=== PATIENT | female | born 1950 | race Caucasian/White ===

== ENCOUNTER → 2019-10-21 10:54 | Outpatient (BNVA) | payer MEDICARE, MEDICAID, SELFPAY | PROVIDERS: Family Provider Family Medicine; PCP Family Medicine; Visit Provider Specialist | DX: M25.531 Pain in right wrist (principal); M19.031 Primary osteoarthritis, right wrist | CPT/HCPCS: 73110 ==

== ENCOUNTER 2019-12-03 16:06 | Outpatient (CLI) | payer MEDICARE, MEDICAID, SELFPAY ==
[2019-12-03 16:49] LABS: Hematocrit 36.2 % (37.0-47.0); Hemoglobin 10.5 g/dL (11.5-15.3); Mean Corpuscular Hemoglobin 24.4 pg (28.0-34.0); Mean Platelet Volume 10.5 fL (7.4-10.4); Platelet Count 354 10^3/cmm (130-400); Red Blood Count 4.31 10^6/uL (4.1-5.3); Red Cell Distribution Width 15.7 % (12.1-15.1); White Blood Count 6.1 10^3/uL (4.0-10.0)
[2019-12-03 17:12] LABS: Alanine Aminotransferase 10 U/L (0-33); Albumin Level 4.3 g/dL (3.5-5.2); Alkaline Phosphatase 58 IU/L (35-105); Anion Gap 17.1 (5-19); Aspartate Amino Transferase 19 U/L (0-32); Blood Urea Nitrogen 12 mg/dL (8-23); Calcium 10.1 mg/dL (8.5-10.5); Carbon Dioxide 27 mmol/L (22-29); Chloride 95 mmol/L (98-107); Globulin 3.5 g/dL (1.3-4.6); Glomerular Filtration Rate 55.1 mL/min (90-130); Glucose 105 mg/dL (65-115); Osmolality Calculated 276 mOsm/kg (285-295); Potassium 4.1 mmol/L (3.5-5.1); Sodium 135 mmol/L (136-145); Total Bilirubin 0.2 mg/dL (0.15-1.2); Total Protein 7.8 g/dL (6.6-8.7)
[2019-12-03 17:21] LABS: Estmated Average Glucose 117; Hemoglobin A1C 5.7 % (4.0-6.0)
[2019-12-03 17:28] LABS: 25 Hydroxy Vitamin D 33 ng/mL (30-100)
[2019-12-03 17:29] LABS: Absolute Eosinophils 0.1 10^3/cmm (0.0-0.7); Absolute Segmented Neutrophil 4.7 10/cmm (1.6-7.1); Basophils Absolute 0.1 10^3/cmm (0.0-0.2); Eosinophils 2 %; Lymphocytes 17 %; Monocytes Absolute 0.1 10^3/cmm (0.1-0.6); Segmented Neutrophils 78 %; Total Cells Counted 100 (0-100)
[2019-12-03 17:31] LABS: Platelet Estimate Normal (Normal)
== END 2019-12-03 16:07 | disposition home or self-care (01) ==
PROVIDERS: Family Provider Family Medicine; PCP Family Medicine; Visit Provider Family Medicine
DX: J44.9 Chronic obstructive pulmonary disease, unspecified (principal)
CPT/HCPCS: 80053; 82306; 83036; 85007; 85027

== ENCOUNTER 2020-04-06 14:46 | Outpatient (CLI) | payer MEDICARE, MEDICAID, SELFPAY ==
[2020-04-06 15:12] LABS: Basophils # 0.1 10^3/uL (0.0-0.1); Basophils % 0.8 %; Eosinophils # 0.1 10^3/uL (0.0-0.8); Eosinophils % 1.5 %; Hematocrit 40.1 % (37.0-47.0); Hemoglobin 12.3 g/dL (11.5-15.3); Lymphocytes % 14.6 %; Mean Corpuscular HGB Conc 30.7 g/dL (30.0-36.0); Mean Corpuscular Hemoglobin 27.5 pg (28.0-34.0); Mean Corpuscular Volume 89.5 fL (81-99); Mean Platelet Volume 10.6 fL (7.4-10.4); Monocytes # 0.4 10^3/uL (0.2-0.9); Monocytes % 5.3 %; Neutrophils # 5.13 10^3/uL (1.8-7.7); Neutrophils % 77.3 %; Nucleated Red Blood Cells % 0 %; Platelet Count 319 10^3/cmm (130-400); Red Blood Count 4.48 10^6/uL (4.1-5.3); Red Cell Distribution Width 13.9 % (12.1-15.1); White Blood Count 6.6 10^3/uL (4.0-10.0)
[2020-04-06 17:01] LABS: Alanine Aminotransferase 14 U/L (0-33); Albumin Level 4.3 g/dL (3.5-5.2); Alkaline Phosphatase 50 IU/L (35-105); Anion Gap 15.3 (5-19); Aspartate Amino Transferase 20 U/L (0-32); Blood Urea Nitrogen 12 mg/dL (8-23); Calcium 9.1 mg/dL (8.5-10.5); Carbon Dioxide 26 mmol/L (22-29); Chloride 97 mmol/L (98-107); Estmated Average Glucose 108; Glomerular Filtration Rate 55.1 mL/min (90-130); Glucose 115 mg/dL (65-115); Hemoglobin A1C 5.4 % (4.0-6.0); Osmolality Calculated 275 mOsm/kg (285-295); Potassium 4.3 mmol/L (3.5-5.1); Sodium 134 mmol/L (136-145); Total Bilirubin 0.2 mg/dL (0.15-1.2); Total Protein 7.3 g/dL (6.6-8.7)
== END 2020-04-06 14:47 | disposition home or self-care (01) ==
LOC: LAB 14:55
PROVIDERS: PCP Family Medicine; Visit Provider Family Medicine
DX: E55.9 Vitamin D deficiency, unspecified (principal); N28.9 Disorder of kidney and ureter, unspecified; D64.9 Anemia, unspecified; J44.9 Chronic obstructive pulmonary disease, unspecified
CPT/HCPCS: 80053; 83036; 85025

== ENCOUNTER 2020-07-17 16:22 | Outpatient (CLI) | payer MEDICAID, SELFPAY ==
[2020-07-17 16:53] LABS: Basophils # 0.1 10^3/uL (0.0-0.1); Basophils % 0.6 %; Eosinophils # 0.3 10^3/uL (0.0-0.8); Eosinophils % 3.2 %; Hematocrit 43.8 % (37.0-47.0); Hemoglobin 13.3 g/dL (11.5-15.3); Lymphocytes # 1.9 10^3/uL (0.8-4.8); Lymphocytes % 19.3 %; Mean Corpuscular HGB Conc 30.4 g/dL (30.0-36.0); Mean Corpuscular Hemoglobin 28.1 pg (28.0-34.0); Mean Corpuscular Volume 92.4 fL (81-99); Mean Platelet Volume 11.1 fL (7.4-10.4); Monocytes # 0.7 10^3/uL (0.2-0.9); Monocytes % 7.6 %; Neutrophils # 6.67 10^3/uL (1.8-7.7); Nucleated Red Blood Cells % 0 %; Platelet Count 315 10^3/cmm (130-400); Red Blood Count 4.74 10^6/uL (4.1-5.3); Red Cell Distribution Width 12.9 % (12.1-15.1); White Blood Count 9.7 10^3/uL (4.0-10.0)
[2020-07-17 17:59] LABS: 25 Hydroxy Vitamin D 25 ng/mL (30-100); Alanine Aminotransferase 15 U/L (0-33); Albumin Level 4.4 g/dL (3.5-5.2); Alkaline Phosphatase 49 IU/L (35-105); Anion Gap 16.1 (5-19); Aspartate Amino Transferase 19 U/L (0-32); Blood Urea Nitrogen 11 mg/dL (8-23); Calcium 9.9 mg/dL (8.5-10.5); Carbon Dioxide 29 mmol/L (22-29); Chloride 97 mmol/L (98-107); Chol HDL Ratio 1.87 mg/dL (0.0-4.40); Cholesterol 155 mg/dL (0-200); Globulin 2.7 g/dL (1.3-4.6); Glomerular Filtration Rate 44.7 mL/min (90-130); Glucose 86 mg/dL (65-115); HDL Cholesterol 83 mg/dL (60-100); LDL Cholesterol Calculated 50 mg/dL (50-129); Osmolality Calculated 283 mOsm/kg (285-295); Potassium 5.1 mmol/L (3.5-5.1); Sodium 137 mmol/L (136-145); Total Bilirubin 0.4 mg/dL (0.15-1.2); Total Protein 7.1 g/dL (6.6-8.7); Triglycerides 109 mg/dL (0-150)
[2020-07-17 18:14] LABS: Estmated Average Glucose 108; Hemoglobin A1C 5.4 % (4.0-6.0)
== END 2020-07-17 16:23 | disposition home or self-care (01) ==
LOC: LAB 16:36
PROVIDERS: PCP Family Medicine; Visit Provider Family Medicine
DX: N28.9 Disorder of kidney and ureter, unspecified (principal); R53.81 Other malaise; J44.1 Chronic obstructive pulmonary disease with (acute) exacerbation; F19.20 Other psychoactive substance dependence, uncomplicated; E55.9 Vitamin D deficiency, unspecified; D64.9 Anemia, unspecified; M19.90 Unspecified osteoarthritis, unspecified site
CPT/HCPCS: 80053; 80061; 82306; 83036; 85025

== ENCOUNTER 2021-09-01 00:40 | Emergency (ER) | payer MEDICARE, MEDICAID, SELFPAY ==
[2021-09-01] VITALS (8 sets, daily range): BP systolic 125–176; BP diastolic 73–95; PULSE 89–111; RESP 22–28; TEMP 36.6; O2SAT 96–100; BMI 33.3
--- NOTE | 2021-09-01 01:27 | XRR_ITS ---
PROCEDURE INFORMATION: Exam: XR Chest Exam date and time: 09/01/2021 1:27 AM Age: 70 years old Clinical indication: Shortness of breath; Patient HX: C/O SOB. History of copd. TECHNIQUE: Imaging protocol: XR of the chest. Views: 1 view. COMPARISON: CR Chest 1 [place] [id number] 04/11/2019 9:32 PM FINDINGS: Lungs: Unremarkable. No consolidation. Pleural spaces: Unremarkable. No pleural effusion. No pneumothorax. Heart/Mediastinum: Unremarkable. No cardiomegaly. Bones/joints: Unremarkable. XR/XR chest 1V portable [id number] IMPRESSION: No acute findings. Stable chest radiograph compared with 04/11/2019.
--- NOTE | 2021-09-01 01:28 | ECG_ITS ---
[facility] Test Date: 2021-09-01 Pat Name: Ksenia Phan Department: Room: Gender: Female Brake Holder: : 1950 Requested By: Nirav Mata Order Number: [id number] Leyva MD: Breonna Riley M.D. Measurements Intervals [place] Rate: 108 P: 76 [place]: 155 QRS: 65 QRSD: 93 T: 80 QT: 328 QTc: 441 Interpretive Statements SINUS TACHYCARDIA POSSIBLE LEFT ATRIAL ENLARGEMENT [-0.1mV P-WAVE IN V1/V2] LEFT VENTRICULAR HYPERTROPHY AND ST-T CHANGE [VOLTAGE CRITERIA PLUS ST/T ABNORMALITY] Compared to ECG 04/12/2019 09:08:48 Left ventricular hypertrophy now present ST (T wave) deviation now present Aberrant conduction of supraventricular beat(s) no longer present Ventricular premature complex(es) no longer present T-wave abnormality no longer present Possible ischemia no longer present Electronically Signed On 09-02-2021 8:17:44 POTLINE MONITOR by Breonna Riley M.D. [id number]
[2021-09-01 01:38] LABS: Basophils # 0.1 10^3/uL (0.0-0.1); Basophils % 0.3 %; Eosinophils # 0.1 10^3/uL (0.0-0.8); Eosinophils % 0.4 %; Hematocrit 39.1 % (37.0-47.0); Hemoglobin 12.4 g/dL (11.5-15.3); Lymphocytes # 0.8 10^3/uL (0.8-4.8); Lymphocytes % 4.4 %; Mean Corpuscular HGB Conc 31.7 g/dL (30.0-36.0); Mean Corpuscular Hemoglobin 29.1 pg (28.0-34.0); Mean Corpuscular Volume 91.8 fl (81-99); Mean Platelet Volume 11.1 fL (7.4-10.4); Monocytes # 0.9 10^3/uL (0.2-0.9); Monocytes % 4.9 %; Neutrophils % 89.3 %; Nucleated Red Blood Cells % 0 %; Platelet Count 291 10^3/cmm (130-400); Red Blood Count 4.26 10^6/uL (4.1-5.3); Red Cell Distribution Width 12.6 % (12.1-15.1); White Blood Count 18.4 10^3/uL (4.0-10.0)
[2021-09-01 01:44] LABS: D Dimer 1.53 ug/mIFEU (0-0.59)
[2021-09-01 01:47] LABS: Lactic Sepsis W/Reflex 1.3 mmol/L (0.5-2.2)
[2021-09-01 01:49] LABS: Troponin(5th) Baseline 50 ng/L (0-10)
[2021-09-01] MEDS: FUROsemide 10 mg/mL SDV 4mL 40 MG IVP (01:53)
[2021-09-01 01:59] LABS: NT Pro B Type Natriuretic Pept 872 pg/mL (0-125); Procalcitonin 0.77 ng/mL (0-0.5)
[2021-09-01 02:00] LABS: Urine Color Yellow (Yellow); pH Urine 6 (5-7)
[2021-09-01 02:01] LABS: Add Urine Microscopic? YES; Bilirubin Urine Neg (Negative); Blood Urine 2+ (Negative); Glucose Urine UA Norm (Normal); Ketones Urine Negative (Negative); Leukocyte Esterase Urine 2+ (Negative); Nitrate Urine Positive (Negative); Protein Urine 1+ (Negative); Urobilinogen Urine Norm (Negative)
[2021-09-01 02:06] LABS: Add Urine Culture? Yes; Bacteria Urine 4+ /hpf; Mucus Urine 2+ /hpf; RBC Urine 15-25 /hpf (0-2); WBC Urine TOO NUMEROUS TO CNT /hpf (0-5)
[2021-09-01 02:10] LABS: Alanine Aminotransferase 10 U/L (0-33); Alkaline Phosphatase 51 IU/L (35-105); Anion Gap 15.6 (5-19); Aspartate Amino Transferase 16 U/L (0-32); Blood Urea Nitrogen 11 mg/dL (8-23); C Reactive Protein 65.4 mg/L (0.0-4.9); Calcium 8.6 mg/dL (8.5-10.5); Carbon Dioxide 28 mmol/L (22-29); Chloride 96 mmol/L (98-107); Globulin 2.3 g/dL (1.3-4.6); Glomerular Filtration Rate 62.1 mL/min (90-130); Glucose 111 mg/dL (65-115); Osmolality Calculated 282 mOsm/kg (285-295); Potassium 3.6 mmol/L (3.5-5.1); Sodium 136 mmol/L (136-145); Total Bilirubin 0.5 mg/dL (0.15-1.2); Total Protein 6.3 g/dL (6.6-8.7)
[2021-09-01] MEDS: ipratropium-albuterol 3 mL Neb INHALATION (02:11)
[2021-09-01 02:28] LABS: ABG PCO2 48.1 mmHg (35-45); ABG PH Result 7.44 (7.35-7.45); Arterial Blood Gas Hematocrit 40.1 % (37-47); Base Excess ABG 7.4 mmol/L (-2.0-2.0); Blood Gas Allen Test Pos; Blood Gas LPM 4.5 %; Blood Gas Operator Identificat glc; Blood Gas Sample Site Radial, left; Blood Gas Sample Type Arterial; Carboxyhemoglobin 0.8 %THgb (0.4-20.1); HCO3 ABG 32.8 mmol/L (22-26); HGB O2 Sat 97.2 % (95-100); Methemoglobin 0.8 % (0.4-1.5); Oxygen Device NC; Total Hemoglobin 13.1 g/dL (12-16)
--- NOTE | 2021-09-01 02:45 | CTR_ITS ---
PROCEDURE INFORMATION: Exam: CTA Chest With Contrast Exam date and time: 09/01/2021 2:45 AM Age: 70 years old Clinical indication: Abnormal findings; Abnormal diagnostic tests; Elevated d-dimer; Shortness of breath; Patient HX: C/O SOB. Elevated d dimer. History of copd. TECHNIQUE: Imaging protocol: Computed tomographic angiography of the chest with contrast. 3D rendering (Not supervised by radiologist): MIP and/or 3D reconstructed images were created by the technologist. Radiation optimization: All CT scans at this facility use at least one of these dose optimization techniques: automated exposure control; mA and/or kV adjustment per patient size (includes targeted exams where dose is matched to clinical indication); or iterative reconstruction. Contrast material: OMNI 350; Contrast volume: 125 ml; Contrast route: INTRAVENOUS (IV); COMPARISON: CT chest w con* [id number] 08/27/2017 10:02 AM RADIATION DOSE METRICS: Total DLP (mGy-cm): 1157.21 FINDINGS: Pulmonary arteries: Normal. No pulmonary emboli. Aorta: Unremarkable. No aortic aneurysm. No aortic dissection. Lungs: There is a background of centrilobular emphysema and pulmonary fibrosis. Punctate calcified granulomas are seen in the right upper lobe. Pleural spaces: Unremarkable. No pneumothorax. No pleural effusion. Heart: Unremarkable. No cardiomegaly. No pericardial effusion. Lymph nodes: Unremarkable. No enlarged lymph nodes. Kidneys and ureters: There is 11.4 mm hypoattenuation cystic lesions seen on the lateral aspect of the left kidney compatible with a simple cyst. Bones/joints: Unremarkable. No acute fracture. Soft tissues: Unremarkable. CT/CT angio chest PE protcl [id number] IMPRESSION: 1. There is no evidence for pulmonary emboli. 2. Background of centrilobular emphysema and pulmonary fibrosis. 3. Benign 11.4 mm hypoattenuation cyst within the left kidney. No further workup needed. COMMENTS: Consistent with the [employer]'s Incidental Findings Committee white paper (J Am Sarah Radiol 2018): Any incidental renal lesion less than 1 cm or classified as too small to characterize, or any incidental cystic renal lesion characterized as simple-appearing, is likely benign. No follow-up imaging is recommended for these lesions per consensus recommendations based on imaging criteria.
--- NOTE | 2021-09-01 02:48 | ED_ITS ---
HPI - SOB/Dyspnea General: Chief Complaint: Shortness of Breath/Dyspnea Stated Complaint: SOB Time Seen by Provider: 09/01/21 00:48 History of Present Illness: HPI Narrative: 70-year-old female presenting with essentially a sudden onset shortness of breath. She states that she was in her normal state of health, on 3 L of oxygen earlier Friday. She states that around 9 PM, she began to get short of breath. She gave herself a breathing treatment, and her turned up her oxygen at home some. She states that she continued to worsen despite this. He called an ambulance. In route, she was given Solu-Medrol. She denies any fever. She states she has not had any increased cough necessarily. Minimal sputum production. She has had 2 Covid vaccinations. No known contacts MD elicited complaint: shortness of breath Pertinent past history: COPD Onset (ago): hour(s) Context: other Timing: constant and progressively worsening Severity: moderate Exacerbating factors: lying flat and exertion Relieving factors: nothing Known history of: COPD Associated symptoms: Reports chest congestion and cough (Minimal); Deny abdominal pain, chest pain, diaphoresis, dizziness, fever(s), nausea or palpitations Treatment prior to arrival: oxygen and other (Steroids) Review of Systems Const: Denies: fever(s) or diaphoresis Card: Denies: chest pain or palpitations Resp: Reports: chest congestion GI: Denies: abdominal pain or nausea Neuro: Denies: dizziness [facility] PFSH: Medical History (Updated 09/01/21 @ 04:05 by Nirav Nolasco DO) COPD (chronic obstructive pulmonary disease) Degenerative joint disease of right wrist Dyslipidemia Fibromyalgia HTN (hypertension) Hypertension WPW (Tamut-Armbdhvqp-Pxail syndrome) Surgical History H/O: hysterectomy Hx of hand surgery Family History Mother Hypertension Denies family history of Diabetes CAD (coronary artery disease) Clotting disorder Dementia Hyperlipidemia Psychiatric illness Chronic kidney disease (CKD) Suicide Anesthesia complication Bleeding disorder Family history of premature coronary artery disease Lung disease Cancer Stroke Social History Smoking and tobacco status: former smoker Quit status (tobacco): has quit using tobacco Year quit tobacco: 5 years ago Alcohol intake: never Physical Exam Const: COMMON NORMALS: patient oriented x3 and alert GENERAL APPEARANCE: ill appearing HENMT: COMMON NORMALS: normocephalic and atraumatic HEAD & SCALP: normocephalic and atraumatic Eye: COMMON NORMALS: Equal, round and reactive pupils present and EOMs intact bilaterally PUPIL: Yes Equal, round and reactive pupils present Chest: COMMONS NORMALS: normal inspection of the chest Resp: EFFORT & INSPECTION: Yes tachypneic, Yes respiratory distress, Yes la bored and Yes prolonged expiratory phase AUSCULTATION: rhonchi and wheezes Cardio: COMMON NORMALS: regular rhythm RATE: tachycardic RHYTHM: regular rhythm GI: COMMON NORMALS: Normal to inspection, nondistended, normoactive bowel sounds present and Soft to palpation PALPATION: Yes Soft to palpation Neuro: COMMON NORMALS: patient oriented x3 SENSORIUM/ORIENTATION: Yes alert Course Vital Signs: Vital signs: Vital Signs Temperature 97.8 F 09/01/21 01:14 Pulse Rate 89 09/01/21 03:58 Respiratory Rate 22 H 09/01/21 03:58 Blood Pressure 128/91 09/01/21 02:28 Pulse Oximetry 100 09/01/21 03:58 MDM - SOB/Dyspnea MDM Narrative: Medical decision making narrative: Mild to moderate respiratory distress despite increased oxygen consumption and steroids in route. She was gi breanne an Atrovent/albuterol treatment here with some improvement. She still wheezing. She has an increased O2 demand, on 4.5 L up from 3. Her blood gas shows a pH of 7.4 with a PCO2 of 48, and PO2 of 100. She has sinus tachycardia on EKG, with a mild elevation in troponin in the setting of a normal renal function, and mild elevation in BNP. Trope leak could come from a pulmonary embolus, as her D-dimer is significantly elevated. CTA is pending. Her COVID- 19 is pending as well. Troponin did not elevate significantly at 2 hours. She has no chest pain. Clinically she looks much improved. She wishes to go home. She does have a urinary tract infection. No evidence of pneumonia, although we will cover her for COPD exacerbation and UTI with Levaquin. She received Rocephin here. Lab Data: Labs: Lab Results 09/01/21 09/01/21 09/01/21 00:48 00:48 00:48 WBC 18.4 10^3/uL H 10 ^3/uL (4.0-10.0) RBC 4.26 10^6/uL 10^6 /uL (4.1-5.3) Hgb 12.4 g/dL g/dL (11.5-15.3) Hct 39.1 % % (37.0-47.0) MCV 91.8 fl fl (81-99) MCH 29.1 pg pg (28.0-34.0) MCHC 31.7 g/dL g/dL (30.0-36.0) RDW 12.6 % % (12.1-15.1) Plt Count 291 10^3/cmm 10^3 /cmm (130-400) MPV 11.1 fL H fL (7.4-10.4) Neut % (Auto) 89.3 % % Lymph % (Auto) 4.4 % % [place] % (Auto) 4.9 % % Eos % (Auto) 0.4 % % Baso % (Auto) 0.3 % % Neut # (Auto) 16.40 10^3/uL H 1 0^3/uL (1.8-7.7) Lymph # (Auto) 0.8 10^3/uL 10^3/ uL (0.8-4.8) [place] # (Auto) 0.9 10^3/uL 10^3/ uL (0.2-0.9) Eos # (Auto) 0.1 10^3/uL 10^3/ uL (0.0-0.8) Baso # (Auto) 0.1 10^3/uL 10^3/ uL (0.0-0.1) Nucleated RBC % (a uto) 0 % % Nucleated RBCs # 0.0 /100WBC /100W BC D-Dimer 1.53 ug/mIFEU H u g/mIFEU (0-0.59) Specimen Type Sample Site ABG pH ABG pCO2 ABG pO2 ABG HCO3 ABG Base Excess Ga Test Hematocrit Hgb O2 Saturation Carboxyhemoglobin Methemoglobin Total Hemoglobin O2 Delivery Device O2 Liters/Min FiO2 Arcade Game Technician ID Sodium 136 mmol/L mmol/L (136-145) Potassium 3.6 mmol/L mmol/L (3.5-5.1) Chloride 96 mmol/L L mmol/ L (98-107) Carbon Dioxide 28 mmol/L mmol/L (22-29) Anion Gap 15.6 (5-19) BUN 11 mg/dL mg/dL (8-23) Creatinine 0.9 mg/dL mg/dL (0.5-0.9) GFR Calculation 62.1 mL/min L mL/ min (90-130) Glucose 111 mg/dL mg/dL (65-115) Calculated Osmolal ity 282 mOsm/kg L mOs m/kg (285-295) Lactic Acid Calcium 8.6 mg/dL mg/dL (8.5-10.5) Total Bilirubin 0.5 mg/dL mg/dL (0.15-1.2) AST 16 U/L U/L (0-32) ALT 10 U/L U/L (0-33) Alkaline Phosphata se 51 IU/L IU/L (35-105) Troponin T Baselin e Troponin T 120 Min [place] Troponin T C-Reactive Protein 65.4 mg/L H mg/L (0.0-4.9) NT-Pro-B Natriuret Pep 872 pg/mL H pg/mL (0-125) Total Protein 6.3 g/dL L g/dL (6.6-8.7) Albumin 4.0 g/dL g/dL (3.5-5.2) Globulin 2.3 g/dL g/dL (1.3-4.6) Procalcitonin 0.77 ng/mL H ng/m L (0-0.5) Urine Color Urine Appearance Urine pH Ur Specific Gravit y Urine Protein Urine Glucose (UA) Urine Ketones Urine Blood Urine Nitrate Urine Bilirubin Urine Urobilinogen Ur Leukocyte Leia ase Urine RBC Urine WBC Ur Squamous Epith Cells Amorphous Sediment Urine Bacteria Urine Mucus 09/01/21 09/01/21 09/01/21 00:48 00:48 01:08 WBC RBC Hgb Hct MCV MCH MCHC RDW Plt Count MPV Neut % (Auto) Lymph % (Auto) [place] % (Auto) Eos % (Auto) Baso % (Auto) Neut # (Auto) Lymph # (Auto) [place] # (Auto) Eos # (Auto) Baso # (Auto) Nucleated RBC % (a uto) Nucleated RBCs # D-Dimer Specimen Type Sample Site ABG pH ABG pCO2 ABG pO2 ABG HCO3 ABG Base Excess Ga Test Hematocrit Hgb O2 Saturation Carboxyhemoglobin Methemoglobin Total Hemoglobin O2 Delivery Device O2 Liters/Min FiO2 Arcade Game Technician ID Sodium Potassium Chloride Carbon Dioxide Anion Gap BUN Creatinine GFR Calculation Glucose Calculated Osmolal ity Lactic Acid 1.3 mmol/L mmol/L (0.5-2.2) Calcium Total Bilirubin AST ALT Alkaline Phosphata se Troponin T Baselin e 50 ng/L H ng/L (0-10) Troponin T 120 Min [place] Troponin T C-Reactive Protein NT-Pro-B Natriuret Pep Total Protein Albumin Globulin Procalcitonin Urine Color Yellow (Yellow) Urine Appearance Sl cloudy A (CLEAR) Urine pH 6 (5-7) Ur Specific Gravit y 1.010 (1.005-1.030) Urine Protein 1+ H (Negative) Urine Glucose (UA) Norm (Normal) Urine Ketones Negative (Negative) Urine Blood 2+ H (Negative) Urine Nitrate Positive H (Negative) Urine Bilirubin Neg (Negative) Urine Urobilinogen Norm mg/dL mg/dL (Negative) Ur Leukocyte Leia ase 2+ H (Negative) Urine RBC 15-25 /hpf H /hpf (0-2) Urine WBC Too numerous to c nt /hpf H /hpf (0-5) Ur Squamous Epith Cells 5-10 /hpf H /hpf (0-5) Amorphous Sediment Not Reportable Urine Bacteria 4+ /hpf H /hpf (NONE) Urine Mucus 2+ /hpf /hpf 09/01/21 09/01/21 02:16 02:45 WBC RBC Hgb Hct MCV MCH MCHC RDW Plt Count MPV Neut % (Auto) Lymph % (Auto) [place] % (Auto) Eos % (Auto) Baso % (Auto) Neut # (Auto) Lymph # (Auto) [place] # (Auto) Eos # (Auto) Baso # (Auto) Nucleated RBC % (a uto) Nucleated RBCs # D-Dimer Specimen Type Arterial Sample Site Radial, left ABG pH 7.44 (7.35-7.45) ABG pCO2 48.1 mmHg H mmHg (35-45) ABG pO2 100.0 mmHg mmHg (80.0-100.0) ABG HCO3 32.8 mmol/L H mmo l/L (22-26) ABG Base Excess 7.4 mmol/L H mmol /L (-2.0-2.0) Ga Test Pos Hematocrit 40.1 % % (37-47) Hgb O2 Saturation 97.2 % % (95-100) Carboxyhemoglobin 0.8 %THgb %THgb (0.4-20.1) Methemoglobin 0.8 % % (0.4-1.5) Total Hemoglobin 13.1 g/dL g/dL (12-16) O2 Delivery Device Nc O2 Liters/Min 4.5 % % FiO2 38.0 % % Arcade Game Technician ID glc Sodium Potassium Chloride Carbon Dioxide Anion Gap BUN Creatinine GFR Calculation Glucose Calculated Osmolal ity Lactic Acid Calcium Total Bilirubin AST ALT Alkaline Phosphata se Troponin T Baselin e Troponin T 120 Min [place] 46.53 ng/L H ng/L (0-10) [place] Troponin T -3.47 ABS# L ABS# (0-10) C-Reactive Protein NT-Pro-B Natriuret Pep Total Protein Albumin Globulin Procalcitonin Urine Color Urine Appearance Urine pH Ur Specific Gravit y Urine Protein Urine Glucose (UA) Urine Ketones Urine Blood Urine Nitrate Urine Bilirubin Urine Urobilinogen Ur Leukocyte Leia ase Urine RBC Urine WBC Ur Squamous Epith Cells Amorphous Sediment Urine Bacteria Urine Mucus Discharge Plan Discharge Patient Disposition: Home Clinical Impression: Acute exacerbation of chronic obstructive pulmonary disease, Acute UTI Condition: Stable Prescriptions: New prednisone 20 mg tablet 60 mg PO DAILY Qty: 21 RF: 0 levofloxacin 750 mg tablet 750 mg PO DAILY 7 Days Qty: 7 RF: 0 No Action aspirin [Adult Aspirin Regimen] 81 mg tablet,delayed release (DR/EC) 81 mg PO QDAY RF: 0 Ca-D3-mag wr-dbsf-yaa-twila-bor PO RF: 0 cyclobenzaprine 10 mg tablet 10 mg PO TID RF: 0 duloxetine 60 mg capsule, delayed rel sprinkle 60 mg PO QDAY RF: 0 omega-3 fatty acids [Fish Oil Concentrate] 1,000 mg capsule 1,000 mg PO QDAY RF: 0 fluticasone propionate [Allergy Relief (fluticasone)] 50 mcg/actuation spray,suspension 2 spray INTRANASAL QDAY RF: 0 ipratropium-albuterol 0.5 mg-3 mg(2.5 mg base)/3 mL solution for nebulization 3 ml INHALATION Q4H PRNRF: 0 lisinopril 10 mg tablet 10 mg PO QDAY RF: 0 loratadine 10 mg capsule 10 mg PO QDAY RF: 0 metoprolol tartrate 25 mg tablet 25 mg PO QDAY RF: 0 prednisone 10 mg tablet 10 mg PO QDAY RF: 0 albuterol sulfate [ProAir HFA] 90 mcg/actuation HFA aerosol inhaler 2 puff INHALATION QID RF: 0 Adult 50 Plus Probiotic 4 billion cell capsule 4,000 mmu cells PO QDAY RF: 0 simvastatin 20 mg tablet 20 mg PO QDAY RF: 0 Spiriva with HandiHaler 18 mcg capsule, w/inhalation device 1 cap INHALATION QDAY RF: 0 tramadol 50 mg tablet 50 mg PO TID PRNRF: 0 (DME) light weight upright walker stand up rollator walker with forearm supports Qty: 1 RF: 0 Discharge Orders: Discharge ED (Routine); Ordered 09/01/21 Ordered By: Nirav Nolasco Referrals: Delroy Santillan, [Primary Care Provider] - 1-3 days Discharge Diet: Advance as tolerated Discharge Activity: Increase activity as tolerated Patient Instructions: Urinary Tract Infection in Women (ED), COPD (Chronic Obstructive Pulmonary Disease) (ED) Activity Restrictions/Additional Instructions: Use your breathing treatments every 4 hours while awake for the next 48 hours, then as needed. Other medications as directed. Return for worsening shortness of breath despite treatment, significant chest discomfort, lethargy or mental status changes, fever greater than 100, any other concerning symptoms. The results of your COVID-19 test will be available tomorrow. You should get a call if they are positive Coding Level of Care Code ED Printed Circuit Board Panels Trimmer for Chg Fwd Exam Detailed
[2021-09-01] MEDS: iohexol 350 mg/mL 100 mL Btl IV ×2 (03:10)
[2021-09-01] MEDS: cefTRIAXone 1,000 MG in sodium chloride 0.9% (plus) 50 ML 100 MG IV (03:16)
[2021-09-01 03:20] LABS: Troponin 5 2HR 46.53 ng/L (0-10)
[2021-09-01 03:25] LABS: Troponin 5 2HR Delta -3.47 ABS# (0-10)
[2021-09-01 06:00] LABS: Adenovirus Not Detected (NOT DETECT); Chlamydia Pneumoniae Not Detected (NOT DETECT); Coronavirus 229E,HKU1,NL63,OC4 Not Detected (NOT DETECT); Human Metapneumovirus Not Detected (NOT DETECT); Human Rhinovirus/Enterovirus Not Detected (NOT DETECT); Influenza A Not Detected (NOT DETECT); Influenza A H1 Not Detected (NOT DETECT); Influenza A H1-2009 Not Detected (NOT DETECT); Influenza A H3 Not Detected (NOT DETECT); Influenza B Not Detected (NOT DETECT); Mycoplasma Pneumoniae Not Detected (NOT DETECT); Parainfluenza Virus Type 1 Not Detected (NOT DETECT); Parainfluenza Virus Type 2 Not Detected (NOT DETECT); Parainfluenza Virus Type 3 Not Detected (NOT DETECT); Parainfluenza Virus Type 4 Not Detected (NOT DETECT); Respiratory Syncytial Virus A Not Detected (NOT DETECT); Respiratory Syncytial Virus B Not Detected (NOT DETECT); SARS-COV-2 Not Detected (NOT DETECT)
--- NOTE | 2021-09-01 07:28 | ECG_ITS ---
[facility] Test Date: 2021-09-01 Pat Name: Ksenia Phan Department: Room: Gender: Female Assistant: : 1950 Requested By: Nirav Mata Order Number: [id number] Leyva MD: Breonna Riley M.D. Measurements Intervals [place] Rate: 108 P: 78 NE: 150 QRS: 63 QRSD: 88 T: 74 QT: 334 QTc: 449 Interpretive Statements SINUS TACHYCARDIA POSSIBLE LEFT ATRIAL ENLARGEMENT [-0.1mV P-WAVE IN V1/V2] LEFT VENTRICULAR HYPERTROPHY AND ST-T CHANGE [VOLTAGE CRITERIA PLUS ST/T ABNORMALITY] Compared to ECG 09/01/2021 00:56:33 No significant changes Electronically Signed On 09-02-2021 8:34:54 IN FLIGHT CREW MEMBER by Breonna Riley M.D. [email or web address]/store/[id number]
== END 2021-09-01 05:12 | disposition home or self-care (01) ==
PROVIDERS: Emergency Provider Emergency Medicine; PCP Family Medicine
DX: J44.1 Chronic obstructive pulmonary disease with (acute) exacerbation (principal); N39.0 Urinary tract infection, site not specified; R77.8 Other specified abnormalities of plasma proteins; R79.89 Other specified abnormal findings of blood chemistry; R79.1 Abnormal coagulation profile; E78.5 Hyperlipidemia, unspecified; I10 Essential (primary) hypertension; I45.6 Pre-excitation syndrome; Z79.82 Long term (current) use of aspirin
CPT/HCPCS: 36600; 71045; 71275; 80053; 81001; 82805; 83605; 83880; 84145; 84484; 85025; 85378; 86140; 87070; 87077; 87086; 87186; 87205; 87635; 93005; 94640; 96365; 96375; 99284; J0696; J1940; Q9967

== ENCOUNTER 2021-09-25 16:15 | Outpatient (CLI) | payer MEDICARE, MEDICAID, SELFPAY ==
[2021-09-25 16:35] LABS: Basophils % 0.2 %; Eosinophils # 0.1 10^3/uL (0.0-0.8); Eosinophils % 1.4 %; Hematocrit 38.7 % (37.0-47.0); Hemoglobin 11.8 g/dL (11.5-15.3); Lymphocytes # 0.8 10^3/uL (0.8-4.8); Lymphocytes % 18.7 %; Mean Corpuscular HGB Conc 30.5 g/dL (30.0-36.0); Mean Corpuscular Hemoglobin 28.7 pg (28.0-34.0); Mean Corpuscular Volume 94.2 fl (81-99); Mean Platelet Volume 11.1 fL (7.4-10.4); Monocytes # 0.4 10^3/uL (0.2-0.9); Monocytes % 9.3 %; Neutrophils # 2.93 10^3/uL (1.8-7.7); Neutrophils % 70.2 %; Nucleated Red Blood Cells % 0 %; Platelet Count 321 10^3/cmm (130-400); Red Blood Count 4.11 10^6/uL (4.1-5.3); White Blood Count 4.2 10^3/uL (4.0-10.0)
[2021-09-25 17:38] LABS: Alanine Aminotransferase 14 U/L (0-33); Alkaline Phosphatase 62 IU/L (35-105); Anion Gap 18.8 (5-19); Aspartate Amino Transferase 20 U/L (0-32); Blood Urea Nitrogen 7 mg/dL (8-23); Calcium 10.7 mg/dL (8.5-10.5); Carbon Dioxide 28 mmol/L (22-29); Chloride 93 mmol/L (98-107); Chol HDL Ratio 2.79 mg/dL (0.0-4.40); Cholesterol 176 mg/dL (0-200); Globulin 3.1 g/dL (1.3-4.6); Glucose 106 mg/dL (65-115); HDL Cholesterol 63 mg/dL (60-100); LDL Cholesterol Calculated 87 mg/dL (50-129); LDL HDL Ratio 1.38 RATIO (0.00-3.22); Osmolality Calculated 280 mOsm/kg (285-295); Potassium 3.8 mmol/L (3.5-5.1); Sodium 136 mmol/L (136-145); Total Bilirubin 0.2 mg/dL (0.15-1.2); Total Protein 7.1 g/dL (6.6-8.7); Triglycerides 129 mg/dL (0-150)
[2021-09-25 18:32] LABS: 25 Hydroxy Vitamin D 35 ng/mL (30-100); Vitamin B12 744 pg/mL (232-1245)
[2021-09-25 20:04] LABS: Estmated Average Glucose 108; Hemoglobin A1C 5.4 % (4.0-6.0)
== END 2021-09-25 16:16 | disposition home or self-care (01) ==
LOC: LAB 16:19
PROVIDERS: PCP Family Medicine; Visit Provider Family Medicine
DX: D50.9 Iron deficiency anemia, unspecified (principal)
CPT/HCPCS: 80053; 80061; 82306; 82607; 83036; 85025

== ENCOUNTER → 2022-02-01 09:53 | Outpatient (BNVA) | payer MEDICARE, MEDICAID, SELFPAY | PROVIDERS: PCP Family Medicine; Visit Provider Family Medicine | DX: I10 Essential (primary) hypertension (principal); N28.9 Disorder of kidney and ureter, unspecified; J44.9 Chronic obstructive pulmonary disease, unspecified | CPT/HCPCS: 80048 ==

== ENCOUNTER 2022-05-10 10:12 | Inpatient (IN) | payer MEDICARE, MEDICAID, SELFPAY ==
[2022-05-10] VITALS (15 sets, daily range): BP systolic 105–194; BP diastolic 53–123; PULSE 94–111; RESP 15–35; TEMP 36.5–36.8; O2SAT 92–100; BMI 28.3
--- NOTE | 2022-05-10 | XR_ITS ---
WS: [id number] XR chest 2V* [id number] REASON FOR EXAM: SOB, weakness FINDINGS: The chest is unchanged compared to 09/01/2021. Mild tortuosity the thoracic aorta. Normal heart size. Calcified granulomatous disease in both hemithoraces. No acute pulmonary parenchymal or pleural abnormality identified. Mild thoracic scoliosis and convex right. XR/XR chest 1V portable [id number] IMPRESSION: No acute chest abnormality.
--- NOTE | 2022-05-10 10:18 | XR_ITS ---
WS: [id number] XR chest 2V* [id number] REASON FOR EXAM: SOB, weakness FINDINGS: The chest is unchanged compared to 09/01/2021. Mild tortuosity the thoracic aorta. Normal heart size. Calcified granulomatous disease in both hemithoraces. No acute pulmonary parenchymal or pleural abnormality identified. Mild thoracic scoliosis and convex right.
[2022-05-10 10:31] LABS: Basophils % 0.2 %; Eosinophils % 0.3 %; Hematocrit 40.7 % (37.0-47.0); Hemoglobin 12.6 g/dL (11.5-15.3); Lymphocytes # 0.9 10^3/uL (0.8-4.8); Lymphocytes % 14.2 %; Mean Corpuscular Hemoglobin 28.3 pg (28.0-34.0); Mean Corpuscular Volume 91.5 fl (81-99); Mean Platelet Volume 10.5 fL (7.4-10.4); Monocytes # 0.2 10^3/uL (0.2-0.9); Monocytes % 3.3 %; Neutrophils # 5.12 10^3/uL (1.8-7.7); Neutrophils % 81.5 %; Nucleated Red Blood Cells % 0 %; Platelet Count 246 10^3/cmm (130-400); Red Blood Count 4.45 10^6/uL (4.1-5.3); Red Cell Distribution Width 12.1 % (12.1-15.1); White Blood Count 6.3 10^3/uL (4.0-10.0)
--- NOTE | 2022-05-10 10:39 | W.ED.SOB ---
Documented by User: Paty Clay PA-C 05/10/22 13:49 HPI - SOB/Dyspnea General: Chief Complaint: ER Hold Stated Complaint: SOB/ WEAKNESS Time Seen by Provider: 05/10/22 10:22 Source: patient Mode of arrival: EMS Limitations: no limitations History of Present Illness: HPI Narrative: 71-year-old female with a significant history of COPD presents to the ER today for worsening shortness of breath and weakness. Patient reports about 3 weeks of increasing shortness of breath and weakness. She reports 3 weeks ago she got sick with diarrhea. She reports her had been sick with similar symptoms and congestion however she reports she just mostly had the diarrhea. Patient reports the diarrhea has since improved but she has tried pushing fluids and feels she is just dehydrated. Patient reports the shortness of breath has continued to worsen throughout that time. Patient reports she is normally on 3 L of oxygen however that does not seem to be keeping her oxygen up at this time. Patient denies any fever or chills. Denies any increased cough. Patient was given Solu-Medrol and albuterol in route by EMS. 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) Surgical History H/O: hysterectomy Hx of hand surgery Family History Mother Hypertension Denies family history of Diabetes CAD (coronary artery disease) Clotting disorder Dementia Hyperlipidemia Psychiatric illness Chronic kidney disease (CKD) Suicide Anesthesia complication Bleeding disorder Family history of premature coronary artery disease Lung disease Cancer Stroke Social History Smoking and tobacco status: former smoker Quit status (tobacco): has quit using tobacco Year quit tobacco: 5 years ago Alcohol intake: never Household members: spouse Marital status: Current occupational status: retired Pets and animals: Yes Current gender identity: Female Physical Exam Const: COMMON NORMALS: average body habitus, patient oriented x3, no limitations, alert and well nourished HENMT: COMMON NORMALS: normocephalic, atraumatic, external ears normal, Normal external nose present, Normal nasal mucous membranes and turbinates present, moist oral mucous membranes and oropharynx normal HEAD & SCALP: normocephalic and atraumatic NOSE: Normal external nose present and Normal nasal mucous membranes and turbinates present EXTERNAL EAR: Yes external ears normal Eye: COMMON NORMALS: conjunctivae normal CONJUNCTIVA: Yes conjunctivae normal Neck/C-Spine: COMMON NORMALS: full ROM and no lymphadenopathy Resp: EFFORT & INSPECTION: Yes tachypneic, Yes respiratory distress, Yes labored, Yes uses accessory muscles, No audible wheezes and Yes prolonged expiratory phase AUSCULTATION: diminished lung sounds bilateral Cardio: COMMON NORMALS: regular rate, regular rhythm and No murmurs present (Cardio) RATE: regular rate RHYTHM: regular rhythm GI: COMMON NORMALS: Normal to inspection, nondistended, normoactive bowel sounds present, Soft to palpation and non-tender PALPATION: Yes Soft to palpation Extremity: COMMON NORMALS: full ROM and no pedal edema Neuro: COMMON NORMALS: patient oriented x3 SENSORIUM/ORIENTATION: Yes alert Psych: COMMON NORMALS: mental status grossly normal, Normal thought process present and cooperative THOUGHT PROCESS: Normal thought process present Skin: COMMON NORMALS: no rashes or lesions noted and no wounds GENERAL SKIN EXAM: no rashes or lesions noted Course ED course: 71-year-old female with a significant history of COPD presents to the ER today for worsening shortness of breath and weakness for the last 3 weeks. Patient reports she got sick and had several days of diarrhea about 3 weeks ago. She reports her was also sick at that time with some congestion and diarrhea. Patient reports the diarrhea improved however the weakness is continued and the shortness of breath has continued to worsen. Patient is continuing her home meds but they do not seem to be helping anymore. At home patient is on 3 L of oxygen however feels like that has not been enough lately. Patient reports the weakness happens when she gets up and tries to do anything at all. Patient denies any fever or chills. Denies any cough. We will do a full work-up at this time. Given history likely a COPD exacerbation versus pneumonia. Reevaluation(s): Reevaluation #1: Given COVID-positive and patient's persistent weakness, we will see about admitting patient. I did speak with the on-call doctor, Dr. Bazzi. Dr. Bazzi excepts patient and will place admission orders at this time. Time: 11:46 Vital Signs: Vital signs: Vital Signs Temperature 97.9 F 05/12/22 13:36 Pulse Rate 86 05/12/22 13:36 Respiratory Rate 20 H 05/12/22 13:36 Blood Pressure 120/64 05/12/22 13:36 Pulse Oximetry 97 05/12/22 13:36 Oxygen Delivery Me thod 05/12/22 11:42 Oxygen Flow Rate 2 05/12/22 08:20 MDM - SOB/Dyspnea Medical Decision Making 71-year-old female with a significant history of COPD presents to the ER today for worsening shortness of breath and weakness for the last 3 weeks. Patient reports she got sick and had several days of diarrhea about 3 weeks ago. She reports her was also sick at that time with some congestion and diarrhea. Patient reports the diarrhea improved however the weakness is continued and the shortness of breath has continued to worsen. Patient is continuing her home meds but they do not seem to be helping anymore. At home patient is on 3 L of oxygen however feels like that has not been enough lately. Patient reports the weakness happens when she gets up and tries to do anything at all. Patient denies any fever or chills. Denies any cough. We will do a full work-up at this time. Given history likely a COPD exacerbation versus pneumonia. Patient is COVID-positive. Given patient is weak and has been troubled to perform home ADLs, we will see about admission. I spoke with Dr. Bazzi, he accepts patient for admission. He will place all orders. Lab Data : 05/12/22 05:35 05/12/22 05:35 Labs/Radiology: Radiology Impressions Chest X-Ray 05/11/22 05:00 IMPRESSION: Mildly increased density overlying the lower peripheral left chest, favored to be due to overlapping breast tissue. The remainder of the lung parenchyma is clear. Laboratory Results WBC 6.3 10^3/uL (4.0-10.0) 05/10/22 10:20 RBC 4.45 10^6/uL (4.1-5.3) 05/10/22 10:20 Hgb 12.6 g/dL (11.5-15.3) 05/10/22 10:20 Hct 40.7 % (37.0-47.0) 05/10/22 10:20 MCV 91.5 fl (81-99) 05/10/22 10:20 MCH 28.3 pg (28.0-34.0) 05/10/22 10:20 MCHC 31.0 g/dL (30.0-36.0) 05/10/22 10:20 RDW 12.1 % (12.1-15.1) 05/10/22 10:20 Plt Count 246 10^3/cmm (130-400) 05/10/22 10:20 MPV 10.5 fL (7.4-10.4) H 05/10/22 10:20 Neut % (Auto) 81.5 % 05/10/22 10:20 Lymph % (Auto) 14.2 % 05/10/22 10:20 [place] % (Auto) 3.3 % 05/10/22 10:20 Eos % (Auto) 0.3 % 05/10/22 10:20 Baso % (Auto) 0.2 % 05/10/22 10:20 Neut # (Auto) 5.12 10^3/uL (1.8-7.7) 05/10/22 10:20 Lymph # (Auto) 0.9 10^3/uL (0.8-4.8) 05/10/22 10:20 [place] # (Auto) 0.2 10^3/uL (0.2-0.9) 05/10/22 10:20 Eos # (Auto) 0.0 10^3/uL (0.0-0.8) 05/10/22 10:20 Baso # (Auto) 0.0 10^3/uL (0.0-0.1) 05/10/22 10:20 Nucleated RBC % (auto) 0 % 05/10/22 10:20 Nucleated RBCs # 0.0 /100WBC 05/10/22 10:20 Specimen Type Arterial 05/10/22 10:41 Sample Site Radial, right 05/10/22 10:41 ABG pH 7.46 (7.35-7.45) H 05/10/22 10:41 ABG pCO2 43.1 mmHg (35-45) 05/10/22 10:41 ABG pO2 126.0 mmHg (80.0-100.0) H 05/10/22 10:41 ABG HCO3 30.9 mmol/L (22-26) H 05/10/22 10:41 ABG O2 Saturation 99.7 05/10/22 10:41 ABG Base Excess 6.4 mmol/L (-2.0-2.0) H 05/10/22 10:41 Ga Test Pos 05/10/22 10:41 A-a O2 Gradient 13.7 mmHg (5-10) H 05/10/22 10:41 Hematocrit 40.4 % (37-47) 05/10/22 10:41 Hgb O2 Saturation 98.1 % (95-100) 05/10/22 10:41 Carboxyhemoglobin 0.9 %THgb (0.4-20.1) 05/10/22 10:41 Methemoglobin 0.7 % (0.4-1.5) 05/10/22 10:41 Total Hemoglobin 13.2 g/dL (12-16) 05/10/22 10:41 Sodium 135.0 mmol/L (131-143) 05/10/22 10:41 Potassium 4.2 mmol/L (3.5-5.0) 05/10/22 10:41 Glucose 151.0 mg/dL (70-115) H 05/10/22 10:41 Ionized Calcium 1.3 mmol/L (1.1-1.4) 05/10/22 10:41 O2 Delivery Device Nc 05/10/22 10:41 O2 Liters/Min 5.0 % 05/10/22 10:41 FiO2 40.0 % 05/10/22 10:41 Receiving Team Member ID Ed 05/10/22 10:41 Sodium 134 mmol/L (136-145) L 05/10/22 10:20 Potassium 4.5 mmol/L (3.5-5.1) 05/10/22 10:20 Chloride 93 mmol/L (98-107) L 05/10/22 10:20 Carbon Dioxide 31 mmol/L (22-29) H 05/10/22 10:20 Anion Gap 14.5 (5-19) 05/10/22 10:20 BUN 8 mg/dL (8-23) 05/10/22 10:20 Creatinine 0.8 mg/dL (0.5-0.9) 05/10/22 10:20 GFR Calculation 70.9 mL/min (90-130) L 05/10/22 10:20 Glucose 151 mg/dL (65-115) H 05/10/22 10:20 Calculated Osmolality 279 mOsm/kg (285-295) L 05/10/22 10:20 Calcium 9.6 mg/dL (8.5-10.5) 05/10/22 10:20 Total Bilirubin 0.3 mg/dL (0.15-1.2) 05/10/22 10:20 AST 29 U/L (0-32) 05/10/22 10:20 ALT 19 U/L (0-33) 05/10/22 10:20 Alkaline Phosphatase 58 U/L (35-105) 05/10/22 10:20 Total Protein 6.9 g/dL (6.6-8.7) 05/10/22 10:20 Albumin 3.7 g/dL (3.5-5.2) 05/10/22 10:20 Globulin 3.2 g/dL (1.3-4.6) 05/10/22 10:20 Urine Color Yellow (Yellow) 05/10/22 10:30 Urine Appearance Clear (CLEAR) 05/10/22 10:30 Urine pH 8 (5-7) H 05/10/22 10:30 Ur Specific [place] 1.010 (1.005-1.030) 05/10/22 10:30 Urine Protein Neg (Negative) 05/10/22 10:30 Urine Glucose (UA) Norm (Normal) 05/10/22 10:30 Urine Ketones Negative (Negative) 05/10/22 10:30 Urine Blood Neg (Negative) 05/10/22 10:30 Urine Nitrate Negative (Negative) 05/10/22 10:30 Urine Bilirubin Neg (Negative) 05/10/22 10:30 Prot Sulfosalicylic Acd Negative (Negative) 05/10/22 10:30 Urine Urobilinogen Norm mg/dL (Negative) 05/10/22 10:30 Ur Leukocyte Esterase Trace (Negative) H 05/10/22 10:30 Urine RBC None /hpf (0-2) 05/10/22 10:30 Urine WBC 0-4 /hpf (0-5) H 05/10/22 10:30 Ur Squamous Epith Cells None /hpf (0-5) 05/10/22 10:30 Amorphous Sediment Not Reportable 05/10/22 10:30 Urine Bacteria 3+ /hpf (NONE) H 05/10/22 10:30 SARS-CoV-2 Ag (Rapid) Positive (Negative) H 05/10/22 10:40 Critical Care Time Critical Care Time: Critical Care Time: No Discharge Plan Discharge Patient Disposition: Admitted As Inpatient Admit Provider: Kulwinder Bazzi Clinical Impression: COVID-19, Hypoxia, COPD exacerbation Condition: Stable Coding Level of Care Code ED Director Mission for Chg Fwd Exam Comprehensive Documented by User: Barber Flores DO 05/14/22 08:27 HPI - SOB/Dyspnea General: Chief Complaint: ER Hold Stated Complaint: SOB/ WEAKNESS Time Seen by Provider: 05/10/22 10:22 [facility] ED PFSH: Medical History COPD (chronic obstructive pulmonary disease) COPD (chronic obstructive pulmonary disease) Degenerative joint disease of right wrist Dyslipidemia Dyslipidemia Fibromyalgia HTN (hypertension) Hypertension Osteoarthritis WPW (Zkksa-Umdxstgkt-Laqvq syndrome) Surgical History H/O: hysterectomy Hx of hand surgery Family History Mother Hypertension Denies family history of Diabetes CAD (coronary artery disease) Clotting disorder Dementia Hyperlipidemia Psychiatric illness Chronic kidney disease (CKD) Suicide Anesthesia complication Bleeding disorder Family history of premature coronary artery disease Lung disease Cancer Stroke Social History Smoking and tobacco status: former smoker Quit status (tobacco): has quit using tobacco Year quit tobacco: 5 years ago Alcohol intake: never Household members: spouse Marital status: Current occupational status: retired Pets and animals: Yes Current gender identity: Female Course Vital Signs: Vital signs: Vital Signs Temperature 97.9 F 05/12/22 13:36 Pulse Rate 86 05/12/22 13:36 Respiratory Rate 20 H 05/12/22 13:36 Blood Pressure 120/64 05/12/22 13:36 Pulse Oximetry 97 05/12/22 13:36 Oxygen Delivery Me thod 05/12/22 11:42 Oxygen Flow Rate 2 05/12/22 08:20 MDM - SOB/Dyspnea Medical Decision Making 71-year-old female with a significant history of COPD presents to the ER today for worsening shortness of breath and weakness for the last 3 weeks. Patient reports she got sick and had several days of diarrhea about 3 weeks ago. She reports her was also sick at that time with some congestion and diarrhea. Patient reports the diarrhea improved however the weakness is continued and the shortness of breath has continued to worsen. Patient is continuing her home meds but they do not seem to be helping anymore. At home patient is on 3 L of oxygen however feels like that has not been enough lately. Patient reports the weakness happens when she gets up and tries to do anything at all. Patient denies any fever or chills. Denies any cough. We will do a full work-up at this time. Given history likely a COPD exacerbation versus pneumonia. Patient is COVID-positive. Given patient is weak and has been troubled to perform home ADLs, we will see about admission. I spoke with Dr. Bazzi, he accepts patient for admission. He will place all orders. Chart reviewed and patient discussed with midlevel. Agree with assessment and plan. Lab Data : 05/12/22 05:35 05/12/22 05:35 Labs/Radiology: Radiology Impressions Chest X-Ray 05/11/22 05:00 IMPRESSION: Mildly increased density overlying the lower peripheral left chest, favored to be due to overlapping breast tissue. The remainder of the lung parenchyma is clear. Laboratory Results WBC 6.3 10^3/uL (4.0-10.0) 05/10/22 10:20 RBC 4.45 10^6/uL (4.1-5.3) 05/10/22 10:20 Hgb 12.6 g/dL (11.5-15.3) 05/10/22 10:20 Hct 40.7 % (37.0-47.0) 05/10/22 10:20 MCV 91.5 fl (81-99) 05/10/22 10:20 MCH 28.3 pg (28.0-34.0) 05/10/22 10:20 MCHC 31.0 g/dL (30.0-36.0) 05/10/22 10:20 RDW 12.1 % (12.1-15.1) 05/10/22 10:20 Plt Count 246 10^3/cmm (130-400) 05/10/22 10:20 MPV 10.5 fL (7.4-10.4) H 05/10/22 10:20 Neut % (Auto) 81.5 % 05/10/22 10:20 Lymph % (Auto) 14.2 % 05/10/22 10:20 [place] % (Auto) 3.3 % 05/10/22 10:20 Eos % (Auto) 0.3 % 05/10/22 10:20 Baso % (Auto) 0.2 % 05/10/22 10:20 Neut # (Auto) 5.12 10^3/uL (1.8-7.7) 05/10/22 10:20 Lymph # (Auto) 0.9 10^3/uL (0.8-4.8) 05/10/22 10:20 [place] # (Auto) 0.2 10^3/uL (0.2-0.9) 05/10/22 10:20 Eos # (Auto) 0.0 10^3/uL (0.0-0.8) 05/10/22 10:20 Baso # (Auto) 0.0 10^3/uL (0.0-0.1) 05/10/22 10:20 Nucleated RBC % (auto) 0 % 05/10/22 10:20 Nucleated RBCs # 0.0 /100WBC 05/10/22 10:20 Specimen Type Arterial 05/10/22 10:41 Sample Site Radial, right 05/10/22 10:41 ABG pH 7.46 (7.35-7.45) H 05/10/22 10:41 ABG pCO2 43.1 mmHg (35-45) 05/10/22 10:41 ABG pO2 126.0 mmHg (80.0-100.0) H 05/10/22 10:41 ABG HCO3 30.9 mmol/L (22-26) H 05/10/22 10:41 ABG O2 Saturation 99.7 05/10/22 10:41 ABG Base Excess 6.4 mmol/L (-2.0-2.0) H 05/10/22 10:41 Ga Test Pos 05/10/22 10:41 A-a O2 Gradient 13.7 mmHg (5-10) H 05/10/22 10:41 Hematocrit 40.4 % (37-47) 05/10/22 10:41 Hgb O2 Saturation 98.1 % (95-100) 05/10/22 10:41 Carboxyhemoglobin 0.9 %THgb (0.4-20.1) 05/10/22 10:41 Methemoglobin 0.7 % (0.4-1.5) 05/10/22 10:41 Total Hemoglobin 13.2 g/dL (12-16) 05/10/22 10:41 Sodium 135.0 mmol/L (131-143) 05/10/22 10:41 Potassium 4.2 mmol/L (3.5-5.0) 05/10/22 10:41 Glucose 151.0 mg/dL (70-115) H 05/10/22 10:41 Ionized Calcium 1.3 mmol/L (1.1-1.4) 05/10/22 10:41 O2 Delivery Device Nc 05/10/22 10:41 O2 Liters/Min 5.0 % 05/10/22 10:41 FiO2 40.0 % 05/10/22 10:41 Receiving Team Member ID Ed 05/10/22 10:41 Sodium 134 mmol/L (136-145) L 05/10/22 10:20 Potassium 4.5 mmol/L (3.5-5.1) 05/10/22 10:20 Chloride 93 mmol/L (98-107) L 05/10/22 10:20 Carbon Dioxide 31 mmol/L (22-29) H 05/10/22 10:20 Anion Gap 14.5 (5-19) 05/10/22 10:20 BUN 8 mg/dL (8-23) 05/10/22 10:20 Creatinine 0.8 mg/dL (0.5-0.9) 05/10/22 10:20 GFR Calculation 70.9 mL/min (90-130) L 05/10/22 10:20 Glucose 151 mg/dL (65-115) H 05/10/22 10:20 Calculated Osmolality 279 mOsm/kg (285-295) L 05/10/22 10:20 Calcium 9.6 mg/dL (8.5-10.5) 05/10/22 10:20 Total Bilirubin 0.3 mg/dL (0.15-1.2) 05/10/22 10:20 AST 29 U/L (0-32) 05/10/22 10:20 ALT 19 U/L (0-33) 05/10/22 10:20 Alkaline Phosphatase 58 U/L (35-105) 05/10/22 10:20 Total Protein 6.9 g/dL (6.6-8.7) 05/10/22 10:20 Albumin 3.7 g/dL (3.5-5.2) 05/10/22 10:20 Globulin 3.2 g/dL (1.3-4.6) 05/10/22 10:20 Urine Color Yellow (Yellow) 05/10/22 10:30 Urine Appearance Clear (CLEAR) 05/10/22 10:30 Urine pH 8 (5-7) H 05/10/22 10:30 Ur Specific [place] 1.010 (1.005-1.030) 05/10/22 10:30 Urine Protein Neg (Negative) 05/10/22 10:30 Urine Glucose (UA) Norm (Normal) 05/10/22 10:30 Urine Ketones Negative (Negative) 05/10/22 10:30 Urine Blood Neg (Negative) 05/10/22 10:30 Urine Nitrate Negative (Negative) 05/10/22 10:30 Urine Bilirubin Neg (Negative) 05/10/22 10:30 Prot Sulfosalicylic Acd Negative (Negative) 05/10/22 10:30 Urine Urobilinogen Norm mg/dL (Negative) 05/10/22 10:30 Ur Leukocyte Esterase Trace (Negative) H 05/10/22 10:30 Urine RBC None /hpf (0-2) 05/10/22 10:30 Urine WBC 0-4 /hpf (0-5) H 05/10/22 10:30 Ur Squamous Epith Cells None /hpf (0-5) 05/10/22 10:30 Amorphous Sediment Not Reportable 05/10/22 10:30 Urine Bacteria 3+ /hpf (NONE) H 05/10/22 10:30 SARS-CoV-2 Ag (Rapid) Positive (Negative) H 05/10/22 10:40 Discharge Plan Discharge Patient Disposition: Admitted As Inpatient Admit Provider: Kulwinder Bazzi Clinical Impression: COVID-19, Hypoxia, COPD exacerbation Condition: Stable Coding Level of Care Code ED Director [facility] for [facility] Fwd Exam Comprehensive
[2022-05-10 10:50] LABS: Alanine Aminotransferase 19 U/L (0-33); Albumin Level 3.7 g/dL (3.5-5.2); Alkaline Phosphatase 58 U/L (35-105); Anion Gap 14.5 (5-19); Aspartate Amino Transferase 29 U/L (0-32); Blood Urea Nitrogen 8 mg/dL (8-23); Calcium 9.6 mg/dL (8.5-10.5); Carbon Dioxide 31 mmol/L (22-29); Chloride 93 mmol/L (98-107); Creatinine Clr Calc Pharmacy 62.4647; Globulin 3.2 g/dL (1.3-4.6); Glomerular Filtration Rate 70.9 mL/min (90-130); Glucose 151 mg/dL (65-115); Osmolality Calculated 279 mOsm/kg (285-295); Potassium 4.5 mmol/L (3.5-5.1); Sodium 134 mmol/L (136-145); Total Bilirubin 0.3 mg/dL (0.15-1.2); Total Protein 6.9 g/dL (6.6-8.7)
[2022-05-10 10:51] LABS: ABG PCO2 43.1 mmHg (35-45); ABG PH Result 7.46 (7.35-7.45); Arterial Blood Gas Hematocrit 40.4 % (37-47); Base Excess ABG 6.4 mmol/L (-2.0-2.0); Blood Gas Allen Test Pos; Blood Gas Sample Type Arterial; Carboxyhemoglobin 0.9 %THgb (0.4-20.1); HCO3 ABG 30.9 mmol/L (22-26); HGB O2 Sat 98.1 % (95-100); Ionized Calcium Level - ABG 1.3 mmol/L (1.1-1.4); Methemoglobin 0.7 % (0.4-1.5); Oxygen Saturation ABG 99.7; Potassium Level - ABG 4.2 mmol/L (3.5-5.0); Total Hemoglobin 13.2 g/dL (12-16)
[2022-05-10 10:52] LABS: Alveolar-Arterial Oxygen Gradi 13.7 mmHg (5-10); Blood Gas Operator Identificat ED; Blood Gas Sample Site Radial, right; Oxygen Device NC
[2022-05-10 10:55] LABS: Urine Appearance Clear (CLEAR); Urine Color Yellow (Yellow)
[2022-05-10 10:56] LABS: Add Urine Microscopic? YES; Bilirubin Urine Neg (Negative); Blood Urine Neg (Negative); Glucose Urine UA Norm (Normal); Ketones Urine Negative (Negative); Leukocyte Esterase Urine Trace (Negative); Nitrate Urine Negative (Negative); Protein Urine Neg (Negative); Sulfosalicylic Acid Urine Negative (Negative); Urobilinogen Urine Norm (Negative); pH Urine 8 (5-7)
[2022-05-10 10:59] LABS: Add Urine Culture? Yes; Bacteria Urine 3+ /hpf; WBC Urine 0-4 /hpf (0-5)
[2022-05-10 11:28] LABS: SARS Covid-2 Antigen Positive (Negative)
--- NOTE | 2022-05-10 11:54 | PM.HP ---
Providers/Chief Complaint Primary Care Provider: Delroy Santillan DO Chief Complaint: SOB/ WEAKNESS History of Present Illness Ksenia Phan is a 71 year old female with past medical history of hypertension COPD on 3 L of oxygen dyslipidemia, chronic back pain, WPW syndrome status post ablation, osteoarthritis, was brought in with chief complaint of, generalized weakness, significant shortness of breath both with exertion as well as at rest, going on for the last couple of days. Upon arrival in the ER she was requiring more supplemental oxygen requirement close to 5 L to maintain a decent saturation. Upon arrival in the ER she was worked up for above-mentioned complaints: Pertinent imaging studies: X-ray chest: No acute abnormalities Pertinent labs: WBC 6.3, H&H 12/40 PLT : 246 , serum sodium 134 serum potassium 4.5 BUN serum creatinine at 8/ 0.8 ABG: pH 7.46, PCO2 43, PO2 126, FiO2 40% Rapid COVID antigen positive Review of Systems General: Reports: 10 or more systems reviewed and unremarkable except in HPI and below Const: Denies: fever(s), chills, body aches, change in appetite or diaphoresis Card: Reports: dyspnea on exertion; Denies: palpitations, edema, swelling of feet/ankles or leg pain with exertion Resp: Reports: dyspnea; Denies: productive cough, wheezing or pain on inspiration GI: Denies: abdominal pain, nausea, vomiting, diarrhea or constipation Musc: Reports: back pain; Denies: extremity pain or extremity swelling Neuro: Denies: headache(s) or confusion Medications/Allergies Home Medications Medication Instructions Recorded Confirmed Last Taken Type albuterol sulfate 90 mcg/actuation 2 puff inhalation QID 09/09/19 05/10/22 Unknown History aerosol inhaler (ProAir HFA) aspirin 81 mg tablet,delayed 81 mg PO QDAY 09/09/19 05/10/22 Unknown History release (Adult Aspirin Regimen) cyclobenzaprine 10 mg tablet 10 mg PO TID 09/09/19 05/10/22 Unknown History duloxetine 60 mg capsule,delayed 60 mg PO QDAY 09/09/19 05/10/22 Unknown History release sprinkle fluticasone propionate 50 2 spray intranasal QDAY 09/09/19 05/10/22 Unknown History mcg/actuation nasal spray,suspension (Allergy Relief (fluticasone)) ipratropium 0.5 mg-albuterol 3 mg 3 ml inhalation Q4H PRN Shortness 09/09/19 05/10/22 Unknown History (2.5 mg base)/3 mL nebulization Of Breath Or Wheezing soln lactobacillus combination no.9 4 4,000 mmu cells PO QDAY 09/09/19 05/10/22 Unknown History billion cell capsule (Adult 50 Plus Probiotic) lisinopril 10 mg tablet 10 mg PO QDAY 09/09/19 05/10/22 Unknown History loratadine 10 mg capsule 10 mg PO QDAY 09/09/19 05/10/22 Unknown History metoprolol tartrate 25 mg tablet 25 mg PO BID 09/09/19 05/10/22 Unknown History simvastatin 20 mg tablet 20 mg PO QDAY 09/09/19 05/10/22 Unknown History tiotropium bromide 18 mcg capsule 1 cap inhalation QDAY 09/09/19 05/10/22 Unknown History with inhalation device (Spiriva with HandiHaler) light weight upright walker stand #1 ea 10/21/19 05/10/22 Unknown Rx up rollator walker with forearm supports pantoprazole 20 mg tablet,delayed 20 mg PO DAILY 02/01/22 05/10/22 Unknown History release (Protonix) polyethylene glycol 3350 17 4 g PO DAILY 02/01/22 05/10/22 Unknown History gram/dose oral powder (Miralax) levofloxacin 500 mg tablet 500 mg PO DAILY #7 tabs 04/26/22 05/10/22 Unknown Rx prednisone 10 mg tablet 10 mg PO QDAY #90 tabs 04/26/22 05/10/22 Unknown Rx omega-3 fatty acids-fish oil 340 1 cap PO DAILY 05/10/22 05/10/22 Unknown History mg-1,000 mg capsule (Fish Oil) Allergies Allergy/AdvReac Type Severity Reaction Status Date / Time penicillamine Allergy ALGY-Rash Verified 04/26/22 08:41 Penicillins Allergy Unknown Verified 04/26/22 08:41 PFSH Acute PFSH: Medical History COPD (chronic obstructive pulmonary disease) COPD (chronic obstructive pulmonary disease) Degenerative joint disease of right wrist Dyslipidemia Dyslipidemia Fibromyalgia HTN (hypertension) Hypertension Osteoarthritis WPW (Ikxad-Wlagylrbq-Hqqps syndrome) Surgical History H/O: hysterectomy Hx of hand surgery Family History Mother Hypertension Denies family history of Diabetes CAD (coronary artery disease) Clotting disorder Dementia Hyperlipidemia Psychiatric illness Chronic kidney disease (CKD) Suicide Anesthesia complication Bleeding disorder Family history of premature coronary artery disease Lung disease Cancer Stroke Social History Smoking and tobacco status: former smoker Quit status (tobacco): has quit using tobacco Year quit tobacco: 5 years ago Alcohol intake: never Household members: spouse Marital status: Current occupational status: retired Pets and animals: Yes Current gender identity: Female Vitals/I&O/Wt Last Vital Signs Temp 97.7 F 05/10/22 10:12 Pulse 99 05/10/22 11:00 Resp 20 H 05/10/22 11:00 BP 185/93 05/10/22 11:00 Pulse Ox 98 05/10/22 11:00 O2 Del Method 05/10/22 11:00 O2 Flow Rate 4 05/10/22 11:00 Weight last 48 hrs Weight 72.575 kg Physical Exam Const: COMMON NORMALS: patient oriented x3 Resp: COMMON NORMALS: normal respiratory effort OTHER: Diminished air entry bilaterally minimal expiratory wheezing Cardio: COMMON NORMALS: regular rate, regular rhythm, S1 normal heart sound present, S2 normal heart sound present, No gallops present (Cardio), No murmurs present (Cardio), No rub (Cardio) and Peripheral pulses 2+ throughout RATE: regular rate RHYTHM: regular rhythm HEART SOUNDS: S1 normal heart sound present and S2 normal heart sound present PERIPHERAL PULSES: Peripheral pulses 2+ throughout GI: COMMON NORMALS: Normal to inspection, nondistended, normoactive bowel sounds present, Soft to palpation, non-tender, No hepatosplenomegaly present and no masses AUSCULTATION: Yes normoactive bowel sounds PALPATION: Yes Soft to palpation and Yes No hepatosplenomegaly present RECTAL EXAM: deferred Extremity: COMMON NORMALS: no clubbing, cyanosis or edema and no pedal edema Neuro: COMMON NORMALS: patient oriented x3 Data : 05/10/22 10:20 05/10/22 10:20 Micro: Microbiology 05/10/22 10:45 Blood Culture - Preliminary Blood SPECIMEN COLLECTED 05/10/22 10:38 Blood Culture - Preliminary Blood SPECIMEN COLLECTED A&P Assessment and plan (1) HTN (hypertension): Status: Acute Qualifiers: Hypertension type: essential hypertension Qualified Code(s): I10 - Essential (primary) hypertension (2) COPD (chronic obstructive pulmonary disease): Status: Acute (3) COVID-19: Status: Acute Plan 71 year old female with past medical history of hypertension COPD on 3 L of oxygen dyslipidemia, chronic back pain, WPW syndrome status post ablation, osteoarthritis, was brought in with chief complaint of, generalized weakness, significant shortness of breath, going on for the last couple of days. Assessment: COVID-19 COPD Hypertension History of WPW syndrome status post ablation Chronic back pain Plan: We will keep the patient on COVID protocol. Monitor inflammatory markers (ESR CRP D-dimer, ferritin, LDH ) Continue dexamethasone Continue remdesivir DuoNebs Supplemental oxygen as needed Incentive spirometer flutter valve CODE STATUS: Full code DVT prophylaxis: On Lovenox Attestations Medical Necessity Statement*: Patient is in hospital for management of COVID-19. Anticipated length of stay greater than 2 midnights. 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
[2022-05-10] MEDS: dexamethasone 10 mg/mL INJ 6 MG IVP (15:12)
[2022-05-10] MEDS: enoxaparin 40 mg/0.4 mL Syringe SUBCUT (15:13)
[2022-05-10] MEDS: aspirin 81 mg EC Tablet PO (15:14)
[2022-05-10] MEDS: acetaminophen 325 mg Tablet 650 MG PO (15:34)
[2022-05-10] MEDS: lidocaine 5% Patch 1 PATCH TOPICAL (15:34)
[2022-05-10] MEDS: ipratropium-albuterol 3 mL Neb INHALATION ×2 (15:59→21:52)
--- NOTE | 2022-05-10 16:22 | PC.NURSE ---
Lidocaine patch placed on lower back at approx 1520. Patient states she wears these often do to lower back pain.
[2022-05-10] MEDS: remdesivir 200 MG in sodium chloride 0.9% (100 ml) 60 ML 100 MG IV (19:34)
[2022-05-10] MEDS: metoprolol tartrate 25 mg Tablet PO (21:29)
[2022-05-11] VITALS (17 sets, daily range): BP systolic 100–155; BP diastolic 61–86; PULSE 64–110; RESP 15–20; TEMP 36.7–36.9; O2SAT 79–99
[2022-05-11] MEDS: ipratropium-albuterol 3 mL Neb INHALATION ×4 (03:08→21:09)
--- NOTE | 2022-05-11 05:00 | XRR_ITS ---
PROCEDURE INFORMATION: Exam: XR Chest Exam date and time: 05/11/2022 8:07 AM Age: 71 years old Clinical indication: Shortness of breath; Additional info: SOB TECHNIQUE: Imaging protocol: Radiologic exam of the chest. Views: 1 view. COMPARISON: CR XR chest 1V portable [id number] 05/10/2022 10:48 AM FINDINGS: Lungs: Mildly increased density overlying the lower peripheral left chest. The remainder of the lung parenchyma is clear. Pleural spaces: No pneumothorax. No pleural effusion. Heart/Mediastinum: The cardiomediastinal silhouette is within normal limits. Bones/joints: Unremarkable. XR/XR chest 1V portable [id number] IMPRESSION: Mildly increased density overlying the lower peripheral left chest, favored to be due to overlapping breast tissue. The remainder of the lung parenchyma is clear.
[2022-05-11 05:50] LABS: Hematocrit 39.4 % (37.0-47.0); Hemoglobin 12.1 g/dL (11.5-15.3); Lymphocytes % 26.9 %; Mean Corpuscular HGB Conc 30.7 g/dL (30.0-36.0); Mean Corpuscular Hemoglobin 28.1 pg (28.0-34.0); Mean Corpuscular Volume 91.6 fl (81-99); Mean Platelet Volume 10.4 fL (7.4-10.4); Monocytes # 0.6 10^3/uL (0.2-0.9); Monocytes % 16.9 %; Neutrophils # 2.12 10^3/uL (1.8-7.7); Neutrophils % 55.9 %; Nucleated Red Blood Cells % 0 %; Platelet Count 242 10^3/cmm (130-400); Red Cell Distribution Width 12.1 % (12.1-15.1); White Blood Count 3.8 10^3/uL (4.0-10.0)
[2022-05-11 06:14] LABS: Alanine Aminotransferase 18 U/L (0-33); Albumin Level 3.4 g/dL (3.5-5.2); Alkaline Phosphatase 52 U/L (35-105); Anion Gap 15.3 (5-19); Aspartate Amino Transferase 19 U/L (0-32); Blood Urea Nitrogen 10 mg/dL (8-23); Calcium 9.7 mg/dL (8.5-10.5); Carbon Dioxide 31 mmol/L (22-29); Chloride 95 mmol/L (98-107); Globulin 3.1 g/dL (1.3-4.6); Glomerular Filtration Rate 61.9 mL/min (90-130); Glucose 99 mg/dL (65-115); Magnesium 1.9 mg/dL (1.7-2.3); Osmolality Calculated 283 mOsm/kg (285-295); Potassium 4.3 mmol/L (3.5-5.1); Sodium 137 mmol/L (136-145); Total Bilirubin 0.3 mg/dL (0.15-1.2); Total Protein 6.5 g/dL (6.6-8.7)
[2022-05-11 06:18] LABS: Procalcitonin 0.04 ng/mL (0-0.5)
[2022-05-11] MEDS: pantoprazole DR 40 mg Tablet PO (08:23)
[2022-05-11] MEDS: aspirin 81 mg EC Tablet PO (08:23)
[2022-05-11] MEDS: lisinopril 10 mg Tablet PO (08:23)
[2022-05-11] MEDS: dexamethasone 10 mg/mL INJ 6 MG IVP (08:23)
[2022-05-11] MEDS: metoprolol tartrate 25 mg Tablet PO ×2 (08:23→20:31)
--- NOTE | 2022-05-11 11:49 | P.PN_ITS ---
Subjective Subjective: Patient was seen and examined this morning continues to complain of significant shortness of breath with exertion. Medications: Medication Review Details: Generic Name Dose Route Start Last Admin Trade Name Janice PRN Reason Stop Dose Admin Acetaminophen 650 mg 05/10/22 11:46 05/10/22 15:34 Acetaminophen 32 5 Mg Tablet PO 650 mg Q6H PRN Administration Mild/Mod Pain Or Temp >/= 101 Albuterol/Ipratrop ium 3 ml 05/10/22 14:00 05/11/22 09:19 Ipratropium-Albu terol 3 Ml Neb INHALATION 3 ml Q6H.RESP GRAHAM Administration Aspirin 81 mg 05/10/22 13:00 05/11/22 08:23 Aspirin 81 Mg Ec Tablet PO 81 mg DAILY GRAHAM Administration Enoxaparin Sodium 40 mg 05/10/22 12:00 05/10/22 15:13 Enoxaparin 40 Mg /0.4 Ml Syringe SUBCUT 40 mg Q24H GRAHAM Administration Lidocaine 1 patch 05/10/22 15:45 05/10/22 21:23 Lidocaine 5% Pat ch TOPICAL Not Given [id number] GRAHAM Lisinopril 10 mg 05/10/22 12:30 05/11/22 08:23 Lisinopril 10 Mg Tablet PO 10 mg DAILY GRAHAM Administration Metoprolol Tartrat e 25 mg 05/10/22 21:00 05/11/22 08:23 Metoprolol Tartr ate 25 Mg Tablet PO 25 mg BID@0900,2100 GRAHAM Administration Pantoprazole Sodiu m 40 mg 05/11/22 09:00 05/11/22 08:[address] 40 Mg Tablet PO 40 mg DAILY GRAHAM Administration Vitals/I&O/Wt Last Vital Signs Temp 98.2 F 05/11/22 08:04 Pulse 89 05/11/22 09:29 Resp 18 05/11/22 09:23 BP 111/61 05/11/22 08:04 Pulse Ox 93 05/11/22 09:23 O2 Del Method 05/11/22 09:23 O2 Flow Rate 3 05/11/22 09:23 05/10/22 05/11/22 05/11/22 22:59 06:59 14:59 Intake Total 200 / 200 850 / 1050 360 / 360 Output Total 600 / 600 200 / 800 Balance -400 / -400 650 / 250 360 / 360 Weight last 48 hrs Weight 72.802 kg Weight 72.66 kg Weight 72.575 kg Physical Exam Const: COMMON NORMALS: patient oriented x3 Resp: COMMON NORMALS: normal respiratory effort OTHER: Diminished air entry bilaterally minimal expiratory wheezing Cardio: COMMON NORMALS: regular rate, regular rhythm, S1 normal heart sound present, S2 normal heart sound present, No gallops present (Cardio), No murmurs present (Cardio), No rub (Cardio) and Peripheral pulses 2+ throughout RATE: regular rate RHYTHM: regular rhythm HEART SOUNDS: S1 normal heart sound present and S2 normal heart sound present PERIPHERAL PULSES: Peripheral pulses 2+ throughout GI: COMMON NORMALS: Normal to inspection, nondistended, normoactive bowel sounds present, Soft to palpation, non-tender, No hepatosplenomegaly present and no masses AUSCULTATION: Yes normoactive bowel sounds PALPATION: Yes Soft to palpation and Yes No hepatosplenomegaly present RECTAL EXAM: deferred Extremity: COMMON NORMALS: no clubbing, cyanosis or edema and no pedal edema Neuro: COMMON NORMALS: patient oriented x3 Data : 05/11/22 05:30 05/11/22 05:30 Micro: Microbiology 05/10/22 10:45 Blood Culture - Preliminary Blood NEGATIVE TO DATE 05/10/22 10:38 Blood Culture - Preliminary Blood NEGATIVE TO DATE 05/10/22 10:30 Urine Culture - Preliminary Urine,Clean Catch Gram Negative Rods A&P Assessment and plan (1) HTN (hypertension): Status: Acute Qualifiers: Hypertension type: essential hypertension Qualified Code(s): I10 - Essential (primary) hypertension (2) COPD (chronic obstructive pulmonary disease): Status: Acute (3) COVID-19: Status: Acute Plan 71 year old female with past medical history of hypertension COPD on 3 L of oxygen dyslipidemia, chronic back pain, WPW syndrome status post ablation, osteoarthritis, was brought in with chief complaint of, generalized weakness, significant shortness of breath, going on for the last couple of days. Assessment: COVID-19 COPD Hypertension History of WPW syndrome status post ablation Chronic back pain UTI Plan: Urine Culture :GNR Blood Culture : Negative We will keep the patient on COVID protocol. Monitor inflammatory markers (ESR CRP D-dimer, ferritin, LDH ) Continue dexamethasone Continue remdesivir DuoNebs Supplemental oxygen as needed Incentive spirometer flutter valve CODE STATUS: Full code DVT prophylaxis: On Lovenox Attestations Medical Necessity Statement*: Patient is stable for management of COVID-19, COPD Coding Level of Care Code Acute Imaging Administrator for g Fwd Exam Detailed Diagnoses HTN (hypertension) I10 Hypertension type: essential hypertension COPD (chronic obstructive pulmonary disease) J44.9 COVID-19 U07.1
[2022-05-11] MEDS: cefTRIAXone 1,000 MG in sodium chloride 0.9% (plus) 50 ML 100 MG IV (12:15)
[2022-05-11] MEDS: enoxaparin 40 mg/0.4 mL Syringe SUBCUT (12:19)
[2022-05-11] MEDS: lidocaine 5% Patch 1 PATCH TOPICAL (15:58)
[2022-05-11] MEDS: fluticasone nasal spray 16gm Btl 2 SPRAY NASAL (16:24)
[2022-05-11] MEDS: remdesivir 100 MG in sodium chloride 0.9% (100 ml) 80 ML IV (18:06)
[2022-05-12] VITALS (10 sets, daily range): BP systolic 120–129; BP diastolic 64–76; PULSE 81–102; RESP 16–20; TEMP 36.6–36.9; O2SAT 87–98
[2022-05-12] MEDS: ipratropium-albuterol 3 mL Neb INHALATION ×2 (02:31→08:17)
[2022-05-12 06:04] LABS: Hematocrit 42.9 % (37.0-47.0); Hemoglobin 13.1 g/dL (11.5-15.3); Lymphocytes # 0.5 10^3/uL (0.8-4.8); Lymphocytes % 7.3 %; Mean Corpuscular HGB Conc 30.5 g/dL (30.0-36.0); Mean Corpuscular Hemoglobin 28.9 pg (28.0-34.0); Mean Corpuscular Volume 94.5 fl (81-99); Mean Platelet Volume 11.3 fL (7.4-10.4); Monocytes # 0.3 10^3/uL (0.2-0.9); Monocytes % 5.3 %; Neutrophils # 5.37 10^3/uL (1.8-7.7); Neutrophils % 86.9 %; Nucleated Red Blood Cells % 0 %; Platelet Count 268 10^3/cmm (130-400); Red Blood Count 4.54 10^6/uL (4.1-5.3); Red Cell Distribution Width 12.4 % (12.1-15.1); White Blood Count 6.2 10^3/uL (4.0-10.0)
[2022-05-12 06:12] LABS: D Dimer 0.72 ug/mIFEU (0-0.59)
[2022-05-12 06:41] LABS: Alanine Aminotransferase 20 U/L (0-33); Albumin Level 3.8 g/dL (3.5-5.2); Alkaline Phosphatase 54 U/L (35-105); Aspartate Amino Transferase 26 U/L (0-32); Blood Urea Nitrogen 13 mg/dL (8-23); C Reactive Protein 8.9 mg/L (0.0-4.9); Calcium 9.4 mg/dL (8.5-10.5); Carbon Dioxide 27 mmol/L (22-29); Chloride 98 mmol/L (98-107); Globulin 3.2 g/dL (1.3-4.6); Glomerular Filtration Rate 70.9 mL/min (90-130); Glucose 124 mg/dL (65-115); Osmolality Calculated 286 mOsm/kg (285-295); Sodium 137 mmol/L (136-145); Total Bilirubin 0.3 mg/dL (0.15-1.2)
[2022-05-12 06:45] LABS: Anion Gap 16.3 (5-19); Potassium 4.3 mmol/L (3.5-5.1)
[2022-05-12 07:01] LABS: Ferritin 90 ng/mL (15-150)
[2022-05-12 07:16] LABS: Lactate Dehydrogenase 213 U/L (135-214)
[2022-05-12] MEDS: fluticasone nasal spray 16gm Btl 2 SPRAY NASAL (08:09)
[2022-05-12] MEDS: lisinopril 10 mg Tablet PO (08:09)
[2022-05-12] MEDS: aspirin 81 mg EC Tablet PO (08:09)
[2022-05-12] MEDS: pantoprazole DR 40 mg Tablet PO (08:09)
[2022-05-12] MEDS: metoprolol tartrate 25 mg Tablet PO (08:09)
[2022-05-12] MEDS: lidocaine 5% Patch 1 PATCH TOPICAL (08:10)
[2022-05-12 08:34] LABS: Erythrocyte Sedimentation Rate 19 mm/hr (0-15)
--- NOTE | 2022-05-12 11:13 | PM.DCS ---
Discharge Providers Date of Admission: 05/10/22 11:46 Date of Discharge: May 12, 2022 Attending Provider at Admission: Kulwinder Bazzi MD Attending Provider at Discharge: Kulwinder Bazzi MD Primary Care Provider: Delroy Santillan DO Diagnoses at Discharge Discharge Diagnosis (1) HTN (hypertension): Status: Acute Qualifiers: Hypertension type: essential hypertension Qualified Code(s): I10 - Essential (primary) hypertension (2) COPD (chronic obstructive pulmonary disease): Status: Acute (3) COVID-19: Status: Acute Reason for Visit Reason for Visit: SOB/ WEAKNESS Hospital Course Hospital Course Ksenia Phan is a 71 year old female with past medical history of hypertension COPD on 3 L of oxygen dyslipidemia, chronic back pain, WPW syndrome status post ablation, osteoarthritis, was brought in with chief complaint of, generalized weakness, significant shortness of breath both with exertion as well as at rest, going on for the last couple of days. Upon arrival in the ER she was requiring more supplemental oxygen requirement close to 5 L to maintain a decent saturation. Further work-up in the ER revealed she is COVID-19 positive. She was admitted for the management of COVID-19: She was kept on COVID protocol Inflammatory markers were monitored, she received 3 doses of remdesivir, duo nebs, steroids, supplemental oxygen as needed, she responded well to above medical management, at the time of discharge shortness of breath is improved, she was saturating well on home oxygen requirement, she was discharged on prednisone 40 mg daily for 5 days, she has been continued on her home inhaler, she was also managed for UTI was kept on antibiotics and has been discharged on p.o. levofloxacin for additional 5 days. Overall patient responded well to above medical management and was discharged home in stable condition She will continue to follow with her primary care physician as outpatient. Physical Exam Const: COMMON NORMALS: patient oriented x3 Resp: COMMON NORMALS: normal respiratory effort OTHER: Diminished air entry bilaterally minimal expiratory wheezing Cardio: COMMON NORMALS: regular rate, regular rhythm, S1 normal heart sound present, S2 normal heart sound present, No gallops present (Cardio), No murmurs present (Cardio), No rub (Cardio) and Peripheral pulses 2+ throughout RATE: regular rate RHYTHM: regular rhythm HEART SOUNDS: S1 normal heart sound present and S2 normal heart sound present PERIPHERAL PULSES: Peripheral pulses 2+ throughout GI: COMMON NORMALS: Normal to inspection, nondistended, normoactive bowel sounds present, Soft to palpation, non-tender, No hepatosplenomegaly present and no masses AUSCULTATION: Yes normoactive bowel sounds PALPATION: Yes Soft to palpation and Yes No hepatosplenomegaly present RECTAL EXAM: deferred Extremity: COMMON NORMALS: no clubbing, cyanosis or edema and no pedal edema Neuro: COMMON NORMALS: patient oriented x3 Discharge Data Studies Completed and Pending Completed Studies During Hospitalization Category Date Time Status XR chest 1V portable [id number] Routine Exams 05/11/22 05:00 Completed XR chest 1V portable [id number] Stat Exams 05/10/22 Completed Pending at discharge Category Date Time Status Blood Culture Stat Lab 05/10/22 10:45 Results Complete Blood Count w/Auto AM LABS Lab 05/13/22 04:00 Ordered Comprehensive Metabolic Panel AM LABS Lab 05/13/22 04:00 Ordered Urine Culture Stat Lab 05/10/22 10:30 Results Radiology Impressions Chest X-Ray 05/11/22 05:00 IMPRESSION: Mildly increased density overlying the lower peripheral left chest, favored to be due to overlapping breast tissue. The remainder of the lung parenchyma is clear. Laboratory Results WBC 6.2 10^3/uL (4.0-10.0) 05/12/22 05:35 RBC 4.54 10^6/uL (4.1-5.3) 05/12/22 05:35 Hgb 13.1 g/dL (11.5-15.3) 05/12/22 05:35 Hct 42.9 % (37.0-47.0) 05/12/22 05:35 MCV 94.5 fl (81-99) 05/12/22 05:35 MCH 28.9 pg (28.0-34.0) 05/12/22 05:35 MCHC 30.5 g/dL (30.0-36.0) 05/12/22 05:35 RDW 12.4 % (12.1-15.1) 05/12/22 05:35 Plt Count 268 10^3/cmm (130-400) 05/12/22 05:35 MPV 11.3 fL (7.4-10.4) H 05/12/22 05:35 Neut % (Auto) 86.9 % 05/12/22 05:35 Lymph % (Auto) 7.3 % 05/12/22 05:35 [place] % (Auto) 5.3 % 05/12/22 05:35 Eos % (Auto) 0.0 % 05/12/22 05:35 Baso % (Auto) 0.0 % 05/12/22 05:35 Neut # (Auto) 5.37 10^3/uL (1.8-7.7) 05/12/22 05:35 Lymph # (Auto) 0.5 10^3/uL (0.8-4.8) L 05/12/22 05:35 [place] # (Auto) 0.3 10^3/uL (0.2-0.9) 05/12/22 05:35 Eos # (Auto) 0.0 10^3/uL (0.0-0.8) 05/12/22 05:35 Baso # (Auto) 0.0 10^3/uL (0.0-0.1) 05/12/22 05:35 Nucleated RBC % (auto) 0 % 05/12/22 05:35 Nucleated RBCs # 0.0 /100WBC 05/12/22 05:35 ESR 19 mm/hr (0-15) H 05/12/22 07:55 D-Dimer 0.72 ug/mIFEU (0-0.59) H 05/12/22 05:35 Specimen Type Arterial 05/10/22 10:41 Sample Site Radial, right 05/10/22 10:41 ABG pH 7.46 (7.35-7.45) H 05/10/22 10:41 ABG pCO2 43.1 mmHg (35-45) 05/10/22 10:41 ABG pO2 126.0 mmHg (80.0-100.0) H 05/10/22 10:41 ABG HCO3 30.9 mmol/L (22-26) H 05/10/22 10:41 ABG O2 Saturation 99.7 05/10/22 10:41 ABG Base Excess 6.4 mmol/L (-2.0-2.0) H 05/10/22 10:41 Ga Test Pos 05/10/22 10:41 A-a O2 Gradient 13.7 mmHg (5-10) H 05/10/22 10:41 Hematocrit 40.4 % (37-47) 05/10/22 10:41 Hgb O2 Saturation 98.1 % (95-100) 05/10/22 10:41 Carboxyhemoglobin 0.9 %THgb (0.4-20.1) 05/10/22 10:41 Methemoglobin 0.7 % (0.4-1.5) 05/10/22 10:41 Total Hemoglobin 13.2 g/dL (12-16) 05/10/22 10:41 Sodium 135.0 mmol/L (131-143) 05/10/22 10:41 Potassium 4.2 mmol/L (3.5-5.0) 05/10/22 10:41 Glucose 151.0 mg/dL (70-115) H 05/10/22 10:41 Ionized Calcium 1.3 mmol/L (1.1-1.4) 05/10/22 10:41 O2 Delivery Device Nc 05/10/22 10:41 O2 Liters/Min 5.0 % 05/10/22 10:41 FiO2 40.0 % 05/10/22 10:41 Cotton Machine Operator ID Ed 05/10/22 10:41 Sodium 137 mmol/L (136-145) 05/12/22 05:35 Potassium 4.3 mmol/L (3.5-5.1) 05/12/22 05:35 Chloride 98 mmol/L (98-107) 05/12/22 05:35 Carbon Dioxide 27 mmol/L (22-29) 05/12/22 05:35 Anion Gap 16.3 (5-19) 05/12/22 05:35 BUN 13 mg/dL (8-23) 05/12/22 05:35 Creatinine 0.8 mg/dL (0.5-0.9) 05/12/22 05:35 GFR Calculation 70.9 mL/min (90-130) L 05/12/22 05:35 Glucose 124 mg/dL (65-115) H 05/12/22 05:35 Calculated Osmolality 286 mOsm/kg (285-295) 05/12/22 05:35 Calcium 9.4 mg/dL (8.5-10.5) 05/12/22 05:35 Magnesium 1.9 mg/dL (1.7-2.3) 05/11/22 05:30 Ferritin 90 ng/mL (15-150) 05/12/22 05:35 Total Bilirubin 0.3 mg/dL (0.15-1.2) 05/12/22 05:35 AST 26 U/L (0-32) 05/12/22 05:35 ALT 20 U/L (0-33) 05/12/22 05:35 Alkaline Phosphatase 54 U/L (35-105) 05/12/22 05:35 Lactate Dehydrogenase 213 U/L (135-214) 05/12/22 05:35 C-Reactive Protein 8.9 mg/L (0.0-4.9) H 05/12/22 05:35 Total Protein 7.0 g/dL (6.6-8.7) 05/12/22 05:35 Albumin 3.8 g/dL (3.5-5.2) 05/12/22 05:35 Globulin 3.2 g/dL (1.3-4.6) 05/12/22 05:35 Procalcitonin 0.04 ng/mL (0-0.5) 05/11/22 05:30 Urine Color Yellow (Yellow) 05/10/22 10:30 Urine Appearance Clear (CLEAR) 05/10/22 10:30 Urine pH 8 (5-7) H 05/10/22 10:30 Ur Specific [place] 1.010 (1.005-1.030) 05/10/22 10:30 Urine Protein Neg (Negative) 05/10/22 10:30 Urine Glucose (UA) Norm (Normal) 05/10/22 10:30 Urine Ketones Negative (Negative) 05/10/22 10:30 Urine Blood Neg (Negative) 05/10/22 10:30 Urine Nitrate Negative (Negative) 05/10/22 10:30 Urine Bilirubin Neg (Negative) 05/10/22 10:30 Prot Sulfosalicylic Acd Negative (Negative) 05/10/22 10:30 Urine Urobilinogen Norm mg/dL (Negative) 05/10/22 10:30 Ur Leukocyte Esterase Trace (Negative) H 05/10/22 10:30 Urine RBC None /hpf (0-2) 05/10/22 10:30 Urine WBC 0-4 /hpf (0-5) H 05/10/22 10:30 Ur Squamous Epith Cells None /hpf (0-5) 05/10/22 10:30 Amorphous Sediment Not Reportable 05/10/22 10:30 Urine Bacteria 3+ /hpf (NONE) H 05/10/22 10:30 SARS-CoV-2 Ag (Rapid) Positive (Negative) H 05/10/22 10:40 Vitals Last Vital Signs Temp 98.2 F 05/12/22 07:48 Pulse 88 05/12/22 08:25 Resp 17 05/12/22 08:20 BP 128/76 05/12/22 07:48 Pulse Ox 97 05/12/22 08:20 O2 Del Method 05/12/22 08:20 O2 Flow Rate 2 05/12/22 08:20 Discharge Plan Discharge Patient Disposition: Home Condition: Stable Prescriptions: New prednisone 20 mg tablet 40 mg PO DAILY 5 Days Qty: 5 0RF levofloxacin 500 mg tablet 500 mg PO DAILY 5 Days Qty: 5 0RF Continued aspirin [Adult Aspirin Regimen] 81 mg tablet,delayed release (DR/EC) 81 mg PO QDAY cyclobenzaprine 10 mg tablet 10 mg PO TID duloxetine 60 mg capsule, delayed rel sprinkle 60 mg PO QDAY fluticasone propionate [Allergy Relief (fluticasone)] 50 mcg/actuation spray,suspension 2 spray INTRANASAL QDAY ipratropium-albuterol 0.5 mg-3 mg(2.5 mg base)/3 mL solution for nebulization 3 ml INHALATION Q4H PRN (Reason: Shortness Of Breath Or Wheezing) lisinopril 10 mg tablet 10 mg PO QDAY loratadine 10 mg capsule 10 mg PO QDAY metoprolol tartrate 25 mg tablet 25 mg PO BID albuterol sulfate [ProAir HFA] 90 mcg/actuation HFA aerosol inhaler 2 puff INHALATION QID Adult 50 Plus Probiotic 4 billion cell capsule 4,000 mmu cells PO QDAY simvastatin 20 mg tablet 20 mg PO QDAY Spiriva with HandiHaler 18 mcg capsule, w/inhalation device 1 cap INHALATION QDAY (DME) light weight upright walker stand up rollator walker with forearm supports Qty: 1 0RF Rx Instructions: As directed pantoprazole [Protonix] 20 mg tablet,delayed release (DR/EC) 20 mg PO DAILY polyethylene glycol 3350 [Miralax] 17 gram/dose powder 4 g PO DAILY prednisone 10 mg tablet 10 mg PO QDAY Qty: 90 1RF Rx Instructions: for chronic lung inflammation levofloxacin 500 mg tablet 500 mg PO DAILY Qty: 7 3RF Rx Instructions: for infection Fish Oil 340-1,000 mg Capsule 1 cap PO DAILY Discharge Orders: Discharge Order (Routine); Ordered 05/12/22 Ordered By: Kulwinder Bazzi Referrals: Delroy Santillan, [Primary Care Provider] - 1 week (Please call for an follow-up appointment with Dr. Santillan in 4 to 7 days. ) Patient Instructions: Prednisone (By mouth), Levofloxacin (By mouth), Hypoxia (GEN), COVID-19 (Coronavirus Disease 2019) (GEN), Opioid Safety Discharge Attestations Time Spent in Discharge Care*: less than 30 min Quality Metrics Clinical Quality Measures [ No reported AMI, CVA or VTE this stay] Coding Level of Care Code Acute [facility] [place] note Diagnoses HTN (hypertension) I10 Hypertension type: essential hypertension COPD (chronic obstructive pulmonary disease) J44.9 COVID-19 U07.1
[2022-05-12] MEDS: remdesivir 100 MG in sodium chloride 0.9% (100 ml) 80 ML IV (11:36)
--- NOTE | 2022-05-12 13:33 | PC.NURSE ---
Discharge Note Patient discharged to home via w/c accompanied by spouse. Discharge instructions reviewed with patient and/or customer service representative teacher. Mobile pharmacy medications and/or prescriptions provided. Belongings/home medications returned.
== END 2022-05-12 13:40 | disposition home or self-care (01) | DRG 179 ==
LOC: ER 11:46 → MEDSURG 14:21
PROVIDERS: Admitting Provider Internal Medicine; Emergency Provider Physician Assistant; PCP Family Medicine; Visit Provider Internal Medicine
DX: U07.1 COVID-19 (principal); I10 Essential (primary) hypertension; J44.9 Chronic obstructive pulmonary disease, unspecified; Z99.81 Dependence on supplemental oxygen; E78.5 Hyperlipidemia, unspecified; G89.29 Other chronic pain; M54.9 Dorsalgia, unspecified; M19.90 Unspecified osteoarthritis, unspecified site; M79.7 Fibromyalgia; Z87.891 Personal history of nicotine dependence; Z79.82 Long term (current) use of aspirin; Z79.51 Long term (current) use of inhaled steroids
CPT/HCPCS: 36415; 36600; 71045; 71046; 80051; 80053; 81001; 82330; 82728; 82805; 83615; 83735; 84145; 85025; 85378; 85651; 86140; 87040; 87077; 87086; 87186; 87426; 94640; 94760; 96372; 96374; 99285; J0696; J1100; J1650; J2930

== ENCOUNTER → 2022-11-01 09:50 | Outpatient (BNVA) | payer MEDICARE, MEDICAID, SELFPAY | PROVIDERS: PCP Family Medicine; Visit Provider Family Medicine | DX: I10 Essential (primary) hypertension (principal); J44.9 Chronic obstructive pulmonary disease, unspecified; N28.9 Disorder of kidney and ureter, unspecified; M19.011 Primary osteoarthritis, right shoulder | CPT/HCPCS: 73030; 80053; 85025 ==

== ENCOUNTER → 2022-12-19 11:38 | Outpatient (BNVA) | payer MEDICARE, MEDICAID, SELFPAY | PROVIDERS: PCP Family Medicine; Visit Provider Internal Medicine Cardiovascular Disease | DX: Z01.810 Encounter for preprocedural cardiovascular examination (principal); I10 Essential (primary) hypertension; J44.9 Chronic obstructive pulmonary disease, unspecified; R09.02 Hypoxemia; I45.6 Pre-excitation syndrome; Z87.891 Personal history of nicotine dependence | CPT/HCPCS: 99203 ==

== ENCOUNTER → 2023-01-24 09:56 | Outpatient (BNVA) | payer MEDICARE, MEDICAID, SELFPAY | PROVIDERS: PCP Family Medicine; Visit Provider Family Medicine | DX: J44.9 Chronic obstructive pulmonary disease, unspecified (principal); N28.9 Disorder of kidney and ureter, unspecified; I10 Essential (primary) hypertension; M17.0 Bilateral primary osteoarthritis of knee; Z13.6 Encounter for screening for cardiovascular disorders | CPT/HCPCS: 80053; 80061; 85025 ==

== ENCOUNTER 2023-04-23 18:42 | Observation (INO) | payer MEDICARE, MEDICAID, SELFPAY ==
[2023-04-23] VITALS (9 sets, daily range): BP systolic 115–182; BP diastolic 51–126; PULSE 66–883; RESP 8–27; TEMP 36.7–36.9; O2SAT 94–100
--- NOTE | 2023-04-23 18:58 | XRR_ITS ---
PROCEDURE INFORMATION: Exam: XR Chest Exam date and time: 04/23/2023 7:01 PM Age: 72 years old Clinical indication: Shortness of breath; Additional info: SOB TECHNIQUE: Imaging protocol: Radiologic exam of the chest. Views: 1 view. COMPARISON: CR XR chest 1V portable [id number] 05/11/2022 8:07 AM FINDINGS: Lungs: The lungs are hyperinflated but free of acute disease. Pleural spaces: Unremarkable. No pleural effusion. No pneumothorax. Heart/Mediastinum: Unremarkable. No cardiomegaly. Bones/joints: No acute findings. Degenerative changes are seen in the shoulders. XR/XR chest 1V portable [id number] IMPRESSION: Nonacute findings.
--- NOTE | 2023-04-23 19:08 | ECG_ITS ---
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 Measurements Intervals [place] Rate: 99 P: 82 [place]: 157 QRS: 77 QRSD: 94 T: 64 QT: 341 QTc: 438 Interpretive Statements SINUS RHYTHM MODERATE ST DEPRESSION [0.05+ mV ST DEPRESSION] Compared to ECG 09/01/2021 02:49:10 Sinus tachycardia no longer present Left ventricular hypertrophy no longer present ST (T wave) deviation still present Electronically Signed On 04-24-2023 6:48:34 CDT by Nikita Whitehead M.D. [email or web address] Systemsg[facility] systemOSIXoh[facility].[employer] [email or web address]/[id number]
--- NOTE | 2023-04-23 19:10 | W.ED.SOB ---
HPI - SOB/Dyspnea General: Chief Complaint: Shortness of Breath/Dyspnea Stated Complaint: SOB Time Seen by Provider: 04/23/23 18:46 Source: EMS Mode of arrival: EMS Limitations: no limitations History of Present Illness: HPI Narrative: 72-year-old female with a history of COPD she is on 4 L of oxygen at baseline per EMS when they arrived she was in distress with wheezing and 84% on her 4 L of given her breathing treatment and Solu-Medrol in route she states she feels much improved she is currently on 2 L here and is 96%. States she had some slight increased shortness of breath over the last 2 days but had sudden severe dyspnea and wheezing just prior to arrival she denies any chest pain denies any fever denies any increased cough Associated symptoms: Deny abdominal pain, chest pain, fever(s), nausea or vomiting Review of Systems Const: Denies: fever(s), chills, body aches or change in appetite Eyes: Denies: eye discomfort ENMT: Denies: throat pain or dental pain Card: Denies: chest pain Resp: Reports: dyspnea GI: Denies: abdominal pain, nausea, vomiting or diarrhea : Denies: dysuria Musc: Denies: neck pain or back pain Skin/Breast: Denies: rash Neuro: Denies: headache(s) PFSH ED PFSH: Medical History COPD (chronic obstructive pulmonary disease) COPD (chronic obstructive pulmonary disease) COPD exacerbation Degenerative joint disease of right wrist Dyslipidemia Dyslipidemia Dyspnea on exertion Fibromyalgia HTN (hypertension) Hypertension Osteoarthritis WPW (Vjqut-Wkpdvmvau-Vmmgq syndrome) Surgical History H/O: hysterectomy Hx of hand surgery Family History Mother Hypertension Denies family history of Diabetes CAD (coronary artery disease) Clotting disorder Dementia Hyperlipidemia Psychiatric illness Chronic kidney disease (CKD) Suicide Anesthesia complication Bleeding disorder Family history of premature coronary artery disease Lung disease Cancer Stroke Social History Smoking and tobacco status: former smoker Quit status (tobacco): has quit using tobacco Year quit tobacco: 5 years ago Alcohol intake: never Substance/Drug Use: never Adopted: No Household members: spouse Housing: House Marital status: Highest education level completed: High School Graduate service: No Current occupational status: retired Pets and animals: Yes Current gender identity: Female Physical Exam Const: COMMON NORMALS: no acute distress, patient oriented x3 and healthy appearing HENMT: COMMON NORMALS: normocephalic and atraumatic HEAD & SCALP: normocephalic and atraumatic Eye: COMMON NORMALS: conjunctivae normal CONJUNCTIVA: Yes conjunctivae normal Neck/C-Spine: COMMON NORMALS: full ROM and supple Chest: COMMONS NORMALS: normal inspection of the chest and normal palpation of entire chest wall Resp: COMMON NORMALS: normal respiratory effort, No retractions, No use of accessory muscles and clear to auscultation bilaterally AUSCULTATION: clear to auscultation bilaterally Cardio: COMMON NORMALS: regular rate, regular rhythm and No murmurs present (Cardio) RATE: regular rate RHYTHM: regular rhythm GI: COMMON NORMALS: Normal to inspection, nondistended, normoactive bowel sounds present, Soft to palpation, non-tender and no masses PALPATION: Yes Soft to palpation Extremity: COMMON NORMALS: normal to inspection and full ROM Neuro: COMMON NORMALS: patient oriented x3, moves all extremities and no focal motor deficits Psych: COMMON NORMALS: mental status grossly normal, Normal thought process present and cooperative THOUGHT PROCESS: Normal thought process present Skin: COMMON NORMALS: no rashes or lesions noted and no wounds GENERAL SKIN EXAM: no rashes or lesions noted Course Vital Signs: Vital signs: Vital Signs Temperature 98.1 F 04/23/23 18:47 Pulse Rate 102 H 04/23/23 21:07 Respiratory Rate 22 H 04/23/23 21:07 Blood Pressure 182/126 04/23/23 20:41 Pulse Oximetry 99 04/23/23 21:07 Oxygen Delivery Me thod Nasal Cannula 04/23/23 21:07 Oxygen Flow Rate 2 04/23/23 21:07 MDM - SOB/Dyspnea Medical Decision Making Patient presents here with COPD exacerbation she has improved here she did have another attack and became quite anxious did give her some Ativan she has improved she had some hypertension spoke to hospitalist will admit for observation at this time. Medical Records I reviewed the patient's medical records. Lab Data I reviewed the patient's lab results. 04/23/23 19:19 04/23/23 19:19 Labs/Radiology: Radiology Impressions Chest X-Ray 04/23/23 18:58 IMPRESSION: Nonacute findings. Laboratory Results WBC 9.26 10^3/uL (3.29-11.43) 04/23/23 19:19 RBC 4.58 10^6/uL (3.85-5.65) 04/23/23 19:19 Hgb 13.10 g/dL (11.27-16.99) 04/23/23 19:19 Hct 41.0 % (36-47) 04/23/23 19:19 MCV 89.5 fl (85-98) 04/23/23 19:19 MCH 28.6 pg (27-33) 04/23/23 19:19 MCHC 32.0 g/dL (30-55) 04/23/23 19:19 RDW 12.4 % (12.1-15.1) 04/23/23 19:19 Plt Count 282 10^3/cmm (157-399) 04/23/23 19:19 MPV 10.2 fL (7.4-10.4) 04/23/23 19:19 Neut % (Auto) 88.9 % 04/23/23 19:19 Lymph % (Auto) 7.3 % 04/23/23 19:19 [place] % (Auto) 2.7 % 04/23/23 19:19 Eos % (Auto) 0.5 % 04/23/23 19:19 Baso % (Auto) 0.2 % 04/23/23 19:19 Neut # (Auto) 8.22 10^3/uL (1.8-7.7) H 04/23/23 19:19 Lymph # (Auto) 0.7 10^3/uL (0.8-4.8) L 04/23/23 19:19 [place] # (Auto) 0.3 10^3/uL (0.2-0.9) 04/23/23 19:19 Eos # (Auto) 0.1 10^3/uL (0.0-0.8) 04/23/23 19:19 Baso # (Auto) 0.0 10^3/uL (0.0-0.1) 04/23/23 19:19 Nucleated RBC % (auto) 0 % 04/23/23 19:19 Nucleated RBCs # 0.0 /100WBC 04/23/23 19:19 Sodium 139 mmol/L (136-145) 04/23/23 19:19 Potassium 3.7 mmol/L (3.5-5.1) 04/23/23 19:19 Chloride 97 mmol/L (98-107) L 04/23/23 19:19 Carbon Dioxide 31 mmol/L (22-29) H 04/23/23 19:19 Anion Gap 14.7 (5-19) 04/23/23 19:19 BUN 16 mg/dL (8-23) 04/23/23 19:19 Creatinine 1.0 mg/dL (0.5-0.9) H 04/23/23 19:19 GFR Calculation Not Reportable 04/23/23 19:19 Glucose 164 mg/dL (65-115) H 04/23/23 19:19 Calculated Osmolality 293 mOsm/kg (285-295) 04/23/23 19:19 Calcium 9.9 mg/dL (8.5-10.5) 04/23/23 19:19 Total Bilirubin 0.2 mg/dL (0.15-1.2) 04/23/23 19:19 AST 20 U/L (0-32) 04/23/23 19:19 ALT 13 U/L (0-33) 04/23/23 19:19 Alkaline Phosphatase 48 U/L (35-105) 04/23/23 19:19 NT-Pro-B Natriuret Pep 657 pg/mL (0-125) H 04/23/23 19:19 Total Protein 7.3 g/dL (6.6-8.7) 04/23/23 19:19 Albumin 4.3 g/dL (3.5-5.2) 04/23/23 19:19 Globulin 3.0 g/dL (1.3-4.6) 04/23/23 19:19 SARS-CoV-2 Ag (Rapid) negative (Negative) 04/23/23 19:26 Discharge Plan Discharge Patient Disposition: Admitted As Inpatient Clinical Impression: Acute exacerbation of chronic obstructive airways disease Condition: Stable Prescriptions: New prednisone 50 mg tablet 50 mg PO DAILY Qty: 5 0RF No Action aspirin [Adult Aspirin Regimen] 81 mg tablet,delayed release (DR/EC) 81 mg PO QDAY fluticasone propionate [Allergy Relief (fluticasone)] 50 mcg/actuation spray,suspension 2 spray INTRANASAL QDAY loratadine 10 mg capsule 10 mg PO QDAY Adult 50 Plus Probiotic 4 billion cell capsule 4,000 mmu cells PO QDAY (DME) light weight upright walker stand up rollator walker with forearm supports Qty: 1 0RF Rx Instructions: As directed polyethylene glycol 3350 [Miralax] 17 gram/dose powder 4 g PO DAILY lidocaine (PF) 20 mg/mL (2 %) solution 40 mg intra-articular ONCE Qty: 2 0RF nitroglycerin [Nitrostat] 0.4 mg tablet, sublingual 0.4 mg sublingual Q5M PRN (Reason: chest pain) Qty: 20 1RF Rx Instructions: do not exceed 3 doses per episode cranberry 400 mg capsule 400 mg PO DAILY Rx Instructions: administer with a meal duloxetine 60 mg capsule,delayed release(DR/EC) See Rx Instructions .ROUTE .COMPLEX Qty: 90 3RF Dose Instruction: TAKE ONE CAPSULE BY MOUTH EVERY DAY Rx Instructions: TAKE ONE CAPSULE BY MOUTH EVERY DAY pantoprazole 40 mg tablet,delayed release (DR/EC) See Rx Instructions .ROUTE .COMPLEX Qty: 90 3RF Dose Instruction: TAKE ONE TABLET BY MOUTH ONCE DAILY FOR SEVERE GASTRITIS Rx Instructions: TAKE ONE TABLET BY MOUTH ONCE DAILY FOR SEVERE GASTRITIS metoprolol tartrate 25 mg tablet See Rx Instructions .ROUTE .COMPLEX Qty: 180 3RF Dose Instruction: TAKE ONE TABLET BY MOUTH TWICE DAILY Rx Instructions: TAKE ONE TABLET BY MOUTH TWICE DAILY albuterol sulfate 90 mcg/actuation HFA aerosol inhaler See Rx Instructions .ROUTE .COMPLEX Qty: 68 5RF Dose Instruction: INHALE 4 TO 8 PUFFS INTO LUNGS EVERY 4 HOURS NEEDED FOR SHORTNESS OF BREATH OR WHEEZING Rx Instructions: INHALE 4 TO 8 PUFFS INTO LUNGS EVERY 4 HOURS NEEDED FOR SHORTNESS OF BREATH OR WHEEZING ipratropium-albuterol 0.5 mg-3 mg(2.5 mg base)/3 mL solution for nebulization See Rx Instructions .ROUTE .COMPLEX Qty: 360 11RF Dose Instruction: NEBULIZE 1 VIAL FOUR TIMES DAILY FOR COPD / WHEEZING Rx Instructions: NEBULIZE 1 VIAL FOUR TIMES DAILY FOR COPD / WHEEZING lisinopril 10 mg tablet See Rx Instructions .ROUTE .COMPLEX Qty: 30 11RF Dose Instruction: TAKE ONE TABLET BY MOUTH EVERY DAY Rx Instructions: TAKE ONE TABLET BY MOUTH EVERY DAY simvastatin 20 mg tablet See Rx Instructions .ROUTE .COMPLEX Qty: 30 11RF Dose Instruction: TAKE ONE TABLET BY MOUTH EVERY DAY FOR LIPIDS - TAKE AT NIGHT Rx Instructions: TAKE ONE TABLET BY MOUTH EVERY DAY FOR LIPIDS - TAKE AT NIGHT Spiriva with HandiHaler 18 mcg capsule, w/inhalation device See Rx Instructions .ROUTE .COMPLEX Qty: 30 11RF Dose Instruction: INHALE CONTENTS OF 1 CAPSULE INTO LUNGS USING HANDIHALER ONCE DAILY IN THE MORNING Rx Instructions: INHALE CONTENTS OF 1 CAPSULE INTO LUNGS USING HANDIHALER ONCE DAILY IN THE MORNING cyclobenzaprine 10 mg tablet See Rx Instructions .ROUTE .COMPLEX Qty: 90 5RF Dose Instruction: TAKE ONE TABLET BY MOUTH THREE TIMES DAILY NEEDED Rx Instructions: TAKE ONE TABLET BY MOUTH THREE TIMES DAILY NEEDED promethazine-DM 6.25-15 mg/5 mL syrup See Rx Instructions .ROUTE .COMPLEX Qty: 200 5RF Dose Instruction: TAKE ONE TO TWO TEASPOONFULS ( 5 TO 10 ML'S) BY MOUTH EVERY 6 HOURS NEEDED FOR COUGHING Rx Instructions: TAKE ONE TO TWO TEASPOONFULS ( 5 TO 10 ML'S) BY MOUTH EVERY 6 HOURS NEEDED FOR COUGHING hydrocodone-acetaminophen 5-325 mg tablet 1 tab PO Q4H MDD 3 tabs per day PRN (Reason: pain, joints) 12 Days Qty: 35 0RF Rx Instructions: max of 3 tabs per day prednisone 10 mg tablet See Rx Instructions .ROUTE .COMPLEX Qty: 90 1RF Dose Instruction: TAKE ONE TABLET BY MOUTH EVERY DAY FOR CHRONIC LUNG INFLAMMATION Rx Instructions: TAKE ONE TABLET BY MOUTH EVERY DAY FOR CHRONIC LUNG INFLAMMATION (DME) Bipap See Rx Instructions .Route .MEDSUPPLY Qty: 1 0RF Rx Instructions: As directed, 10 and 5 pressures. 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
[2023-04-23 19:25] LABS: Basophils % 0.2 %; Eosinophils # 0.1 10^3/uL (0.0-0.8); Eosinophils % 0.5 %; Lymphocytes # 0.7 10^3/uL (0.8-4.8); Lymphocytes % 7.3 %; Mean Corpuscular Hemoglobin 28.6 pg (27-33); Mean Corpuscular Volume 89.5 fl (85-98); Mean Platelet Volume 10.2 fL (7.4-10.4); Monocytes # 0.3 10^3/uL (0.2-0.9); Monocytes % 2.7 %; Neutrophils # 8.22 10^3/uL (1.8-7.7); Neutrophils % 88.9 %; Nucleated Red Blood Cells % 0 %; Platelet Count 282 10^3/cmm (157-399); Red Blood Count 4.58 10^6/uL (3.85-5.65); Red Cell Distribution Width 12.4 % (12.1-15.1); White Blood Count 9.26 10^3/uL (3.29-11.43)
[2023-04-23 19:55] LABS: Alanine Aminotransferase 13 U/L (0-33); Albumin Level 4.3 g/dL (3.5-5.2); Alkaline Phosphatase 48 U/L (35-105); Anion Gap 14.7 (5-19); Aspartate Amino Transferase 20 U/L (0-32); Blood Urea Nitrogen 16 mg/dL (8-23); Calcium 9.9 mg/dL (8.5-10.5); Carbon Dioxide 31 mmol/L (22-29); Chloride 97 mmol/L (98-107); Glucose 164 mg/dL (65-115); NT Pro B Type Natriuretic Pept 657 pg/mL (0-125); Osmolality Calculated 293 mOsm/kg (285-295); Potassium 3.7 mmol/L (3.5-5.1); Sodium 139 mmol/L (136-145); Total Bilirubin 0.2 mg/dL (0.15-1.2); Total Protein 7.3 g/dL (6.6-8.7)
[2023-04-23 20:07] LABS: SARS Covid-2 Antigen negative (Negative)
[2023-04-23] MEDS: hyDRALAzine 20 mg/mL INJ 1 mL 10 MG IVP (20:36)
[2023-04-23] MEDS: LORazepam 2 mg/mL INJ 1 mL 0.5 MG IVP (21:01)
[2023-04-23] MEDS: albuterol 2.5 mg/3 mL Neb INHALATION (21:07)
[2023-04-23 21:28] LABS: ABG PCO2 44.2 mmHg (35-45); ABG PH Result 7.45 (7.35-7.45); Base Excess ABG 5.6 mmol/L (-2.0-2.0); Blood Gas Allen Test Pos; Blood Gas Sample Site Radial, left; Blood Gas Sample Type Arterial; HCO3 ABG 30.5 mmol/L (22-26); Oxygen Device NC; PO2 ABG 92.5 mmHg (80.0-100.0)
--- NOTE | 2023-04-23 21:49 | P.HP_ITS ---
Providers/Chief Complaint Admitting Physician: Maria A Primary Care Provider: Delroy Santillan DO Chief Complaint: SOB History of Present Illness Kesnia Phan is a 72 year old female with severe COPD and pulmonary fibrosis by CT scan presents with acute exacerbation of COPD. She states her symptoms started yesterday. There was no change in her usual inhalers nebs and no inc rease in steroids. Today it just got significantly worse so they brought her into the emergency room. Initially she was hypoxic on her usual 4 L in the low 80s. However with treatment in the ED she is now satting in the low 90s on her normal 4 L. Work-up is negative in the ED. No pneumonia no acute illness. White blood cell count is normal. Labs normal ABG in the normal range. Due to the patient's living situation (without central air) and living 50 miles from closest hospital will place in observation status and give her high-dose steroids as well as Zithromax. Review of Systems Const: Denies: fever(s) or chills Eyes: Denies: change in vision ENMT: Denies: throat pain or nasal congestion Card: Denies: chest pain or palpitations Resp: Reports: dyspnea; Denies: productive cough GI: Denies: abdominal pain, nausea, vomiting or change in stool character : Denies: dysuria Musc: Denies: back pain or extremity pain Skin/Breast: Denies: rash or lesions Neuro: Denies: headache(s) or dizziness Psych: Denies: anxiety or depression Angel/Lymph: Denies: easy bruising or easy bleeding Medications/Allergies Home Medications Medication Instructions Recorded Confirmed Last Taken Type aspirin 81 mg tablet,delayed 81 mg PO QDAY 09/09/19 01/24/23 Unknown History release (Adult Aspirin Regimen) fluticasone propionate 50 2 spray intranasal QDAY 09/09/19 01/24/23 Unknown History mcg/actuation nasal spray,suspension (Allergy Relief (fluticasone)) lactobacillus combination no.9 4 4,000 mmu cells PO QDAY 09/09/19 01/24/23 Unknown History billion cell capsule (Adult 50 Plus Probiotic) loratadine 10 mg capsule 10 mg PO QDAY 09/09/19 01/24/23 Unknown History light weight upright walker stand #1 ea 10/21/19 01/24/23 Unknown Rx up rollator walker with forearm supports polyethylene glycol 3350 17 4 g PO DAILY 02/01/22 01/24/23 Unknown History gram/dose oral powder (Miralax) omega-3 fatty acids-fish oil 340 1 cap PO DAILY 05/10/22 01/24/23 Unknown History mg-1,000 mg capsule (Fish Oil) duloxetine 60 mg capsule,delayed See Rx Instructions .Route 09/13/22 01/24/23 Unknown Rx release .COMPLEX #90 caps metoprolol tartrate 25 mg tablet See Rx Instructions .Route 09/13/22 01/24/23 Unknown Rx .COMPLEX #180 tabs pantoprazole 40 mg tablet,delayed See Rx Instructions .Route 09/13/22 01/24/23 Unknown Rx release .COMPLEX #90 tabs albuterol sulfate 90 mcg/actuation See Rx Instructions .Route 12/06/22 01/24/23 Unknown Rx aerosol inhaler .COMPLEX #68 grams ipratropium 0.5 mg-albuterol 3 mg See Rx Instructions .Route 12/11/22 01/24/23 Unknown Rx (2.5 mg base)/3 mL nebulization .COMPLEX #360 mL soln lisinopril 10 mg tablet See Rx Instructions .Route 12/11/22 01/24/23 Unknown Rx .COMPLEX #30 tabs simvastatin 20 mg tablet See Rx Instructions .Route 12/11/22 01/24/23 Unknown Rx .COMPLEX #30 tabs tiotropium bromide 18 mcg capsule See Rx Instructions .Route 12/11/22 01/24/23 Unknown Rx with inhalation device (Spiriva .COMPLEX #30 caps with HandiHaler) nitroglycerin 0.4 mg sublingual 0.4 mg sublingual Q5M PRN chest 12/16/22 01/24/23 Unknown Rx tablet (Nitrostat) pain #20 tabs cranberry 400 mg capsule 400 mg PO DAILY 12/19/22 01/24/23 Unknown History cyclobenzaprine 10 mg tablet See Rx Instructions .Route 01/01/23 01/24/23 Unknown Rx .COMPLEX #90 tabs promethazine-DM 6.25 mg-15 mg/5 mL See Rx Instructions .Route 01/30/23 Unknown Rx oral syrup .COMPLEX #200 mL hydrocodone 5 mg-acetaminophen 325 1 tab PO Q4H PRN pain, joints 12 07/19/23 Unknown Rx mg tablet days #35 tabs prednisone 10 mg tablet See Rx Instructions .Route 04/07/23 Unknown Rx .COMPLEX #90 tabs Bipap #1 ea 04/17/23 Unknown Rx prednisone 50 mg tablet 50 mg PO DAILY #5 tabs 04/23/23 Unknown Rx Allergies Allergy/AdvReac Type Severity Reaction Status Date / Time penicillamine Allergy ALGY-Rash Verified 04/23/23 18:55 Penicillins Allergy Unknown Verified 04/23/23 18:55 PFSH Acute PFSH: Medical History COPD (chronic obstructive pulmonary disease) COPD (chronic obstructive pulmonary disease) COPD exacerbation Degenerative joint disease of right wrist Dyslipidemia Dyslipidemia Dyspnea on exertion Fibromyalgia HTN (hypertension) Hypertension Osteoarthritis WPW (Xomzy-Zspawaplk-Vouan syndrome) Surgical History H/O: hysterectomy Hx of hand surgery Family History Mother Hypertension Denies family history of Diabetes CAD (coronary artery disease) Clotting disorder Dementia Hyperlipidemia Psychiatric illness Chronic kidney disease (CKD) Suicide Anesthesia complication Bleeding disorder Family history of premature coronary artery disease Lung disease Cancer Stroke Social History Smoking and tobacco status: former smoker Quit status (tobacco): has quit using tobacco Year quit tobacco: 5 years ago Alcohol intake: never Substance/Drug Use: never Adopted: No Household members: spouse Housing: House Marital status: Highest education level completed: High School Graduate service: No Current occupational status: retired Pets and animals: Yes Current gender identity: Female Vitals/I&O/Wt Last Vital Signs Temp 98.1 F 04/23/23 18:47 Pulse 883 H 04/23/23 21:11 Resp 22 H 04/23/23 21:11 BP 182/126 04/23/23 20:41 Pulse Ox 98 04/23/23 21:11 O2 Del Method Nasal Cannula 04/23/23 21:11 O2 Flow Rate 2 04/23/23 21:11 Weight last 48 hrs Weight 74.843 kg Physical Exam Narrative: 72-year-old female in mild to moderate distress in the tripod position. She appears older than her stated age of 72. Neurologic: Alert and oriented to person place time and situation she is nonfocal HEENT: Head is normocephalic atraumatic pupils equal round and reactive to light and accommodation extraocular muscles intact there is no scleral icterus mucous membranes are moist slight erythema in the pharynx. Neck is supple no JVD carotid bruits or lymphadenopathy Chest: Rises symmetrically with inspiration Heart: Distant heart sounds normal S1-S2 without loud murmur Respiratory: Very poor air movement. An expiratory squeak heard in the upper lobes posteriorly. Abdomen: Soft nontender nondistended positive bowel sounds no hepatosplenomegaly Extremities. No edema. Bilateral toes are cyanotic appearing. This is patient's normal. Bilateral knees are disfigured from arthritis. Back. Mild kyphosis. Skin: She is mottled in her extremities. Psych: Mood and affect are appropriate for her condition. Data 04/23/23 19:19 04/23/23 19:19 CXR: My impression: Severely hyperinflated lungs. There is an area in the left lower lobe with a fullness that was seen on x-ray 1 year ago. No acute disease Radiologist's impression: Nonacute findings. EKG 1: My Interpretation: Normal sinus rhythm heart rate 99 normal NV interval at 0.15. Normal QRS interval at 0.77 no T wave abnormality. EKG computer-generated impression: Sinus rhythm. Moderate ST depression. A&P Assessment and plan (1) Acute exacerbation of chronic obstructive airways disease: Place patient in observation status. Solu-Medrol 80 mg 1 time in the ED ordered. Then Solu-Medrol 80 mg every 12 hours. As discussed with patient and her it is recommended that the patient have additional doses of prednisone when patient gets an [place]. Add Zithromax for empiric coverage and for the anti-inflammatory effects. 500 mg x 5 days Nebs every 6 hours. Continue Spiriva and Advair. Note that CT scan shows pulmonary fibrosis. Patient would likely benefit from a pulmonary consult. (2) Hypoxia: Patient is now on 4 L which is her home dose. Monitor with vital signs. (3) Hypertension: Patient is taking beta-cali. It may be more reasonable to change to a calcium channel cali at this point. We will defer to daytime hospitalist. Attestations Medical Necessity Statement*: Patient is in observation status Coding Level of Care Code Acute Code for Chg Fwd Diagnoses Acute exacerbation of chronic obstructive airways disease J44.1 Hypoxia R09.02 Hypertension I10
[2023-04-23 22:14] LABS: Magnesium 2.1 mg/dL (1.7-2.3); Phosphorus 3.9 mg/dL (2.5-4.5)
[2023-04-23] MEDS: enoxaparin 40 mg/0.4 mL Syringe SUBCUT (23:47)
[2023-04-23] MEDS: sodium chloride 0.9% 1,000 ML 125 ML IV (23:48)
[2023-04-23] MEDS: azithromycin 250 mg Tablet 500 MG PO (23:48)
[2023-04-24] VITALS (13 sets, daily range): BP systolic 134–163; BP diastolic 60–97; PULSE 96–116; RESP 8–24; TEMP 36.4–36.9; O2SAT 95–100
[2023-04-24] MEDS: ipratropium-albuterol 3 mL Neb INHALATION ×4 (07:20→20:22)
[2023-04-24] MEDS: azithromycin 250 mg Tablet 500 MG PO (08:08)
[2023-04-24] MEDS: sodium chloride 0.9% 1,000 ML 125 ML IV (08:09)
[2023-04-24] MEDS: pantoprazole DR 40 mg Tablet PO (08:09)
[2023-04-24] MEDS: docusate sodium 100 mg Capsule PO ×2 (08:09→17:30)
--- NOTE | 2023-04-24 11:02 | PC.CHAP ---
Pastoral Care Encounter/Spiritual Assessment Type of Contact [] Declined sheriffs visit [] Patient/Family/Request visit [] Outpatient visit [] Follow-up visit [] Physician referral [] Code/Alert [x] Routine visit [] Staff referral [] Actively dying [] Patient sleeping [] Family support [] [] Out of room [] Palliative care [] [] Receiving care in room [x] Pre-surgical visit [] Trauma [] Long length of stay [] ICU visit [] Other: Relational/Emotional Strength [x] Patient feels connected with others/family/visitors/staff [] Distress [] Loneliness/isolation [] Abandonment Spirituality of Patient [x] Person of Vidhya [] Attends Scientology of their Vidhya [x] Believes in Prayer [] Reads Bible or Alevism materials [] There are Spiritual issues to be addressed Laminating Machine Tender Interventions [x] Prayer [x] Active listening [x] Non-anxious presence [x] Spiritual/emotional support [] Crisis/trauma care [x] Spiritual counseling [] Bereavement support [] Provided bereavement packet [] Provided Bible/devotional materials [] Provided toy/stuffed animal, coloring book to patient or family member [] Provided Communion [] Anointing/[place] [] Salvation [x] Completed spiritual assessment [] Other: Impact on Illness or Injury [] Angry [] Fearful [] Anxious [] Often cries [] Exhaustion [] Unable to work [] Unable to attend jehovah's witness [] Unable to walk/stand [] Unable to read [] Unable to drive [] Unable to eat/drink [] Unable to sleep [] Unable to be with family [] Patient intubated [] Other: Summary heart waiting on doctors report has a good attitude +1 family well go go home Time spent with patient 10 mins
[2023-04-24] MEDS: atorvastatin 40 mg Tablet 20 MG PO (17:29)
[2023-04-24] MEDS: methylPREDNISolone sod succ 40 MG in water for injection-sterile 1 ML 12 MG IVP ×2 (17:30→22:24)
--- NOTE | 2023-04-24 19:49 | PM.PN ---
Subjective Subjective: She has been dyspneic, coughing, not producing a lot of phlegm. Vitals/I&O/Wt Last Vital Signs Temp 97.9 F 04/24/23 15:59 Pulse 116 H 04/24/23 15:59 Resp 19 H 04/24/23 15:59 BP 163/97 04/24/23 15:59 Pulse Ox 95 04/24/23 15:59 O2 Del Method Nasal Cannula 04/24/23 15:59 O2 Flow Rate 4 04/24/23 15:40 FiO2 36 04/24/23 07:40 04/24/23 04/24/23 04/24/23 06:59 14:59 22:59 Intake Total 120 / 120 / 124 / 320. Output Total 450 / 450 Balance -330 / -330 / 124 / 3201. Weight last 48 hrs Weight 74.843 kg Physical Exam Narrative: Accompanied by her Const: COMMON NORMALS: patient oriented x3 and alert GENERAL APPEARANCE: cooperative ORIENTATION/CONSCIOUSNESS: Yes awake HENMT: COMMON NORMALS: oropharynx normal Neck/C-Spine: COMMON NORMALS: no JVD Resp: COMMON NORMALS: normal respiratory effort AUSCULTATION: diminished lung sounds bilateral Cardio: COMMON NORMALS: no JVD, regular rhythm, S1 normal heart sound present, S2 normal heart sound present and No murmurs present (Cardio) RHYTHM: regular rhythm HEART SOUNDS: S1 normal heart sound present and S2 normal heart sound present GI: COMMON NORMALS: Normal to inspection, nondistended, normoactive bowel sounds present, Soft to palpation and non-tender PALPATION: Yes Soft to palpation Extremity: COMMON NORMALS: no joint enlargement and no pedal edema Neuro: COMMON NORMALS: patient oriented x3 and moves all extremities SENSORIUM/ORIENTATION: Yes alert Skin: COMMON NORMALS: no rashes or lesions noted GENERAL SKIN EXAM: no rashes or lesions noted Data 04/23/23 19:19 04/23/23 19:19 A&P Assessment and plan (1) Acute exacerbation of chronic obstructive airways disease: Continue hospitalization, she is still dyspneic, diminished air entry, cough, received dose of Solu-Medrol, add 40 mg IV every 6 hours. Continue azithromycin. Continue DuoNebs. Oxygen support. May benefit from BiPAP, discussed with him assessment with overnight oximetry, ABG. They are having difficulties with transportation to go to pulmonology appointment, discussed with case management with consideration of options. Follow-up with pulmonology after discharge Especially given consideration of pulmonary fibrosis discussed with respiratory therapy. (2) Hypoxia: Patient is now on 4 L which is her home dose. Monitor with vital signs. (3) Hypertension: Patient is taking beta-cali. It may be more reasonable to change to a calcium channel cali at this point. We will defer to daytime hospitalist. Attestations Medical Necessity Statement*: Continue admission for assessment management of COPD exacerbation with possible underlying pulmonary fibrosis. Diagnoses Acute exacerbation of chronic obstructive airways disease J44.1 Hypoxia R09.02 Hypertension I10
[2023-04-24] MEDS: lisinopril 10 mg Tablet PO (20:36)
[2023-04-24] MEDS: metoprolol tartrate 25 mg Tablet PO (20:36)
[2023-04-24] MEDS: enoxaparin 40 mg/0.4 mL Syringe SUBCUT (22:24)
[2023-04-25] VITALS (8 sets, daily range): BP systolic 129–148; BP diastolic 58–72; PULSE 73–117; RESP 17–28; TEMP 36.6–36.8; O2SAT 86–98
[2023-04-25] MEDS: ipratropium-albuterol 3 mL Neb INHALATION ×3 (01:24→11:30)
[2023-04-25] MEDS: morphine 10 mg/0.5 mL oral liq UD PO (01:48)
--- NOTE | 2023-04-25 01:59 | PC.NURSE ---
This nurse entered the room to assist patient to bed from the [facility]. The patient was in a tri-pod position gasping for air with baseline 2 liters of oxygen via nasal cannula. Oxygen saturation at this time was reading 96%. While attempting to assist back to bed, the patient took it upon herself to do it all herself. By doing so she became even more short of breath. She began showing signs of air hunger. At this time the oxygen saturation was 85%. The hospitalist was consulted and a verbal order was given for 10 mg of roxanol q6 hours PRN. First dose given at 0148.
--- NOTE | 2023-04-25 02:12 | PM.MISC ---
Miscellaneous Note Purpose of Documentation: Called by RN re: air hunger. Note: Patient oxygen sats are fine on 2-4 L since admit. However, she has significant air hunger. I considered starting roxanol for air hunger on admit but held off. Tonight start scheduled roxanol 10 mg sl q6h for air hunger. After 30 min pt able to rest and actually sleep. O2 sat 95% on 2L Recommend discharge on 5 mg sl q6 hrs. And explanation to pt and the severity of illness. Would also change bp meds to calcium channel cali.
[2023-04-25 03:37] LABS: ABG PCO2 51.3 mmHg (35-45); ABG PH Result 7.39 (7.35-7.45); Alveolar-Arterial Oxygen Gradi 6.7 mmHg (5-10); Arterial Blood Gas Hematocrit 36.4 % (37-47); Base Excess ABG 4.9 mmol/L (-2.0-2.0); Blood Gas Sample Site Brachial, left; Blood Gas Sample Type Arterial; Carboxyhemoglobin 1.4 %THgb (0.4-20.1); HCO3 ABG 30.9 mmol/L (22-26); HGB O2 Sat 96.3 % (95-100); Ionized Calcium Level - ABG 1.3 mmol/L (1.1-1.4); Methemoglobin 0.4 % (0.4-1.5); Oxygen Device NC; Oxygen Saturation ABG 98.1; PO2 ABG 85.3 mmHg (80.0-100.0); Potassium Level - ABG 4.3 mmol/L (3.5-5.0); Total Hemoglobin 11.9 g/dL (12-16)
[2023-04-25] MEDS: methylPREDNISolone sod succ 40 MG in water for injection-sterile 1 ML 12 MG IVP ×2 (04:53→11:45)
[2023-04-25 06:19] LABS: Blood Urea Nitrogen 15 mg/dL (8-23); Calcium 9.5 mg/dL (8.5-10.5); Carbon Dioxide 23 mmol/L (22-29); Chloride 103 mmol/L (98-107); Glucose 134 mg/dL (65-115); Osmolality Calculated 291 mOsm/kg (285-295); Sodium 139 mmol/L (136-145)
[2023-04-25 06:25] LABS: Anion Gap 18.2 (5-19); Potassium 5.2 mmol/L (3.5-5.1)
[2023-04-25 06:44] LABS: Basophils % 0.1 %; Hematocrit 41.8 % (36-47); Lymphocytes # 0.5 10^3/uL (0.8-4.8); Lymphocytes % 4.2 %; Mean Corpuscular HGB Conc 30.1 g/dL (30-55); Mean Corpuscular Hemoglobin 28.3 pg (27-33); Mean Corpuscular Volume 93.9 fl (85-98); Mean Platelet Volume 10.4 fL (7.4-10.4); Monocytes # 0.3 10^3/uL (0.2-0.9); Monocytes % 2.3 %; Neutrophils # 11.65 10^3/uL (1.8-7.7); Nucleated Red Blood Cells % 0 %; Platelet Count 283 10^3/cmm (157-399); Red Blood Count 4.45 10^6/uL (3.85-5.65); Red Cell Distribution Width 12.8 % (12.1-15.1); White Blood Count 12.53 10^3/uL (3.29-11.43)
[2023-04-25] MEDS: azithromycin 250 mg Tablet 500 MG PO (09:58)
[2023-04-25] MEDS: aspirin 81 mg EC Tablet PO (09:58)
[2023-04-25] MEDS: duloxetine 60 mg Capsule PO (09:59)
[2023-04-25] MEDS: pantoprazole DR 40 mg Tablet PO (09:59)
[2023-04-25] MEDS: docusate sodium 100 mg Capsule PO (09:59)
[2023-04-25] MEDS: loratadine 10 mg Tablet PO (09:59)
[2023-04-25] MEDS: metoprolol tartrate 25 mg Tablet PO (10:00)
[2023-04-25] MEDS: lidocaine 5% Patch 1 PATCH TOPICAL (10:02)
[2023-04-25] MEDS: fluticasone nasal spray 16gm Btl 2 SPRAY INTRANASAL (10:06)
--- NOTE | 2023-04-25 10:22 | PM.DCS ---
Discharge Providers Date of Admission: 04/23/23 21:10 Date of Discharge: April 25, 2023 Attending Provider at Admission: Arnie Saha DO Attending Provider at Discharge: Trev Mcdermott Primary Care Provider: Delroy Santillan DO Diagnoses at Discharge Discharge Diagnosis (1) Acute exacerbation of chronic obstructive airways disease: Status: Acute (2) Hypoxia: Status: Acute (3) Hypertension: Status: Acute Reason for Visit Reason for Visit: SOB Brief History: Ksenia Phan is a 72 year old female with severe COPD and pulmonary fibrosis by CT scan presents with acute exacerbation of COPD.? She states her symptoms started yesterday.? There was no change in her usual inhalers nebs and no increase in steroids.? Today it just got significantly worse so they brought her into the emergency room.? Initially she was hypoxic on her usual 4 L in the low 80s.? However with treatment in the ED she is now satting in the low 90s on her normal 4 L.? Work-up is negative in the ED.? No pneumonia no acute illness.? White blood cell count is normal.? Labs normal ABG in the normal range. Due to the patient's living situation (without central air)? and living 50 miles from closest hospital will place in observation status and give her high-dose steroids as well as Zithromax. Hospital Course Hospital Course She was treated for a COPD exacerbation with Solu-Medrol, azithromycin, neb treatments. With hypercapnia, dyspnea on exertion with somewhat difficult to establish saturation, seems fairly advanced disease with COPD, pulmonary fibrosis, concerned that she would benefit from BiPAP underwent overnight pulse oximetry, noted to have 6 minutes hypoxia 80-89%, CO2 noted 51.3 on ABG. Did not qualify for BiPAP. Is referred for sleep study due to nocturnal hypoxia. Today she is feeling better. Discharging home, but is asked to follow-up with pulmonology. Access has been difficult for her, case management is discussed with her options, we discussed with her as she does have ability to go by [employer], but with long commute home it has been difficult for her, discussed consideration of discussing with company to see if she can be dropped off first, discussed consideration of other private transport, if unable to tolerate transporting in private vehicle, consideration of purchase of used wheelchair accessible vehicle, etc. Unfortunately pulmonology not on-call could not see her in the hospital. Would benefit from follow-up with specialist as discussed with them to help reduce progressive pulmonary function deterioration. They verbalized understanding. She is referred for sleep study. Noted mild hyperkalemia 5.2, she is asked not to hold off lisinopril, started on amlodipine instead. Asked to limit potassium in diet. Please follow-up her respiratory condition, and follow-up chemistry for potassium. Physical Exam Narrative: Accompanied by her Const: COMMON NORMALS: patient oriented x3 and alert GENERAL APPEARANCE: cooperative ORIENTATION/CONSCIOUSNESS: Yes awake HENMT: COMMON NORMALS: oropharynx normal Neck/C-Spine: COMMON NORMALS: no JVD Resp: COMMON NORMALS: normal respiratory effort AUSCULTATION: diminished lung sounds (Improving air entry. No rhonchi, wheezing or crackles.) bilateral Cardio: COMMON NORMALS: no JVD, regular rhythm, S1 normal heart sound present, S2 normal heart sound present and No murmurs present (Cardio) RHYTHM: regular rhythm HEART SOUNDS: S1 normal heart sound present and S2 normal heart sound present GI: COMMON NORMALS: Normal to inspection, nondistended, normoactive bowel sounds present, Soft to palpation and non-tender PALPATION: Yes Soft to palpation Extremity: COMMON NORMALS: no joint enlargement and no pedal edema Neuro: COMMON NORMALS: patient oriented x3 and moves all extremities SENSORIUM/ORIENTATION: Yes alert Skin: COMMON NORMALS: no rashes or lesions noted GENERAL SKIN EXAM: no rashes or lesions noted Discharge Data Studies Completed and Pending Completed Studies During Hospitalization Category Date Time Status XR chest 1V portable [id number] Stat Exams 04/23/23 18:58 Completed Pending at discharge Category Date Time Status Basic Metabolic Panel AM LABS Lab 04/26/23 04:00 Ordered Basic Metabolic Panel AM LABS Lab 04/27/23 04:00 Ordered Complete Blood Count w/Auto AM LABS Lab 04/26/23 04:00 Ordered Complete Blood Count w/Auto AM LABS Lab 04/27/23 04:00 Ordered Radiology Impressions Chest X-Ray 04/23/23 18:58 IMPRESSION: Nonacute findings. Laboratory Results WBC 12.53 10^3/uL (3.29-11.43) H 04/25/23 06:30 Corrected WBC Cancelled 04/25/23 05:46 RBC 4.45 10^6/uL (3.85-5.65) 04/25/23 06:30 Hgb 12.60 g/dL (11.27-16.99) 04/25/23 06:30 Hct 41.8 % (36-47) 04/25/23 06:30 MCV 93.9 fl (85-98) 04/25/23 06:30 MCH 28.3 pg (27-33) 04/25/23 06:30 MCHC 30.1 g/dL (30-55) 04/25/23 06:30 RDW 12.8 % (12.1-15.1) 04/25/23 06:30 Plt Count 283 10^3/cmm (157-399) 04/25/23 06:30 MPV 10.4 fL (7.4-10.4) 04/25/23 06:30 Gran % Cancelled 04/25/23 05:46 Neut % (Auto) 93.0 % 04/25/23 06:30 Lymph % (Auto) 4.2 % 04/25/23 06:30 [place] % (Auto) 2.3 % 04/25/23 06:30 Eos % (Auto) 0.0 % 04/25/23 06:30 Baso % (Auto) 0.1 % 04/25/23 06:30 Neut # (Auto) 11.65 10^3/uL (1.8-7.7) H 04/25/23 06:30 Lymph # (Auto) 0.5 10^3/uL (0.8-4.8) L 04/25/23 06:30 [place] # (Auto) 0.3 10^3/uL (0.2-0.9) 04/25/23 06:30 Eos # (Auto) 0.0 10^3/uL (0.0-0.8) 04/25/23 06:30 Baso # (Auto) 0.0 10^3/uL (0.0-0.1) 04/25/23 06:30 Absolute Gran (auto) Cancelled 04/25/23 05:46 Nucleated RBC % (auto) 0 % 04/25/23 06:30 Nucleated RBCs # 0.0 /100WBC 04/25/23 06:30 Specimen Type Arterial 04/25/23 03:25 Sample Site Brachial, left 04/25/23 03:25 ABG pH 7.39 (7.35-7.45) 04/25/23 03:25 ABG pCO2 51.3 mmHg (35-45) H 04/25/23 03:25 ABG pO2 85.3 mmHg (80.0-100.0) 04/25/23 03:25 ABG HCO3 30.9 mmol/L (22-26) H 04/25/23 03:25 ABG O2 Saturation 98.1 04/25/23 03:25 ABG Base Excess 4.9 mmol/L (-2.0-2.0) H 04/25/23 03:25 Ga Test N/a 04/25/23 03:25 A-a O2 Gradient 6.7 mmHg (5-10) 04/25/23 03:25 Hematocrit 36.4 % (37-47) L 04/25/23 03:25 Hgb O2 Saturation 96.3 % (95-100) 04/25/23 03:25 Carboxyhemoglobin 1.4 %THgb (0.4-20.1) 04/25/23 03:25 Methemoglobin 0.4 % (0.4-1.5) 04/25/23 03:25 Total Hemoglobin 11.9 g/dL (12-16) L 04/25/23 03:25 Sodium 142.0 mmol/L (131-143) 04/25/23 03:25 Potassium 4.3 mmol/L (3.5-5.0) 04/25/23 03:25 Glucose 142.0 mg/dL (70-115) H 04/25/23 03:25 Ionized Calcium 1.3 mmol/L (1.1-1.4) 04/25/23 03:25 O2 Delivery Device Nc 04/25/23 03:25 O2 Liters/Min 2.0 % 04/25/23 03:25 FiO2 28.0 % 04/25/23 03:25 Plan Nurse ID Alewe 04/25/23 03:25 Sodium 139 mmol/L (136-145) 04/25/23 05:46 Potassium 5.2 mmol/L (3.5-5.1) H 04/25/23 05:46 Chloride 103 mmol/L (98-107) 04/25/23 05:46 Carbon Dioxide 23 mmol/L (22-29) 04/25/23 05:46 Anion Gap 18.2 (5-19) 04/25/23 05:46 BUN 15 mg/dL (8-23) 04/25/23 05:46 Creatinine 0.9 mg/dL (0.5-0.9) 04/25/23 05:46 GFR Calculation Not Reportable 04/25/23 05:46 Glucose 134 mg/dL (65-115) H 04/25/23 05:46 Calculated Osmolality 291 mOsm/kg (285-295) 04/25/23 05:46 Calcium 9.5 mg/dL (8.5-10.5) 04/25/23 05:46 Phosphorus 3.9 mg/dL (2.5-4.5) 04/23/23 19:19 Magnesium 2.1 mg/dL (1.7-2.3) 04/23/23 19:19 Total Bilirubin 0.2 mg/dL (0.15-1.2) 04/23/23 19:19 AST 20 U/L (0-32) 04/23/23 19:19 ALT 13 U/L (0-33) 04/23/23 19:19 Alkaline Phosphatase 48 U/L (35-105) 04/23/23 19:19 NT-Pro-B Natriuret Pep 657 pg/mL (0-125) H 04/23/23 19:19 Total Protein 7.3 g/dL (6.6-8.7) 04/23/23 19:19 Albumin 4.3 g/dL (3.5-5.2) 04/23/23 19:19 Globulin 3.0 g/dL (1.3-4.6) 04/23/23 19:19 SARS-CoV-2 Ag (Rapid) negative (Negative) 04/23/23 19:26 Vitals Last Vital Signs Temp 97.8 F 04/25/23 07:42 Pulse 73 04/25/23 07:42 Resp 19 H 04/25/23 07:42 BP 148/72 04/25/23 07:42 Pulse Ox 93 04/25/23 07:42 O2 Del Method Nasal Cannula 04/25/23 07:42 O2 Flow Rate 2 04/25/23 08:00 FiO2 36 04/24/23 07:40 Discharge Plan Discharge Patient Disposition: Home Condition: Stable Prescriptions: New prednisone 50 mg tablet 50 mg PO DAILY Qty: 5 0RF azithromycin 250 mg Tablet 500 mg PO DAILY Qty: 8 0RF amlodipine 5 mg tablet 5 mg PO DAILY Qty: 90 0RF morphine 10 mg/5 mL solution 5 mg PO Q6H PRN (Reason: dyspnea) Qty: 100 0RF Continued aspirin [Adult Aspirin Regimen] 81 mg tablet,delayed release (DR/EC) 81 mg PO QDAY fluticasone propionate [Allergy Relief (fluticasone)] 50 mcg/actuation spray,suspension 2 spray INTRANASAL QDAY loratadine 10 mg capsule 10 mg PO QDAY Adult 50 Plus Probiotic 4 billion cell capsule 4,000 mmu cells PO QDAY (DME) light weight upright walker stand up rollator walker with forearm supports Qty: 1 0RF Rx Instructions: As directed nitroglycerin [Nitrostat] 0.4 mg tablet, sublingual 0.4 mg sublingual Q5M PRN (Reason: chest pain) Qty: 20 1RF Rx Instructions: do not exceed 3 doses per episode cranberry 400 mg capsule 400 mg PO DAILY Rx Instructions: administer with a meal albuterol sulfate 90 mcg/actuation HFA aerosol inhaler See Rx Instructions .ROUTE .COMPLEX Qty: 68 5RF Dose Instruction: INHALE 4 TO 8 PUFFS INTO LUNGS EVERY 4 HOURS NEEDED FOR SHORTNESS OF BREATH OR WHEEZING Rx Instructions: INHALE 4 TO 8 PUFFS INTO LUNGS EVERY 4 HOURS NEEDED FOR SHORTNESS OF BREATH OR WHEEZING ipratropium-albuterol 0.5 mg-3 mg(2.5 mg base)/3 mL solution for nebulization See Rx Instructions .ROUTE .COMPLEX Qty: 360 11RF Dose Instruction: NEBULIZE 1 VIAL FOUR TIMES DAILY FOR COPD / WHEEZING Rx Instructions: NEBULIZE 1 VIAL FOUR TIMES DAILY FOR COPD / WHEEZING Spiriva with HandiHaler 18 mcg capsule, w/inhalation device See Rx Instructions .ROUTE .COMPLEX Qty: 30 11RF Dose Instruction: INHALE CONTENTS OF 1 CAPSULE INTO LUNGS USING HANDIHALER ONCE DAILY IN THE MORNING Rx Instructions: INHALE CONTENTS OF 1 CAPSULE INTO LUNGS USING HANDIHALER ONCE DAILY IN THE MORNING (DME) Bipap See Rx Instructions .Route .MEDSUPPLY Qty: 1 0RF Rx Instructions: As directed, 10 and 5 pressures. [place] 3-6-9 1,200 mg Capsule 1 cap PO DAILY calcium carbonate-vitamin D3 600 mg-5 mcg (200 unit) Tablet 1 tab PO DAILY Vitamin C 500 mg Tablet 1,000 mg PO DAILY vitamin B complex Tablet 1 tab PO DAILY prednisone 10 mg tablet 10 mg PO DAILY pantoprazole 40 mg tablet,delayed release (DR/EC) 40 mg PO DAILY simvastatin 20 mg tablet 20 mg PO QPM metoprolol tartrate 25 mg tablet 25 mg PO DAILY duloxetine 60 mg capsule,delayed release(DR/EC) 60 mg PO DAILY Discontinued lisinopril 10 mg tablet 10 mg PO DAILY Discharge Orders: Discharge Order (Routine); Ordered 04/25/23 Ordered By: Trev Mcdermott Other Ambulatory Orders: Sleep Study/Titration (Routine) Timeframe: 3 Days Facility: [facility] - Location: [facility] Ordered By: Trev Mcdermott DME: Oxygen (Order) Location: None Selected Ordered By: Trev Mcdermott Referrals: Perico Cordova MD [Physician] - 1 week (We have notified your physician's clinic of the need for a follow-up appointment to be scheduled. If you have not heard from them within the next 2 business days, please call them directly. You may also reach out to our accounting manager at [phone] and she can assist you.) Delroy Santillan DO [Primary Care Provider] - 1-3 days (We have notified your physician's clinic of the need for a follow-up appointment to be scheduled. If you have not heard from them within the next 2 business days, please call them directly. You may also reach out to our accounting manager at [phone] and she can assist you.) Discharge Diet: Advance as tolerated and Diabetic Discharge Activity: Increase activity as tolerated and Oxygen as instructed Patient Instructions: Prednisone (By mouth), Azithromycin (By mouth), Morphine, Rapid Release (By mouth) (Roxanol), Amlodipine (By mouth), Pulmonary Fibrosis (GEN), Potassium Content of Foods List (GEN), COPD (Chronic Obstructive Pulmonary Disease) (ED), Opioid Safety Activity Restrictions/Additional Instructions: Complete antibiotic and steroid course for exacerbation of COPD. Then continue only with 10 mg prednisone as previously. Continue oxygen at home, target saturation 88-92%. Increase oxygen if you anticipate you are going to exert yourself, then decrease it back down at rest when saturation is 88-92%. Please follow-up with lung specialist (clinical nutrition manager) for additional assessment of COPD as well as suspected lung fibrosis. As with morphine (Roxanol) started here in the hospital to help with feeling of lack of air when oxygen saturation is normal, this can happen with COPD and is termed air hunger, you can use all doses of morphine at home to help relieve symptoms of air hunger as long as your oxygen saturation is within normal limits. Because your potassium is mildly elevated at 5.2 your lisinopril for now is held, you are instead started on the amlodipine to help control blood pressure. Please have your primary doctor recheck your potassium level. Avoid extra potassium in your diet. Pamphlet of potassium containing foods is included for your reference. In case of any worsening or new concerning symptoms, seek medical attention. Discharge Attestations Time Spent in Discharge Care*: greater than 30 min Quality Metrics Clinical Quality Measures [ No reported AMI, CVA or VTE this stay] Coding Level of Care Code 32535 Diagnoses Acute exacerbation of chronic obstructive airways disease J44.1 Hypoxia R09.02 Hypertension I10
--- NOTE | 2023-04-25 13:59 | PC.NURSE ---
patient and verbalized understanding of discharge instructions, home medications and follow up appointments. new prescriptions delivered to patient at bedside. portable oxygen tank delivered to patients room.
== END 2023-04-25 14:03 | disposition home or self-care (01) ==
LOC: ER 21:13 → MEDSURG 23:13
PROVIDERS: Admitting Provider Internal Medicine; Emergency Provider Emergency Medicine; PCP Family Medicine; Visit Provider Internal Medicine
DX: J44.1 Chronic obstructive pulmonary disease with (acute) exacerbation (principal); R09.02 Hypoxemia; I10 Essential (primary) hypertension; Z79.82 Long term (current) use of aspirin; E78.5 Hyperlipidemia, unspecified; M79.7 Fibromyalgia; M81.0 Age-related osteoporosis without current pathological fracture; Z87.891 Personal history of nicotine dependence
CPT/HCPCS: 36415; 36600; 71045; 80048; 80051; 80053; 82330; 82803; 82805; 83735; 83880; 84100; 85025; 87426; 93005; 94640; 94660; 94664; 94760; 94762; 96361; 96372; 96374; 96375; 96376; 99285; G0378; J0360; J1650; J2060; J2920; J2930; J7030; J7613; Q0144

== ENCOUNTER → 2023-05-23 08:03 | Outpatient (BNVA) | payer MEDICARE, MEDICAID, SELFPAY | PROVIDERS: PCP Family Medicine; Visit Provider Internal Medicine Pulmonary Disease | DX: Z09 Encounter for follow-up examination after completed treatment for conditions other than malignant neoplasm (principal); J84.10 Pulmonary fibrosis, unspecified; Z12.2 Encounter for screening for malignant neoplasm of respiratory organs; J96.11 Chronic respiratory failure with hypoxia; J96.12 Chronic respiratory failure with hypercapnia; Z87.891 Personal history of nicotine dependence; Z99.81 Dependence on supplemental oxygen; J43.2 Centrilobular emphysema | CPT/HCPCS: 99204 ==

== ENCOUNTER → 2023-05-29 14:09 | Outpatient (BNVA) | payer MEDICARE, MEDICAID, SELFPAY | PROVIDERS: PCP Family Medicine; Visit Provider Family Medicine | DX: E87.1 Hypo-osmolality and hyponatremia (principal); J43.9 Emphysema, unspecified; J84.10 Pulmonary fibrosis, unspecified; R09.02 Hypoxemia; M17.0 Bilateral primary osteoarthritis of knee; I10 Essential (primary) hypertension | CPT/HCPCS: 80048 ==

== ENCOUNTER 2023-07-08 10:17 | Outpatient (CLI) | payer MEDICARE, MEDICAID, SELFPAY ==
--- NOTE | 2023-07-08 10:45 | CT_ITS ---
WS: [id number] LDCT LUNG CANCER SCREENING HISTORY: Cancer Screen TECHNIQUE: Axial imaging performed from the apices to 1 cm below the costophrenic angles. Coronal and sagittal reformats are submitted with axial MIP series. All CT scans at [facility] use at least one of these dose optimization techniques: automated exposure control; mA and/or kV adjustment per patient size (includes targeted exams where dose is matched to clinical indication); or iterativ e reconstruction. DLP: 63.60 mGy.cm DIvol: Mean CTDIvol: 1.10 (mGy) COMPARISON: 09/01/2021 Diagnostic quality: Satisfactory Lungs: Mild pulmonary hyperinflation. There are a few scattered benign calcified granuloma. No mass o r nodule. No pneumonia or endobronchial lesions. Heart: Normal size heart with no pericardial effusion.. Other findings: Mild atherosclerosis aorta. No mediastinal or hilar adenopathy. No adrenal mass. IMPRESSION: CT/CT lung screening [id number] LUNG-RADS: 2-Benign Appearance or Behavior FOLLOW UP: 12 Month: Continue annual screening with LDCT OTHER FINDINGS (S MODIFIER): None.
== END 2023-07-08 10:18 | disposition home or self-care (01) ==
LOC: RAD 10:17
PROVIDERS: PCP Family Medicine; Visit Provider Internal Medicine Pulmonary Disease
DX: Z12.2 Encounter for screening for malignant neoplasm of respiratory organs (principal); Z87.891 Personal history of nicotine dependence
CPT/HCPCS: 71271

== ENCOUNTER 2023-08-01 17:05 | Observation (INO) | payer MEDICARE, MEDICAID, SELFPAY ==
[2023-08-01] VITALS (9 sets, daily range): BP systolic 125–181; BP diastolic 66–123; PULSE 82–112; RESP 16–20; TEMP 36.2–36.6; O2SAT 92–100; BMI 28.0
--- NOTE | 2023-08-01 17:09 | XRR_ITS ---
PROCEDURE INFORMATION: Exam: XR Chest Exam date and time: 08/01/2023 5:56 PM Age: 72 years old Clinical indication: Shortness of breath; Additional info: SOB TECHNIQUE: Imaging protocol: Radiologic exam of the chest. Views: 1 view. COMPARISON: CT lung screening [id number] 07/08/2023 10:32 AM FINDINGS: Lungs: Left lower lobe atelectasis. Emphysematous changes. Pleural spaces: Unremarkable. No pleural effusion. No pneumothorax. Heart/Mediastinum: Unremarkable. No cardiomegaly. Bones/joints: Unremarkable. XR/XR chest 1V portable [id number] IMPRESSION: 1. Left lower lobe atelectasis. 2. Emphysematous changes.
--- NOTE | 2023-08-01 17:13 | ECG_ITS ---
[facility] Test Date: 2023-08-01 Pat Name: Ksenia Phan Department: Room: Gender: Female [employer] K[employer]: : 1950 Requested By: Gt Aldridge Order Number: [id number] Gordon MD: Chencho Godfrey M.D. Measurements Intervals [place] Rate: 96 P: 81 MO: 169 QRS: 81 QRSD: 98 T: 72 QT: 342 QTc: 433 Interpretive Statements SINUS RHYTHM MODERATE ST DEPRESSION [0.05+ mV ST DEPRESSION] Compared to ECG 04/23/2023 19:08:40 No significant changes Electronically Signed On 08-02-2023 8:46:15 MARITIME PILOT by Chencho Godfrey M.D. [id number]
--- NOTE | 2023-08-01 17:17 | ED_ITS ---
HPI - SOB/Dyspnea 2 General: Chief Complaint: Shortness of Breath/Dyspnea Stated Complaint: copd Time Seen by Provider: 08/01/23 17:05 Source: patient and EMS Mode of arrival: EMS Limitations: no limitations History of Present Illness: HPI Narrative: 72-year-old female has a extensive histo ry of COPD she is on 3 L oxygen at baseline at home she had increasing shortness of breath last 2 days EMS states that given her Solu-Medrol along with breathing treatments and the route when they first arrived they had placed her on CPAP which she did not tolerate she is improved currently going back on her baseline 3 L and is 98% she denies any fevers denies any cough denies any chest pain. Associated symptoms: Deny abdominal pain, chest pain, fever(s), nausea or vomiting Review of Systems 2 Const: Denies: fever(s), chills, body aches or change in appetite ENMT: Denies: throat pain or dental pain Card: Denies: chest pain Resp: Reports: dyspnea and wheezing GI: Denies: abdominal pain, nausea, vomiting or diarrhea Musc: Denies: neck pain or back pain Skin/Breast: Denies: rash Neuro: Denies: headache(s) PFSH ED 2 PFSH: Medical History COPD (chronic obstructive pulmonary disease) COPD (chronic obstructive pulmonary disease) COPD exacerbation Degenerative joint disease of right wrist Dyslipidemia Dyslipidemia Dyspnea on exertion Fibromyalgia HTN (hypertension) Hypertension Osteoarthritis WPW (Jrseo-Oeotvziqu-Wnnkr syndrome) Surgical History Hx of hand surgery H/O: hysterectomy Family History Mother Hypertension Denies family history of Diabetes CAD (coronary artery disease) Clotting disorder Dementia Hyperlipidemia Psychiatric illness Chronic kidney disease (CKD) Suicide Anesthesia complication Bleeding disorder Family history of premature coronary artery disease Lung disease Cancer Stroke Social History Smoking and tobacco/nicotine status: former use of tobacco/nicotine Quit status (tobacco/nicotine): has quit using Year quit tobacco: 2016 Former quit date comment: 2 ppd X 54 years Alcohol intake: never Substance/Drug Use: never Adopted: No Household members: spouse Housing: House Marital status: Highest education level completed: High School Graduate service: No Current occupational status: retired Pets and animals: Yes Current gender identity: Female Physical Exam 2 Const: COMMON NORMALS: no acute distress, patient oriented x3 and healthy appearing HENMT: COMMON NORMALS: normocephalic and atraumatic HEAD & SCALP: n ormocephalic and atraumatic Eye: COMMON NORMALS: Equal, round and reactive pupils present and EOMs intact bilaterally PUPIL: Yes Equal, round and reactive pupils present Neck/C-Spine: COMMON NORMALS: full ROM and supple Chest: COMMONS NORMALS: normal inspection of the chest and normal palpation of entire chest wall Resp: COMMON NORMALS: No retractions and No use of accessory muscles A USCULTATION: wheezes Cardio: COMMON NORMALS: regular rate, regular rhythm and No murmurs present (Cardio) RATE: regular rate RHYTHM: regular rhythm GI: COMMON NORMALS: Normal to inspection, nondistended, normoactive bowel sounds present, Soft to palpation, non-tender and no masses PALPATION: Yes Soft to palpation Extremity: COMMON NORMALS: normal to inspection and full ROM Neuro: COMMON NORMALS: patient oriented x3, moves all extremities and no focal motor deficits Psych: COMMON NORMALS: mental status grossly normal, Normal thought process present and cooperative THOUGHT PROCESS: Normal thought process present Skin: COMMON NORMALS: no rashes or lesions noted and no wounds GENERAL SKIN EXAM: no rashes or lesions noted Course 2 Vital Signs: Vital signs: Vital Signs Temperature 98 F 08/01/23 17:07 Pulse Rate 90 08/01/23 19:29 Respiratory Rate 18 08/01/23 19:29 Blood Pressure 146/105 08/01/23 19:29 Pulse Oximetry 98 08/01/23 19:29 Oxygen Delivery Me thod Nasal Cannula 08/01/23 19:29 Oxygen Flow Rate 2 08/01/23 19:29 MDM - SOB/Dyspnea Medical Decision Making Patient presents here with COPD exacerbation patient has improved here but gets quite short of breath with any exertion I spoke to the hospitalist will admit at this time. Medical Records I reviewed the patient's medical records. Lab Data I reviewed the patient's lab results. 08/01/23 17:33 08/01/23 17:33 Labs/Radiology: Laboratory Results WBC 12.20 10^3/uL (3.29-11.43) H 08/01/23 17:33 RBC 4.69 10^6/uL (3.85-5.65) 08/01/23 17:33 Hgb 13.40 g/dL (11.27-16.99) 08/01/23 17:33 Hct 43.0 % (36-47) 08/01/23 17:33 MCV 91.7 fl (85-98) 08/01/23 17:33 MCH 28.6 pg (27-33) 08/01/23 17:33 MCHC 31.2 g/dL (30-55) 08/01/23 17: RDW 11.9 % (12.1-15.1) L 08/01/23 17: Plt Count 292 10^3/cmm (157-399) 08/01/23 17: MPV 10.4 fL (7.4-10.4) 08/01/23 17:33 Neut % (Auto) 89.2 % 08/01/23 17:33 Lymph % (Auto) 5.5 % 08/01/23 17:33 Sharp % (Auto) 3.8 % 08/01/23 17:33 Eos % (Auto) 0.6 % 08/01/23 17:33 Baso % (Auto) 0.2 % 08/01/23 17: Neut # (Auto) 10.89 10^3/uL (1.8-7.7) H 08/01/23 17:33 Lymph # (Auto) 0.7 10^3/uL (0.8-4.8) L 08/01/23 17:33 Sharp # (Auto) 0.5 10^3/uL (0.2-0.9) 08/01/23 17:33 Eos # (Auto) 0.1 10^3/uL (0.0-0.8) 08/01/23 17:33 Baso # (Auto) 0.0 10^3/uL (0.0-0.1) 08/01/23 17:33 Nucleated RBC % (auto) 0 % 08/01/23 17: Nucleated RBCs # 0.0 /100WBC 08/01/23 17:33 Specimen Type Arterial 08/01/23 17:18 Sample Site Radial, left 08/01/23 17:18 ABG pH 7.43 (7.35-7.45) 08/01/23 17:18 ABG pCO2 49.9 mmHg (35-45) H 08/01/23 17:18 ABG pO2 128.0 mmHg (80.0-100.0) H 08/01/23 17:18 ABG HCO3 33.1 mmol/L (22-26) H 08/01/23 17:18 ABG Base Excess 7.4 mmol/L (-2.0-2.0) H 08/01/23 17:18 Ga Test Pos 08/01/23 17:18 Hematocrit 40.1 % (37-47) 08/01/23 17:18 Hgb O2 Saturation 97.7 % (95-100) 08/01/23 17:18 Carboxyhemoglobin 1.3 %THgb (0.4-20.1) 08/01/23 17:18 Methemoglobin 0.9 % (0.4-1.5) 08/01/23 17:18 Total Hemoglobin 13.1 g/dL (12-16) 08/01/23 17:18 O2 Delivery Device Nc 08/01/23 17:18 O2 Liters/Min 3.0 % 08/01/23 17:18 Assistant Merchandiser ID Yara 08/01/23 17:18 Sodium 137 mmol/L (136-145) 08/01/23 17:33 Potassium 3.8 mmol/L (3.5-5.1) 08/01/23 17:33 Chloride 97 mmol/L (98-107) L 08/01/23 17:33 Carbon Dioxide 27 mmol/L (22-29) 08/01/23 17:33 Anion Gap 16.8 (5-19) 08/01/23 17:33 BUN 18 mg/dL (8-23) 08/01/23 17:33 Creatinine 0.8 mg/dL (0.5-0.9) 08/01/23 17:33 GFR Calculation Not Reportable 08/01/23 17:33 Glucose 132 mg/dL (65-115) H 08/01/23 17:33 Calculated Osmolality 288 mOsm/kg (285-295) 08/01/23 17:33 Calcium 9.5 mg/dL (8.5-10.5) 08/01/23 17:33 Total Bilirubin 0.3 mg/dL (0.15-1.2) 08/01/23 17:33 AST 21 U/L (0-32) 08/01/23 17:33 ALT 12 U/L (0-33) 08/01/23 17:33 Alkaline Phosphatase 59 U/L (35-105) 08/01/23 17:33 NT-Pro-B Natriuret Pep 558 pg/mL (0-125) H 08/01/23 17:33 Total Protein 7.2 g/dL (6.6-8.7) 08/01/23 17:33 Albumin 3.8 g/dL (3.5-5.2) 08/01/23 17:33 Globulin 3.4 g/dL (1.3-4.6) 08/01/23 17:33 Influenza Type A Ag Negative (Negative) 08/01/23 18:26 Influenza Type B Ag Negative (Negative) 08/01/23 18:26 SARS-CoV-2 Ag (Rapid) negative (Negative) 08/01/23 18:26 All radiology interpretation(s) finalized by discharge EKG Data EKG 1: I personally reviewed and interpreted this EKG as follows: EKG Interpretation Date: 08/01/23 EKG interpretation time: 17:13 Interpretation: nsr hr [address] elevation qrs 98 qtc 396 Discharge Plan Discharge Patient Disposition: Placed in Observation Clinical Impression: COPD exacerbation Condition: Stable Prescriptions: No Action aspirin [Adult Aspirin Regimen] 81 mg tablet,delayed release (DR/EC) 81 mg PO QDAY fluticasone propionate [Allergy Relief (fluticasone)] 50 mcg/actuation spray,suspension 2 spray INTRANASAL QDAY Adult 50 Plus Probiotic 4 billion cell capsule 4,000 mmu cells PO QDAY loratadine 10 mg capsule 10 mg PO QDAY PRN (Reason: allergic symptoms) (DME) light weight upright walker stand up rollator walker with forearm supports Qty: 1 0RF Rx Instructions: As directed nitroglycerin [Nitrostat] 0.4 mg tablet, sublingual 0.4 mg sublingual Q5M PRN (Reason: chest pain) Qty: 20 1RF Rx Instructions: do not exceed 3 doses per episode cranberry 400 mg capsule 400 mg PO DAILY Rx Instructions: administer with a meal polyethylene glycol 3350 [Miralax] 17 gram/dose powder 4 g PO DAILY PRN (Reason: constipation) collagen 4 tbspn PO Breztri Aerosphere 160-9-4.8 mcg/actuation HFA aerosol inhaler 2 inh inhalation BID Qty: 10.7 3RF ipratropium-albuterol 0.5 mg-3 mg(2.5 mg base)/3 mL solution for nebulization See Rx Instructions .ROUTE .COMPLEX Qty: 360 11RF Dose Instruction: NEBULIZE 1 VIAL FOUR TIMES DAILY FOR COPD / WHEEZING Rx Instructions: NEBULIZE 1 VIAL FOUR TIMES DAILY FOR COPD / WHEEZING (DME) Bipap See Rx Instructions .Route .MEDSUPPLY Qty: 1 0RF Rx Instructions: As directed, 10 and 5 pressures. amlodipine 5 mg tablet 5 mg PO DAILY Qty: 90 1RF (DME) Knee Support Brace Misc See Rx Instructions .Route Qty: 1 0RF Rx Instructions: As directed, hinged brace please albuterol sulfate 90 mcg/actuation HFA aerosol inhaler See Rx Instructions .ROUTE .COMPLEX Qty: 68 5RF Dose Instruction: INHALE 4 TO 8 PUFFS INTO LUNGS EVERY 4 HOURS NEEDED FOR SHORTNESS OF BREATH OR WHEEZING Rx Instructions: INHALE 4 TO 8 PUFFS INTO LUNGS EVERY 4 HOURS NEEDED FOR SHORTNESS OF BREATH OR WHEEZING RSVPreF3 antigen-AS01E (PF) 120 mcg/0.5 mL suspension for reconstitution 0.5 ml IM ONCE Qty: 1 0RF cyclobenzaprine 10 mg tablet See Rx Instructions .ROUTE .COMPLEX Qty: 90 5RF Dose Instruction: TAKE ONE TABLET BY MOUTH THREE TIMES DAILY NEEDED Rx Instructions: TAKE ONE TABLET BY MOUTH THREE TIMES DAILY NEEDED pantoprazole 40 mg tablet,delayed release (DR/EC) See Rx Instructions .ROUTE .COMPLEX Qty: 90 3RF Dose Instruction: TAKE ONE TABLET BY MOUTH ONCE DAILY FOR SEVERE GASTRITIS Rx Instructions: TAKE ONE TABLET BY MOUTH ONCE DAILY FOR SEVERE GASTRITIS metoprolol tartrate 25 mg tablet See Rx Instructions .ROUTE .COMPLEX Qty: 180 3RF Dose Instruction: TAKE ONE TABLET BY MOUTH TWICE DAILY Rx Instructions: TAKE ONE TABLET BY MOUTH TWICE DAILY duloxetine 60 mg capsule,delayed release(DR/EC) See Rx Instructions .ROUTE .COMPLEX Qty: 90 3RF Dose Instruction: TAKE ONE CAPSULE BY MOUTH EVERY DAY Rx Instructions: TAKE ONE CAPSULE BY MOUTH EVERY DAY morphine 10 mg/5 mL solution 5 mg PO Q6H PRN (Reason: dyspnea) 28 Days Qty: 100 0RF prednisone 20 mg tablet See Rx Instructions PO BID Qty: 9 0RF Rx Instructions: 2 po qday x 3 days then 1 po qday x 3 days then return to 10mg daily. Mccool 3-6-9 1,200 mg Capsule 1 cap PO DAILY calcium carbonate-vitamin D3 600 mg-5 mcg (200 unit) Tablet 1 tab PO DAILY Vitamin C 500 mg Tablet 1,000 mg PO DAILY vitamin B complex Tablet 1 tab PO DAILY prednisone 10 mg tablet 10 mg PO DAILY simvastatin 20 mg tablet 20 mg PO QPM Referrals: Delroy Santillan DO [Primary Care Provider] - Coding Level of Care Code ED Advocacy Director for Gum[facility] Phillips
[2023-08-01 17:29] LABS: ABG PCO2 49.9 mmHg (35-45); ABG PH Result 7.43 (7.35-7.45); Arterial Blood Gas Hematocrit 40.1 % (37-47); Base Excess ABG 7.4 mmol/L (-2.0-2.0); Blood Gas Allen Test Pos; Blood Gas Operator Identificat WALCI; Blood Gas Sample Site Radial, left; Blood Gas Sample Type Arterial; Carboxyhemoglobin 1.3 %THgb (0.4-20.1); HCO3 ABG 33.1 mmol/L (22-26); HGB O2 Sat 97.7 % (95-100); Methemoglobin 0.9 % (0.4-1.5); Oxygen Device NC; Total Hemoglobin 13.1 g/dL (12-16)
[2023-08-01] MEDS: albuterol 2.5 mg/3 mL Neb 5 MG INHALATION (17:33)
[2023-08-01 18:02] LABS: Basophils % 0.2 %; Eosinophils # 0.1 10^3/uL (0.0-0.8); Eosinophils % 0.6 %; Lymphocytes # 0.7 10^3/uL (0.8-4.8); Lymphocytes % 5.5 %; Mean Corpuscular HGB Conc 31.2 g/dL (30-55); Mean Corpuscular Hemoglobin 28.6 pg (27-33); Mean Corpuscular Volume 91.7 fl (85-98); Mean Platelet Volume 10.4 fL (7.4-10.4); Monocytes # 0.5 10^3/uL (0.2-0.9); Monocytes % 3.8 %; Neutrophils # 10.89 10^3/uL (1.8-7.7); Neutrophils % 89.2 %; Nucleated Red Blood Cells % 0 %; Platelet Count 292 10^3/cmm (157-399); Red Blood Count 4.69 10^6/uL (3.85-5.65); Red Cell Distribution Width 11.9 % (12.1-15.1)
[2023-08-01 18:51] LABS: SARS Covid-2 Antigen negative (Negative)
[2023-08-01 18:53] LABS: Alanine Aminotransferase 12 U/L (0-33); Albumin Level 3.8 g/dL (3.5-5.2); Alkaline Phosphatase 59 U/L (35-105); Aspartate Amino Transferase 21 U/L (0-32); Blood Urea Nitrogen 18 mg/dL (8-23); Calcium 9.5 mg/dL (8.5-10.5); Carbon Dioxide 27 mmol/L (22-29); Chloride 97 mmol/L (98-107); Globulin 3.4 g/dL (1.3-4.6); Glucose 132 mg/dL (65-115); NT Pro B Type Natriuretic Pept 558 pg/mL (0-125); Osmolality Calculated 288 mOsm/kg (285-295); Sodium 137 mmol/L (136-145); Total Bilirubin 0.3 mg/dL (0.15-1.2); Total Protein 7.2 g/dL (6.6-8.7)
[2023-08-01 18:57] LABS: Anion Gap 16.8 (5-19); Potassium 3.8 mmol/L (3.5-5.1)
[2023-08-01 18:59] LABS: Influenza A by IFA Negative (Negative); Influenza B by IFA Negative (Negative)
--- NOTE | 2023-08-01 19:53 | PM.HP ---
Providers/Chief Complaint Primary Care Provider: Delroy Santillan DO Chief Complaint: copd History of Present Illness Ksenia Phan is a 72 year old female with history of oxygen and COPD uses 3 L at baseline, presenting today with chief complaint of dyspnea on exertion. EMS gave her Solu-Medrol and DuoNeb, her O2 saturation improved on 3 L she is saturating 98% however in the ER her shortness of breath increased on minimal exertion. Patient has had multiple admissions in the past related to COPD exacerbation, at baseline she is using 2 to 3 L, patient is stating that she has not noticed any fever, productive cough, diarrhea, chest pain but endorsing significant dyspnea at minimal exertion and sometimes at rest, she is following up with Dr. Cordova outpatient, son stating that they have not been able to get BiPAP approved from insurance because they were not able to finish sleep study inhome. Patient has history of pulmonary fibrosis, emphysema, severe airflow obstruction with good response to bronchodilators,She is a former smoker with hx of 2 ppd X 54 years, quit in 2016. grade 3 severe stage emphysema based on PFTs 2018 Patient is denying Previous history of coronary disease, CHF, pulm hypertension. Review of Systems Const: Denies: fever(s) Eyes: Denies: change in vision ENMT: Denies: throat pain Card: Denies: chest pain Resp: Reports: dyspnea GI: Denies: abdominal pain Medications/Allergies Home Medications Medication Instructions Recorded Confirmed Last Taken Type aspirin 81 mg tablet,delayed 81 mg PO QDAY 09/09/19 05/23/23 04/23/23 History release (Adult Aspirin Regimen) fluticasone propionate 50 2 spray intranasal QDAY 09/09/19 05/23/23 04/23/23 History mcg/actuation nasal spray,suspension (Allergy Relief (fluticasone)) lactobacillus combination no.9 4 4,000 mmu cells PO QDAY 09/09/19 05/23/23 04/23/23 History billion cell capsule (Adult 50 Plus Probiotic) light weight upright walker stand #1 ea 10/21/19 05/23/23 Unknown Rx up rollator walker with forearm supports ipratropium 0.5 mg-albuterol 3 mg See Rx Instructions .Route 12/11/22 05/23/23 04/23/23 Rx (2.5 mg base)/3 mL nebulization .COMPLEX #360 mL soln nitroglycerin 0.4 mg sublingual 0.4 mg sublingual Q5M PRN chest 12/16/22 05/23/23 Unknown Rx tablet (Nitrostat) pain #20 tabs cranberry 400 mg capsule 400 mg PO DAILY 12/19/22 05/23/23 04/23/23 History Bipap #1 ea 04/17/23 05/23/23 Unknown Rx ascorbic acid (vitamin C) 500 mg 1,000 mg PO DAILY 04/24/23 05/23/23 04/23/23 History tablet (Vitamin C) calcium carbonate 600 mg-vitamin 1 tab PO DAILY 04/24/23 05/23/23 04/23/23 History D3 5 mcg (200 unit) tablet fish, borage, flaxseed oils-omega 1 cap PO DAILY 04/24/23 05/23/23 04/23/23 History 3,6,9 comb no.1 1,200 mg capsule (Burley 3-6-9) prednisone 10 mg tablet 10 mg PO DAILY 04/24/23 05/23/23 04/23/23 History simvastatin 20 mg tablet 20 mg PO QPM 04/24/23 05/23/23 04/23/23 History vitamin B complex 1 tab PO DAILY 04/24/23 05/23/23 04/23/23 History amlodipine 5 mg tablet 5 mg PO DAILY #90 tabs 05/05/23 05/29/23 Unknown Rx leg brace (Knee Support Brace) #1 ea 05/19/23 05/23/23 Unknown Rx albuterol sulfate 90 mcg/actuation See Rx Instructions .Route 05/20/23 05/23/23 Unknown Rx aerosol inhaler .COMPLEX #68 grams budesonide 160 mcg-glycopyr 9 2 inh inhalation BID #10.7 grams 05/23/23 05/29/23 Unknown Rx mcg-formot 4.8 mcg/actuation HFA inhaler (Breztri Aerosphere) collagen PO 05/23/23 Unknown History loratadine 10 mg capsule 10 mg PO QDAY PRN allergic symptoms 05/23/23 05/23/23 Unknown History polyethylene glycol 3350 17 4 g PO DAILY PRN constipation 05/23/23 05/23/23 Unknown History gram/dose oral powder (Miralax) RSVPreF3 antigen-AS01E 0.5 ml IM ONCE RSV prevention #1 ea 06/09/23 Unknown Rx adjuvant(PF) 120 mcg/0.5 mL IM suspension, kit cyclobenzaprine 10 mg tablet See Rx Instructions .Route 06/19/23 Unknown Rx .COMPLEX #90 tabs duloxetine 60 mg capsule,delayed See Rx Instructions .Route 07/14/23 Unknown Rx release .COMPLEX #90 caps metoprolol tartrate 25 mg tablet See Rx Instructions .Route 07/14/23 Unknown Rx .COMPLEX #180 tabs morphine 10 mg/5 mL oral solution 5 mg (2.5 mL) PO Q6H PRN dyspnea 4 07/14/23 Unknown Rx weeks #100 mL pantoprazole 40 mg tablet,delayed See Rx Instructions .Route 07/14/23 Unknown Rx release .COMPLEX #90 tabs prednisone 20 mg tablet See Rx Instructions PO BID #9 tabs 07/22/23 Unknown Rx Allergies Allergy/AdvReac Type Severity Reaction Status Date / Time penicillamine Allergy ALGY-Rash Verified 05/29/23 13:57 Penicillins Allergy Unknown Verified 05/29/23 13:57 PFSH Acute PFSH: Medical History Dyspnea on exertion COPD exacerbation Dyslipidemia Osteoarthritis COPD (chronic obstructive pulmonary disease) WPW (Otzsy-Kmsclaylr-Rgbxg syndrome) HTN (hypertension) Degenerative joint disease of right wrist Dyslipidemia Fibromyalgia COPD (chronic obstructive pulmonary disease) Hypertension Surgical History Hx of hand surgery H/O: hysterectomy Family History Mother Hypertension Denies family history of Diabetes CAD (coronary artery disease) Clotting disorder Dementia Hyperlipidemia Psychiatric illness Chronic kidney disease (CKD) Suicide Anesthesia complication Bleeding disorder Family history of premature coronary artery disease Lung disease Cancer Stroke Social History Smoking and tobacco/nicotine status: former use of tobacco/nicotine Quit status (tobacco/nicotine): has quit using Year quit tobacco: 2015 Former quit date comment: 2 ppd X 54 years Alcohol intake: never Substance/Drug Use: never Adopted: No Household members: spouse Housing: House Marital status: Highest education level completed: High School Graduate service: No Current occupational status: retired Pets and animals: Yes Current gender identity: Female Vitals/I&O/Wt Last Vital Signs Temp 98 F 08/01/23 17:07 Pulse 90 08/01/23 19:29 Resp 18 08/01/23 19:29 BP 146/105 08/01/23 19:29 Pulse Ox 98 08/01/23 19:29 O2 Del Method Nasal Cannula 08/01/23 19:29 O2 Flow Rate 2 08/01/23 19:29 Weight last 48 hrs Weight 71.668 kg Physical Exam Narrative: Patient is using pursed lip breathing Currently on 3 L No active wheezing Diminished airflow bilaterally No acute distress No active chest pain S1, S2 Currently saturating 100% on 3 L Abdomen soft Lower extremity no edema Pleasant and cooperative Data 08/01/23 17:33 08/01/23 17:33 A&P Assessment and plan (1) COPD exacerbation: (2) Chronic respiratory failure with hypoxia and hypercapnia: (3) Pulmonary emphysema with fibrosis of lung: (4) Nocturnal hypoxia: (5) Acute exacerbation of chronic obstructive airways disease: (6) Hypertension: (7) Stable angina: (8) Renal insufficiency: (9) WPW (Uzcbu-Jlmgjzpaq-Lcccf syndrome): (10) HTN (hypertension): Qualifiers: Hypertension type: essential hypertension Qualified Code(s): I10 - Essential (primary) hypertension Plan Dyspnea on exertion Dyspnea on minimal exertion COPD exacerbation Severe grade 3 COPD I will give her IV steroids along ceftriaxone Start DuoNeb treatment in the hospital Rule out other etiologies for her dyspnea such as cardiac ischemia and anemia, will request serial troponin EKG along echo, Hemoglobin stable at 13 Requested D-dimer as well Her pH is compensated for her hypercapnia at this point To prevent readmissions she would definitely benefit from noninvasive therapy which has been recommended by health diagnostics teacher and PCP, as per the son insurance has not approved it yet, we will touch base with case technician on Friday I am using antibiotics empirically for COPD exacerbation Goals of care discussed with the patient and son, she is DNR/DNI Cardiac diet for now DVT prophylaxis added Patient has history of SVT, status post ablation in the past PT evaluation to check O2 saturation with 6-minute walk test Attestations Medical Necessity Statement*: Anticipating discharge within 48 hours Diagnoses COPD exacerbation J44.1 Chronic respiratory failure with hypoxia and hypercapnia J96.11; J96.12 Pulmonary emphysema with fibrosis of lung J43.9; J84.10 Nocturnal hypoxia G47.34 Acute exacerbation of chronic obstructive airways disease J44.1 Hypertension I10 Stable angina I20.8 Renal insufficiency N28.9 WPW (Vrfxx-Spfbuvnic-Lwcii syndrome) I45.6
--- NOTE | 2023-08-01 20:51 | ECG_ITS ---
[facility] Test Date: 2023-08-01 Pat Name: Ksenia Phan Department: Room: 255 Gender: Female Youth Manager: : 1950 Requested By: Candelaria Castaneda Order Number: [id number] Gordon MD: Chencho Godfrey M.D. Measurements Intervals [place] Rate: 87 P: 0 PA: 0 QRS: 81 QRSD: 92 T: 20 QT: 364 QTc: 438 Interpretive Statements MINIMAL VOLTAGE CRITERIA FOR LVH, CONSIDER NORMAL VARIANT [MEETS CRITERIA IN ONE OF: R(aVL), S(V1), R(V5), R(V5/V6)+S(V1)] Sinus rhythm, baseline artifact with PVCs. ST DEVIATION AND MODERATE T-WAVE ABNORMALITY, CONSIDER INFERIOR ISCHEMIA [-0.1+ mV T-WAVE IN II/aVF] Compared to ECG 08/01/2023 17:13:39 Ventricular premature complex(es) now present Aberrant conduction of supraventricular beat(s) now present T-wave abnormality now present Possible ischemia now present Electronically Signed On 08-03-2023 8:33:48 RETURNED GOODS RECEIVING CLERK by Chencho Godfrey M.D. [id number]
--- NOTE | 2023-08-01 21:02 | PC.NURSE ---
Report called to LACHELLE Oliveira on MS. All questions and concerns addressed at time of report.
--- NOTE | 2023-08-01 21:39 | PC.NURSE ---
Patient to room 255-2 via stretch with at side. Reports she took her evening medications at home, so she is refusing the ordered dose of Metoprolol.
[2023-08-01] MEDS: methylPREDNISolone sod succ 40 mg/mL INJ IVP (22:07)
[2023-08-01] MEDS: enoxaparin 40 mg/0.4 mL Syringe SUBCUT (22:07)
[2023-08-01 22:16] LABS: Troponin(5th) Baseline 21 ng/L (0-10)
[2023-08-01 22:17] LABS: D Dimer 19.55 ug/mLFEU (0-0.59)
[2023-08-02] VITALS (11 sets, daily range): BP systolic 136–157; BP diastolic 60–82; PULSE 82–116; RESP 16–20; TEMP 36.2–36.5; O2SAT 96–100
[2023-08-02 00:02] LABS: Troponin 5 2HR 21.96 ng/L (0-10); Troponin 5 2HR Delta 0.96 ABS# (0-10)
--- NOTE | 2023-08-02 02:51 | ECG_ITS ---
[facility] Test Date: 2023-08-02 Pat Name: Ksenia Phan Department: Room: 255 Gender: Female Materials And Processes Manager: : 1950 Requested By: Candelaria Castaneda Order Number: [id number] Gordon MD: Chencho Godfrey M.D. Measurements Intervals [place] Rate: 105 P: 79 MT: 167 QRS: 66 QRSD: 96 T: -4 QT: 339 QTc: 448 Interpretive Statements SINUS TACHYCARDIA MINIMAL VOLTAGE CRITERIA FOR LVH, CONSIDER NORMAL VARIANT [MEETS CRITERIA IN ONE OF: R(aVL), S(V1), R(V5), R(V5/V6)+S(V1)] NONSPECIFIC ST & T-WAVE ABNORMALITY Compared to ECG 08/01/2023 21:02:57 Ventricular premature complex(es) no longer present Aberrant conduction of supraventricular beat(s) no longer present Possible ischemia no longer present T-wave abnormality still present Electronically Signed On 08-02-2023 8:59:17 CREPE LAMINATOR OPERATOR by Chencho Godfrey M.D. [id number]
[2023-08-02 05:14] LABS: Hematocrit 41.3 % (36-47); Lymphocytes # 0.5 10^3/uL (0.8-4.8); Lymphocytes % 8.4 %; Mean Corpuscular HGB Conc 31.2 g/dL (30-55); Mean Corpuscular Hemoglobin 28.5 pg (27-33); Mean Corpuscular Volume 91.4 fl (85-98); Mean Platelet Volume 10.2 fL (7.4-10.4); Monocytes % 0.6 %; Neutrophils # 5.62 10^3/uL (1.8-7.7); Neutrophils % 90.4 %; Nucleated Red Blood Cells % 0 %; Platelet Count 343 10^3/cmm (157-399); Red Blood Count 4.52 10^6/uL (3.85-5.65); Red Cell Distribution Width 11.7 % (12.1-15.1); White Blood Count 6.22 10^3/uL (3.29-11.43)
[2023-08-02 05:31] LABS: Troponin 5 6HR 19.72 ng/L (0-10)
[2023-08-02 05:33] LABS: Troponin 5 6HR Delta -1.28 ng/L (0-12)
[2023-08-02 05:42] LABS: Anion Gap 18.1 (5-19); Blood Urea Nitrogen 15 mg/dL (8-23); C Reactive Protein 46.4 mg/L (0.0-4.9); Calcium 9.6 mg/dL (8.5-10.5); Carbon Dioxide 26 mmol/L (22-29); Chloride 100 mmol/L (98-107); Glucose 170 mg/dL (65-115); Osmolality Calculated 295 mOsm/kg (285-295); Phosphorus 3.4 mg/dL (2.5-4.5); Potassium 4.1 mmol/L (3.5-5.1); Sodium 140 mmol/L (136-145)
--- NOTE | 2023-08-02 06:00 | USCV_ITS ---
Ksenia Phan Age: 72 Gender: F : 1950 Exam Date: 08/02/2023 07:23 Ordering Phys: Candelaria Castaneda MD Technologist: Eyal Patterson [place] [facility] [place]: dyspnea BP: 152 / 75 HR: 104 Rhythm: Sinus Technical Quality: Poor MEASUREMENTS (Male / Female) Normal Values 2D ECHO LVOT Diameter 2.0 cm LV Ejection Fraction MOD 2C 64.0 % LV Ejection Fraction 2C AL 66.1 % LA Diameter 3.3 cm LA Width 2.5 cm LA Height 3.9 cm RA Width 2.6 cm RA Height 2.8 cm Aorta at Sinotubular Diameter 2.2 cm IVC Diameter 1.4 cm M-MODE Aortic Annulus Diameter 3.0 cm LA Ao Ratio MM 1.1 MV E Point Septal Separation 1.3 cm DOPPLER AV Peak Velocity 164.0 cm/s LVOT Peak Velocity 86.0 cm/s AV Area Cont Eq vti 1.8 cm squared AV Area Cont Eq pk 1.6 cm squared MV Peak Velocity 120.0 cm/s MV Area PHT 10.0 cm squared Mitral E to A Ratio 0.8 MV E' Velocity 27.0 cm/s Mitral E to MV E' Ratio 4.4 Mitral E to LV E' Lateral Ratio 5.7 Mitral E to LV E' Septal Ratio 3.6 TR Peak Velocity 152.2 cm/s TR Peak Gradient 9.3 mmHg TR Mean Velocity 123.5 cm/s TR Mean Gradient 6.4 mmHg TR Velocity Time Integral 31.9 cm Right Atrial Pressure 3.0 mmHg Pulmonary Artery Systolic Pressu 12.3 mmHg PV Peak Velocity 119.0 cm/s RV Acceleration Time 0.1 s RV Ejection Time 0.2 s RV AcT/ET 0.6 FINDINGS Left Ventricle The ventricle seen only in the apical view. There is probably normal left ventricular size and function. The ejection fraction is in normal range. Grade 1 diastolic dysfunction. Right Ventricle Right ventricle not well visualized. Normal right ventricular systolic pressure. Right Atrium The right atrium is normal in size. Left Atrium The left atrium is normal in size. Mitral Valve Mitral valve not well visualized. No mitral valve regurgitation. Aortic Valve Aortic valve not well visualized. No aortic valve regurgitation. No aortic valve stenosis. Tricuspid Valve Tricuspid valve not well visualized. Pulmonic Valve Pulmonic valve not well visualized. Pericardium Normal pericardium without effusion. Aorta Normal ascending aorta dimension. IVC The inferior vena cava appears normal. CONCLUSIONS The ventricle seen only in the apical view. There is probably normal left ventricular size and function. The ejection fraction is in normal range. Grade 1 diastolic dysfunction. No change from the previous study dated 08/19/2018 Dr. Chencho Godfrey MD (Electronically Signed) Final Date: 02 August 2023 09:13 S
--- NOTE | 2023-08-02 07:53 | CTR_ITS ---
PROCEDURE INFORMATION: Exam: CTA Chest With Contrast Exam date and time: 08/02/2023 8:12 AM Age: 72 years old Clinical indication: Shortness of breath; Additional info: Hypoxia TECHNIQUE: Imaging protocol: Computed tomographic angiography of the chest with contrast. Exam focused on the arteries. 3D rendering (Not supervised by radiologist): MIP and/or 3D reconstructed images were created by the technologist. Radiation optimization: All CT scans at this facility use at least one of these dose optimization techniques: automated exposure control; mA and/or kV adjustment per patient size (includes targeted exams where dose is matched to clinical indication); or iterative reconstruction. Contrast material: OMNI 350; Contrast volume: 51 ml; Contrast route: INTRAVENOUS (IV); REPORTING DATA: Count of CT and Cardiac NM exams in prior 12 months: This patient has received [address] and 0 known cardiac nuclear medicine studies in the 12 months prior to the current study. COMPARISON: CT angio chest PE protcl [id number] 09/01/2021 2:58 AM RADIATION DOSE METRICS: Total DLP (mGy-cm): 458.2 FINDINGS: Pulmonary arteries: Normal. No pulmonary emboli. Aorta: Unremarkable. No aortic aneurysm. No aortic dissection. Lungs: Centrilobular emphysema with mildly hyperexpanded lungs. Pleural spaces: Unremarkable. No pneumothorax. No pleural effusion. Heart: Unremarkable. No cardiomegaly. No pericardial effusion. Lymph nodes: Unremarkable. No enlarged lymph nodes. Bones/joints: Unremarkable. No acute fracture. Soft tissues: Unremarkable. CT/CT angio chest PE protcl [id number] IMPRESSION: No embolus or other significant intrathoracic pathology. COMMENTS: In the absence of a history or active diagnosis of lung cancer, it is recommended that this patient with emphysema be evaluated for enrollment in a low dose CT lung cancer screening program.
--- NOTE | 2023-08-02 07:54 | P.PN_ITS ---
Subjective 2 Subjective: No significant events overnight D-dimer elevated Will request CT chest rule out PE we will change Lovenox dose to therapeutic regimen No leukocytosis Creatinine normal Currently patient is on 3 L At rest she does not experience significant symptoms Patient is stating that she is sick and tired of waiting for the BiPAP approval from insurance company Vitals/I&O/Wt Last Vital Signs Temp 97.1 F L 08/02/23 05:00 Pulse 99 08/02/23 05:00 Resp 18 08/02/23 05:00 BP 152/75 08/02/23 05:00 Pulse Ox 98 08/02/23 05:00 O2 Del Method Nasal Cannula 08/01/23 22:11 O2 Flow Rate 2 08/01/23 21:40 08/01/23 08/02/23 08/02/23 22:59 06:59 14:59 Intake Total 480 / 480 Balance 480 / 480 Weight last 48 hrs Weight 71.668 kg Weight 71.668 kg Weight 71.668 kg Physical Exam 2 Narrative: Mild signs of dehydration Currently on 3 L Afebrile Hypertensive Pleasant cooperative GCS 15 Frail elderly female Abdomen soft Data 08/02/23 04:04 08/02/23 04:04 A&P Assessment and plan (1) COPD exacerbation: (2) Chronic respiratory failure with hypoxia and hypercapnia: (3) Pulmonary emphysema with fibrosis of lung: (4) Nocturnal hypoxia: (5) Acute exacerbation of chronic obstructive airways disease: (6) D-dimer, elevated: (7) WPW (Mqenv-Bookgucmn-Zgvvs syndrome): (8) HTN (hypertension): Qualifiers: Hypertension type: essential hypertension Qualified Code(s): I10 - Essential (primary) hypertension (9) Hypertension: Plan Dyspnea on exertion No active chest pain Compensated pH Considering high D-dimer will request CT chest rule out PE Change Lovenox to therapeutic regimen Awaiting echo troponin without significant elevation however her delta troponin is also in the mid range BNP 558 Will follow-up with echo report She is afebrile Continue steroids and antibiotics To decrease work of breathing agree with as needed BiPAP usage Flu and COVID antigen negative DNR/DNI Cardiac diet To prevent readmission in the hospital it is prudent that we try to arrange BiPAP before she goes, we will touch base with therapeutic case manager on Friday Attestations 2 Medical Necessity Statement*: Continue medical management Diagnoses COPD exacerbation J44.1 Chronic respiratory failure with hypoxia and hypercapnia J96.11; J96.12 Pulmonary emphysema with fibrosis of lung J43.9; J84.10 Nocturnal hypoxia G47.34 Acute exacerbation of chronic obstructive airways disease J44.1 D-dimer, elevated R79.89 WPW (Zcurw-Xhedpxrut-Ylinj syndrome) I45.6 Essential hypertension I10 Hypertension type: essential hypertension
[2023-08-02] MEDS: iohexol 350 mg/mL 500 mL Btl (per mL) IV (08:25)
[2023-08-02] MEDS: ipratropium-albuterol 3 mL Neb INHALATION ×4 (08:33→20:28)
[2023-08-02] MEDS: duloxetine 60 mg Capsule PO (08:46)
[2023-08-02] MEDS: aspirin 81 mg EC Tablet PO (08:46)
[2023-08-02] MEDS: metoprolol tartrate 25 mg Tablet 12.5 MG PO ×2 (08:46→20:08)
[2023-08-02] MEDS: sennosides-docusate Tablet 1 TAB PO (08:46)
[2023-08-02] MEDS: azithromycin 250 mg Tablet 500 MG PO (08:46)
[2023-08-02] MEDS: cefTRIAXone 1,000 MG in sodium chloride 0.9% (plus) 50 ML 100 MG IV (08:47)
[2023-08-02] MEDS: enoxaparin 80 mg/0.8 mL Syringe 70 MG SUBCUT ×2 (08:48→20:08)
[2023-08-02] MEDS: methylPREDNISolone sod succ 40 mg/mL INJ IVP ×2 (08:49→21:32)
[2023-08-03] VITALS (13 sets, daily range): BP systolic 120–169; BP diastolic 60–82; PULSE 55–116; RESP 16–20; TEMP 36.4–37; O2SAT 94–99
[2023-08-03 05:25] LABS: Hematocrit 42.6 % (36-47); Lymphocytes # 0.7 10^3/uL (0.8-4.8); Mean Corpuscular Hemoglobin 28.6 pg (27-33); Mean Corpuscular Volume 92.4 fl (85-98); Mean Platelet Volume 10.3 fL (7.4-10.4); Monocytes # 0.4 10^3/uL (0.2-0.9); Monocytes % 3.2 %; Neutrophils # 12.74 10^3/uL (1.8-7.7); Neutrophils % 91.2 %; Nucleated Red Blood Cells % 0 %; Platelet Count 346 10^3/cmm (157-399); Red Blood Count 4.61 10^6/uL (3.85-5.65); Red Cell Distribution Width 11.9 % (12.1-15.1); White Blood Count 13.96 10^3/uL (3.29-11.43)
[2023-08-03 05:48] LABS: Anion Gap 13.7 (5-19); Blood Urea Nitrogen 14 mg/dL (8-23); Calcium 9.7 mg/dL (8.5-10.5); Carbon Dioxide 29 mmol/L (22-29); Chloride 99 mmol/L (98-107); Glucose 147 mg/dL (65-115); Osmolality Calculated 287 mOsm/kg (285-295); Potassium 4.7 mmol/L (3.5-5.1); Sodium 137 mmol/L (136-145)
[2023-08-03] MEDS: ipratropium-albuterol 3 mL Neb INHALATION ×4 (07:27→20:06)
[2023-08-03] MEDS: duloxetine 60 mg Capsule PO (09:43)
[2023-08-03] MEDS: azithromycin 250 mg Tablet 500 MG PO (09:43)
[2023-08-03] MEDS: metoprolol tartrate 25 mg Tablet 12.5 MG PO ×3 (09:44→22:24)
[2023-08-03] MEDS: enoxaparin 80 mg/0.8 mL Syringe 70 MG SUBCUT ×2 (09:45→20:29)
[2023-08-03] MEDS: aspirin 81 mg EC Tablet PO (09:45)
[2023-08-03] MEDS: cefTRIAXone 1,000 MG in sodium chloride 0.9% (plus) 50 ML 100 MG IV (09:45)
[2023-08-03] MEDS: methylPREDNISolone sod succ 40 mg/mL INJ IVP ×2 (09:46→21:12)
--- NOTE | 2023-08-03 13:09 | P.PN_ITS ---
Subjective 2 Subjective: Seen this morning. No acute events overnight. Diarrhea was reported yesterday evening however no more today. Patient states that she is having flank pain bilaterally. present at bedside. She stated that she would like to have a BiPAP procedure when she goes home. Has not completed a sleep study outpatient yet. She feels a little bit better compared to yesterday. Echocardiogram reviewed grade 1 diastolic dysfunction. CTA ruled out PE. Vitals/I&O/Wt Last Vital Signs Temp 98.0 F 08/03/23 11:55 Pulse 92 08/03/23 12:50 Resp 20 H 08/03/23 12:50 BP 157/81 08/03/23 11:55 Pulse Ox 96 08/03/23 12:50 O2 Del Method Nasal Cannula 08/03/23 12:50 O2 Flow Rate 2 08/03/23 12:50 08/02/23 08/03/23 08/03/23 22:59 06:59 14:59 Intake Total 960 / 1970 480 / 2450 360 / 360 Balance 960 / 1970 480 / 2450 360 / 360 Weight last 48 hrs Weight 71.668 kg Weight 71.668 kg Weight 71.668 kg Weight 71.668 kg Physical Exam 2 Narrative: Appears euvolemic. Currently on 2 L Afebrile Hypertensive Pleasant cooperative GCS 15 Frail elderly female Abdomen soft Data 08/03/23 04:30 08/03/23 04:30 A&P Assessment and plan (1) COPD exacerbation: (2) Chronic respiratory failure with hypoxia and hypercapnia: (3) Pulmonary emphysema with fibrosis of lung: (4) Nocturnal hypoxia: (5) Acute exacerbation of chronic obstructive airways disease: (6) D-dimer, elevated: (7) WPW (Jcalg-Azzlmexpi-Mukju syndrome): (8) HTN (hypertension): Qualifiers: Hypertension type: essential hypertension Qualified Code(s): I10 - Essential (primary) hypertension (9) Hypertension: Plan #COPD exacerbation Dyspnea on exertion No active chest pain Compensated pH Considering high D-dimer. CTA chest ruled out PE. Change Lovenox to therapeutic regimen Troponin not significantly elevated. BNP 558 Echo shows normal EF, grade 1 diastolic dysfunction. She is afebrile Continue steroids and antibiotics To decrease work of breathing agree with as needed BiPAP usage Flu and COVID antigen negative DNR/DNI Cardiac diet To prevent readmission in the hospital it is prudent that we try to arrange BiPAP before she goes, we will touch base with director case on Friday Attestations 2 Medical Necessity Statement*: Continue medical management Diagnoses COPD exacerbation J44.1 Chronic respiratory failure with hypoxia and hypercapnia J96.11; J96.12 Pulmonary emphysema with fibrosis of lung J43.9; J84.10 Nocturnal hypoxia G47.34 Acute exacerbation of chronic obstructive airways disease J44.1 D-dimer, elevated R79.89 WPW (Ulaoo-Impekiupt-Nqyuw syndrome) I45.6 Essential hypertension I10 Hypertension type: essential hypertension
--- NOTE | 2023-08-03 13:13 | CTR_ITS ---
PROCEDURE INFORMATION: Exam: CT Abdomen And Pelvis With Contrast Exam date and time: 08/03/2023 3:57 PM Age: 72 years old Clinical indication: Abdominal pain; B/l flank pain TECHNIQUE: Imaging protocol: Computed tomography of the abdomen and pelvis with contrast. Radiation optimization: All CT scans at this facility use at least one of these dose optimization techniques: automated exposure control; mA and/or kV adjustment per patient size (includes targeted exams where dose is matched to clinical indication); or iterative reconstruction. Contrast material: OMNI 350; Contrast volume: 100 ml; Contrast route: INTRAVENOUS (IV); REPORTING DATA: Count of CT and Cardiac NM exams in prior 12 months: This patient has received 2 known CTs and 0 known cardiac nuclear medicine studies in the 12 months prior to the current study. COMPARISON: CT abdomen pelvis w con* [id number] 07/02/2019 7:34 PM RADIATION DOSE METRICS: Total DLP (mGy-cm): 629.43 FINDINGS: Liver: Normal. No mass. Gallbladder and bile ducts: Normal. No calcified stones. No ductal dilation. Pancreas: Normal. No ductal dilation. Spleen: Normal. No splenomegaly. Adrenal glands: Normal. No mass. Kidneys and ureters: There are bilateral renal cysts with benign features the larger of which measures 14 mm in the left kidney. Follow-up is not necessary. 3 mm nonobstructing left renal calculus. Stomach and bowel: Moderate stool burden in the proximal colon. Descending and rectosigmoid colon are relatively collapsed. Appendix: No evidence of appendicitis. Intraperitoneal space: Unremarkable. No free air. No significant fluid collection. Vasculature: Multi-vessel atherosclerotic disease. Lymph nodes: Unremarkable. No enlarged lymph nodes. Urinary bladder: Unremarkable as visualized. Reproductive: Unremarkable as visualized. 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 Grade 1 degenerative anterolisthesis of L4 on L5. Multilevel lumbar broad-based disc osteophyte complexes contribute to canal and bilateral neural foraminal narrowing. Soft tissues: Unremarkable. CT/CT abdomen pelvis w con* [id number] IMPRESSION: There are multilevel lumbar broad-based disc osteophyte complexes contributing to canal and bilateral neural foraminal narrowing. This could be more optimally evaluated with an MRI of the lumbar spine if clinically warranted.
[2023-08-03] MEDS: amlodipine 5 mg Tablet PO (22:24)
[2023-08-04] VITALS (13 sets, daily range): BP systolic 148–163; BP diastolic 68–99; PULSE 86–102; RESP 13–20; TEMP 36.4–36.9; O2SAT 95–98; BMI 28.0
[2023-08-04 07:01] LABS: Basophils % 0.1 %; Hematocrit 44.3 % (36-47); Lymphocytes # 0.8 10^3/uL (0.8-4.8); Lymphocytes % 5.6 %; Mean Corpuscular HGB Conc 31.2 g/dL (30-55); Mean Corpuscular Hemoglobin 28.7 pg (27-33); Mean Corpuscular Volume 92.1 fl (85-98); Mean Platelet Volume 10.1 fL (7.4-10.4); Monocytes # 0.7 10^3/uL (0.2-0.9); Monocytes % 5.3 %; Neutrophils # 11.98 10^3/uL (1.8-7.7); Neutrophils % 88.6 %; Nucleated Red Blood Cells % 0 %; Platelet Count 376 10^3/cmm (157-399); Red Blood Count 4.81 10^6/uL (3.85-5.65); White Blood Count 13.51 10^3/uL (3.29-11.43)
[2023-08-04 07:43] LABS: Anion Gap 15.5 (5-19); Blood Urea Nitrogen 12 mg/dL (8-23); Calcium 10.1 mg/dL (8.5-10.5); Carbon Dioxide 30 mmol/L (22-29); Chloride 98 mmol/L (98-107); Glucose 135 mg/dL (65-115); Magnesium 2.3 mg/dL (1.7-2.3); Osmolality Calculated 290 mOsm/kg (285-295); Potassium 4.5 mmol/L (3.5-5.1); Sodium 139 mmol/L (136-145)
[2023-08-04] MEDS: enoxaparin 80 mg/0.8 mL Syringe 70 MG SUBCUT ×2 (08:10→20:36)
[2023-08-04] MEDS: methylPREDNISolone sod succ 40 mg/mL INJ IVP (08:12)
[2023-08-04] MEDS: azithromycin 250 mg Tablet 500 MG PO (08:12)
[2023-08-04] MEDS: metoprolol tartrate 25 mg Tablet PO ×2 (08:12→20:37)
[2023-08-04] MEDS: duloxetine 60 mg Capsule PO (08:12)
[2023-08-04] MEDS: cefTRIAXone 1,000 MG in sodium chloride 0.9% (plus) 50 ML 100 MG IV (08:13)
[2023-08-04] MEDS: ipratropium-albuterol 3 mL Neb INHALATION ×4 (09:11→20:36)
[2023-08-04] MEDS: sennosides-docusate Tablet 1 TAB PO (10:25)
[2023-08-04] MEDS: aspirin 81 mg EC Tablet PO (10:25)
[2023-08-04] MEDS: morphine IR 15 mg Tablet PO (14:36)
--- NOTE | 2023-08-04 17:16 | P.PN_ITS ---
Subjective 2 Subjective: Continues to have a hard time breathing. Sitting on edge of bed holding on to table to prop up. Mouth breathing +. Wnats to know if she can get a BIpap for home use. Medications: Reviewed: Yes Vitals/I&O/Wt Last Vital Signs Temp 97.5 F L 08/04/23 12:32 Pulse 88 08/04/23 15:19 Resp 18 08/04/23 15:09 BP 157/82 08/04/23 12:32 Pulse Ox 96 08/04/23 15:09 O2 Del Method Nasal Cannula 08/04/23 15:09 O2 Flow Rate 2 08/04/23 15:09 08/04/23 08/04/23 08/04/23 06:59 14:59 22:59 Intake Total 240 / 2090 410 / 410 Balance 240 / 2090 410 / 410 Weight last 48 hrs Weight 71.668 kg Weight 71.668 kg Physical Exam 2 Narrative: General: AO x3, NC in place, purse lip breathing HEENT: PERRLA, pupils bilaterally equal and reactive, pallors not present Chest: Normal vesicular breath sounds, no added sounds, equal good air entry bilaterally CVS: S1-S2 regular, no murmurs, no tachycardia, no gallops, no rubs Abdomen: Soft, nontender, no organomegaly, bowel sounds present Neuro: No focal deficits, no facial deformity, AO x3, power 5/5 in all limbs Data 08/04/23 06:32 08/04/23 06:32 A&P Assessment and plan (1) COPD exacerbation: (2) Chronic respiratory failure with hypoxia and hypercapnia: (3) Pulmonary emphysema with fibrosis of lung: (4) Nocturnal hypoxia: (5) Acute exacerbation of chronic obstructive airways disease: (6) D-dimer, elevated: (7) WPW (Xsfgu-Invklygxm-Woypx syndrome): (8) HTN (hypertension): Qualifiers: Hypertension type: essential hypertension Qualified Code(s): I10 - Essential (primary) hypertension Plan 72-year-old female with past medical history of hypertension, COPD, recently evaluated as outpatient with recommended NIV, presented to the hospital with worsened dyspnea. She is chronically on Prednisone 10 mg daily per history. ABG showed acute on chronic hypercapneic respiratory failure. #COPD exacerbation with acute on chronic hypercapneic respiratory failure. CTA chest negative for PE discontinue full dose Lovenox Transition iv to oral steroids today Continue duoneb and budesonide scheduled inhalation Continue Bipap use at night time at prn Recently evaluated by pulmonolgy - she has grade 3 severe stage emphysema based on PFTs 2018, will likely benefit from NIV. However we have been updated today that her pc02 level she will not qualify based on sleep oximtery study and ABG. 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 Anticipate discharge if remains clinically stable Coding Level of Care Code Acute Code for Chg Fwd Diagnoses COPD exacerbation J44.1 Chronic respiratory failure with hypoxia and hypercapnia J96.11; J96.12 Pulmonary emphysema with fibrosis of lung J43.9; J84.10 Nocturnal hypoxia G47.34 Acute exacerbation of chronic obstructive airways disease J44.1 D-dimer, elevated R79.89 WPW (Bjnqr-Zlqdhdapx-Ewmys syndrome) I45.6 Essential hypertension I10 Hypertension type: essential hypertension
[2023-08-04] MEDS: lidocaine 5% Patch 1 PATCH TOPICAL (17:34)
[2023-08-04] MEDS: amlodipine 5 mg Tablet PO (20:37)
[2023-08-05] VITALS: BP 131/65; PULSE 79; RESP 17; TEMP 36.8; O2SAT 97
[2023-08-05 04:00] VITALS: BP 141/74; PULSE 95; RESP 22; TEMP 36.4; O2SAT 96
[2023-08-05 05:34] LABS: Basophils % 0.1 %; Eosinophils % 0.3 %; Hematocrit 43.1 % (36-47); Lymphocytes # 1.5 10^3/uL (0.8-4.8); Lymphocytes % 12.5 %; Mean Corpuscular HGB Conc 30.9 g/dL (30-55); Mean Corpuscular Hemoglobin 28.4 pg (27-33); Mean Corpuscular Volume 91.9 fl (85-98); Monocytes % 8.6 %; Neutrophils # 9.18 10^3/uL (1.8-7.7); Neutrophils % 77.8 %; Nucleated Red Blood Cells % 0 %; Platelet Count 360 10^3/cmm (157-399); Red Blood Count 4.69 10^6/uL (3.85-5.65); White Blood Count 11.78 10^3/uL (3.29-11.43)
[2023-08-05 05:51] LABS: Alanine Aminotransferase 20 U/L (0-33); Albumin Level 3.8 g/dL (3.5-5.2); Alkaline Phosphatase 56 U/L (35-105); Anion Gap 13.3 (5-19); Aspartate Amino Transferase 25 U/L (0-32); Blood Urea Nitrogen 15 mg/dL (8-23); Calcium 9.7 mg/dL (8.5-10.5); Carbon Dioxide 34 mmol/L (22-29); Chloride 96 mmol/L (98-107); Globulin 2.7 g/dL (1.3-4.6); Glucose 92 mg/dL (65-115); Osmolality Calculated 288 mOsm/kg (285-295); Potassium 4.3 mmol/L (3.5-5.1); Sodium 139 mmol/L (136-145); Total Bilirubin 0.3 mg/dL (0.15-1.2); Total Protein 6.5 g/dL (6.6-8.7)
[2023-08-05 07:41] VITALS: BP 136/77; PULSE 80; RESP 16; TEMP 36.7
[2023-08-05 08:00] VITALS: PULSE 90; RESP 16; O2SAT 97
[2023-08-05] MEDS: ipratropium-albuterol 3 mL Neb INHALATION ×2 (08:35→11:28)
[2023-08-05 08:37] VITALS: PULSE 87
[2023-08-05] MEDS: metoprolol tartrate 25 mg Tablet PO (08:49)
[2023-08-05] MEDS: aspirin 81 mg EC Tablet PO (08:50)
[2023-08-05] MEDS: predniSONE 20 mg Tablet 60 MG PO (08:50)
[2023-08-05] MEDS: sennosides-docusate Tablet 1 TAB PO (08:50)
[2023-08-05] MEDS: duloxetine 60 mg Capsule PO (08:50)
[2023-08-05 11:28] VITALS: PULSE 97; RESP 18; O2SAT 96
--- NOTE | 2023-08-05 13:40 | P.DS_ITS ---
Discharge Providers Date of Admission: 08/01/23 19:11 Date of Discharge: August 05, 2023 Attending Provider at Admission: Candelaria Castaneda MD Attending Provider at Discharge: Eva Garcia MD Primary Care Provider: Delroy Santillan DO Diagnoses at Discharge Discharge Diagnosis (1) COPD exacerbation: Status: Acute (2) Chronic respiratory failure with hypoxia and hypercapnia: Status: Acute (3) Pulmonary emphysema with fibrosis of lung: Status: Acute (4) Nocturnal hypoxia: Status: Acute (5) Acute exacerbation of chronic obstructive airways disease: Status: Acute (6) D-dimer, elevated: Status: Acute (7) WPW (Lsvyx-Vrehohhyj-Ypbkt syndrome): Status: Acute (8) HTN (hypertension): Status: Acute Qualifiers: Hypertension type: essential hypertension Qualified Code(s): I10 - Essential (primary) hypertension Reason for Visit Reason for Visit: copd Hospital Course Hospital Course 72-year-old female with past medical history of hypertension, COPD, recently evaluated as outpatient with recommended NIV, presented to the hospital with worsened dyspnea. She is chronically on Prednisone 10 mg daily per history. ABG showed acute on chronic hypercapneic respiratory failure. Overall clinical impression was that of COPD exacerbation with acute on chronic hypercapneic respiratory failure. CTA chest negative for PE . She was treated with IV steroids in the hospital which have been transitioned to a prednisone taper at the time of discharge. She is to start with 60 mg daily, taper down as instructed to 10 mg daily of her maintenance dose. She received scheduled nebulization with DuoNeb and budesonide during the course of her admission here. Continue inhalers at discharge as recommended by pulmonology. She required Bipap support at night time at prn . Outpatient notes reviewed from pulmonolgy - she has grade 3 severe stage emphysema based on PFTs 2018, will likely benefit from NIV per specialist opinion. However we have been updated today that based on her pc02 level and sleep oximetry study, she does not qualify for NIV per insurance standards at this time. Will refer for sleep study with titration as outpatient Flu and COVID antigen negative. Physical Exam Narrative: General: No acute distress, AO x3 HEENT: PERRLA, pupils bilaterally equal and reactive, pallors not present Chest: Normal vesicular breath sounds, no added sounds, equal good air entry bilaterally CVS: S1-S2 regular, no murmurs, no tachycardia, no gallops, no rubs Abdomen: Soft, nontender, no organomegaly, bowel sounds present Neuro: No focal deficits, no facial deformity, AO x3, power 5/5 in all limbs Discharge Data Studies Completed and Pending Completed Studies During Hospitalization Category Date Time Status CT abdomen pelvis w con* [id number] Routine Cat Scan 08/03/23 13:13 Completed CTA PE [CT angio chest PE protcl [id number]] Stat Cat Scan 08/02/23 07:53 Completed XR chest 1V portable [id number] Stat Exams 08/01/23 17:09 Completed CV. echo complete* [id number] Routine Ultrasound 08/02/23 06:00 Completed Pending at discharge Category Date Time Status Clostridium Difficile PCR Routine Lab 08/02/23 15:30 Ordered Radiology Impressions Chest X-Ray 08/01/23 17:09 IMPRESSION: 1. Left lower lobe atelectasis. 2. Emphysematous changes. Chest CTA 08/02/23 07:53 IMPRESSION: No embolus or other significant intrathoracic pathology. COMMENTS: In the absence of a history or active diagnosis of lung cancer, it is recommended that this patient with emphysema be evaluated for enrollment in a low dose CT lung cancer screening program. Abdomen/Pelvis CT 08/03/23 13:13 IMPRESSION: There are multilevel lumbar broad-based disc osteophyte complexes contributing to canal and bilateral neural foraminal narrowing. This could be more optimally evaluated with an MRI of the lumbar spine if clinically warranted. Laboratory Results WBC 11.78 10^3/uL (3.29-11.43) H 08/05/23 05:16 RBC 4.69 10^6/uL (3.85-5.65) 08/05/23 05:16 Hgb 13.30 g/dL (11.27-16.99) 08/05/23 05:16 Hct 43.1 % (36-47) 08/05/23 05:16 MCV 91.9 fl (85-98) 08/05/23 05:16 MCH 28.4 pg (27-33) 08/05/23 05:16 MCHC 30.9 g/dL (30-55) 08/05/23 05:16 RDW 12.0 % (12.1-15.1) L 08/05/23 05:16 Plt Count 360 10^3/cmm (157-399) 08/05/23 05:16 MPV 10.0 fL (7.4-10.4) 08/05/23 05:16 Neut % (Auto) 77.8 % 08/05/23 05:16 Lymph % (Auto) 12.5 % 08/05/23 05:16 Runnels % (Auto) 8.6 % 08/05/23 05:16 Eos % (Auto) 0.3 % 08/05/23 05:16 Baso % (Auto) 0.1 % 08/05/23 05:16 Neut # (Auto) 9.18 10^3/uL (1.8-7.7) H 08/05/23 05:16 Lymph # (Auto) 1.5 10^3/uL (0.8-4.8) 08/05/23 05:16 Runnels # (Auto) 1.0 10^3/uL (0.2-0.9) H 08/05/23 05:16 Eos # (Auto) 0.0 10^3/uL (0.0-0.8) 08/05/23 05:16 Baso # (Auto) 0.0 10^3/uL (0.0-0.1) 08/05/23 05:16 Nucleated RBC % (auto) 0 % 08/05/23 05:16 Nucleated RBCs # 0.0 /100WBC 08/05/23 05:16 D-Dimer 19.55 ug/mLFEU (0-0.59) H 08/01/23 17:33 Specimen Type Arterial 08/01/23 17:18 Sample Site Radial, left 08/01/23 17:18 ABG pH 7.43 (7.35-7.45) 08/01/23 17:18 ABG pCO2 49.9 mmHg (35-45) H 08/01/23 17:18 ABG pO2 128.0 mmHg (80.0-100.0) H 08/01/23 17:18 ABG HCO3 33.1 mmol/L (22-26) H 08/01/23 17:18 ABG Base Excess 7.4 mmol/L (-2.0-2.0) H 08/01/23 17:18 Ga Test Pos 08/01/23 17:18 Hematocrit 40.1 % (37-47) 08/01/23 17:18 Hgb O2 Saturation 97.7 % (95-100) 08/01/23 17:18 Carboxyhemoglobin 1.3 %THgb (0.4-20.1) 08/01/23 17:18 Methemoglobin 0.9 % (0.4-1.5) 08/01/23 17:18 Total Hemoglobin 13.1 g/dL (12-16) 08/01/23 17:18 O2 Delivery Device Nc 08/01/23 17:18 O2 Liters/Min 3.0 % 08/01/23 17:18 Armament Repairer ID Yara 08/01/23 17:18 Sodium 139 mmol/L (136-145) 08/05/23 05:16 Potassium 4.3 mmol/L (3.5-5.1) 08/05/23 05:16 Chloride 96 mmol/L (98-107) L 08/05/23 05:16 Carbon Dioxide 34 mmol/L (22-29) H 08/05/23 05:16 Anion Gap 13.3 (5-19) 08/05/23 05:16 BUN 15 mg/dL (8-23) 08/05/23 05:16 Creatinine 0.9 mg/dL (0.5-0.9) 08/05/23 05:16 GFR Calculation Not Reportable 08/05/23 05:16 Glucose 92 mg/dL (65-115) 08/05/23 05:16 Calculated Osmolality 288 mOsm/kg (285-295) 08/05/23 05:16 Calcium 9.7 mg/dL (8.5-10.5) 08/05/23 05:16 Phosphorus 3.4 mg/dL (2.5-4.5) 08/02/23 04:04 Magnesium 2.3 mg/dL (1.7-2.3) 08/04/23 06:32 Total Bilirubin 0.3 mg/dL (0.15-1.2) 08/05/23 05:16 AST 25 U/L (0-32) 08/05/23 05:16 ALT 20 U/L (0-33) 08/05/23 05:16 Alkaline Phosphatase 56 U/L (35-105) 08/05/23 05:16 Troponin T Baseline 21 ng/L (0-10) H 08/01/23 21:40 Troponin T 120 Minute 21.96 ng/L (0-10) H 08/01/23 23:37 Delta Troponin T 0.96 ABS# (0-10) 08/01/23 23:37 Troponin T Hi Sens 6Hr 19.72 ng/L (0-10) H 08/02/23 04:04 Troponin T Hi Sens 6Hr Delta -1.28 ng/L (0-12) L 08/02/23 04:04 C-Reactive Protein 46.4 mg/L (0.0-4.9) H 08/02/23 04:04 NT-Pro-B Natriuret Pep 558 pg/mL (0-125) H 08/01/23 17:33 Total Protein 6.5 g/dL (6.6-8.7) L 08/05/23 05:16 Albumin 3.8 g/dL (3.5-5.2) 08/05/23 05:16 Globulin 2.7 g/dL (1.3-4.6) 08/05/23 05:16 Influenza Type A Ag Negative (Negative) 08/01/23 18:26 Influenza Type B Ag Negative (Negative) 08/01/23 18:26 SARS-CoV-2 Ag (Rapid) negative (Negative) 08/01/23 18:26 Vitals Last Vital Signs Temp 98.0 F 08/05/23 07:41 Pulse 97 08/05/23 11:28 Resp 18 08/05/23 11:28 BP 136/77 08/05/23 07:41 Pulse Ox 96 08/05/23 11:28 O2 Del Method Nasal Cannula 08/05/23 11:28 O2 Flow Rate 2 08/05/23 11:28 Discharge Plan Discharge Patient Disposition: Home Condition: Stable Prescriptions: New prednisone 20 mg tablet See Taper PO DAILY Qty: 90 0RF Taper: predniSONE 60-10 60 mg Daily for 2 Days and 0 Hour 50 mg Daily for 2 Days and 0 Hour 40 mg Daily for 2 Days and 0 Hour 30 mg Daily for 2 Days and 0 Hour 20 mg Daily for 2 Days and 0 Hour 10 mg Daily for 2 Days and 0 Hour Continued aspirin [Adult Aspirin Regimen] 81 mg tablet,delayed release (DR/EC) 81 mg PO QDAY fluticasone propionate [Allergy Relief (fluticasone)] 50 mcg/actuation spray,suspension 2 spray INTRANASAL QDAY Adult 50 Plus Probiotic 4 billion cell capsule 4,000 mmu cells PO QDAY loratadine 10 mg capsule 10 mg PO QDAY PRN (Reason: allergic symptoms) (DME) light weight upright walker stand up rollator walker with forearm supports Qty: 1 0RF Rx Instructions: As directed nitroglycerin [Nitrostat] 0.4 mg tablet, sublingual 0.4 mg sublingual Q5M PRN (Reason: chest pain) Qty: 20 1RF Rx Instructions: do not exceed 3 doses per episode cranberry 400 mg capsule 400 mg PO DAILY Rx Instructions: administer with a meal polyethylene glycol 3350 [Miralax] 17 gram/dose powder 4 g PO DAILY PRN (Reason: constipation) collagen 4 tbspn 4 tbspn PO DAILY Breztri Aerosphere 160-9-4.8 mcg/actuation HFA aerosol inhaler 2 inh inhalation BID Qty: 10.7 3RF ipratropium-albuterol 0.5 mg-3 mg(2.5 mg base)/3 mL solution for nebulization See Rx Instructions .ROUTE .COMPLEX Qty: 360 11RF Dose Instruction: NEBULIZE 1 VIAL FOUR TIMES DAILY FOR COPD / WHEEZING Rx Instructions: NEBULIZE 1 VIAL FOUR TIMES DAILY FOR COPD / WHEEZING (DME) Bipap See Rx Instructions .Route .MEDSUPPLY Qty: 1 0RF Rx Instructions: As directed, 10 and 5 pressures. amlodipine 5 mg tablet 5 mg PO DAILY Qty: 90 1RF (DME) Knee Support Brace Misc See Rx Instructions .Route Qty: 1 0RF Rx Instructions: As directed, hinged brace please albuterol sulfate 90 mcg/actuation HFA aerosol inhaler See Rx Instructions .ROUTE .COMPLEX Qty: 68 5RF Dose Instruction: INHALE 4 TO 8 PUFFS INTO LUNGS EVERY 4 HOURS NEEDED FOR SHORTNESS OF BREATH OR WHEEZING Rx Instructions: INHALE 4 TO 8 PUFFS INTO LUNGS EVERY 4 HOURS NEEDED FOR SHORTNESS OF BREATH OR WHEEZING cyclobenzaprine 10 mg tablet See Rx Instructions .ROUTE .COMPLEX Qty: 90 5RF Dose Instruction: TAKE ONE TABLET BY MOUTH THREE TIMES DAILY NEEDED Rx Instructions: TAKE ONE TABLET BY MOUTH THREE TIMES DAILY NEEDED pantoprazole 40 mg tablet,delayed release (DR/EC) See Rx Instructions .ROUTE .COMPLEX Qty: 90 3RF Dose Instruction: TAKE ONE TABLET BY MOUTH ONCE DAILY FOR SEVERE GASTRITIS Rx Instructions: TAKE ONE TABLET BY MOUTH ONCE DAILY FOR SEVERE GASTRITIS metoprolol tartrate 25 mg tablet See Rx Instructions .ROUTE .COMPLEX Qty: 180 3RF Dose Instruction: TAKE ONE TABLET BY MOUTH TWICE DAILY Rx Instructions: TAKE ONE TABLET BY MOUTH TWICE DAILY duloxetine 60 mg capsule,delayed release(DR/EC) See Rx Instructions .ROUTE .COMPLEX Qty: 90 3RF Dose Instruction: TAKE ONE CAPSULE BY MOUTH EVERY DAY Rx Instructions: TAKE ONE CAPSULE BY MOUTH EVERY DAY morphine 10 mg/5 mL solution 5 mg PO Q6H PRN (Reason: dyspnea) 28 Days Qty: 100 0RF [place] 3-6-9 1,200 mg Capsule 1 cap PO DAILY calcium carbonate-vitamin D3 600 mg-5 mcg (200 unit) Tablet 1 tab PO DAILY ascorbic acid (vitamin C) [Vitamin C] 500 mg Tablet 1,000 mg PO DAILY vitamin B complex Tablet 1 tab PO DAILY prednisone 10 mg tablet 10 mg PO DAILY simvastatin 20 mg tablet 20 mg PO QPM Discharge Orders: Discharge Order (Routine); Ordered 08/05/23 Ordered By: Eva Garcia Other Ambulatory Orders: Sleep Study/Titration (Routine) Timeframe: 1 Week Facility: [facility] - Location: [facility] Ordered By: Eva Garcia Referrals: Delroy Santillan DO [Primary Care Provider] - 08/28/23 1:30 pm Datar,Perico Matta MD [Physician] - Discharge Diet: Usual diet Discharge Activity: Resume usual activity Patient Instructions: Prednisone (By mouth), COPD (Chronic Obstructive Pulmonary Disease) (GEN), Opioid Safety Activity Restrictions/Additional Instructions: [facility] WILL CALL WITH APPOINTMENT Discharge Attestations Time Spent in Discharge Care*: greater than 30 min Quality Metrics Clinical Quality Measures [ No reported AMI, CVA or VTE this stay] Coding Level of Care Code Acute Code for g Fwd Diagnoses COPD exacerbation J44.1 Chronic respiratory failure with hypoxia and hypercapnia J96.11; J96.12 Pulmonary emphysema with fibrosis of lung J43.9; J84.10 Nocturnal hypoxia G47.34 Acute exacerbation of chronic obstructive airways disease J44.1 D-dimer, elevated R79.89 WPW (Zzuvh-Lafjqvrjc-Zihrf syndrome) I45.6 Essential hypertension I10 Hypertension type: essential hypertension
== END 2023-08-05 13:00 | disposition home or self-care (01) ==
LOC: ER 19:42 → MEDSURG 20:08
PROVIDERS: Internal Medicine; Admitting Provider Internal Medicine; Emergency Provider Emergency Medicine; PCP Family Medicine; Visit Provider Student in an Organized Health Care Education/Training Program
DX: J41.1 Mucopurulent chronic bronchitis (principal); J96.11 Chronic respiratory failure with hypoxia; J43.9 Emphysema, unspecified; J84.10 Pulmonary fibrosis, unspecified; G47.34 Idiopathic sleep related nonobstructive alveolar hypoventilation; R79.89 Other specified abnormal findings of blood chemistry; I45.6 Pre-excitation syndrome; I10 Essential (primary) hypertension; Z66 Do not resuscitate; Z87.891 Personal history of nicotine dependence
CPT/HCPCS: 36415; 36600; 71045; 71275; 74177; 80048; 80053; 82805; 83735; 83880; 84100; 84484; 85025; 85378; 86140; 87426; 87804; 93005; 93306; 94640; 96372; 97530; 99285; G0378; J0696; J1650; J2920; J7512; J7613; Q0144; Q9967

== ENCOUNTER 2023-10-15 10:00 | Outpatient (CLI) | payer MEDICARE, MEDICAID, SELFPAY | END 2023-10-15 10:01 | disposition home or self-care (01) | LOC: SLEEP 10-20 10:02 | PROVIDERS: PCP Family Medicine; Visit Provider Internal Medicine Pulmonary Disease | DX: G47.34 Idiopathic sleep related nonobstructive alveolar hypoventilation (principal); R06.83 Snoring | CPT/HCPCS: G0399 ==

== ENCOUNTER → 2023-11-25 08:51 | Outpatient (BNVA) | payer MEDICARE, MEDICAID, SELFPAY | PROVIDERS: PCP Family Medicine; Visit Provider Family Medicine | DX: Z79.52 Long term (current) use of systemic steroids (principal); I10 Essential (primary) hypertension; N28.9 Disorder of kidney and ureter, unspecified; J44.9 Chronic obstructive pulmonary disease, unspecified; J43.9 Emphysema, unspecified; J84.10 Pulmonary fibrosis, unspecified; E55.9 Vitamin D deficiency, unspecified; Z13.6 Encounter for screening for cardiovascular disorders; E03.9 Hypothyroidism, unspecified | CPT/HCPCS: 80053; 80061; 82652; 83036; 84443; 85025 ==

== ENCOUNTER → 2024-02-24 08:19 | Outpatient (BNVA) | payer MEDICARE, MEDICAID, SELFPAY | PROVIDERS: PCP Family Medicine; Visit Provider Family Medicine | DX: I10 Essential (primary) hypertension (principal); N28.9 Disorder of kidney and ureter, unspecified; J44.9 Chronic obstructive pulmonary disease, unspecified; J43.9 Emphysema, unspecified; J84.10 Pulmonary fibrosis, unspecified | CPT/HCPCS: 80053; 85025 ==

== ENCOUNTER → 2024-05-25 08:51 | Outpatient (BNVA) | payer MEDICARE, MEDICAID, SELFPAY | PROVIDERS: PCP Family Medicine; Visit Provider Family Medicine | DX: I10 Essential (primary) hypertension (principal); N28.9 Disorder of kidney and ureter, unspecified; J44.9 Chronic obstructive pulmonary disease, unspecified; J96.11 Chronic respiratory failure with hypoxia; E03.9 Hypothyroidism, unspecified; E55.9 Vitamin D deficiency, unspecified; J96.12 Chronic respiratory failure with hypercapnia; I20.89 Other forms of angina pectoris | CPT/HCPCS: 80053; 80061; 82652; 84443; 85025 ==

== ENCOUNTER → 2024-08-10 10:35 | Outpatient (BNVA) | payer MEDICARE, MEDICAID, SELFPAY | PROVIDERS: PCP Family Medicine; Visit Provider Family Medicine | DX: I10 Essential (primary) hypertension (principal); N28.9 Disorder of kidney and ureter, unspecified; J44.9 Chronic obstructive pulmonary disease, unspecified; Z79.899 Other long term (current) drug therapy | CPT/HCPCS: 80053; 80061; 85025 ==

== ENCOUNTER 2024-08-25 03:51 | Inpatient (IN) | payer MEDICARE, MEDICAID, SELFPAY ==
[2024-08-25] VITALS (177 sets, daily range): BP systolic 65–160; BP diastolic 24–96; PULSE 67–132; RESP 15–52; TEMP 36.3–36.9; O2SAT 50–100
--- NOTE | 2024-08-25 03:56 | XRR_ITS ---
PROCEDURE INFORMATION: Exam: XR Chest Exam date and time: 08/25/2024 4:15 AM Age: 73 years old Clinical indication: Dyspnea and shortness of breath; Additional info: Dyspnea copd TECHNIQUE: Imaging protocol: Radiologic exam of the chest. Views: 1 view. COMPARISON: CT angio chest PE protcl [id number] 08/02/2023 8:12 AM FINDINGS: Lungs: Unremarkable. No consolidation. Pleural spaces: Unremarkable. No pleural effusion. No pneumothorax. Heart/Mediastinum: Unremarkable. No cardiomegaly. Bones/joints: Unremarkable. XR/XR chest 1V portable [id number] IMPRESSION: No acute findings.
--- NOTE | 2024-08-25 03:56 | ECG_ITS ---
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 Measurements Intervals [place] Rate: 127 P: 84 MN: 131 QRS: 83 QRSD: 88 T: 66 QT: 295 QTc: 429 Interpretive Statements SINUS TACHYCARDIA WITH OCCASIONAL VENTRICULAR PREMATURE COMPLEXES NONSPECIFIC ST & T-WAVE ABNORMALITY Compared to ECG 08/02/2023 05:26:08 Ventricular premature complex(es) now present T-wave abnormality still present Electronically Signed On 08-26-2024 12:31:15 RN DOCUMENTATION SPECIALIST by Nikita Whitehead M.D. [email or web address]
[2024-08-25] MEDS: LORazepam 2 mg/mL INJ 1 mL 1 MG IVP (04:02)
[2024-08-25] MEDS: methylPREDNISolone sod succ 125 mg/2 mL INJ IVP (04:02)
--- NOTE | 2024-08-25 04:08 | ED_ITS ---
Documented by User: Fady Kate DO 08/25/24 05:07 HPI - SOB/Dyspnea 2 General: Chief Complaint: Shortness of Breath/Dyspnea Stated Complaint: Resp Distress Time Seen by Provider: 08/25/24 03:57 Source: EMS Mode of arrival: EMS Limitations: other (Patient severely short of breath) History of Present Illness: HPI Narrative: Patient presents to the ER by EMS with complaints of severe respiratory distress. Patient normally on 2 L of oxygen at all times. When EMS arrived there she was only satting 67% on her 2 L. They gave her a total of 3 DuoNeb's and 3 albuterol treatments during a trip to the ER. Upon arrival patient was placed on BiPAP immediately. Per RT. EMS said the patient got short of breath roughly about midnight and quickly went downhill from there. Patient does have a history of COPD. Related Data Home Medications Medication Instructions Recorded Confirmed aspirin 81 mg tablet,delayed 81 mg PO QDAY 09/09/19 08/25/24 release (Adult Aspirin Regimen) fluticasone propionate 50 2 spray intranasal QDAY 09/09/19 08/25/24 mcg/actuation nasal spray,suspension (Allergy Relief (fluticasone)) lactobacillus combination no.9 4 4,000 mmu cells PO QDAY 09/09/19 08/25/24 billion cell capsule (Adult 50 Plus Probiotic) ascorbic acid (vitamin C) 500 mg 1,000 mg PO DAILY 04/24/23 08/25/24 tablet (Vitamin C) calcium 600 mg (as 1 tab PO DAILY 04/24/23 08/25/24 carbonate)-vitamin D3 5 mcg (200 unit) tablet fish, borage, flaxseed oils-omega 1 cap PO DAILY 04/24/23 08/25/24 3,6,9 comb no.1 1,200 mg capsule ([place] 3-6-9) vitamin B complex 1 tab PO DAILY 04/24/23 08/25/24 collagen 4 tbspn PO DAILY 05/23/23 08/25/24 loratadine 10 mg capsule 10 mg PO QDAY PRN allergic symptoms 05/23/23 08/25/24 polyethylene glycol 3350 17 4 g PO DAILY PRN constipation 05/23/23 08/25/24 gram/dose oral powder (Miralax) cranberry fruit 450 mg tablet 450 mg PO DAILY 08/25/24 08/25/24 (cranberry) cyclobenzaprine 10 mg tablet 10 mg PO TID PRN Muscle Spasm 08/25/24 08/25/24 duloxetine 60 mg capsule,delayed 60 mg PO DAILY 08/25/24 08/25/24 release metoprolol tartrate 25 mg tablet 25 mg PO BID 08/25/24 08/25/24 pantoprazole 40 mg tablet,delayed 40 mg PO DAILY 08/25/24 08/25/24 release simvastatin 20 mg tablet 20 mg PO QPM 08/25/24 08/25/24 Previous Rx's Medication Instructions Recorded light weight upright walker stand #1 ea 10/21/19 up rollator walker with forearm supports nitroglycerin 0.4 mg sublingual 0.4 mg sublingual Q5M PRN chest 12/16/22 tablet (Nitrostat) pain #20 tabs Bipap #1 ea 04/17/23 leg brace (Knee Support Brace) #1 ea 05/19/23 ipratropium 0.5 mg-albuterol 3 mg See Rx Instructions .Route 11/04/23 (2.5 mg base)/3 mL nebulization .COMPLEX #360 mL soln promethazine-DM 6.25 mg-15 mg/5 mL 5 - 10 ml PO Q6H PRN cough #473 mL 03/23/24 oral syrup amlodipine 5 mg tablet 5 mg PO DAILY #90 tabs 03/24/24 albuterol sulfate 90 mcg/actuation See Rx Instructions .Route 04/16/24 aerosol inhaler .COMPLEX #68 grams budesonide 160 mcg-glycopyr 9 2 inh inhalation BID #10.7 grams 04/22/24 mcg-formot 4.8 mcg/actuation HFA inhaler (Breztri Aerosphere) morphine 10 mg/5 mL oral solution 5 mg (2.5 mL) PO Q6H PRN dyspnea 4 06/08/24 weeks #100 mL prednisone 10 mg tablet 10 mg PO DAILY lung inflammation 08/24/24 #90 tabs Allergies Allergy/AdvReac Type Severity Reaction Status Date / Time penicillamine Allergy ALGY-Rash Verified 08/25/24 04:21 Penicillins Allergy Unknown Verified 08/25/24 04:21 Review of Systems 2 General: Reports: ROS unobtainable due to medical condition PFSH ED 2 PFSH: Medical History Dyspnea on exertion COPD exacerbation Dyslipidemia Osteoarthritis COPD (chronic obstructive pulmonary disease) WPW (Rxbtd-Msghvjvsn-Sgxht syndrome) HTN (hypertension) Degenerative joint disease of right wrist Dyslipidemia Fibromyalgia COPD (chronic obstructive pulmonary disease) Hypertension Surgical History Hx of hand surgery H/O: hysterectomy Family History Mother Hypertension Denies family history of Diabetes CAD (coronary artery disease) Clotting disorder Dementia Hyperlipidemia Psychiatric illness Chronic kidney disease (CKD) Suicide Anesthesia complication Bleeding disorder Family history of premature coronary artery disease Lung disease Cancer Stroke Social History Smoking and tobacco/nicotine status: former use of tobacco/nicotine Quit status (tobacco/nicotine): has quit using Year quit tobacco: 2015 Former quit date comment: 2 ppd X 54 years Alcohol intake: never Substance/Drug Use: never Adopted: No Household members: spouse Housing: House Marital status: Highest education level completed: High School Graduate service: No Current occupational status: retired Pets and animals: Yes Current gender identity: Female Physical Exam 2 Const: COMMON NORMALS: average body habitus, healthy appearing, alert and well nourished HENMT: COMMON NORMALS: normocephalic, atraumatic, hearing grossly normal bilaterally, external ears normal, Normal external nose present and moist oral mucous membranes HEAD & SCALP: normocephalic and atraumatic NOSE: Normal external nose present EXTERNAL EAR: Yes external ears normal Eye: COMMON NORMALS: Equal, round and reactive pupils present, EOMs intact bilaterally, conjunctivae normal and no scleral icterus CONJUNCTIVA: Yes conjunctivae normal PUPIL: Yes Equal, round and reactive pupils present Neck/C-Spine: COMMON NORMALS: no JVD Chest: COMMONS NORMALS: normal inspection of the chest and normal palpation of entire chest wall Resp: OTHER: Acute respiratory distress, tachypnea, immediately placed on BiPAP, severely decreased breath sounds bilateral lungs. Cardio: COMMON NORMALS: no JVD, regular rhythm, S1 normal heart sound present, S2 normal heart sound present, No gallops present (Cardio), No clicks present (Cardio), No murmurs present (Cardio) and No rub (Cardio); negative for regular rate (Tachycardic) RATE: abnormal rate (Tachycardic) RHYTHM: regular rhythm HEART SOUNDS: S1 normal heart sound present and S2 normal heart sound present GI: COMMON NORMALS: Normal to inspection, nondistended, normoactive bowel sounds present, Soft to palpation, non-tender, No hepatosplenomegaly present and no masses PALPATION: Yes Soft to palpation and Yes No hepatosplenomegaly present Neuro: SENSORIUM/ORIENTATION: Yes alert Course 2 Vital Signs: Vital signs: Vital Signs Pulse Rate 109 H 08/25/24 13:25 Respiratory Rate 23 H 08/25/24 12:54 Blood Pressure 122/65 08/25/24 12:54 Pulse Oximetry 98 08/25/24 13:25 Oxygen Delivery Me thod BiPAP 08/25/24 06:45 Fraction of Inspir ed Oxygen 30 08/25/24 13:25 MDM - SOB/Dyspnea Medical Records I reviewed the patient's medical records. Lab Data I reviewed the patient's lab results. 08/25/24 04:15 08/25/24 04:15 Labs/Radiology: Radiology Impressions Chest CTA 08/25/24 05:00 IMPRESSION: Tiny bilateral pulmonary emboli. Low thrombus burden. ADDENDUM: 08/25/24 0902 THIS REPORT CONTAINS FINDINGS THAT MAY BE CRITICAL TO PATIENT CARE. The findings were verbally communicated via telephone conference with Dr. Flores at 9:00 AM SUBCONTRACTS MANAGER on 08/25/2024. The findings were acknowledged and understood. Venous Duplex 08/25/24 08:49 IMPRESSION: No evidence of deep vein thrombosis. Chest X-Ray 08/25/24 10:16 IMPRESSION: No acute findings. Laboratory Results WBC 3.38 10^3/uL (3.29-11.43) 08/25/24 04:15 RBC 4.61 10^6/uL (3.85-5.65) 08/25/24 04:15 Hgb 13.30 g/dL (11.27-16.99) 08/25/24 04:15 Hct 44.3 % (36-47) 08/25/24 04:15 MCV 96.1 fl (85-98) 08/25/24 04:15 MCH 28.9 pg (27-33) 08/25/24 04:15 MCHC 30.0 g/dL (30-55) 08/25/24 04:15 RDW 12.1 % (12.1-15.1) 08/25/24 04:15 Plt Count 149 10^3/cmm (157-399) L 08/25/24 04:15 MPV 9.8 fL (7.4-10.4) 08/25/24 04:15 Neut % (Auto) 89.3 % 08/25/24 04:15 Lymph % (Auto) 6.8 % 08/25/24 04:15 Ralls % (Auto) 0.9 % 08/25/24 04:15 Eos % (Auto) 1.2 % 08/25/24 04:15 Baso % (Auto) 0.3 % 08/25/24 04:15 Neut # (Auto) 3.02 10^3/uL (1.8-7.7) 08/25/24 04:15 Lymph # (Auto) 0.2 10^3/uL (0.8-4.8) L 08/25/24 04:15 [place] # (Auto) 0.0 10^3/uL (0.2-0.9) L 08/25/24 04:15 Eos # (Auto) 0.0 10^3/uL (0.0-0.8) 08/25/24 04:15 Baso # (Auto) 0.0 10^3/uL (0.0-0.1) 08/25/24 04:15 Nucleated RBC % (auto) 0 % 08/25/24 04:15 Nucleated RBCs # 0.0 /100WBC 08/25/24 04:15 APTT > 250.0 SECONDS (23.9-36.7) H* 08/25/24 07:56 D-Dimer >= 20.00 ug/mLFEU (0-0.59) H 08/25/24 04:15 Specimen Type Art 08/25/24 04:55 Sample Site Rr 08/25/24 04:55 ABG pH 7.26 (7.35-7.45) L 08/25/24 04:55 ABG pCO2 68.2 mmHg (35-45) H* 08/25/24 04:55 ABG pO2 123.0 mmHg (80.0-100.0) H 08/25/24 04:55 ABG PO2/FiO2 Ratio 391 08/25/24 04:05 ABG HCO3 30.7 mmol/L (22-26) H 08/25/24 04:55 ABG O2 Saturation 98.8 08/25/24 04:55 ABG Base Excess 1.8 mmol/L (-2.0-2.0) 08/25/24 04:55 Ga Test Pos 08/25/24 04:55 A-a O2 Gradient Not Reportable 08/25/24 04:55 Hematocrit 41.1 % (37-47) 08/25/24 04:55 Hgb O2 Saturation 0.8 % (95-100) L 08/25/24 04:55 Carboxyhemoglobin 0.8 %THgb (0.4-20.1) 08/25/24 04:55 Methemoglobin 1.1 % (0.4-1.5) 08/25/24 04:55 Total Hemoglobin 13.5 g/dL (12-16) 08/25/24 04:55 Sodium 142.0 mmol/L (131-143) 08/25/24 04:55 Potassium 4.0 mmol/L (3.5-5.0) 08/25/24 04:55 Glucose 122.0 mg/dL (70-115) H 08/25/24 04:55 Ionized Calcium 1.2 mmol/L (1.1-1.4) 08/25/24 04:55 O2 Delivery Device Bipap 08/25/24 04:55 FiO2 80.0 % 08/25/24 04:55 Tidal Volume 500 08/25/24 04:55 Specimen Drawn By Jlb 08/25/24 04:55 Pattern Changer And Repairer ID [id number] 08/25/24 04:55 Sodium 143 mmol/L (136-145) 08/25/24 04:15 Potassium 3.9 mmol/L (3.5-5.1) 08/25/24 04:15 Chloride 100 mmol/L (98-107) 08/25/24 04:15 Carbon Dioxide 32 mmol/L (22-29) H 08/25/24 04:15 Anion Gap 14.9 (5-19) 08/25/24 04:15 BUN 19 mg/dL (8-23) 08/25/24 04:15 Creatinine 1.5 mg/dL (0.5-0.9) H 08/25/24 04:15 GFR Calculation Not Reportable 08/25/24 04:15 Glucose 122 mg/dL (65-115) H 08/25/24 04:15 POC Glucose 133 mg/dL (70-110) H 08/25/24 04:07 Calculated Osmolality 300 mOsm/kg (285-295) H 08/25/24 04:15 Lactic Acid 3.1 mmol/L (0.5-2.2) H 08/25/24 04:12 Lactic Acid (Sepsis) 5.5 mmol/L (0.5-2.2) H* 08/25/24 07:56 Calcium 9.4 mg/dL (8.5-10.5) 08/25/24 04:15 Magnesium 1.8 mg/dL (1.7-2.3) 08/25/24 04:15 Total Bilirubin 0.7 mg/dL (0.15-1.2) 08/25/24 04:15 AST 26 U/L (0-32) 08/25/24 04:15 ALT 13 U/L (0-33) 08/25/24 04:15 Alkaline Phosphatase 74 U/L (35-105) 08/25/24 04:15 Troponin T Baseline 83 ng/L (0-10) H 08/25/24 04:12 Troponin T 120 Minute 102.0 ng/L (0-10) H 08/25/24 06:27 Delta Troponin T 19.0 ABS# (0-10) H* 08/25/24 06:27 Troponin T Hi Sens 6Hr 72.40 ng/L (0-10) H 08/25/24 10:36 Troponin T Hi Sens 6Hr Delta -10.60 ng/L (0-12) L 08/25/24 10:36 C-Reactive Protein 3.9 mg/L (0.0-4.9) 08/25/24 04:15 NT-Pro-B Natriuret Pep 955 pg/mL (0-125) H 08/25/24 04:15 Total Protein 6.0 g/dL (6.6-8.7) L 08/25/24 04:15 Albumin 3.8 g/dL (3.5-5.2) 08/25/24 04:15 Globulin 2.2 g/dL (1.3-4.6) 08/25/24 04:15 Procalcitonin 13.35 ng/mL (0-0.5) H 08/25/24 04:15 TSH 1.71 uIU/mL (0.27-4.20) 08/25/24 04:12 Urine Color [place] (Yellow) A 08/25/24 11:36 Urine Appearance Cloudy (CLEAR) A 08/25/24 11:36 Urine pH 5.5 (5-7) 08/25/24 11:36 Ur Specific [place] 1.057 (1.005-1.030) H 08/25/24 11:36 Urine Protein 2+ (Negative) A 08/25/24 11:36 Urine Glucose (UA) Negative (Normal) 08/25/24 11:36 Urine Ketones Negative (Negative) 08/25/24 11:36 Urine Blood 3+ (Negative) A 08/25/24 11:36 Urine Nitrate Positive (Negative) A 08/25/24 11:36 Urine Bilirubin Negative (Negative) 08/25/24 11:36 Urine Urobilinogen 1.0 mg/dL (Negative) 08/25/24 11:36 Ur Leukocyte Esterase 1+ (Negative) A 08/25/24 11:36 Urine RBC >100 /hpf (0-2) H 08/25/24 11:36 Urine WBC 51-100 /hpf (0-5) H 08/25/24 11:36 Ur Squamous Epith Cells 0-5 /hpf (0-5) 08/25/24 11:36 Amorphous Sediment Not Reportable 08/25/24 11:36 Urine Bacteria 4+ /hpf (NONE) H 08/25/24 11:36 Hyaline Casts 6.61 /lpf 08/25/24 11:36 Coronavirus (PCR) Negative (Negative) 08/25/24 04:15 Influenza A (PCR) Negative (Negative) 08/25/24 04:15 Influenza Type B (PCR) Negative (Negative) 08/25/24 04:15 RSV (PCR) Negative (Negative) 08/25/24 04:15 All radiology interpretation(s) finalized by discharge Discharge Plan Discharge Patient Disposition: Admitted As Inpatient Admit Provider: Rafita Brannon Clinical Impression: Acute respiratory failure with hypoxia and hypercapnia, Renal insufficiency, Acute exacerbation of chronic obstructive airways disease, D-dimer, elevated, Ventricular tachycardia, Pulmonary emboli, NSTEMI (non-ST elevated myocardial infarction) Condition: Stable Sign Out Sign Out Data: Patient Sign Out occurred on 08/25/24 at 06:18. Patient's care was discussed, and care was transferred from Fady Kate DO to Barber Flores DO. Coding Level of Care Code ED Dopster for Chg Fwd Documented by User: Barber Flores DO 08/25/24 13:54 HPI - SOB/Dyspnea 2 General: Chief Complaint: Shortness of Breath/Dyspnea Stated Complaint: Resp Distress Time Seen by Provider: 08/25/24 03:57 Related Data Home Medications Medication Instructions Recorded Confirmed aspirin 81 mg tablet,delayed 81 mg PO QDAY 09/09/19 08/25/24 release (Adult Aspirin Regimen) fluticasone propionate 50 2 spray intranasal QDAY 09/09/19 08/25/24 mcg/actuation nasal spray,suspension (Allergy Relief (fluticasone)) lactobacillus combination no.9 4 4,000 mmu cells PO QDAY 09/09/19 08/25/24 billion cell capsule (Adult 50 Plus Probiotic) ascorbic acid (vitamin C) 500 mg 1,000 mg PO DAILY 04/24/23 08/25/24 tablet (Vitamin C) calcium 600 mg (as 1 tab PO DAILY 04/24/23 08/25/24 carbonate)-vitamin D3 5 mcg (200 unit) tablet fish, borage, flaxseed oils-omega 1 cap PO DAILY 04/24/23 08/25/24 3,6,9 comb no.1 1,200 mg capsule ([place] 3-6-9) vitamin B complex 1 tab PO DAILY 04/24/23 08/25/24 collagen 4 tbspn PO DAILY 05/23/23 08/25/24 loratadine 10 mg capsule 10 mg PO QDAY PRN allergic symptoms 05/23/23 08/25/24 polyethylene glycol 3350 17 4 g PO DAILY PRN constipation 05/23/23 08/25/24 gram/dose oral powder (Miralax) cranberry fruit 450 mg tablet 450 mg PO DAILY 08/25/24 08/25/24 (cranberry) cyclobenzaprine 10 mg tablet 10 mg PO TID PRN Muscle Spasm 08/25/24 08/25/24 duloxetine 60 mg capsule,delayed 60 mg PO DAILY 08/25/24 08/25/24 release metoprolol tartrate 25 mg tablet 25 mg PO BID 08/25/24 08/25/24 pantoprazole 40 mg tablet,delayed 40 mg PO DAILY 08/25/24 08/25/24 release simvastatin 20 mg tablet 20 mg PO QPM 08/25/24 08/25/24 Previous Rx's Medication Instructions Recorded light weight upright walker stand #1 ea 10/21/19 up rollator walker with forearm supports nitroglycerin 0.4 mg sublingual 0.4 mg sublingual Q5M PRN chest 12/16/22 tablet (Nitrostat) pain #20 tabs Bipap #1 ea 04/17/23 leg brace (Knee Support Brace) #1 ea 05/19/23 ipratropium 0.5 mg-albuterol 3 mg See Rx Instructions .Route 11/04/23 (2.5 mg base)/3 mL nebulization .COMPLEX #360 mL soln promethazine-DM 6.25 mg-15 mg/5 mL 5 - 10 ml PO Q6H PRN cough #473 mL 03/23/24 oral syrup amlodipine 5 mg tablet 5 mg PO DAILY #90 tabs 03/24/24 albuterol sulfate 90 mcg/actuation See Rx Instructions .Route 04/16/24 aerosol inhaler .COMPLEX #68 grams budesonide 160 mcg-glycopyr 9 2 inh inhalation BID #10.7 grams 04/22/24 mcg-formot 4.8 mcg/actuation HFA inhaler (Breztri Aerosphere) morphine 10 mg/5 mL oral solution 5 mg (2.5 mL) PO Q6H PRN dyspnea 4 06/08/24 weeks #100 mL prednisone 10 mg tablet 10 mg PO DAILY lung inflammation 08/24/24 #90 tabs Allergies Allergy/AdvReac Type Severity Reaction Status Date / Time penicillamine Allergy ALGY-Rash Verified 08/25/24 04:21 Penicillins Allergy Unknown Verified 08/25/24 04:21 PFS ED 2 PFSH: Medical History Dyspnea on exertion COPD exacerbation Dyslipidemia Osteoarthritis COPD (chronic obstructive pulmonary disease) WPW (Fleao-Qcnzschox-Tkpkb syndrome) HTN (hypertension) Degenerative joint disease of right wrist Dyslipidemia Fibromyalgia COPD (chronic obstructive pulmonary disease) Hypertension Surgical History Hx of hand surgery H/O: hysterectomy Family History Mother Hypertension Denies family history of Diabetes CAD (coronary artery disease) Clotting disorder Dementia Hyperlipidemia Psychiatric illness Chronic kidney disease (CKD) Suicide Anesthesia complication Bleeding disorder Family history of premature coronary artery disease Lung disease Cancer Stroke Social History Smoking and tobacco/nicotine status: former use of tobacco/nicotine Quit status (tobacco/nicotine): has quit using Year quit tobacco: 2015 Former quit date comment: 2 ppd X 54 years Alcohol intake: never Substance/Drug Use: never Adopted: No Household members: spouse Housing: House Marital status: Highest education level completed: High School Graduate service: No Current occupational status: retired Pets and animals: Yes Current gender identity: Female Procedures Central Line Placement Right IJ: Time Out Performed: Yes Patient Placed on Monitor/Pulse Ox: Yes MD Prep: mask, gown and gloves Central Line Prep: Chlorhexidine scrub Local Anesthetic: lidocaine 1% Amount of anesthesia used (mL): 5 Ultrasound Used for Placement: Yes Central Line Lumen Inserted: triple Post Procedure: sutured in place, good blood return, all ports aspirated, flushed, capped and sterile dressing applied Post Procedure X-Ray: tip of catheter in good position Patient Tolerated Procedure: well Complications: none Course 2 Vital Signs: Vital signs: Vital Signs Pulse Rate 109 H 08/25/24 13:25 Respiratory Rate 23 H 08/25/24 12:54 Blood Pressure 122/65 08/25/24 12:54 Pulse Oximetry 98 08/25/24 13:25 Oxygen Delivery Me thod BiPAP 08/25/24 06:45 Fraction of Inspir ed Oxygen 30 08/25/24 13:25 MDM - SOB/Dyspnea Medical Decision Making Care assumed at change of shift from Dr. Kate. CTA chest shows small bilateral pulmonary emboli ultrasound venous duplex lower extremities negative. She is also complaining abdominal pain. Discussed with the hospitalist will admit. She became hypotensive which I believe is from sepsis we will start her on meropenem she had previously been given Levaquin. Additionally we will get appropriate cultures. Central line placed. Patient also has significantly elevated troponin. She has been heparinized Dr. Brannon will contact cardiology. Lab Data 08/25/24 04:15 08/25/24 04:15 Labs/Radiology: Radiology Impressions Chest CTA 08/25/24 05:00 IMPRESSION: Tiny bilateral pulmonary emboli. Low thrombus burden. ADDENDUM: 08/25/24 0902 THIS REPORT CONTAINS FINDINGS THAT MAY BE CRITICAL TO PATIENT CARE. The findings were verbally communicated via telephone conference with Dr. Flores at 9:00 AM SUBCONTRACTS MANAGER on 08/25/2024. The findings were acknowledged and understood. Venous Duplex 08/25/24 08:49 IMPRESSION: No evidence of deep vein thrombosis. Chest X-Ray 08/25/24 10:16 IMPRESSION: No acute findings. Laboratory Results WBC 3.38 10^3/uL (3.29-11.43) 08/25/24 04:15 RBC 4.61 10^6/uL (3.85-5.65) 08/25/24 04:15 Hgb 13.30 g/dL (11.27-16.99) 08/25/24 04:15 Hct 44.3 % (36-47) 08/25/24 04:15 MCV 96.1 fl (85-98) 08/25/24 04:15 MCH 28.9 pg (27-33) 08/25/24 04:15 MCHC 30.0 g/dL (30-55) 08/25/24 04:15 RDW 12.1 % (12.1-15.1) 08/25/24 04:15 Plt Count 149 10^3/cmm (157-399) L 08/25/24 04:15 MPV 9.8 fL (7.4-10.4) 08/25/24 04:15 Neut % (Auto) 89.3 % 08/25/24 04:15 Lymph % (Auto) 6.8 % 08/25/24 04:15 [place] % (Auto) 0.9 % 08/25/24 04:15 Eos % (Auto) 1.2 % 08/25/24 04:15 Baso % (Auto) 0.3 % 08/25/24 04:15 Neut # (Auto) 3.02 10^3/uL (1.8-7.7) 08/25/24 04:15 Lymph # (Auto) 0.2 10^3/uL (0.8-4.8) L 08/25/24 04:15 [place] # (Auto) 0.0 10^3/uL (0.2-0.9) L 08/25/24 04:15 Eos # (Auto) 0.0 10^3/uL (0.0-0.8) 08/25/24 04:15 Baso # (Auto) 0.0 10^3/uL (0.0-0.1) 08/25/24 04:15 Nucleated RBC % (auto) 0 % 08/25/24 04:15 Nucleated RBCs # 0.0 /100WBC 08/25/24 04:15 APTT > 250.0 SECONDS (23.9-36.7) H* 08/25/24 07:56 D-Dimer >= 20.00 ug/mLFEU (0-0.59) H 08/25/24 04:15 Specimen Type Art 08/25/24 04:55 Sample Site Rr 08/25/24 04:55 ABG pH 7.26 (7.35-7.45) L 08/25/24 04:55 ABG pCO2 68.2 mmHg (35-45) H* 08/25/24 04:55 ABG pO2 123.0 mmHg (80.0-100.0) H 08/25/24 04:55 ABG PO2/FiO2 Ratio 391 08/25/24 04:05 ABG HCO3 30.7 mmol/L (22-26) H 08/25/24 04:55 ABG O2 Saturation 98.8 08/25/24 04:55 ABG Base Excess 1.8 mmol/L (-2.0-2.0) 08/25/24 04:55 Ga Test Pos 08/25/24 04:55 A-a O2 Gradient Not Reportable 08/25/24 04:55 Hematocrit 41.1 % (37-47) 08/25/24 04:55 Hgb O2 Saturation 0.8 % (95-100) L 08/25/24 04:55 Carboxyhemoglobin 0.8 %THgb (0.4-20.1) 08/25/24 04:55 Methemoglobin 1.1 % (0.4-1.5) 08/25/24 04:55 Total Hemoglobin 13.5 g/dL (12-16) 08/25/24 04:55 Sodium 142.0 mmol/L (131-143) 08/25/24 04:55 Potassium 4.0 mmol/L (3.5-5.0) 08/25/24 04:55 Glucose 122.0 mg/dL (70-115) H 08/25/24 04:55 Ionized Calcium 1.2 mmol/L (1.1-1.4) 08/25/24 04:55 O2 Delivery Device Bipap 08/25/24 04:55 FiO2 80.0 % 08/25/24 04:55 Tidal Volume 500 08/25/24 04:55 Specimen Drawn By Jlb 08/25/24 04:55 Pattern Changer And Repairer ID [id number] 08/25/24 04:55 Sodium 143 mmol/L (136-145) 08/25/24 04:15 Potassium 3.9 mmol/L (3.5-5.1) 08/25/24 04:15 Chloride 100 mmol/L (98-107) 08/25/24 04:15 Carbon Dioxide 32 mmol/L (22-29) H 08/25/24 04:15 Anion Gap 14.9 (5-19) 08/25/24 04:15 BUN 19 mg/dL (8-23) 08/25/24 04:15 Creatinine 1.5 mg/dL (0.5-0.9) H 08/25/24 04:15 GFR Calculation Not Reportable 08/25/24 04:15 Glucose 122 mg/dL (65-115) H 08/25/24 04:15 POC Glucose 133 mg/dL (70-110) H 08/25/24 04:07 Calculated Osmolality 300 mOsm/kg (285-295) H 08/25/24 04:15 Lactic Acid 3.1 mmol/L (0.5-2.2) H 08/25/24 04:12 Lactic Acid (Sepsis) 5.5 mmol/L (0.5-2.2) H* 08/25/24 07:56 Calcium 9.4 mg/dL (8.5-10.5) 08/25/24 04:15 Magnesium 1.8 mg/dL (1.7-2.3) 08/25/24 04:15 Total Bilirubin 0.7 mg/dL (0.15-1.2) 08/25/24 04:15 AST 26 U/L (0-32) 08/25/24 04:15 ALT 13 U/L (0-33) 08/25/24 04:15 Alkaline Phosphatase 74 U/L (35-105) 08/25/24 04:15 Troponin T Baseline 83 ng/L (0-10) H 08/25/24 04:12 Troponin T 120 Minute 102.0 ng/L (0-10) H 08/25/24 06:27 Delta Troponin T 19.0 ABS# (0-10) H* 08/25/24 06:27 Troponin T Hi Sens 6Hr 72.40 ng/L (0-10) H 08/25/24 10:36 Troponin T Hi Sens 6Hr Delta -10.60 ng/L (0-12) L 08/25/24 10:36 C-Reactive Protein 3.9 mg/L (0.0-4.9) 08/25/24 04:15 NT-Pro-B Natriuret Pep 955 pg/mL (0-125) H 08/25/24 04:15 Total Protein 6.0 g/dL (6.6-8.7) L 08/25/24 04:15 Albumin 3.8 g/dL (3.5-5.2) 08/25/24 04:15 Globulin 2.2 g/dL (1.3-4.6) 08/25/24 04:15 Procalcitonin 13.35 ng/mL (0-0.5) H 08/25/24 04:15 TSH 1.71 uIU/mL (0.27-4.20) 08/25/24 04:12 Urine Color [place] (Yellow) A 08/25/24 11:36 Urine Appearance Cloudy (CLEAR) A 08/25/24 11:36 Urine pH 5.5 (5-7) 08/25/24 11:36 Ur Specific [place] 1.057 (1.005-1.030) H 08/25/24 11:36 Urine Protein 2+ (Negative) A 08/25/24 11:36 Urine Glucose (UA) Negative (Normal) 08/25/24 11:36 Urine Ketones Negative (Negative) 08/25/24 11:36 Urine Blood 3+ (Negative) A 08/25/24 11:36 Urine Nitrate Positive (Negative) A 08/25/24 11:36 Urine Bilirubin Negative (Negative) 08/25/24 11:36 Urine Urobilinogen 1.0 mg/dL (Negative) 08/25/24 11:36 Ur Leukocyte Esterase 1+ (Negative) A 08/25/24 11:36 Urine RBC >100 /hpf (0-2) H 08/25/24 11:36 Urine WBC 51-100 /hpf (0-5) H 08/25/24 11:36 Ur Squamous Epith Cells 0-5 /hpf (0-5) 08/25/24 11:36 Amorphous Sediment Not Reportable 08/25/24 11:36 Urine Bacteria 4+ /hpf (NONE) H 08/25/24 11:36 Hyaline Casts 6.61 /lpf 08/25/24 11:36 Coronavirus (PCR) Negative (Negative) 08/25/24 04:15 Influenza A (PCR) Negative (Negative) 08/25/24 04:15 Influenza Type B (PCR) Negative (Negative) 08/25/24 04:15 RSV (PCR) Negative (Negative) 08/25/24 04:15 Critical Care Time 2 Critical Care Time: Critical Care Time: Yes Total Critical Care Time: 40 Attestation: The high probability of a clinically significant, sudden or life threatening deterioration of the patient's cardiovascular respiratory renal system(s) required my full and direct attention, intervention and personal management. The critical care time is as shown. This time is in addition to time spent performing any reported procedures but includes the following: [x] Data and vital sign review and interpretation [x] Patient assessment, examination and intervention [x] Documentation [x] Medication orders and management Discharge Plan Discharge Patient Disposition: Admitted As Inpatient Admit Provider: Rafita Brannon Clinical Impression: Acute respiratory failure with hypoxia and hypercapnia, Renal insufficiency, Acute exacerbation of chronic obstructive airways disease, D-dimer, elevated, Ventricular tachycardia, Pulmonary emboli, NSTEMI (non-ST elevated myocardial infarction) Condition: Stable Sign Out Sign Out Data: Patient Sign Out occurred on 08/25/24 at 06:18. Patient's care was discussed, and care was transferred from Fady Kate DO to Barber Flores DO. Coding Level of Care Code ED Dopster for Gumaro Phillips
[2024-08-25 04:12] LABS: Alveolar-Arterial Oxygen Gradi 27.4 mmHg (5-10); Arterial Blood Gas Hematocrit 40.4 % (37-47); Base Excess ABG 1.4 mmol/L (-2.0-2.0); Blood Gas Allen Test Pos; Blood Gas Operator Identificat 600455; Blood Gas Sample Site Radial, right; Blood Gas Sample Type Arterial; Carboxyhemoglobin 0.7 %THgb (0.4-20.1); HCO3 ABG 33.2 mmol/L (22-26); HGB O2 Sat 98.1 % (95-100); Ionized Calcium Level - ABG 1.3 mmol/L (1.1-1.4); Methemoglobin 1.2 % (0.4-1.5); Oxygen Device BIPAP; Oxygen Saturation ABG > 99.1; PO2 FiO2 Ratio Arterial Blood 391; Potassium Level - ABG 3.8 mmol/L (3.5-5.0); Total Hemoglobin 13.2 g/dL (12-16)
[2024-08-25 04:14] LABS: ABG PCO2 96.5 mmHg (35-45); ABG PH Result 7.15 (7.35-7.45)
[2024-08-25 04:19] LABS: Glucose Point of Care 133 mg/dL (70-110)
[2024-08-25 04:22] LABS: Basophils % 0.3 %; Eosinophils % 1.2 %; Hematocrit 44.3 % (36-47); Lymphocytes # 0.2 10^3/uL (0.8-4.8); Lymphocytes % 6.8 %; Mean Corpuscular Hemoglobin 28.9 pg (27-33); Mean Corpuscular Volume 96.1 fl (85-98); Mean Platelet Volume 9.8 fL (7.4-10.4); Monocytes % 0.9 %; Neutrophils # 3.02 10^3/uL (1.8-7.7); Neutrophils % 89.3 %; Nucleated Red Blood Cells % 0 %; Platelet Count 149 10^3/cmm (157-399); Red Blood Count 4.61 10^6/uL (3.85-5.65); Red Cell Distribution Width 12.1 % (12.1-15.1); White Blood Count 3.38 10^3/uL (3.29-11.43)
--- NOTE | 2024-08-25 04:22 | PC.NURSE ---
pt is in severe resp distress and unable to answer the SI questions
[2024-08-25] MEDS: levalbuterol 1.25 mg/3 mL Neb INHALATION ×3 (04:35→05:08)
[2024-08-25 04:40] LABS: Troponin(5th) Baseline 83 ng/L (0-10)
[2024-08-25 04:42] LABS: Lactic Sepsis W/Reflex 3.1 mmol/L (0.5-2.2)
[2024-08-25] MEDS: ipratropium 0.5 mg/2.5 mL Neb INHALATION (04:48)
[2024-08-25 04:51] LABS: D Dimer >= 20.00 ug/mLFEU (0-0.59)
[2024-08-25 04:58] LABS: NT Pro B Type Natriuretic Pept 955 pg/mL (0-125); Procalcitonin 13.35 ng/mL (0-0.5)
--- NOTE | 2024-08-25 05:00 | CTR_ITS ---
PROCEDURE INFORMATION: Exam: CTA Chest With Contrast Exam date and time: 08/25/2024 6:36 AM Age: 73 years old Clinical indication: Dyspnea; Additional info: Dyspnea, hypoxia, tachycardia, elevated d-dimer TECHNIQUE: Imaging protocol: Computed tomographic angiography of the chest with contrast. Exam focused on the arteries. 3D rendering (Not supervised by radiologist): MIP and/or 3D reconstructed images were created by the technologist. Radiation optimization: All CT scans at this facility use at least one of these dose optimization techniques: automated exposure control; mA and/or kV adjustment per patient size (includes targeted exams where dose is matched to clinical indication); or iterative reconstruction. Contrast material: OMNIPAQUE 350; Contrast volume: 100 ml; Contrast route: INTRAVENOUS (IV); COMPARISON: CT angio chest PE protcl [id number] 08/02/2023 8:12 AM RADIATION DOSE METRICS: Total DLP (mGy-cm): 604.13 FINDINGS: Pulmonary arteries: Normal. No pulmonary emboli. Aorta: Unremarkable. No aortic aneurysm. No aortic dissection. Lungs: There are tiny scattered emboli to the subsegmental branches to each lower lobe and the left upper lobe. Pleural spaces: Unremarkable. No pneumothorax. No pleural effusion. Heart: See Heart RV/LV ratio finding. Heart RV/LV ratio: RV LV ratio is less than 1.0. No evidence of right heart strain. Lymph nodes: Unremarkable. No enlarged lymph nodes. Bones/joints: Unremarkable. No acute fracture. Soft tissues: Unremarkable. CT/CT angio chest PE protcl [id number] IMPRESSION: Tiny bilateral pulmonary emboli. Low thrombus burden.
[2024-08-25] MEDS: sodium chloride 0.9% 1,000 ML 999 ML IV (05:05)
[2024-08-25 05:10] LABS: Alanine Aminotransferase 13 U/L (0-33); Albumin Level 3.8 g/dL (3.5-5.2); Alkaline Phosphatase 74 U/L (35-105); Anion Gap 14.9 (5-19); Aspartate Amino Transferase 26 U/L (0-32); Blood Urea Nitrogen 19 mg/dL (8-23); C Reactive Protein 3.9 mg/L (0.0-4.9); Calcium 9.4 mg/dL (8.5-10.5); Carbon Dioxide 32 mmol/L (22-29); Chloride 100 mmol/L (98-107); Globulin 2.2 g/dL (1.3-4.6); Glucose 122 mg/dL (65-115); Magnesium 1.8 mg/dL (1.7-2.3); Osmolality Calculated 300 mOsm/kg (285-295); Potassium 3.9 mmol/L (3.5-5.1); Sodium 143 mmol/L (136-145); Total Bilirubin 0.7 mg/dL (0.15-1.2)
[2024-08-25 05:15] LABS: Covid PCR NEGATIVE (Negative); Influenza A NEGATIVE (Negative); Influenza B NEGATIVE (Negative); Respiratory Syncytial Virus Ce NEGATIVE (Negative)
--- NOTE | 2024-08-25 05:56 | ECG_ITS ---
[facility] Date: 2024-08-25 Pat Name: Ksenia Phan Department: Room: Gender: Female Settlement Technician: : 1950 Requested By: Fady Kate Order Number: [id number] Leyva MD: Nikita Whitehead M.D. Measurements Intervals [place] Rate: 133 P: 83 SD: 134 QRS: 69 QRSD: 88 T: 71 QT: 308 QTc: 459 Interpretive Statements SINUS TACHYCARDIA WITH FREQUENT VENTRICULAR PREMATURE COMPLEXES NONSPECIFIC ST & T-WAVE ABNORMALITY ABNORMAL RHYTHM ECG Compared to ECG 08/02/2023 05:26:08 Ventricular premature complex(es) now present T-wave abnormality still present Electronically Signed On 08-26-2024 12:35:57 SUGAR GRINDER by Nikita Whitehead M.D. [id number]
[2024-08-25 06:08] LABS: Reflex Lactate Order REFLEX LACTIC ORDERD
[2024-08-25] MEDS: heparin 5,000 unit/mL INJ 1 mL IVP (07:01)
[2024-08-25] MEDS: levofloxacin-dextrose 5 % 500 MG/100 ML PREMIX 100 MG IV (07:02)
[2024-08-25] MEDS: heparin drip 25,000 UNIT/500 ML PREMIX 40.06 UNIT IV (07:02)
[2024-08-25 07:06] LABS: ABG PH Result 7.26 (7.35-7.45)
[2024-08-25 07:07] LABS: ABG PCO2 68.2 mmHg (35-45); Base Excess ABG 1.8 mmol/L (-2.0-2.0); HCO3 ABG 30.7 mmol/L (22-26); Oxygen Saturation ABG 98.8
[2024-08-25 07:09] LABS: Blood Gas Allen Test POS; Oxygen Device BIPAP
[2024-08-25 07:10] LABS: Arterial Blood Gas Hematocrit 41.1 % (37-47); Blood Gas Sample Site RR; Blood Gas Sample Type ART; Blood Gas Tidal Volume 500
[2024-08-25 07:12] LABS: Blood Gas Operator Identificat 68.5
[2024-08-25 07:13] LABS: HGB O2 Sat 0.8 % (95-100); Ionized Calcium Level - ABG 1.2 mmol/L (1.1-1.4); Total Hemoglobin 13.5 g/dL (12-16)
[2024-08-25 07:14] LABS: Carboxyhemoglobin 0.8 %THgb (0.4-20.1); Methemoglobin 1.1 % (0.4-1.5)
[2024-08-25] MEDS: iohexol 350 mg/mL 500 mL Btl (per mL) IV (07:44)
--- NOTE | 2024-08-25 08:49 | USR_ITS ---
PROCEDURE INFORMATION: Exam: US Duplex Lower Extremity Veins, Bilateral Exam date and time: 08/25/2024 9:05 AM Age: 73 years old Clinical indication: Condition or disease; Other: Pe TECHNIQUE: Imaging protocol: Real-time duplex ultrasound of the bilateral extremities with 2-D lopez scale, color Doppler flow and spectral waveform analysis including responses to compression and other maneuvers (when performed) with image documentation. Complete exam focused on the lower extremity veins. COMPARISON: CT abdomen pelvis w con* [id number] 08/03/2023 3:57 PM FINDINGS: Right deep veins: Unremarkable. The common femoral, femoral, proximal profunda femoral and popliteal veins are patent without thrombus. Normal Doppler waveforms. Normal compressibility and/or augmentation response. Left deep veins: Unremarkable. The common femoral, femoral, proximal profunda femoral and popliteal veins are patent without thrombus. Normal Doppler waveforms. Normal compressibility and/or augmentation response. Superficial veins: Greater saphenous veins at the saphenofemoral junctions are patent bilaterally without thrombus. Soft tissues: Unremarkable. US/CV venous duplex [facility] [id number] IMPRESSION: No evidence of deep vein thrombosis.
[2024-08-25 09:20] LABS: Partial Thromboplastin Time > 250.0 SECONDS (23.9-36.7)
[2024-08-25 09:21] LABS: Lactic Acid level (Lactate) 5.5 mmol/L (0.5-2.2)
--- NOTE | 2024-08-25 09:42 | CTR_ITS ---
PROCEDURE INFORMATION: Exam: CT Abdomen And Pelvis Without Contrast Exam date and time: 08/25/2024 12:57 PM Age: 73 years old Clinical indication: Abdominal pain; Generalized TECHNIQUE: Imaging protocol: Computed tomography of the abdomen and pelvis without contrast. Radiation optimization: All CT scans at this facility use at least one of these dose optimization techniques: automated exposure control; mA and/or kV adjustment per patient size (includes targeted exams where dose is matched to clinical indication); or iterative reconstruction. COMPARISON: CT abdomen pelvis w con* [id number] 08/03/2023 3:57 PM RADIATION DOSE METRICS: Total DLP (mGy-cm): 836.94 FINDINGS: Lungs: Lung bases are clear. No pleural effusion. Liver: Normal. No mass. Gallbladder and biliary ducts: Normal. No calcified stones. No ductal dilation. Pancreas: Normal. No ductal dilation. Spleen: Normal. No splenomegaly. Adrenal glands: Normal. No mass. Kidneys and ureters: Small renal cysts are noted bilaterally. Stomach and bowel: There is diffuse mild inflammation involving the wall of the colon. A moderate amount of stool is also noted. There is mild segmental dilatation involving the transverse colon. Appendix: No evidence of appendicitis. Intraperitoneal space: Unremarkable. No free air. No significant fluid collection. Vasculature: Unremarkable. No abdominal aortic aneurysm. Lymph nodes: Unremarkable. No enlarged lymph nodes. Urinary bladder: A Naidu catheter is in good position within the bladder. Reproductive: Unremarkable as visualized. Bones/joints: Unremarkable. No acute fracture. Soft tissues: Unremarkable. CT/CT abdomen pelvis wo con [id number] IMPRESSION: 1. Diffuse colitis 2. A benign renal cyst or cysts have been detected. No further follow-up imaging is required. COMMENTS: Consistent with the [employer]'s Incidental Findings Committee white paper (J Am Sarah Radiol 2018): Any incidental renal lesion less than 1 cm or classified as too small to characterize, or any incidental cystic renal lesion characterized as simple-appearing, is likely benign. No follow-up imaging is recommended for these lesions per consensus recommendations based on imaging criteria.
--- NOTE | 2024-08-25 09:55 | P.HP_ITS ---
Providers/Chief Complaint 2 Admitting Physician: Rafita Brannon MD Primary Care Provider: Delroy Santillan DO Chief Complaint: Resp Distress History of Present Illness Ksenia Phan is a 73 year old female with severe COPD steroid dependent on 2 to 3 L of oxygen and BiPAP at night and as needed, WPW with history of ablation presents to the hospital with not feeling well since last night according to daughter. Apparently sometime in the night she woke up, complained of some low back pain, epigastric pain and nausea. She felt worse this morning with severe shortness of breath. She received multiple albuterol treatments and route, and was placed on BiPAP immediately on arrival to the emergency department. Now she is alert, but has trouble visiting secondary to the BiPAP. She reports the thing that is bothering her the most now with some epigastric discomfort. She denies any nausea. Daughter relates she had some abdominal problems in the past, that required an NG tube for multiple days but no surgery. No recent history of fever, illness exposure. Family confirms that she has allow natural , but wants her aggressively treated with medication, ICU if needed. She specifically denies any chest pain. When I was in the room with her, she had a nonsustained run of ventricular tachycardia, around 15 beats. In the emergency department she received some breathing treatments, Levaquin IV, Ativan IV, Solu-Medrol IV, heparin drip. She has orders for Naidu, CT abdomen pelvis, norepinephrine. Review of Systems 2 General: Reports: 10 or more systems reviewed and unremarkable except in HPI and below Card: Denies: chest pain Resp: Reports: dyspnea GI: Reports: abdominal pain and nausea Medications/Allergies Home Medications Medication Instructions Recorded Confirmed Last Taken Type aspirin 81 mg tablet,delayed 81 mg PO QDAY 09/09/19 08/25/24 08/24/24 History release (Adult Aspirin Regimen) fluticasone propionate 50 2 spray intranasal QDAY 09/09/19 08/25/24 08/24/24 History mcg/actuation nasal spray,suspension (Allergy Relief (fluticasone)) lactobacillus combination no.9 4 4,000 mmu cells PO QDAY 09/09/19 08/25/24 08/24/24 History billion cell capsule (Adult 50 Plus Probiotic) light weight upright walker stand #1 ea 10/21/19 08/25/24 Unknown Rx up rollator walker with forearm supports nitroglycerin 0.4 mg sublingual 0.4 mg sublingual Q5M PRN chest 12/16/22 08/25/24 08/01/23 Rx tablet (Nitrostat) pain #20 tabs Bipap #1 ea 04/17/23 08/25/24 Unknown Rx ascorbic acid (vitamin C) 500 mg 1,000 mg PO DAILY 04/24/23 08/25/24 08/24/24 History tablet (Vitamin C) calcium 600 mg (as 1 tab PO DAILY 04/24/23 08/25/24 08/24/24 History carbonate)-vitamin D3 5 mcg (200 unit) tablet fish, borage, flaxseed oils-omega 1 cap PO DAILY 04/24/23 08/25/24 08/24/24 History 3,6,9 comb no.1 1,200 mg capsule (Excel 3-6-9) vitamin B complex 1 tab PO DAILY 04/24/23 08/25/24 08/24/24 History leg brace (Knee Support Brace) #1 ea 05/19/23 08/25/24 Unknown Rx collagen 4 tbspn PO DAILY 05/23/23 08/25/24 08/24/24 History loratadine 10 mg capsule 10 mg PO QDAY PRN allergic symptoms 05/23/23 08/25/24 08/01/23 History polyethylene glycol 3350 17 4 g PO DAILY PRN constipation 05/23/23 08/25/24 08/01/23 History gram/dose oral powder (Miralax) ipratropium 0.5 mg-albuterol 3 mg See Rx Instructions .Route 11/04/23 08/25/24 08/24/24 Rx (2.5 mg base)/3 mL nebulization .COMPLEX #360 mL soln promethazine-DM 6.25 mg-15 mg/5 mL 5 - 10 ml PO Q6H PRN cough #473 mL 03/23/24 08/25/24 Unknown Rx oral syrup amlodipine 5 mg tablet 5 mg PO DAILY #90 tabs 03/24/24 08/25/24 08/24/24 Rx albuterol sulfate 90 mcg/actuation See Rx Instructions .Route 04/16/24 08/25/24 08/24/24 Rx aerosol inhaler .COMPLEX #68 grams budesonide 160 mcg-glycopyr 9 2 inh inhalation BID #10.7 grams 04/22/24 08/25/24 08/24/24 Rx mcg-formot 4.8 mcg/actuation HFA inhaler (Breztri Aerosphere) morphine 10 mg/5 mL oral solution 5 mg (2.5 mL) PO Q6H PRN dyspnea 4 06/08/24 08/25/24 Unknown Rx weeks #100 mL prednisone 10 mg tablet 10 mg PO DAILY lung inflammation 08/24/24 08/25/24 08/24/24 Rx #90 tabs cranberry fruit 450 mg tablet 450 mg PO DAILY 08/25/24 08/25/24 08/24/24 History (cranberry) cyclobenzaprine 10 mg tablet 10 mg PO TID PRN Muscle Spasm 08/25/24 08/25/24 08/24/24 History duloxetine 60 mg capsule,delayed 60 mg PO DAILY 08/25/24 08/25/24 08/24/24 History release metoprolol tartrate 25 mg tablet 25 mg PO BID 08/25/24 08/25/24 08/24/24 History pantoprazole 40 mg tablet,delayed 40 mg PO DAILY 08/25/24 08/25/24 08/24/24 History release simvastatin 20 mg tablet 20 mg PO QPM 08/25/24 08/25/24 08/24/24 History Allergies Allergy/AdvReac Type Severity Reaction Status Date / Time penicillamine Allergy ALGY-Rash Verified 08/25/24 04:21 Penicillins Allergy Unknown Verified 08/25/24 04:21 PFSH Acute 2 PFSH: Medical History Dyspnea on exertion COPD exacerbation Dyslipidemia Osteoarthritis COPD (chronic obstructive pulmonary disease) WPW (Cdrty-Mmptxexgx-Wzxou syndrome) HTN (hypertension) Degenerative joint disease of right wrist Dyslipidemia Fibromyalgia COPD (chronic obstructive pulmonary disease) Hypertension Surgical History Hx of hand surgery H/O: hysterectomy Family History Mother Hypertension Denies family history of Diabetes CAD (coronary artery disease) Clotting disorder Dementia Hyperlipidemia Psychiatric illness Chronic kidney disease (CKD) Suicide Anesthesia complication Bleeding disorder Family history of premature coronary artery disease Lung disease Cancer Stroke Social History Smoking and tobacco/nicotine status: former use of tobacco/nicotine Quit status (tobacco/nicotine): has quit using Year quit tobacco: 2015 Former quit date comment: 2 ppd X 54 years Alcohol intake: never Substance/Drug Use: never Adopted: No Household members: spouse Housing: House Marital status: Highest education level completed: High School Graduate service: No Current occupational status: retired Pets and animals: Yes Current gender identity: Female Vitals/I&O/Wt Last Vital Signs Pulse 93 08/25/24 08:25 Resp 24 H 08/25/24 07:15 BP 94/60 08/25/24 07:15 Pulse Ox 100 08/25/24 08:25 O2 Del Method BiPAP 08/25/24 06:45 FiO2 35 08/25/24 08:25 08/24/24 08/25/24 08/25/24 22:59 06:59 14:59 Intake Total 300 / 300 Balance 300 / 300 Weight last 48 hrs Weight 83.461 kg Physical Exam 2 Narrative: General Exam is white female, on BiPAP, difficult to understand but does complain of epigastric discomfort. HEENT: Atraumatic normocephalic. Oropharynx not examined secondary to BiPAP Neck is supple no lymphadenopathy thyromegaly Cardiovascular regular rate and rhythm, borderline tachycardic, no obvious murmur Lungs diminished breath sounds bilaterally. No wheezing Abdomen is soft tenderness in the epigastric area. A few bowel sounds are noted. No obvious masses. exam is deferred Extremities show trace edema bilaterally, significant bruising especially on the upper extremities Skin see findings above Neuro no obvious focal deficits Data 08/25/24 04:15 08/25/24 04:15 Other Labs: Dimer is greater than 20 Last ABG demonstrates a pH 7.26, pCO2 68, pO2 123 Lactic is 3.1 and repeat 5.5 Magnesium 1.8 Troponin 83 with repeat of 102 BNP 955 Albumin 2.2, calcium 9.4 Procalcitonin 13.3 TSH is ordered Influenza, COVID, RSV negative Bilateral lower extremity venous duplex negative Chest CTA demonstrates COPD, multiple small bilateral pulmonary emboli, low burden Chest x-ray severe COPD, no infiltrate Blood cultures are drawn Urinalysis ordered Last echo July 2023 demonstrates grade 1 diastolic dysfunction, likely normal EF EKG demonstrates sinus tachycardia, occasional PVC, nonspecific ST-T wave changes, normal axis Micro: Microbiology 08/25/24 04:12 Blood Culture - Preliminary Blood SPECIMEN COLLECTED 08/25/24 04:15 Blood Culture - Preliminary Blood SPECIMEN COLLECTED A&P Assessment and plan (1) Acute respiratory failure with hypoxia and hypercapnia: Patient with acute respiratory failure with hypoxemia and hypercapnia This is multifactorial from multiple problems as listed below Continue BiPAP, AVAPS if needed Monitor clinically. (2) Hypotension: Patient with significant hypotension Norepinephrine was started in the emergency department Continue fluids, consider further boluses Repeat lactate in approximately 4 hours (3) Ventricular tachycardia: Patient with significant ventricular tachycardia, nonsustained while I was in the room She has past history of WPW but had a distant history of ablation Monitor for any recurrence as treatment stabilization occurs. Will check TSH. Magnesium was checked and already normal. For any recurrence initiate amiodarone. Cardiology consultation. (4) Pulmonary emboli: Patient with multiple bilateral pulmonary emboli Overall burden seemed low Dimer was significantly elevated Heparin drip is currently started. (5) NSTEMI (non-ST elevated myocardial infarction): Patient has a positive delta troponin Cannot rule out concomitant non-ST elevation myocardial infarction Heparin has been initiated Beta-cali will have to be held secondary to hypotension Continue low-dose aspirin Cardiology consultation. She did initially wake in the night with nausea and back pain. It is unclear if this was angina, related to an abdominal issue his CT is pending, or related to pulmonary emboli. (6) Acute kidney injury: Patient has evidence of acute kidney injury, superimposed on chronic kidney disease She has received IV fluids to the emergency department Avoid renal toxic medication Repeat renal function tomorrow Await urinalysis, CT abdomen and pelvis (7) COPD with acute exacerbation: Patient with underlying COPD with acute exacerbation She received Solu-Medrol in the ER, she is steroid-dependent Continue 60 mg of Solu-Medrol every 12 hours Budesonide twice daily, DuoNeb every 4 hours Currently on BiPAP, may have to change to AVAPS settings. Wean as tolerated. Note that she uses BiPAP every night. Would ideally have noninvasive ventilator at discharge. Has severe underlying COPD, with FEV1 around 30% greater than 5 years ago. Typically on 2 to 3 L of oxygen. This has been very severely limiting for her and she could not exert herself more than a small amount of time before stopping to rest. Although no pneumonia seen on CT scan, secondary to severe COPD exacerbation and respiratory failure will initiate meropenem. This is also being selected secondary to concern of some bowel issues with epigastric discomfort. Will also check an MRSA PCR. With underlying hypotension, infection is possible. Note that RSV, COVID, influenza were negative. (8) Abdominal pain: Patient is now complaining of abdominal pain With elevated lactate we will need to explore with CT abdomen and pelvis Await urinalysis Placed on Protonix 40 mg IV every 12 hours as this is epigastric Secondary to acute kidney injury, recent radiological dye with CTA of chest, will hold off on any additional radiological dye currently. Differential is large from peptic ulcer disease, to constipation, to ischemic colitis. Plan Multiple other medical problems as outlined by past medical history Allow natural Heparin will suffice for DVT prophylaxis along with SCDs Attestations 2 Medical Necessity Statement*: Will require greater than 2 midnight stay for multiorgan dysfunction in this very ill patient needing ICU care currently on BiPAP, soon to go on norepinephrine, with multiple comorbidities Critical Care Time: The high probability of a clinically significant, sudden or life threatening deterioration of the patient's [cardiac, pulmonary, renal, gastrointestinal] s ystem(s) required my full and direct attention, intervention and personal management. The critical care time is as shown. This time is in addition to time spent performing any reported procedures but includes the following: [x] Data and vital sign review and interpretation [x] Patient assessment, examination and intervention [x] Documentation [x] Medication orders and management Critical Care Time (min): 68 Coding Level of Care Code Critical Care >/= 30 minutes Critical care time (in minutes): 68 The high probability of a clinically significant, sudden or life threatening deterioration, as referenced in this documentation, required my full and direct attention, intervention and personal management. The critical care time shown is in addition to time spent performing any reported separately billable procedures and includes the following: [x] Data and vital sign review and interpretation [x ] Patient assessment, examination and intervention [x] Medication orders and management [x] Patient/Family updates as able [x] Care Coordination and Documentation. Diagnoses Acute respiratory failure with hypoxia and hypercapnia J96.01; J96.02 Hypotension I95.9 Ventricular tachycardia I47.20 Pulmonary emboli I26.99 NSTEMI (non-ST elevated myocardial infarction) I21.4 Acute kidney injury N17.9 COPD with acute exacerbation J44.1 Abdominal pain R10.9
--- NOTE | 2024-08-25 09:56 | ECG_ITS ---
[facility] Test Date: 2024-08-25 Pat Name: Ksenia Phan Department: Room: Gender: Female Cloth Seconds Sorter: : 1950 Requested By: Fady Kate Order Number: [id number] Leyva MD: Nikita Whitehead M.D. Measurements Intervals [place] Rate: 100 P: 85 LA: 151 QRS: 83 QRSD: 86 T: 79 QT: 330 QTc: 426 Interpretive Statements SINUS TACHYCARDIA Compared to ECG 08/25/2024 04:48:08 Ventricular premature complex(es) no longer present T-wave abnormality no longer present Electronically Signed On 08-26-2024 12:35:35 SENIOR STATISTICAL PROGRAMMER by Nikita Whitehead M.D. [email or web address]
--- NOTE | 2024-08-25 10:16 | XRR_ITS ---
PROCEDURE INFORMATION: Exam: XR Chest Exam date and time: 08/25/2024 10:17 AM Age: 73 years old Clinical indication: Device placement; Other: Central line; Additional info: Postcentral line placement TECHNIQUE: Imaging protocol: Radiologic exam of the chest. Views: 1 view. COMPARISON: CT angio chest PE protcl [id number] 08/25/2024 6:36 AM FINDINGS: Tubes, catheters and devices: Right IJ catheter terminates in the SVC. Lungs: Unremarkable. No consolidation. Pleural spaces: Unremarkable. No pleural effusion. No pneumothorax. Heart/Mediastinum: Unremarkable. No cardiomegaly. Bones/joints: Unremarkable. XR/XR chest 1V portable [id number] IMPRESSION: No acute findings.
[2024-08-25] MEDS: norepinephrine 4 MG/250 ML BAG 22.5 MG IV (10:23)
[2024-08-25 10:35] LABS: Magnesium 1.8 mg/dL (1.7-2.3); Thyroid Stimulating Hormone 1.71 uIU/mL (0.27-4.20)
[2024-08-25] MEDS: MEROPENEM 2,000 MG in sodium chloride 0.9% (plus) 50 ML 100 MG IV (10:48)
[2024-08-25 11:41] LABS: Bilirubin Urine Negative (Negative); Blood Urine 3+ (Negative); Glucose Urine UA Negative (Normal); Ketones Urine Negative (Negative); Leukocyte Esterase Urine 1+ (Negative); Nitrate Urine Positive (Negative); Protein Urine 2+ (Negative); Urine Appearance Cloudy (CLEAR); pH Urine 5.5 (5-7)
[2024-08-25 11:46] LABS: Add Urine Microscopic? YES; Bacteria Urine 4+ /hpf; Hyaline Casts Urine 6.61 /lpf; RBC Urine >100 /hpf (0-2); Squamous Epithelial Cell Urine 0-5 /hpf (0-5); WBC Urine 51-100 /hpf (0-5)
[2024-08-25 12:30] LABS: Specific Gravity, Urine 1.057 (1.005-1.030); UA Slide Review UA Slide Review Perf; Urine Color Orange (Yellow)
[2024-08-25 12:31] LABS: Add Urine Culture? Yes
[2024-08-25] MEDS: morphine 4 mg/mL SDV 1 mL 1 MG IVP (12:50)
--- NOTE | 2024-08-25 13:07 | P.CONIM_ITS ---
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 Cardiology was consulted as troponins increased from baseline of 83 to 102 at 2 hours. At 6 hours and trended back down to 72. Patient gives a limited history. Denies chest pain. She also had short run of wide-complex tachycardia. On review of telemetry strip, it appears it was irregularly irregular and likely related to atrial fibrillation. EKG shows sinus tachycardia with non specific ST T wave changes. Review of Systems 2 General: Reports: 10 or more systems reviewed and unremarkable except in HPI and below Card: Denies: chest pain Resp: Reports: dyspnea GI: Reports: abdominal pain and nausea Medications/Allergies Home Medications Medication Instructions Recorded Confirmed Last Taken Type aspirin 81 mg tablet,delayed 81 mg PO QDAY 09/09/19 08/25/24 08/24/24 History release (Adult Aspirin Regimen) fluticasone propionate 50 2 spray intranasal QDAY 09/09/19 08/25/24 08/24/24 History mcg/actuation nasal spray,suspension (Allergy Relief (fluticasone)) lactobacillus combination no.9 4 4,000 mmu cells PO QDAY 09/09/19 08/25/24 08/24/24 History billion cell capsule (Adult 50 Plus Probiotic) light weight upright walker stand #1 ea 10/21/19 08/25/24 Unknown Rx up rollator walker with forearm supports nitroglycerin 0.4 mg sublingual 0.4 mg sublingual Q5M PRN chest 12/16/22 08/25/24 08/01/23 Rx tablet (Nitrostat) pain #20 tabs Bipap #1 ea 04/17/23 08/25/24 Unknown Rx ascorbic acid (vitamin C) 500 mg 1,000 mg PO DAILY 04/24/23 08/25/24 08/24/24 History tablet (Vitamin C) calcium 600 mg (as 1 tab PO DAILY 04/24/23 08/25/24 08/24/24 History carbonate)-vitamin D3 5 mcg (200 unit) tablet fish, borage, flaxseed oils-omega 1 cap PO DAILY 04/24/23 08/25/24 08/24/24 History 3,6,9 comb no.1 1,200 mg capsule (Garita 3-6-9) vitamin B complex 1 tab PO DAILY 04/24/23 08/25/24 08/24/24 History leg brace (Knee Support Brace) #1 ea 05/19/23 08/25/24 Unknown Rx collagen 4 tbspn PO DAILY 05/23/23 08/25/24 08/24/24 History loratadine 10 mg capsule 10 mg PO QDAY PRN allergic symptoms 05/23/23 08/25/24 08/01/23 History polyethylene glycol 3350 17 4 g PO DAILY PRN constipation 05/23/23 08/25/24 08/01/23 History gram/dose oral powder (Miralax) ipratropium 0.5 mg-albuterol 3 mg See Rx Instructions .Route 11/04/23 08/25/24 08/24/24 Rx (2.5 mg base)/3 mL nebulization .COMPLEX #360 mL soln promethazine-DM 6.25 mg-15 mg/5 mL 5 - 10 ml PO Q6H PRN cough #473 mL 03/23/24 08/25/24 Unknown Rx oral syrup amlodipine 5 mg tablet 5 mg PO DAILY #90 tabs 03/24/24 08/25/24 08/24/24 Rx albuterol sulfate 90 mcg/actuation See Rx Instructions .Route 04/16/24 08/25/24 08/24/24 Rx aerosol inhaler .COMPLEX #68 grams budesonide 160 mcg-glycopyr 9 2 inh inhalation BID #10.7 grams 04/22/24 08/25/24 08/24/24 Rx mcg-formot 4.8 mcg/actuation HFA inhaler (Breztri Aerosphere) morphine 10 mg/5 mL oral solution 5 mg (2.5 mL) PO Q6H PRN dyspnea 4 06/08/24 08/25/24 Unknown Rx weeks #100 mL prednisone 10 mg tablet 10 mg PO DAILY lung inflammation 08/24/24 08/25/24 08/24/24 Rx #90 tabs cranberry fruit 450 mg tablet 450 mg PO DAILY 08/25/24 08/25/24 08/24/24 History (cranberry) cyclobenzaprine 10 mg tablet 10 mg PO TID PRN Muscle Spasm 08/25/24 08/25/24 08/24/24 History duloxetine 60 mg capsule,delayed 60 mg PO DAILY 08/25/24 08/25/24 08/24/24 History release metoprolol tartrate 25 mg tablet 25 mg PO BID 08/25/24 08/25/24 08/24/24 History pantoprazole 40 mg tablet,delayed 40 mg PO DAILY 08/25/24 08/25/24 08/24/24 History release simvastatin 20 mg tablet 20 mg PO QPM 08/25/24 08/25/24 08/24/24 History Allergies Allergy/AdvReac Type Severity Reaction Status Date / Time penicillamine Allergy ALGY-Rash Verified 08/25/24 04:21 Penicillins Allergy Unknown Verified 08/25/24 04:21 Current Medications Generic Name Dose Route Start Last Admin Trade Name Freq PRN Reason Stop Dose Admin Heparin Sodium (Porcine) 0 unit 08/25/24 05:57 08/25/24 07:01 Heparin 5,000 Unit/Ml Inj 1 Ml IVP 4,200 unit PRN PRN Administration Heparin Weight Based Protocol -Subsequent Bolus Protocol Heparin Sodium/Sodium Chloride 25,000 unit in 500 mls @ 0 mls/hr 08/25/24 06:00 08/25/24 07:02 Heparin Drip IV 24 unit/kg/hr CONT GRAHAM 40.06 mls/hr Administration Protocol Per Protocol Norepinephrine Bitartrate 4 mg in 250 mls @ 0 mls/hr 08/25/24 08:45 08/25/24 10:23 Levophed IV 6 mcg/min .Q0M GRAHAM 22.5 mls/hr Administration Protocol Per Protocol Levalbuterol HCl 1.25 mg 08/25/24 04:37 08/25/24 05:08 Levalbuterol 1.25 Mg/3 Ml Neb INHALATION 1.25 mg Q10M PRN Administration [employer] PFSH Acute 2 PFSH: Medical History Dyspnea on exertion COPD exacerbation Dyslipidemia Osteoarthritis COPD (chronic obstructive pulmonary disease) WPW (Rmvip-Yjbhfqonp-Rxabx syndrome) HTN (hypertension) Degenerative joint disease of right wrist Dyslipidemia Fibromyalgia COPD (chronic obstructive pulmonary disease) Hypertension Surgical History Hx of hand surgery H/O: hysterectomy Family History Mother Hypertension Denies family history of Diabetes CAD (coronary artery disease) Clotting disorder Dementia Hyperlipidemia Psychiatric illness Chronic kidney disease (CKD) Suicide Anesthesia complication Bleeding disorder Family history of premature coronary artery disease Lung disease Cancer Stroke Social History Smoking and tobacco/nicotine status: former use of tobacco/nicotine Quit status (tobacco/nicotine): has quit using Year quit tobacco: 2015 Former quit date comment: 2 ppd X 54 years Alcohol intake: never Substance/Drug Use: never Adopted: No Household members: spouse Housing: House Marital status: Highest education level completed: High School Graduate service: No Current occupational status: retired Pets and animals: Yes Current gender identity: Female Vitals/I&O/Wt Last Vital Signs Pulse 102 H 08/25/24 12:54 Resp 23 H 08/25/24 12:54 BP 122/65 08/25/24 12:54 Pulse Ox 97 08/25/24 12:54 O2 Del Method BiPAP 08/25/24 06:45 FiO2 30 08/25/24 12:12 08/24/24 08/25/24 08/25/24 22:59 06:59 14:59 Intake Total 300 / 300 1150 / 1150 Balance 300 / 300 1150 / 1150 Weight last 48 hrs Weight 184 lb Physical Exam 2 Narrative: GENERAL: Patient is drowsy NECK: No jugular vein distension. [] HEENT: No cyanosis. No icterus. No pallor. [] HEART: Tachycardic LUNGS: Diminished air entry bilaterally CENTRAL NERVOUS SYSTEM: Grossly nonfocal. [] EXTREMITIES: Lower extremities with 1+ edema bilaterally. Urinary Catheter Management: Naidu: Cath Placed During This Visit: yes Urinary Catheter Date of Insertion: 08/25/24 Urinary Catheter Time of Insertion: 11:34 Data 08/26/24 02:47 08/26/24 02:47 Micro: Microbiology 08/25/24 04:12 Blood Culture - Preliminary Blood SPECIMEN COLLECTED 08/25/24 04:15 Blood Culture - Preliminary Blood SPECIMEN COLLECTED A&P Assessment and plan (1) Troponin level elevated: (2) Atrial fibrillation: (3) HTN (hypertension): Qualifiers: Hypertension type: essential hypertension Qualified Code(s): I10 - Essential (primary) hypertension (4) Pulmonary emboli: (5) Acute exacerbation of chronic obstructive airways disease: Plan Patient's troponin elevation is likely secondary to demand ischemia. No active chest pain. Troponins were elevated however trended down. Obtain echocardiogram. The telemetry strips was more consistent with A-fib with RVR with rate related widening of QRS complex. Can consider keeping on amiodarone however she is back in sinus rhythm. If stays in sinus rhythm by tomorrow, can stop it. Continue anticoagulation. Was also found to have pulmonary emboli. Thank you for involving us with care of this patient. We will continue to follow. Please call with questions. Consult Attestations 2 Medical Necessity Statement: Care expected to cross 2 midnights. Coding Level of Care Code Acute Code for [facility] Fwd Diagnoses Troponin level elevated R79.89 Atrial fibrillation I48.91 Essential hypertension I10 Hypertension type: essential hypertension Pulmonary emboli I26.99 Acute exacerbation of chronic obstructive airways disease J44.1
--- NOTE | 2024-08-25 13:28 | USCV_ITS ---
Sylvester Ksenia Age: 73 Gender: F : 1950 Exam Date: 08/25/2024 14:26 Ordering Phys: Rafita Brannon MD Technologist: CT Exam Location: [facility] [place] Indication: Hypotension BP: 90 / 60 HR: 104 Rhythm: Sinus Technical Quality: Adequate MEASUREMENTS (Male / Female) Normal Values 2D ECHO LVOT Diameter 2.1 cm LV Ejection Fraction MOD 4C 39.6 % LV Ejection Fraction MOD 2C 10.5 % LV Ejection Fraction 2C AL 8.0 % LA Diameter 3.5 cm RA Systolic Volume 4C AL 38.8 ml RA Systolic Volume 4C MOD 37.1 ml LA Sys Volume AL 35.9 cm cubed LA Sys Volume Index AL 18.3 cm cubed/m squared Aorta at Sinotubular Diameter 2.4 cm M-MODE LA Ao Ratio MM 1.4 AV Cusp Separation MM 1.2 cm DOPPLER AV Peak Velocity 118.0 cm/s LVOT Peak Velocity 56.0 cm/s AV Area Cont Eq vti 1.9 cm squared AV Area Cont Eq pk 1.6 cm squared MV Area PHT 6.2 cm squared Mitral E to A Ratio 1.1 TV Peak E Velocity 66.0 cm/s PV Peak Velocity 80.5 cm/s FINDINGS Left Ventricle Technically limited quality echocardiogram because of poor ultrasonic windows. LV systolic function is moderate to severely reduced with EF of 30-35%. Moderate to severe global hypokinesis. Right Ventricle Grossly normal Right Atrium Normal in size Left Atrium Normal in size Mitral Valve Strcuturally normal mitral valve. Mild mitral regurgitation Aortic Valve Grossly normal. No significant stenosis or regurgitation Tricuspid Valve Insufficient TR jet to calculate RVSP Pulmonic Valve Not well visualized Pericardium Normal Aorta Normal in size IVC Not visualized CONCLUSIONS Technically limited quality echocardiogram because of poor ultrasonic windows. LV systolic function is moderate to severely reduced with EF of 30-35%. Moderate to severe global hypokinesis. Mild mitral regurgitation Accurate comparison with prior echocardiogram not possible because of limited quality study. Nikita Whitehead MD (Electronically Signed) Final Date: 25 August 2024 20:00 S
[2024-08-25] MEDS: methylPREDNISolone sod succ 125 mg/2 mL INJ 60 MG IVP (14:27)
[2024-08-25] MEDS: meropenem 1,000 mg SDV 1000 MG IVP ×2 (14:27→20:49)
[2024-08-25] MEDS: pantoprazole 40 mg SDV IVP (14:27)
[2024-08-25] MEDS: sodium chloride 0.9% 1,000 ML 75 ML IV (14:28)
[2024-08-25] MEDS: morphine 4 mg/mL SDV 1 mL 2 MG IVP ×2 (15:18→20:03)
[2024-08-25] MEDS: ipratropium-albuterol 3 mL Neb INHALATION ×3 (15:30→23:56)
[2024-08-25] MEDS: LORazepam 2 mg/mL INJ 1 mL 0.5 MG IVP ×2 (16:49→21:13)
[2024-08-25 17:42] LABS: C.Diff PCR (Lab) NEGATIVE (Negative)
[2024-08-25] MEDS: budesonide 0.5 mg/2 mL Neb INHALATION (19:54)
[2024-08-25 20:33] LABS: Hematocrit 37.6 % (36-47)
--- NOTE | 2024-08-25 20:42 | PC.NURSE ---
Contacted Dr. Castaneda in reference to patient's tachypnea, complaints of SOB, and having increasing restlessness. Received orders for an ABG.
[2024-08-25 20:50] LABS: ABG PCO2 47.4 mmHg (35-45); ABG PH Result 7.26 (7.35-7.45); Arterial Blood Gas Hematocrit 36.2 % (37-47); Base Excess ABG -5.6 mmol/L (-2.0-2.0); Blood Gas Allen Test Pos; Blood Gas Operator Identificat ED; Blood Gas Sample Site Radial, left; Blood Gas Sample Type Arterial; Carboxyhemoglobin 0.9 %THgb (0.4-20.1); HCO3 ABG 21.5 mmol/L (22-26); HGB O2 Sat 94.5 % (95-100); Ionized Calcium Level - ABG 1.2 mmol/L (1.1-1.4); Methemoglobin 0.8 % (0.4-1.5); Oxygen Device BIPAP; Oxygen Saturation ABG 96.1; PO2 ABG 80.7 mmHg (80.0-100.0); PO2 FiO2 Ratio Arterial Blood 269; Potassium Level - ABG 4.1 mmol/L (3.5-5.0); Total Hemoglobin 11.8 g/dL (12-16)
[2024-08-25 21:24] LABS: Lactate (Lactic Acid level) 6.7 mmol/L (0.5-2.2)
--- NOTE | 2024-08-25 21:40 | PC.NURSE ---
Spoke with Dr. Brannon in reference to patient's PTT results as requested. Dr. Brannon advised to start patient at 20mL/hr, recheck PTT with morning labs and then resume protocol.
[2024-08-25] MEDS: norepinephrine 4 MG/250 ML BAG 30 MG IV (22:03)
--- NOTE | 2024-08-25 22:30 | XRR_ITS ---
PROCEDURE INFORMATION: Exam: XR Chest Exam date and time: 08/25/2024 10:36 PM Age: 73 years old Clinical indication: Shortness of breath; Additional info: Resp distress TECHNIQUE: Imaging protocol: Radiologic exam of the chest. Views: 1 view. COMPARISON: CR (CHEST, ) 08/25/2024 10:17 AM FINDINGS: Lungs: Unremarkable. No consolidation. Pleural spaces: Unremarkable. No pleural effusion. No pneumothorax. Heart/Mediastinum: Unremarkable. No cardiomegaly. Bones/joints: Unremarkable. XR/XR chest 1V portable [id number] IMPRESSION: No acute cardiopulmonary process.
[2024-08-25] MEDS: lidocaine 5% Patch 1 PATCH TOPICAL (22:35)
--- NOTE | 2024-08-25 22:40 | PC.NURSE ---
Dr. Castaneda at bedside ordered chest Xray and precedex.
--- NOTE | 2024-08-25 22:44 | W.PM.EVENTAC ---
Event Note Event Note: Got a signout from Dr. Brannon Patient does have worsening lactic acid Chart was reviewed, imaging reviewed Patient was examined in the ICU, is at the bedside Patient is on AVAPS, repeat ABG showed same pH with combination of metabolic and respiratory acidosis Patient is still tachypneic Complaining of back pain, abdominal exam did not show severe signs of peritonitis She does have skin mottling of lower extremities Dressing around central line is soaked with blood Ecchymosis of upper extremities Patient is verbally redirectable Patient is complaining a lot of back pain and distress No active chest pain Assessment and plan Repeat chest x-ray did not show any signs of pulmonary edema: Patient was on Levophed at 8 mics, added a small dose normal saline bolus 500 mL Added epinephrine in settings of septic shock Patient's EF is 30 to 35%, clinically does not look fluid overloaded x-ray unremarkable for fluid overload Trial of Precedex to see if patient would tolerate AVAPS slightly better Her albumin is within good normal range Had detailed discussion with the , is stating that he is well aware that his is very sick at this point, he is stating that he would like to see the response of medication for next 8 to 12 hours and want to give her a fair chance because last time she turned around when got extremely sick 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
[2024-08-25] MEDS: dexmedeTOMIDine 0.9 % NaCL 400 MCG/100 ML PREMIX IV (23:04)
[2024-08-25] MEDS: sodium chloride 0.9% 500 ML 999 ML IV (23:08)
[2024-08-26] VITALS (101 sets, daily range): BP systolic 74–170; BP diastolic 40–109; PULSE 68–117; RESP 16–42; TEMP 37.1–38; O2SAT 86–100
[2024-08-26] MEDS: norepinephrine 4 MG/250 ML BAG 67.5 MG IV (02:34)
[2024-08-26] MEDS: methylPREDNISolone sod succ 125 mg/2 mL INJ 60 MG IVP ×2 (02:55→14:13)
[2024-08-26 02:56] LABS: Basophils # 0.1 10^3/uL (0.0-0.1); Basophils % 0.3 %; Lymphocytes # 0.4 10^3/uL (0.8-4.8); Mean Corpuscular HGB Conc 30.3 g/dL (30-55); Mean Corpuscular Hemoglobin 29.1 pg (27-33); Mean Corpuscular Volume 96.3 fl (85-98); Mean Platelet Volume 11.6 fL (7.4-10.4); Monocytes # 1.2 10^3/uL (0.2-0.9); Monocytes % 3.4 %; Neutrophils # 32.27 10^3/uL (1.8-7.7); Neutrophils % 90.9 %; Nucleated Red Blood Cells % 0 %; Platelet Count 74 10^3/cmm (157-399); Red Blood Count 3.74 10^6/uL (3.85-5.65); Red Cell Distribution Width 12.8 % (12.1-15.1)
[2024-08-26] MEDS: pantoprazole 40 mg SDV IVP ×2 (02:56→14:14)
[2024-08-26 02:59] LABS: Slide Review Slide Review Perform
[2024-08-26 03:00] LABS: White Blood Count 35.49 10^3/uL (3.29-11.43)
[2024-08-26 03:11] LABS: Alanine Aminotransferase 655 U/L (0-33); Albumin Level 2.7 g/dL (3.5-5.2); Alkaline Phosphatase 62 U/L (35-105); Anion Gap 18.3 (5-19); Blood Urea Nitrogen 39 mg/dL (8-23); Calcium 7.7 mg/dL (8.5-10.5); Carbon Dioxide 23 mmol/L (22-29); Chloride 103 mmol/L (98-107); Creatinine Clr Calc Pharmacy 20.0152; Glucose 80 mg/dL (65-115); Magnesium 1.6 mg/dL (1.7-2.3); Osmolality Calculated 298 mOsm/kg (285-295); Potassium 4.3 mmol/L (3.5-5.1); Sodium 140 mmol/L (136-145); Total Bilirubin 0.4 mg/dL (0.15-1.2); Total Protein 4.7 g/dL (6.6-8.7)
[2024-08-26 03:27] LABS: Aspartate Amino Transferase 1120 U/L (0-32)
[2024-08-26] MEDS: ipratropium-albuterol 3 mL Neb INHALATION ×6 (03:29→23:43)
[2024-08-26 03:30] LABS: Partial Thromboplastin Time 188.8 SECONDS (23.9-36.7)
[2024-08-26] MEDS: meropenem 1,000 mg SDV 1000 MG IVP ×2 (05:33→16:52)
[2024-08-26] MEDS: norepinephrine 4 MG/250 ML BAG 60 MG IV ×2 (06:17→10:38)
--- NOTE | 2024-08-26 07:45 | US_ITS ---
WS: [id number] RIGHT UPPER QUADRANT ULTRASOUND HISTORY: increased LFT's COMPARISON: 04/10/2019 Liver: 13.8 cm in length. As visualized are normal. The entire liver is not well seen. Portal Vein: Normal hepatopetal flow with monophasic waveform. Gallbladder: Very slight gallbladder hydrops. No cholelithiasis. No pericholecystic fluid. CBD: 0.4 cm Pancreas: Not visualized. Right kidney: 9.8 cm in length. Normal size and echogenicity. No hydronephrosis or mass. Aorta and IVC: Unremarkable abdominal aorta and IVC. No ascites. US/US gall bladder 21643 IMPRESSION: 1. No cholelithiasis or pericholecystic fluid. Minimal gallbladder hydrops. 2. Nonvisualization of the pancreas. 3. Poorly visualized liver due to body habitus. No intrahepatic mass or bile d uct dilatation.
[2024-08-26] MEDS: dexmedeTOMIDine 0.9 % NaCL 400 MCG/100 ML PREMIX 14.61 MCG IV (07:57)
[2024-08-26] MEDS: sodium chloride 0.9% 1,000 ML 50 ML IV (07:57)
--- NOTE | 2024-08-26 08:02 | PHA.VACGOAL ---
Vancomycin Goal - Goal Vancomycin Goal:: 15-20 mg/L Vancomycin Indication:: Other - Therapy Current therapy:: Meropenem Day of therpy:: Day []of [] . Actual body weight (kg): 195 lb 7.04 oz - Data Labs: WBC 35.49 10^3/uL (3.29-11.43) H* 08/26/24 02:47 RBC 3.74 10^6/uL (3.85-5.65) L 08/26/24 02:47 Hgb 10.90 g/dL (11.27-16.99) L 08/26/24 02:47 Hct 36.0 % (36-47) 08/26/24 02:47 MCV 96.3 fl (85-98) 08/26/24 02:47 MCH 29.1 pg (27-33) 08/26/24 02:47 MCHC 30.3 g/dL (30-55) 08/26/24 02:47 RDW 12.8 % (12.1-15.1) 08/26/24 02:47 Sodium 140 mmol/L (136-145) 08/26/24 02:47 Potassium 4.3 mmol/L (3.5-5.1) 08/26/24 02:47 Chloride 103 mmol/L (98-107) 08/26/24 02:47 Carbon Dioxide 23 mmol/L (22-29) 08/26/24 02:47 Anion Gap 18.3 (5-19) 08/26/24 02:47 BUN 39 mg/dL (8-23) H 08/26/24 02:47 Creatinine 2.6 mg/dL (0.5-0.9) H 08/26/24 02:47 GFR Calculation Not Reportable 08/26/24 02:47 Last dialysis session:: N/A Treatment plan:: new consult Regimen:: PATIENT TO RECEIVE PULSE DOSING PER DOSING PROTOCOL INITIAL LOADING DOSE OF 2500 mg Follow up:: WILL CHECK LEVEL 24 HOURS AFTER LOAD DOSE
[2024-08-26] MEDS: budesonide 0.5 mg/2 mL Neb INHALATION ×2 (08:12→19:35)
[2024-08-26 08:17] LABS: Partial Thromboplastin Time 67.6 SECONDS (23.9-36.7)
[2024-08-26] MEDS: magnesium sulfate premix 2 GM/50 ML PIGGYBACK IV (08:58)
--- NOTE | 2024-08-26 09:08 | P.PN_ITS ---
<Statement entered by Nikita Whitehead M.D - 08/26/24 16:34> Patient was evaluated and cared for in conjunction with an advanced practice practitioner.? I personally examined the patient and reviewed the chart and all pertinent data including imaging, telemetry, and laboratory results.? I discussed the patient in detail with the advanced practice practitioner.? Please see? their note for progress note, testing results and agreed upon plan of care for the patient. Patient is drowsy. On BiPAP GENERAL: Patient is drowsy HEART: Regular S1 and S2 LUNGS: Clear to auscultate bilaterally. CENTRAL NERVOUS SYSTEM: Grossly nonfocal. EXTREMITIES: Lower extremities with 1+ edema ASSESSMENT AND PLAN (1) Troponin level elevated (2) Atrial fibrillation (3) HTN (hypertension) (4) Pulmonary emboli (5) Acute exacerbation of chronic obstructive airways disease Patient has significant reduction in LV function. No chest pain. Continue medical therapy with anticoagulation. Can switch to PO amiodarone No plan for invasive procedures at this time. Had a discussion with family who want medical therapy only at this time. This is appropriate at this time Thank you for involving us with care of this patient. We will continue to follow. Please call with questions. Subjective 2 Subjective: Patient is lying in bed on our assessment. She is with her . She seems noticeably short of breath. Currently on BiPAP. Currently on 14 of levo. Creatinine increased to 35. Medications: Reviewed: Yes Vitals/I&O/Wt Last Vital Signs Temp 100.4 F H 08/26/24 04:00 Pulse 110 H 08/26/24 08:15 Resp 31 H 08/26/24 08:12 BP 108/77 08/26/24 06:15 Pulse Ox 98 08/26/24 08:15 O2 Del Method BiPAP 08/26/24 08:12 O2 Flow Rate 30 08/26/24 06:00 FiO2 30 08/26/24 08:15 08/25/24 08/26/24 08/26/24 22:59 06:59 14:59 Intake Total 787.125 / 2246.275 1170.922 / 3417.197 799.666 / 799.666 Output Total 600 / 600 Balance 787.125 / 2246.275 570.922 / 2817.197 799.666 / 799.666 Weight last 48 hrs Weight 195 lb 7.04 oz Weight 184 lb Weight 184 lb Physical Exam 2 Narrative: General: Appears to be having dyspnea on BIPAP Neck: No carotid bruit bilaterally Muskuloskeletal: Full ROM Lymphatic: no lymphedema noted Respiratory: patient is tachypneic, wheezes throughout all lung curtis Cardio: No JVD, tachycardic, S1 S2 normal, no murmurs Extremities: trace edema bilateral lower extremities Neuro: sedated Skin: chronic bruising bilateral upper extremities Urinary Catheter Management: Naidu: Cath Placed During This Visit: yes Reason for Continuing Indwelling Catheter: Accurate Measurement of Urinary Output in Critically Ill Patients Urinary Catheter Date of Insertion: 08/25/24 Urinary Catheter Time of Insertion: 11:34 Data 08/26/24 02:47 08/26/24 02:47 Micro: Microbiology 08/25/24 11:36 Urine Culture - Preliminary Urine,Clean Catch 08/25/24 04:12 Blood Culture - Preliminary Blood 08/25/24 04:15 Blood Culture - Preliminary Blood A&P Assessment and plan (1) Troponin level elevated: (2) Atrial fibrillation: (3) HTN (hypertension): Qualifiers: Hypertension type: essential hypertension Qualified Code(s): I10 - Essential (primary) hypertension (4) Pulmonary emboli: (5) Acute exacerbation of chronic obstructive airways disease: Plan Echo showed significant drop in EF at 30-35% from previous baseline. At this time, she is showing s/s of sepsis. At this time, we will continue to treat medically as patient has multiple underlying issues such as sepsis, COPD exacerbation requiring pressure support. Troponin elevation could be due to demand ishemia from this. We discussed this with the patient's son, and he agrees that he would just like to keep her as comfortable as possible without invasive procedures. Attestations 2 Medical Necessity Statement*: Deferred to primary. Coding Level of Care Code Acute Code for [facility] Fwd Diagnoses Troponin level elevated R79.89 Atrial fibrillation I48.91 Essential hypertension I10 Hypertension type: essential hypertension Pulmonary emboli I26.99 Acute exacerbation of chronic obstructive airways disease J44.1
[2024-08-26 09:22] LABS: Creatine Phosphokinase 3256 U/L (26-192)
--- NOTE | 2024-08-26 09:26 | P.CONIM_ITS ---
Providers/Reason For Consult 2 Consulting Physician/Specialty*: chyna oliva md/ telenephrology Reason for Consult*: SAMUEL Requesting Physician: Dr Rafita Brannon Attending Physician: Rafita Brannon MD Primary Care Provider: Delroy Santillan DO History of Present Illness History of Present Illness Ksenia Phan is a 73 year old female with severe COPD steroid dependent on 2 to 3 L of oxygen and BiPAP at night. She was admitted on 08/25/24 w/ low back pain, epigastric pain and nausea. She felt worse this morning with severe shortness of breath. On presentation she was hypotensive and tachycardic. She was diagnosed w/ a NSTEMI, SAMUEL. CT scan revelaed a diffuse colitis. CTA revelaed tiny b/l PE, low thrombus burden. She had an echo w/ Ef of 30-35% In the emergency department she received some breathing treatments, Levaquin IV, Ativan IV, Solu-Medrol IV, heparin drip. She has orders for Naidu, CT abdomen pelvis, norepinephrine. Pt remains in ICU and is in oliguric renal failure and renal is called to consult. baseline cr 1 mg/dl. On 08/25/24 cr 1.5 mg/dl and currently cr is 2.6 mg/dl Review of Systems 2 Narrative: weak, bipap, sob, swollen, abd pain Medications/Allergies Home Medications Medication Instructions Recorded Confirmed Last Taken Type aspirin 81 mg tablet,delayed 81 mg PO QDAY 09/09/19 08/25/24 08/24/24 History release (Adult Aspirin Regimen) fluticasone propionate 50 2 spray intranasal QDAY 09/09/19 08/25/24 08/24/24 History mcg/actuation nasal spray,suspension (Allergy Relief (fluticasone)) lactobacillus combination no.9 4 4,000 mmu cells PO QDAY 09/09/19 08/25/24 08/24/24 History billion cell capsule (Adult 50 Plus Probiotic) light weight upright walker stand #1 ea 10/21/19 08/25/24 Unknown Rx up rollator walker with forearm supports nitroglycerin 0.4 mg sublingual 0.4 mg sublingual Q5M PRN chest 12/16/22 08/25/24 08/01/23 Rx tablet (Nitrostat) pain #20 tabs Bipap #1 ea 04/17/23 08/25/24 Unknown Rx ascorbic acid (vitamin C) 500 mg 1,000 mg PO DAILY 04/24/23 08/25/24 08/24/24 History tablet (Vitamin C) calcium 600 mg (as 1 tab PO DAILY 04/24/23 08/25/24 08/24/24 History carbonate)-vitamin D3 5 mcg (200 unit) tablet fish, borage, flaxseed oils-omega 1 cap PO DAILY 04/24/23 08/25/24 08/24/24 History 3,6,9 comb no.1 1,200 mg capsule ([place] 3-6-9) vitamin B complex 1 tab PO DAILY 04/24/23 08/25/24 08/24/24 History leg brace (Knee Support Brace) #1 ea 05/19/23 08/25/24 Unknown Rx collagen 4 tbspn PO DAILY 05/23/23 08/25/24 08/24/24 History loratadine 10 mg capsule 10 mg PO QDAY PRN allergic symptoms 05/23/23 08/25/24 08/01/23 History polyethylene glycol 3350 17 4 g PO DAILY PRN constipation 05/23/23 08/25/24 08/01/23 History gram/dose oral powder (Miralax) ipratropium 0.5 mg-albuterol 3 mg See Rx Instructions .Route 11/04/23 08/25/24 08/24/24 Rx (2.5 mg base)/3 mL nebulization .COMPLEX #360 mL soln promethazine-DM 6.25 mg-15 mg/5 mL 5 - 10 ml PO Q6H PRN cough #473 mL 03/23/24 08/25/24 Unknown Rx oral syrup amlodipine 5 mg tablet 5 mg PO DAILY #90 tabs 03/24/24 08/25/24 08/24/24 Rx albuterol sulfate 90 mcg/actuation See Rx Instructions .Route 04/16/24 08/25/24 08/24/24 Rx aerosol inhaler .COMPLEX #68 grams budesonide 160 mcg-glycopyr 9 2 inh inhalation BID #10.7 grams 04/22/24 08/25/24 08/24/24 Rx mcg-formot 4.8 mcg/actuation HFA inhaler (Breztri Probityphere) morphine 10 mg/5 mL oral solution 5 mg (2.5 mL) PO Q6H PRN dyspnea 4 06/08/24 08/25/24 Unknown Rx weeks #100 mL prednisone 10 mg tablet 10 mg PO DAILY lung inflammation 08/24/24 08/25/24 08/24/24 Rx #90 tabs cranberry fruit 450 mg tablet 450 mg PO DAILY 08/25/24 08/25/24 08/24/24 History (cranberry) cyclobenzaprine 10 mg tablet 10 mg PO TID PRN Muscle Spasm 08/25/24 08/25/24 08/24/24 History duloxetine 60 mg capsule,delayed 60 mg PO DAILY 08/25/24 08/25/24 08/24/24 History release metoprolol tartrate 25 mg tablet 25 mg PO BID 08/25/24 08/25/24 08/24/24 History pantoprazole 40 mg tablet,delayed 40 mg PO DAILY 08/25/24 08/25/24 08/24/24 History release simvastatin 20 mg tablet 20 mg PO QPM 08/25/24 08/25/24 08/24/24 History Allergies Allergy/AdvReac Type Severity Reaction Status Date / Time penicillamine Allergy ALGY-Rash Verified 08/25/24 04:21 Penicillins Allergy Unknown Verified 08/25/24 04:21 Current Medications Generic Name Dose Route Start Last Admin Trade Name Freq PRN Reason Stop Dose Admin Albuterol/Ipratropium 3 ml 08/25/24 16:00 08/26/24 08:12 Ipratropium-Albuterol 3 Ml Neb INHALATION 3 ml Q4H.RESPIRATORY GRAHAM Administration Aspirin 81 mg 08/25/24 13:28 08/26/24 09:09 Aspirin 81 Mg Ec Tablet PO Not Given DAILY GRAHAM Atorvastatin Calcium 20 mg 08/25/24 21:00 08/25/24 20:45 Atorvastatin 40 Mg Tablet PO Not Given BEDTIME GRAHAM Budesonide 0.5 mg 08/25/24 20:00 08/26/24 08:12 Budesonide 0.5 Mg/2 Ml Neb INHALATION 0.5 mg BID.RESPIRATORY GRAHAM Administration Docusate Sodium 100 mg 08/25/24 18:00 08/26/24 09:09 Docusate Sodium 100 Mg Capsule PO Not Given BID GRAHAM Duloxetine HCl 60 mg 08/26/24 09:00 08/26/24 09:09 Duloxetine 60 Mg Capsule PO Not Given DAILY GRAHAM Heparin Sodium (Porcine) 0 unit 08/25/24 05:57 08/25/24 07:01 Heparin 5,000 Unit/Ml Inj 1 Ml IVP 4,200 unit PRN PRN Administration Heparin Weight Based Protocol -Subsequent Bolus Protocol Heparin Sodium/Sodium Chloride 25,000 unit in 500 mls @ 0 mls/hr 08/25/24 06:00 08/26/24 03:32 Heparin Drip IV 0 unit/kg/hr CONT GRAHAM 0 mls/hr Titration Protocol Per Protocol Norepinephrine Bitartrate 4 mg in 250 mls @ 0 mls/hr 08/25/24 08:45 08/26/24 06:17 Levophed IV 16 mcg/min .Q0M GRAHAM 60 mls/hr Administration Protocol Per Protocol Amiodarone HCl/Dextrose 360 mg in 200 mls @ 0 mls/hr 08/25/24 11:20 08/26/24 07:56 Nexterone IV 0.5 mg/min .Q0M GRAHAM 16.67 mls/hr Administration Protocol Per Protocol Sodium Chloride 1,000 mls @ 50 mls/hr 08/25/24 13:28 08/26/24 07:57 Sodium Chloride 0.9% IV 50 mls/hr .Q20H GRAHAM Administration Dexmedetomidine/Sodium Chloride 400 mcg in 100 mls @ 0 mls/hr 08/25/24 22:45 08/26/24 07:57 Precedex IV 0.7 mcg/kg/hr .Q0M GRAHAM 14.61 mls/hr Administration Protocol Per Protocol Vancomycin HCl 2,500 mg in 500 mls @ 166.667 mls/hr 08/26/24 08:30 08/26/24 09:09 Vancocin IV 08/26/24 11:29 166.67 mls/hr ONCE ONE Administration Levalbuterol HCl 1.25 mg 08/25/24 04:37 08/25/24 05:08 Levalbuterol 1.25 Mg/3 Ml Neb INHALATION 1.25 mg Q10M PRN Administration [employer] Lidocaine 1 patch 08/25/24 21:00 08/26/24 09:19 Lidocaine 5% Patch TOPICAL Not Given [id number] PENDING SALE TO [facility] Lorazepam 0.5 mg 08/25/24 13:39 08/25/24 21:13 Lorazepam 2 Mg/Ml Inj 1 Ml IVP 0.5 mg Q4H PRN Administration ANXIETY Meropenem 1,000 mg 08/25/24 13:28 08/26/24 05:33 Meropenem 1,000 Mg Sdv IVP 1,000 mg Q8H GRAHAM Administration Protocol Methylprednisolone Sodium Succinate 60 mg 08/25/24 15:00 08/26/24 02:55 Methylprednisolone Sod Succ 125 Mg/2 Ml Inj IVP 60 mg Q12H GRAHAM Administration Morphine Sulfate 2 mg 08/25/24 13:28 08/25/24 20:03 Morphine 4 Mg/Ml Sdv 1 Ml IVP 2 mg Q4H PRN Administration SEVERE PAIN Pantoprazole Sodium 40 mg 08/25/24 14:00 08/26/24 02:56 Pantoprazole 40 Mg Sdv IVP 40 mg Q12H GRAHAM Administration Senna 17.2 mg 08/25/24 21:00 08/25/24 20:45 Sennosides 8.6 Mg Tablet PO Not Given BEDTIME GRAHAM PFSH Acute 2 PFSH: Medical History Dyspnea on exertion COPD exacerbation Dyslipidemia Osteoarthritis COPD (chronic obstructive pulmonary disease) WPW (Usdhp-Rbedstrpd-Svijo syndrome) HTN (hypertension) Degenerative joint disease of right wrist Dyslipidemia Fibromyalgia COPD (chronic obstructive pulmonary disease) Hypertension Surgical History Hx of hand surgery H/O: hysterectomy Family History Mother Hypertension Denies family history of Diabetes CAD (coronary artery disease) Clotting disorder Dementia Hyperlipidemia Psychiatric illness Chronic kidney disease (CKD) Suicide Anesthesia complication Bleeding disorder Family history of premature coronary artery disease Lung disease Cancer Stroke Social History Smoking and tobacco/nicotine status: former use of tobacco/nicotine Quit status (tobacco/nicotine): has quit using Year quit tobacco: 2016 Former quit date comment: 2 ppd X 54 years Alcohol intake: never Substance/Drug Use: never Adopted: No Household members: spouse Housing: House Marital status: Highest education level completed: High School Graduate service: No Current occupational status: retired Pets and animals: Yes Current gender identity: Female Vitals/I&O/Wt Last Vital Signs Temp 100.4 F H 08/26/24 04:00 Pulse 110 H 08/26/24 08:15 Resp 31 H 08/26/24 08:12 BP 108/77 08/26/24 06:15 Pulse Ox 98 08/26/24 08:15 O2 Del Method BiPAP 08/26/24 08:12 O2 Flow Rate 30 08/26/24 06:00 FiO2 30 08/26/24 08:15 08/25/24 08/26/24 08/26/24 22:59 06:59 14:59 Intake Total 787.125 / 2246.275 1170.922 / 3417.197 799.666 / 799.666 Output Total 600 / 600 Balance 787.125 / 2246.275 570.922 / 2817.197 799.666 / 799.666 Weight last 48 hrs Weight 88.65 kg Weight 83.461 kg Weight 83.461 kg Physical Exam 2 Narrative: low grade temps, + BIPAP, amio, levo heent- ncat neck supple lungs clear hear t irreg irreg, + s1, s2 abd soft, NT, ND, + bs ext + edema neuro- responds to pain Urinary Catheter Management: Naidu: Cath Placed During This Visit: yes Reason for Continuing Indwelling Catheter: Accurate Measurement of Urinary Output in Critically Ill Patients Urinary Catheter Date of Insertion: 08/25/24 Urinary Catheter Time of Insertion: 11:34 Data 08/26/24 02:47 08/26/24 02:47 Micro: Microbiology 08/25/24 11:36 Urine Culture - Preliminary Urine,Clean Catch 08/25/24 04:12 Blood Culture - Preliminary Blood 08/25/24 04:15 Blood Culture - Preliminary Blood A&P Assessment and plan (1) Acute kidney injury: Plan 73-year-old lady 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 Patient has history of Awcer-Jnpeymxpv-Qpove. History of abdominal issues. Patient is here now with diverticulitis, heart failure reduced EF, acute kidney injury. CT scan showed diverticulitis and also CT with contrast showed multiple small pulmonary embolisms low thrombus burden. 1. samuel- no hydronephrosis on imaging. urine is orange and cloudy, 2+ prot, 3+ blood, + nitrites, >100 rbc, 51-100 wbc, 4+ bact -will check ur electrolytes, microalbumin, and ur pr and cr -will give ivf metabolic acidosis- from lactic acidosis- support BP 2. septic shock- abx as per medicine. dose for GFR <15 3. thrombocytopenia- check ldh, retic count, haptoglobin, 4. resp acidosis- improving w/ BIPAP 5. replete mag 6. shocked liver- ast/ alt of 1120/ 655 7. mild rhabdo= cpk of 3256- is not causing SAMUEL The patient was seen and examined with the aid of a nurse using audiovisual equipment telehealth visit. The patient consented to telehealth. I discussed the case with the patient's family who consents to dialysis if needed. Patient may need dialysis soon. Consult Attestations 2 Medical Necessity Statement: multi-organ failure in ICU Time Spent in Patient Care: Greater than 35 minutes (>than 50% of time spent in counselling and/or direct pt care on unit) . Coding Level of Care Code Acute Code for [facility] Diagnoses Acute kidney injury N17.9
--- NOTE | 2024-08-26 09:37 | P.PN_ITS ---
Subjective 2 Subjective: Easily. Had some agitation leaving the BiPAP machine on last night so Precedex was started. Also had worsening hypotension and norepinephrine was restarted. At 14 when I saw her. She initially wanted her mask off. She denied any abdominal pain, but when I palpated abdomen she did states she had some discomfort. Certainly difficult to gauge if all responses are accurate. at bedside. Medications: Reviewed: Yes Vitals/I&O/Wt Last Vital Signs Temp 100.4 F H 08/26/24 04:00 Pulse 110 H 08/26/24 08:15 Resp 31 H 08/26/24 08:12 BP 108/77 08/26/24 06:15 Pulse Ox 98 08/26/24 08:15 O2 Del Method BiPAP 08/26/24 08:12 O2 Flow Rate 30 08/26/24 06:00 FiO2 30 08/26/24 08:15 08/25/24 08/26/24 08/26/24 22:59 06:59 14:59 Intake Total 787.125 / 2246.275 1170.922 / 3417.197 799.666 / 799.666 Output Total 600 / 600 Balance 787.125 / 2246.275 570.922 / 2817.197 799.666 / 799.666 Weight last 48 hrs Weight 88.65 kg Weight 83.461 kg Weight 83.461 kg Physical Exam 2 Narrative: General Exam is white female, on BiPAP with tachypnea. Multiple drips running. Neck is supple no lymphadenopathy thyromegaly Cardiovascular regular rate and rhythm, borderline tachycardic, no obvious murmur Lungs diminished breath sounds bilaterally. No wheezing Abdomen is soft tenderness in the epigastric area. A few bowel sounds are noted. No obvious masses. exam Naidu with dark urine Extremities show trace edema bilaterally, significant bruising especially on the upper extremities Neuro: Some confusion Urinary Catheter Management: Naidu: Cath Placed During This Visit: yes Reason for Continuing Indwelling Catheter: Accurate Measurement of Urinary Output in Critically Ill Patients Urinary Catheter Date of Insertion: 08/25/24 Urinary Catheter Time of Insertion: 11:34 Data 08/26/24 02:47 08/26/24 02:47 Micro: Microbiology 08/25/24 11:36 Urine Culture - Preliminary Urine,Clean Catch 08/25/24 04:12 Blood Culture - Preliminary Blood 08/25/24 04:15 Blood Culture - Preliminary Blood A&P Assessment and plan (1) Acute respiratory failure with hypoxia and hypercapnia: Patient with acute respiratory failure with hypoxemia and hypercapnia This is multifactorial from multiple problems as listed below Continue AVAPS. No improvement currently. Monitor clinically. (2) Hypotension: Patient with significant hypotension Continue norepinephrine, wean as tolerated Small bolus was given today, consult to nephrology Excessive fluids the risks secondary to EF of 30%. (3) Ventricular tachycardia: Patient with significant ventricular tachycardia versus atrial fibrillation with rapid ventricular rate with aberrancy. Amiodarone initiated She has past history of WPW but had a distant history of ablation TSH and magnesium were normal yesterday Magnesium low today, supplement Cardiology consultation appreciated Echo performed, EF 30%, global hypokinesis. (4) Pulmonary emboli: Patient with multiple bilateral pulmonary emboli Overall burden seemed low Dimer was significantly elevated Heparin drip on hold secondary to significant elevation in PTT. Rechecking PTT, and will likely restart. (5) NSTEMI (non-ST elevated myocardial infarction): Patient has a positive delta troponin Cannot rule out concomitant non-ST elevation myocardial infarction Heparin has been initiated Beta-cali will have to be held secondary to hypotension Continue low-dose aspirin, but may need to hold if platelet count decreases further Cardiology consultation appreciated. (6) Acute kidney injury: Patient has evidence of acute kidney injury, superimposed on chronic kidney disease Despite significant amounts of IV fluids, renal function is worsened CK is checked and approximately 3200. Recheck tomorrow Nephrology consult Avoid renal toxic medication No evidence of obstruction on CT abdomen and pelvis (7) COPD with acute exacerbation: Patient with underlying COPD with acute exacerbation She received Solu-Medrol in the ER, she is steroid-dependent Continue 60 mg of Solu-Medrol every 12 hours Budesonide twice daily, DuoNeb every 4 hours Currently on BiPAP, may have to change to AVAPS settings. Wean as tolerated. Note that she uses BiPAP every night. Would ideally have noninvasive ventilator at discharge. Has severe underlying COPD, with FEV1 around 30% greater than 5 years ago. Typically on 2 to 3 L of oxygen. This has been very severely limiting for her and she could not exert herself more than a small amount of time before stopping to rest. Although no pneumonia seen on CT scan, secondary to severe COPD exacerbation and respiratory failure will meropenem was initiated. Will continue this.. This is also being selected secondary to concern of some bowel issues with epigastric discomfort. Will also check an MRSA PCR. With underlying hypotension, infection is possible. Note that RSV, COVID, influenza were negative. (8) Abdominal pain: Patient is now complaining of abdominal pain Urinalysis positive for UTI, complicated associated with likely bacteremia as blood cultures are already positive with gram-negative organism Vancomycin was initiated secondary to bacteremia with some of the organisms in chains. Will have to await full identification, and confirm these are truly gram-negative. Placed on Protonix 40 mg IV every 12 hours as this is epigastric CT scan demonstrated some diffuse colitis. C. difficile negative Differential is large from peptic ulcer disease, to constipation, to ischemic colitis. Plan Bacteremia associated with sepsis. Received is much fluid as safely could be given yesterday considering heart function. Noninvasive monitoring today suggests may not be fluid responsive.. Await identification on organisms on blood culture. On meropenem and vancomycin Acute encephalopathy, secondary to above. On Precedex to allow treatment Rhabdomyolysis, continue fluids, recheck CK tomorrow Transaminitis, likely secondary to bacteremia, hypotension. Recheck LFTs tomorrow. Gallbladder ultrasound. Cardiomyopathy, presumed acute. EF around 30%, global hypokinesis. Cardiology following Multiple other medical problems as outlined by past medical history Allow natural Heparin will suffice for DVT prophylaxis along with SCDs Attestations 2 Medical Necessity Statement*: Needs continued hospital stay for severe sepsis with multiorgan failure Critical Care Time: The high probability of a clinically significant, sudden or life threatening deterioration of the patient's [renal, hepatic, neurologic, cardiac, infectious disease, pulmonary] system(s) required my full and direct attention, intervention and personal management. The critical care time is as shown. This time is in addition to time spent performing any reported procedures but includes the following: [x] Data and vital sign review and interpretation [x] Patient assessment, examination and intervention [x] Documentation [x] Medication orders and management Critical Care Time (min): 72 Coding Level of Care Code Critical Care >/= 30 minutes Critical care time (in minutes): 72 The high probability of a clinically significant, sudden or life threatening deterioration, as referenced in this documentation, required my full and direct attention, intervention and personal management. The critical care time shown is in addition to time spent performing any reported separately billable procedures and includes the following: [x] Data and vital sign review and interpretation [x ] Patient assessment, examination and intervention [x] Medication orders and management [x] Patient/Family updates as able [x] Care Coordination and Documentation. Diagnoses Acute respiratory failure with hypoxia and hypercapnia J96.01; J96.02 Hypotension I95.9 Ventricular tachycardia I47.20 Pulmonary emboli I26.99 NSTEMI (non-ST elevated myocardial infarction) I21.4 Acute kidney injury N17.9 COPD with acute exacerbation J44.1 Abdominal pain R10.9
[2024-08-26] MEDS: LORazepam 2 mg/mL INJ 1 mL 0.5 MG IVP ×2 (10:03→20:03)
[2024-08-26 10:10] LABS: Reticulocyte % 1.4 % (0.5-2.0)
[2024-08-26 10:31] LABS: Complement C3 69 mg/dL (90-180); Lactate Dehydrogenase 786 U/L (135-214); Uric Acid 6.9 mg/dL (2.4-5.7)
[2024-08-26 10:36] LABS: Hepatitis C Virus Antibody Non-Reactive (Nonreactive)
[2024-08-26] MEDS: lactated ringers 500 ML IV (10:44)
[2024-08-26] MEDS: lactated ringers 1,000 ML 100 ML IV (10:45)
[2024-08-26 10:49] LABS: MRSA PCR OZH (swab) NOT DETECTED (Not Detecte)
[2024-08-26] MEDS: dexmedeTOMIDine 0.9 % NaCL 400 MCG/100 ML PREMIX 20.87 MCG IV ×3 (12:11→21:02)
--- NOTE | 2024-08-26 13:06 | PC.NURSE ---
Dr. Brannon gave vo to restart heparin gtt at 10 ml/hr
[2024-08-26] MEDS: morphine 4 mg/mL SDV 1 mL 2 MG IVP ×2 (14:47→20:03)
[2024-08-26] MEDS: norepinephrine 4 MG/250 ML BAG 30 MG IV (15:05)
[2024-08-26 20:28] LABS: Bilirubin Urine Negative (Negative); Blood Urine 3+ (Negative); Glucose Urine UA Negative (Normal); Ketones Urine Trace (Negative); Leukocyte Esterase Urine 2+ (Negative); Nitrate Urine Negative (Negative); Protein Urine 2+ (Negative); Urine Appearance Turbid (CLEAR); Urobilinogen Urine 0.2 mg/dL (Negative)
[2024-08-26 20:33] LABS: Bacteria Urine None Seen /hpf; Hyaline Casts Urine 0.87 /lpf; RBC Urine >100 /hpf (0-2); WBC Urine 51-100 /hpf (0-5)
[2024-08-26 20:36] LABS: Partial Thromboplastin Time 81.8 SECONDS (23.9-36.7)
[2024-08-26 20:43] LABS: Creatinine Urine, Random 109 mg/dL (28-217); Microalbumin Random Urine 19 ug/dL (0-20); Potassium, Radom Urine 90 mmol/L; Urine Creatinine 116 mg/dL (28-217)
[2024-08-26 20:44] LABS: Microalbum Creatinine Ratio Ur 174 mg/dL (0-20)
[2024-08-26 20:45] LABS: Urine Protein Random 73 mg/dL; Urine Random Sodium 15 mmol/L
[2024-08-26 21:23] LABS: Specific Gravity, Urine 1.035 (1.005-1.030)
[2024-08-26 21:24] LABS: UA Slide Review UA Slide Review Perf; Urine Color Other (Yellow)
[2024-08-26 21:26] LABS: Urine Random Chloride < 10 mmol/L
[2024-08-27] VITALS (95 sets, daily range): BP systolic 84–146; BP diastolic 46–103; PULSE 51–123; RESP 9–37; TEMP 36.3–38; O2SAT 88–100
[2024-08-27] MEDS: lactated ringers 1,000 ML 100 ML IV (00:38)
[2024-08-27] MEDS: LORazepam 2 mg/mL INJ 1 mL 0.5 MG IVP ×4 (01:24→23:50)
[2024-08-27 02:12] LABS: Hematocrit 32.4 % (36-47); Lymphocytes # 0.5 10^3/uL (0.8-4.8); Lymphocytes % 1.1 %; Mean Corpuscular HGB Conc 31.2 g/dL (30-55); Mean Corpuscular Hemoglobin 29.4 pg (27-33); Mean Corpuscular Volume 94.2 fl (85-98); Mean Platelet Volume 12.4 fL (7.4-10.4); Monocytes # 1.2 10^3/uL (0.2-0.9); Monocytes % 2.9 %; Neutrophils # 33.31 10^3/uL (1.8-7.7); Neutrophils % 83.1 %; Nucleated Red Blood Cells % 0 %; Platelet Count 34 10^3/cmm (157-399); Red Blood Count 3.44 10^6/uL (3.85-5.65); Red Cell Distribution Width 13.1 % (12.1-15.1)
[2024-08-27] MEDS: methylPREDNISolone sod succ 125 mg/2 mL INJ 60 MG IVP ×2 (02:12→17:19)
[2024-08-27] MEDS: pantoprazole 40 mg SDV IVP ×2 (02:15→13:40)
[2024-08-27] MEDS: dexmedeTOMIDine 0.9 % NaCL 400 MCG/100 ML PREMIX 20.87 MCG IV ×5 (02:18→19:26)
[2024-08-27 02:31] LABS: Slide Review Slide Review Perform
[2024-08-27 02:33] LABS: Alanine Aminotransferase 465 U/L (0-33); Albumin Level 2.6 g/dL (3.5-5.2); Alkaline Phosphatase 118 U/L (35-105); Aspartate Amino Transferase 500 U/L (0-32); Blood Urea Nitrogen 60 mg/dL (8-23); Calcium 7.3 mg/dL (8.5-10.5); Carbon Dioxide 21 mmol/L (22-29); Chloride 106 mmol/L (98-107); Creatinine Clr Calc Pharmacy 18.5193; Glucose 110 mg/dL (65-115); Magnesium 2.5 mg/dL (1.7-2.3); Osmolality Calculated 310 mOsm/kg (285-295); Phosphorus 5.8 mg/dL (2.5-4.5); Sodium 141 mmol/L (136-145); Total Bilirubin 0.4 mg/dL (0.15-1.2); Total Protein 4.6 g/dL (6.6-8.7)
[2024-08-27 02:43] LABS: Partial Thromboplastin Time 69.9 SECONDS (23.9-36.7)
[2024-08-27 02:47] LABS: Creatine Phosphokinase 3312 U/L (26-192)
[2024-08-27] MEDS: ipratropium-albuterol 3 mL Neb INHALATION ×6 (04:19→23:53)
[2024-08-27] MEDS: meropenem 1,000 mg SDV 1000 MG IVP ×2 (06:20→16:44)
--- NOTE | 2024-08-27 07:33 | PM.PN ---
Subjective Subjective: remains on bipap, oliguric. decreased pressor requirements- now just levo Medications: Reviewed: Yes Medication Review Details: Current Medications Acetaminophen (Acetaminophen 325 Mg Tablet) 650 mg PO Q6H PRN PRN Reason: MILD PAIN Albuterol/Ipratropium (Ipratropium-Albuterol 3 Ml Neb) 3 ml INHALATION Q4H.RESPIRATORY GRAHAM Last Admin: 08/27/24 04:19 Dose: 3 ml Aspirin (Aspirin 81 Mg Ec Tablet) 81 mg PO DAILY GRAHAM Last Admin: 08/26/24 09:09 Dose: Not Given Atorvastatin Calcium (Atorvastatin 40 Mg Tablet) 20 mg PO BEDTIME GRAHAM Last Admin: 08/26/24 22:34 Dose: Not Given Budesonide (Budesonide 0.5 Mg/2 Ml Neb) 0.5 mg INHALATION BID.RESPIRATORY GRAHAM Last Admin: 08/26/24 19:35 Dose: 0.5 mg Docusate Sodium (Docusate Sodium 100 Mg Capsule) 100 mg PO BID GRAHAM Last Admin: 08/26/24 17:06 Dose: Not Given Duloxetine HCl (Duloxetine 60 Mg Capsule) 60 mg PO DAILY GRAHAM Last Admin: 08/26/24 09:09 Dose: Not Given Norepinephrine Bitartrate (Levophed) 4 mg in 250 mls @ 0 mls/hr IV .Q0M GRAHAM; Protocol Last Titration: 08/26/24 22:00 Dose: 2 mcg/min, 7.5 mls/hr Amiodarone HCl/Dextrose (Nexterone) 360 mg in 200 mls @ 0 mls/hr IV .Q0M GRAHAM; Protocol Last Titration: 08/26/24 13:03 Dose: 0 mg/min, 0 mls/hr Dexmedetomidine/Sodium Chloride (Precedex) 400 mcg in 100 mls @ 0 mls/hr IV .Q0M GRAHAM; Protocol Last Admin: 08/27/24 06:38 Dose: 1 mcg/kg/hr, 20.87 mls/hr Epinephrine HCl 2.5 mg/ Sodium (Chloride) 252.5 mls @ 0 mls/hr IV .Q0M GRAHAM; Protocol Lactated Ringer's (Lactated Ringers) 1,000 mls @ 75 mls/hr IV .[id number] GRAHAM Last Admin: 08/27/24 00:38 Dose: 100 mls/hr Levalbuterol HCl (Levalbuterol 1.25 Mg/3 Ml Neb) 1.25 mg INHALATION Q10M PRN 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 Last Admin: 08/25/24 05:08 Dose: 1.25 mg Lidocaine (Lidocaine 5% Patch) 1 patch TOPICAL [id number] [facility] Last Admin: 08/26/24 21:05 Dose: Not Given Lorazepam (Lorazepam 2 Mg/Ml Inj 1 Ml) 0.5 mg IVP Q4H PRN PRN Reason: ANXIETY Last Admin: 08/27/24 01:24 Dose: 0.5 mg Meropenem (Meropenem 1,000 Mg Sdv) 1,000 mg IVP Q12H [facility]; Protocol Last Admin: 08/27/24 06:20 Dose: 1,000 mg Methylprednisolone Sodium Succinate (Methylprednisolone Sod Succ 125 Mg/2 Ml Inj) 60 mg IVP Q12H [facility] Last Admin: 08/27/24 02:12 Dose: 60 mg Morphine Sulfate (Morphine 4 Mg/Ml Sdv 1 Ml) 2 mg IVP Q4H PRN PRN Reason: SEVERE PAIN Last Admin: 08/26/24 20:03 Dose: 2 mg Ondansetron HCl (Ondansetron 2 Mg/Ml Sdv 2 Ml) 4 mg IVP Q6H PRN PRN Reason: NAUSEA AND VOMITING Pantoprazole Sodium (Pantoprazole 40 Mg Sdv) 40 mg IVP Q12H [facility] Last Admin: 08/27/24 02:15 Dose: 40 mg Senna (Sennosides 8.6 Mg Tablet) 17.2 mg PO BEDTIME [facility] Last Admin: 08/26/24 22:35 Dose: Not Given Vancomycin HCl (Vancomycin 1,000 Mg Sdv (Pharmacy Mix)) 0 mg XX PRN PRN PRN Reason: Pharmacy to Dose Vitals/I&O/Wt Last Vital Signs Temp 99.2 F 08/27/24 06:15 Pulse 68 08/27/24 06:15 Resp 25 H 08/27/24 06:15 BP 121/61 08/27/24 06:15 Pulse Ox 100 08/27/24 06:00 O2 Del Method BiPAP 08/27/24 04:20 O2 Flow Rate 30 08/26/24 06:00 FiO2 30 08/27/24 04:20 08/26/24 08/27/24 08/27/24 22:59 06:59 14:59 Intake Total 3036.518 / 4457.854 238.570 / 4696.424 Output Total 450 / 450 300 / 750 Balance 2586.518 / 4007.854 -61.430 / 3946.424 Weight last 48 hrs Weight 88.451 kg Weight 88.451 kg Weight 88.65 kg Weight 83.461 kg Physical Exam Narrative: low grade temps, + BIPAP, amio, levo heent- ncat neck supple lungs clear heart irreg irreg, + s1, s2 abd soft, NT, ND, + bs ext + edema increasing neuro- responds to pain Urinary Catheter Management: Naidu: Cath Placed During This Visit: yes Reason for Continuing Indwelling Catheter: Accurate Measurement of Urinary Output in Critically Ill Patients Urinary Catheter Date of Insertion: 08/25/24 Urinary Catheter Time of Insertion: 11:34 Data 08/27/24 01:53 08/27/24 01:53 Micro: Microbiology 08/25/24 11:36 Urine Culture - Preliminary Urine,Clean Catch A&P Assessment and plan (1) Acute kidney injury: Plan 73-year-old lady 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 Patient has history of Yzadn-[id number]-Jhvby. History of abdominal issues. Patient is here now with diverticulitis, heart failure reduced EF, acute kidney injury. CT scan showed diverticulitis and also CT with contrast showed multiple small pulmonary embolisms low thrombus burden. 1. samuel- no hydronephrosis on imaging. urine is orange and cloudy, 2+ prot, 3+ blood, + nitrites, >100 rbc, 51-100 wbc, 4+ bact - low ur soidum is c/w prerenal azotemia. ur microalbumin 174, and ur pr: cr= 73/ 116 -will give ivf and lasix to see if we can force a diuresis - d dx is prerenal azotemia vs ATN vs aIN vs infection related GN -cr is hopefully plateauing ck stable 3312 low c3 of 69. normal c4 metabolic acidosis- from lactic acidosis and SAMUEL support BP 2. septic shock- abx as per medicine. dose for GFR <15 3. thrombocytopenia- elevated ldh 786 , retic count, haptoglobin normal. normal bili- unlikely hemolysis 4. resp acidosis- improving w/ BIPAP 5. replete mag 6. shocked liver- ast/ alt are improving 7. mild rhabdo= cpk of 3256 to 3312- is not causing SAMUEL 8. HFrEF - EF of 35% discussed w/ DR Brannon The patient was seen and examined with the aid of a nurse using audiovisual equipment telehealth visit. The patient consented to telehealth. I discussed the case with the patient's family who consents to dialysis if needed. Patient may need dialysis soon. Attestations Medical Necessity Statement*: multi-organ failure on pressors and bipap, chf Time Spent in Patient Care: 16 - 35 minutes (>than 50% of time spent in counselling and/or direct pt care on unit). Coding Level of Care Code Acute Code [facility] Diagnoses Acute kidney injury N17.9
[2024-08-27] MEDS: FUROsemide 10 mg/mL SDV 10mL 80 MG IVP (07:59)
[2024-08-27] MEDS: budesonide 0.5 mg/2 mL Neb INHALATION ×2 (08:02→20:39)
[2024-08-27] MEDS: lidocaine 5% Patch 1 PATCH TOPICAL (08:17)
--- NOTE | 2024-08-27 08:31 | P.PN_ITS ---
Subjective 2 Subjective: Appears comfortable. at bedside. During my visit she did wake up and move spontaneously. Nurse has not noticed any bowel movements overnight, vomiting. Renal function has slightly worsened, urine output is still present but reduced. Still on same amount of noninvasive ventilator settings. Medications: Reviewed: Yes Vitals/I&O/Wt Last Vital Signs Temp 97.9 F 08/27/24 08:00 Pulse 86 08/27/24 08:05 Resp 25 H 08/27/24 08:00 BP 131/62 08/27/24 08:00 Pulse Ox 85 L 08/27/24 08:05 O2 Del Method BiPAP 08/27/24 07:45 O2 Flow Rate 30 08/26/24 06:00 FiO2 30 08/27/24 08:05 08/26/24 08/27/24 08/27/24 22:59 06:59 14:59 Intake Total 3036.518 / 4457.854 238.570 / 4696.424 93.884 / 93.884 Output Total 450 / 450 300 / 750 Balance 2586.518 / 4007.854 -61.430 / 3946.424 93.884 / 93.884 Weight last 48 hrs Weight 88.451 kg Weight 88.451 kg Weight 88.65 kg Weight 83.461 kg Physical Exam 2 Narrative: General Exam is white female, on BiPAP, seems a little less tachypneic Neck is supple no lymphadenopathy thyromegaly Cardiovascular regular rate and rhythm, no obvious murmur Lungs diminished breath sounds bilaterally. No wheezing Abdomen nondistended, hypoactive bowel sounds. No obvious tenderness. exam Naidu with dark urine Extremities show trace edema bilaterally, significant bruising especially on the upper extremities Neuro: No obvious focal deficits Urinary Catheter Management: Naidu: Cath Placed During This Visit: yes Reason for Continuing Indwelling Catheter: Accurate Measurement of Urinary Output in Critically Ill Patients Urinary Catheter Date of Insertion: 08/25/24 Urinary Catheter Time of Insertion: 11:34 Data 08/27/24 01:53 08/27/24 01:53 Micro: Microbiology 08/25/24 11:36 Urine Culture - Preliminary Urine,Clean Catch A&P Assessment and plan (1) Acute respiratory failure with hypoxia and hypercapnia: Patient with acute respiratory failure with hypoxemia and hypercapnia This is multifactorial from multiple problems as listed below Continue AVAPS. May be a little less tachypneic Monitor clinically. (2) Hypotension: Patient with significant hypotension Continue norepinephrine, wean as tolerated Small bolus was given today, consult to nephrology Excessive fluids the risks secondary to EF of 30%. (3) Ventricular tachycardia: Patient with significant ventricular tachycardia versus atrial fibrillation with rapid ventricular rate with aberrancy. Amiodarone initiated, cardiology following. 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 (4) Pulmonary emboli: Patient with multiple bilateral pulmonary emboli Overall burden seemed low Dimer was significantly elevated Will place heparin drip on hold currently. Platelets have decreased to 35,000, significantly from yesterday. Doubt heparin-induced thrombocytopenia, most likely secondary to DIC. No evidence of hemolysis currently has bilirubin normal, hemoglobin relatively stable, LDH not extremely high, AST improving. (5) NSTEMI (non-ST elevated myocardial infarction): Patient has a positive delta troponin Cannot rule out concomitant non-ST elevation myocardial infarction Heparin discontinued for now secondary to significant decrease in platelets Beta-cali will have to be held secondary to hypotension Hold aspirin Cardiology consultation appreciated. (6) Acute kidney injury: Patient has evidence of acute kidney injury, superimposed on chronic kidney disease Despite significant amounts of IV fluids, renal function is worsened CK elevated, mild rhabdomyolysis Nephrology consult appreciated Avoid renal toxic medication No evidence of obstruction on CT abdomen and pelvis Recheck renal function later this morning (7) COPD with acute exacerbation: Patient with underlying COPD with acute exacerbation She received Solu-Medrol in the ER, she is steroid-dependent Reduce Solu-Medrol to every 24 hours Budesonide twice daily, DuoNeb every 4 hours Currently on BiPAP, may have to change to AVAPS settings. Wean as tolerated. Note that she uses BiPAP every night. Would ideally have noninvasive ventilator at discharge. Has severe underlying COPD, with FEV1 around 30% greater than 5 years ago. Typically on 2 to 3 L of oxygen. This has been very severely limiting for her and she could not exert herself more than a small amount of time before stopping to rest. Although no pneumonia seen on CT scan, secondary to severe COPD exacerbation and respiratory failure will meropenem was initiated. Will continue this.. This is also being selected secondary to concern of some bowel issues with epigastric discomfort. MRSA PCR negative. With underlying hypotension, infection is possible. Note that RSV, COVID, influenza were negative. Await identification of blood culture today, possible discontinuation of vancomycin (8) Abdominal pain: Patient is now complaining of abdominal pain Urinalysis positive for UTI, complicated associated with likely bacteremia as blood cultures are already positive with gram-negative organism Vancomycin was initiated secondary to bacteremia with some of the organisms in chains. Will have to await full identification, and confirm these are truly gram-negative. Placed on Protonix 40 mg IV every 12 hours as this is epigastric CT scan demonstrated some diffuse colitis. C. difficile negative Differential is large from peptic ulcer disease, to constipation, to ischemic colitis. Lactic acid with next blood draw Consider repeat CT scan abdomen and pelvis if the lactic acid level increasing Plan Bacteremia associated with sepsis. White blood cell count still significantly increased. Awaiting identification of organism identified on blood culture. Continue vancomycin, meropenem Acute encephalopathy, secondary to above. On Precedex to allow treatment Rhabdomyolysis, still elevated. Recheck tomorrow Transaminitis, likely secondary to bacteremia, hypotension. Recheck LFTs tomorrow. Gallbladder ultrasound nonrevealing. Liver function tests improved. Cardiomyopathy, presumed acute. EF around 30%, global hypokinesis. Cardiology following Multiple other medical problems as outlined by past medical history Allow natural SCDs for DVT prophylaxis. Heparin will be discontinued currently secondary to plunging platelet count. Attestations 2 Medical Necessity Statement*: Needs continued hospital stay in the ICU secondary to this critically ill patient with multiorgan dysfunction. Critical Care Time: The high probability of a clinically significant, sudden or life threatening deterioration of the patient's [renal, cardiac, infectious disease, pulmonary, hepatic] system(s) required my full and direct attention, intervention and personal management. The critical care time is as shown. This time is in addition to time spent performing any reported procedures but includes the following: [x] Data and vital sign review and interpretation [x] Patient assessment, examination and intervention [x] Documentation [x] Medication orders and management Critical Care Time (min): 75 Coding Level of Care Code Critical Care >/= 30 minutes Critical care time (in minutes): 75 The high probability of a clinically significant, sudden or life threatening deterioration, as referenced in this documentation, required my full and direct attention, intervention and personal management. The critical care time shown is in addition to time spent performing any reported separately billable procedures and includes the following: [x] Data and vital sign review and interpretation [x ] Patient assessment, examination and intervention [x] Medication orders and management [x] Patient/Family updates as able [x] Care Coordination and Documentation. Diagnoses Acute respiratory failure with hypoxia and hypercapnia J96.01; J96.02 Hypotension I95.9 Ventricular tachycardia I47.20 Pulmonary emboli I26.99 NSTEMI (non-ST elevated myocardial infarction) I21.4 Acute kidney injury N17.9 COPD with acute exacerbation J44.1 Abdominal pain R10.9
[2024-08-27 08:38] LABS: Vancomycin Trough 23.2 ug/mL (10-15)
[2024-08-27] MEDS: lactated ringers 1,000 ML 125 ML IV ×2 (10:40→22:11)
--- NOTE | 2024-08-27 10:51 | P.PN_ITS ---
<Statement entered by Nikita Whitehead M.D - 08/27/24 17:50> Patient was evaluated and cared for in conjunction with an advanced practice practitioner.?I reviewed the chart and all pertinent data including imaging, telemetry, and laboratory results. I discussed the patient in detail with the advanced practice practitioner.?Please see? their note for complete progress note, testing results and agreed upon plan of care for the patient. Subjective 2 Subjective: Patient seems to be doing about the same as yesterday. Still on BiPAP seems like she is dyspneic. At this time her rate is well-controlled and she has been off the amiodarone drip. She is unable to take oral medications at this time. Medications: Reviewed: Yes Vitals/I&O/Wt Last Vital Signs Temp 97.9 F 08/27/24 08:00 Pulse 64 08/27/24 10:30 Resp 19 H 08/27/24 10:30 BP 107/55 08/27/24 10:30 Pulse Ox 94 08/27/24 10:30 O2 Del Method BiPAP 08/27/24 07:45 O2 Flow Rate 30 08/26/24 06:00 FiO2 30 08/27/24 08:46 08/26/24 08/27/24 08/27/24 22:59 06:59 14:59 Intake Total 3036.518 / 4457.854 238.570 / 4696.424 1093.884 / 1093.884 Output Total 450 / 450 300 / 750 Balance 2586.518 / 4007.854 -61.430 / 3946.424 1093.884 / 1093.884 Weight last 48 hrs Weight 195 lb Weight 195 lb Weight 195 lb 7.04 oz Weight 184 lb Physical Exam 2 Narrative: General: Appears to be having dyspnea on BIPAP Respiratory: patient is tachypneic, expiratory wheezes throughout all lung curtis Cardio: No JVD, regular rate and rhythm, S1 S2 normal, no murmurs Extremities: trace edema bilateral lower extremities Neuro: sedated Skin: chronic bruising bilateral upper extremities Urinary Catheter Management: Naidu: Cath Placed During This Visit: yes Reason for Continuing Indwelling Catheter: Accurate Measurement of Urinary Output in Critically Ill Patients Urinary Catheter Date of Insertion: 08/25/24 Urinary Catheter Time of Insertion: 11:34 Data 08/27/24 01:53 08/27/24 01:53 Micro: Microbiology 08/25/24 11:36 Urine Culture - Preliminary Urine,Clean Catch A&P Assessment and plan (1) Troponin level elevated: (2) Atrial fibrillation: Qualifiers: Atrial fibrillation type: unspecified Qualified Code(s): I48.91 - Unspecified atrial fibrillation (3) HTN (hypertension): Qualifiers: Hypertension type: essential hypertension Qualified Code(s): I10 - Essential (primary) hypertension (4) Pulmonary emboli: (5) Acute exacerbation of chronic obstructive airways disease: Plan Echo showed significant drop in EF at 30-35% from previous baseline. She is septic. Amio drip is off. We can't convert her to PO, as patient cannot take anything by mouth at this time. Her rates have been regular and controlled. Blood pressure is slowly improving. She is off of pressors. Will continue to follow. At this time, due to worsening renal function and hypotension, GDMT cannot be initiated. Will continue to monitor. Attestations 2 Medical Necessity Statement*: Deferred to primary. Coding Level of Care Code Acute Code for [facility] Diagnoses Troponin level elevated R79.89 Atrial fibrillation, unspecified type I48.91 Atrial fibrillation type: unspecified Essential hypertension I10 Hypertension type: essential hypertension Pulmonary emboli I26.99 Acute exacerbation of chronic obstructive airways disease J44.1
[2024-08-27 11:21] LABS: Hematocrit 31.8 % (36-47); Lymphocytes # 0.4 10^3/uL (0.8-4.8); Lymphocytes % 0.9 %; Mean Corpuscular HGB Conc 31.1 g/dL (30-55); Mean Corpuscular Hemoglobin 29.2 pg (27-33); Mean Corpuscular Volume 93.8 fl (85-98); Mean Platelet Volume 12.7 fL (7.4-10.4); Monocytes % 2.6 %; Neutrophils # 37.84 10^3/uL (1.8-7.7); Nucleated Red Blood Cells % 0.1 %; Red Blood Count 3.39 10^6/uL (3.85-5.65); Red Cell Distribution Width 13.2 % (12.1-15.1)
[2024-08-27 11:35] LABS: Lactate (Lactic Acid level) 1.9 mmol/L (0.5-2.2)
[2024-08-27 11:36] LABS: Alanine Aminotransferase 429 U/L (0-33); Albumin Level 2.5 g/dL (3.5-5.2); Alkaline Phosphatase 108 U/L (35-105); Aspartate Amino Transferase 382 U/L (0-32); Blood Urea Nitrogen 62 mg/dL (8-23); Calcium 7.5 mg/dL (8.5-10.5); Carbon Dioxide 20 mmol/L (22-29); Chloride 107 mmol/L (98-107); Creatinine Clr Calc Pharmacy 17.8806; Globulin 2.5 g/dL (1.3-4.6); Glucose 125 mg/dL (65-115); Osmolality Calculated 309 mOsm/kg (285-295); Sodium 140 mmol/L (136-145); Total Bilirubin 0.4 mg/dL (0.15-1.2)
[2024-08-27 11:45] LABS: Platelet Count 28 10^3/cmm (157-399)
[2024-08-27 11:46] LABS: White Blood Count 39.44 10^3/uL (3.29-11.43)
[2024-08-27 11:49] LABS: Slide Review Slide Review Perform
--- NOTE | 2024-08-27 15:25 | PC.SOCIAL ---
IMM Update pg 2 of IMM Updated and reviewed w/ patients family. Copy provided and copy dated, initialed and placed in chart.
[2024-08-27] MEDS: morphine 4 mg/mL SDV 1 mL 2 MG IVP (16:44)
[2024-08-28] VITALS (112 sets, daily range): BP systolic 89–137; BP diastolic 55–86; PULSE 74–126; RESP 16–24; TEMP 36.1–36.6; O2SAT 92–97
[2024-08-28] MEDS: dexmedeTOMIDine 0.9 % NaCL 400 MCG/100 ML PREMIX 20.87 MCG IV ×6 (00:17→21:52)
[2024-08-28] MEDS: pantoprazole 40 mg SDV IVP ×2 (02:06→13:45)
[2024-08-28] MEDS: LORazepam 2 mg/mL INJ 1 mL 0.5 MG IVP ×4 (04:14→21:18)
[2024-08-28] MEDS: ipratropium-albuterol 3 mL Neb INHALATION ×6 (04:28→23:15)
[2024-08-28] MEDS: meropenem 1,000 mg SDV 1000 MG IVP ×2 (05:43→16:39)
[2024-08-28 05:45] LABS: Alanine Aminotransferase 313 U/L (0-33); Albumin Level 2.4 g/dL (3.5-5.2); Alkaline Phosphatase 126 U/L (35-105); Anion Gap 19.7 (5-19); Aspartate Amino Transferase 201 U/L (0-32); Blood Urea Nitrogen 77 mg/dL (8-23); Calcium 7.4 mg/dL (8.5-10.5); Carbon Dioxide 20 mmol/L (22-29); Chloride 107 mmol/L (98-107); Creatinine Clr Calc Pharmacy 17.3038; Globulin 2.3 g/dL (1.3-4.6); Glucose 154 mg/dL (65-115); Osmolality Calculated 320 mOsm/kg (285-295); Potassium 4.7 mmol/L (3.5-5.1); Sodium 142 mmol/L (136-145); Total Bilirubin 0.3 mg/dL (0.15-1.2); Total Protein 4.7 g/dL (6.6-8.7)
[2024-08-28 05:46] LABS: Magnesium 2.6 mg/dL (1.7-2.3)
[2024-08-28] MEDS: lactated ringers 1,000 ML 125 ML IV (06:51)
[2024-08-28] MEDS: budesonide 0.5 mg/2 mL Neb INHALATION ×2 (07:42→19:57)
[2024-08-28 08:47] LABS: Vancomycin Trough 13.8 ug/mL (10-15)
[2024-08-28] MEDS: lidocaine 5% Patch 1 PATCH TOPICAL (09:03)
[2024-08-28] MEDS: vancomycin 500 MG in sodium chloride 0.9% (plus) 100 ML 200 MG IV (09:56)
[2024-08-28] MEDS: FUROsemide 10 mg/mL SDV 4mL 40 MG IVP (10:07)
--- NOTE | 2024-08-28 10:07 | P.PN_ITS ---
Subjective 2 Subjective: Patient on bipap and on precedex. Worsening thrombocytopenia. Vitals/I&O/Wt Last Vital Signs Temp 96.9 F L 08/28/24 09:15 Pulse 82 08/28/24 09:15 Resp 23 H 08/28/24 09:15 BP 113/69 08/28/24 09:15 Pulse Ox 96 08/28/24 09:15 O2 Del Method BiPAP 08/28/24 09:15 O2 Flow Rate 30 08/26/24 06:00 FiO2 30 08/28/24 09:25 08/27/24 08/28/24 08/28/24 22:59 06:59 14:59 Intake Total 1173.221 / 2361.020 1390.537 / 3751.557 Output Total 150 / 330 400 / 730 Balance 1023.221 / 2031.020 990.537 / 3021.557 Weight last 48 hrs Weight 195 lb Weight 195 lb Weight 195 lb Physical Exam 2 Narrative: GENERAL: Patient is drowsy NECK: No jugular vein distension. [] HEENT: No cyanosis. No icterus. No pallor. [] HEART: Tachycardic LUNGS: Diminished air entry bilaterally CENTRAL NERVOUS SYSTEM: Grossly nonfocal. [] EXTREMITIES: Lower extremities with 1+ edema bilaterally. Urinary Catheter Management: Naidu: Cath Placed During This Visit: yes Reason for Continuing Indwelling Catheter: Accurate Measurement of Urinary Output in Critically Ill Patients Urinary Catheter Date of Insertion: 08/25/24 Urinary Catheter Time of Insertion: 11:34 Data 08/29/24 04:28 08/29/24 04:28 Micro: Microbiology 08/25/24 11:36 Urine Culture - Final Urine,Clean Catch A&P Assessment and plan (1) Troponin level elevated: (2) Atrial fibrillation: Qualifiers: Atrial fibrillation type: unspecified Qualified Code(s): I48.91 - Unspecified atrial fibrillation (3) HTN (hypertension): Qualifiers: Hypertension type: essential hypertension Qualified Code(s): I10 - Essential (primary) hypertension (4) Pulmonary emboli: (5) Acute exacerbation of chronic obstructive airways disease: Plan Continue lasix, patient needs diuresis. Close I and Os. Monitor renal function Has significant thrombocytopenia. Off of anticoagulation/antiplatelet therapy Antibiotic therapy per primary team Thank you for involving us with care of this patient. Please call with questions Attestations 2 Medical Necessity Statement*: Care expected to cross 2 midnights. Coding Level of Care Code Acute Code for [facility]wd Diagnoses Troponin level elevated R79.89 Atrial fibrillation, unspecified type I48.91 Atrial fibrillation type: unspecified Essential hypertension I10 Hypertension type: essential hypertension Pulmonary emboli I26.99 Acute exacerbation of chronic obstructive airways disease J44.1
--- NOTE | 2024-08-28 10:11 | P.PN_ITS ---
Subjective 2 Subjective: seen on bipap, swollen arms, lethargic, on amio Medications: Reviewed: Yes Medication Review Details: Current Medications Acetaminophen (Acetaminophen 325 Mg Tablet) 650 mg PO Q6H PRN PRN Reason: MILD PAIN Albuterol/Ipratropium (Ipratropium-Albuterol 3 Ml Neb) 3 ml INHALATION Q4H.RESPIRATORY [facility] Last Admin: 08/28/24 07:42 Dose: 3 ml Aspirin (Aspirin 81 Mg Ec Tablet) 81 mg PO DAILY [facility] Last Admin: 08/26/24 09:09 Dose: Not Given Atorvastatin Calcium (Atorvastatin 40 Mg Tablet) 20 mg PO BEDTIME [facility] Last Admin: 08/27/24 20:27 Dose: Not Given Budesonide (Budesonide 0.5 Mg/2 Ml Neb) 0.5 mg INHALATION BID.RESPIRATORY [facility] Last Admin: 08/28/24 07:42 Dose: 0.5 mg Docusate Sodium (Docusate Sodium 100 Mg Capsule) 100 mg PO BID [facility] Last Admin: 08/28/24 07:21 Dose: Not Given Duloxetine HCl (Duloxetine 60 Mg Capsule) 60 mg PO DAILY [facility] Last Admin: 08/28/24 07:21 Dose: Not Given Norepinephrine Bitartrate (Levophed) 4 mg in 250 mls @ 0 mls/hr IV .Q0M [facility]; Protocol Last Titration: 08/27/24 07:39 Dose: Infused Dexmedetomidine/Sodium Chloride (Precedex) 400 mcg in 100 mls @ 0 mls/hr IV .Q0M [facility]; Protocol Last Admin: 08/28/24 10:07 Dose: 1 mcg/kg/hr, 20.87 mls/hr Lactated Ringer's (Lactated Ringers) 1,000 mls @ 125 mls/hr IV .Q8H [facility] Last Admin: 08/28/24 06:51 Dose: 125 mls/hr Amiodarone HCl/Dextrose (Nexterone) 360 mg in 200 mls @ 0 mls/hr IV .Q0M [facility]; Protocol Last Admin: 08/28/24 03:44 Dose: 0.5 mg/min, 16.67 mls/hr Furosemide 100 mg/ Sodium (Chloride) 50 mls @ 2.5 mls/hr IV .Q20H [facility]; Protocol Levalbuterol HCl (Levalbuterol 1.25 Mg/3 Ml Neb) 1.25 mg INHALATION Q10M PRN 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 Last Admin: 08/25/24 05:08 Dose: 1.25 mg Lidocaine (Lidocaine 5% Patch) 1 patch TOPICAL [id number] [facility] Last Admin: 08/28/24 09:03 Dose: 1 patch Lorazepam (Lorazepam 2 Mg/Ml Inj 1 Ml) 0.5 mg IVP Q4H PRN PRN Reason: ANXIETY Last Admin: 08/28/24 09:03 Dose: 0.5 mg Meropenem (Meropenem 1,000 Mg Sdv) 1,000 mg IVP Q12H [facility]; Protocol Last Admin: 08/28/24 05:43 Dose: 1,000 mg Methylprednisolone Sodium Succinate (Methylprednisolone Sod Succ 125 Mg/2 Ml Inj) 60 mg IVP Q24H [facility] Last Admin: 08/27/24 17:19 Dose: 60 mg Morphine Sulfate (Morphine 4 Mg/Ml Sdv 1 Ml) 2 mg IVP Q4H PRN PRN Reason: SEVERE PAIN Last Admin: 08/27/24 16:44 Dose: 2 mg Ondansetron HCl (Ondansetron 2 Mg/Ml Sdv 2 Ml) 4 mg IVP Q6H PRN PRN Reason: NAUSEA AND VOMITING Pantoprazole Sodium (Pantoprazole 40 Mg Sdv) 40 mg IVP Q12H [facility] Last Admin: 08/28/24 02:06 Dose: 40 mg Senna (Sennosides 8.6 Mg Tablet) 17.2 mg PO BEDTIME [facility] Last Admin: 08/27/24 20:28 Dose: Not Given Vancomycin HCl (Vancomycin 1,000 Mg Sdv (Pharmacy Mix)) 0 mg XX PRN PRN PRN Reason: Pharmacy to Dose Vitals/I&O/Wt Last Vital Signs Temp 96.9 F L 08/28/24 09:15 Pulse 76 08/28/24 10:00 Resp 19 H 08/28/24 10:00 BP 119/57 08/28/24 10:00 Pulse Ox 96 08/28/24 10:00 O2 Del Method BiPAP 08/28/24 09:15 O2 Flow Rate 30 08/26/24 06:00 FiO2 30 08/28/24 09:25 08/27/24 08/28/24 08/28/24 22:59 06:59 14:59 Intake Total 1173.221 / 2361.020 1390.537 / 3751.557 94.263 / 94.263 Output Total 150 / 330 400 / 730 Balance 1023.221 / 2031.020 990.537 / 3021.557 94.263 / 94.263 Weight last 48 hrs Weight 88.451 kg Weight 88.451 kg Weight 88.451 kg Physical Exam 2 Narrative: afebrile + BIPAP, amio, heent- ncat neck supple lungs crackles and wheezes b/l heart irreg irreg, + s1, s2 abd soft, NT, ND, + bs ext + edema increasing in arms, trace leg edema neuro- responds to pain Urinary Catheter Management: Naidu: Cath Placed During This Visit: yes Reason for Continuing Indwelling Catheter: Accurate Measurement of Urinary Output in Critically Ill Patients Urinary Catheter Date of Insertion: 08/25/24 Urinary Catheter Time of Insertion: 11:34 Data 08/27/24 11:14 08/28/24 05:11 Micro: Microbiology 08/25/24 11:36 Urine Culture - Final Urine,Clean Catch A&P Assessment and plan (1) Acute kidney injury: Plan 73-year-old lady 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 Patient has history of Vnmez-[id number]-[id number]. History of abdominal issues. Patient is here now with diverticulitis, heart failure reduced EF, acute kidney injury. CT scan showed diverticulitis and also CT with contrast showed multiple small pulmonary embolisms low thrombus burden. -pt has bacteremia- await culture results 1. samuel- no hydronephrosis on imaging. urine is orange and cloudy, 2+ prot, 3+ blood, + nitrites, >100 rbc, 51-100 wbc, 4+ bact - low ur soidum is c/w prerenal azotemia. ur microalbumin 174, and ur pr: cr= 73/ 116 -will give ivf and lasix to see if we can force a diuresis - d dx is prerenal azotemia vs ATN vs aIN vs infection related GN -cr is still rising we gave fluids- unlikely prerenal will give lasix and monitor ck stable 3312 low c3 of 69. normal c4 metabolic acidosis- from lactic acidosis and SAMUEL support BP 2. septic shock- bacteremia- abx as per medicine. dose for GFR <15 3. thrombocytopenia- elevated ldh 786 , retic count, haptoglobin normal. normal bili- unlikely hemolysis - sespsi vs DIV vs med effect 4.hyperphosphatemia- monitor- may need hd soon 6. shocked liver- ast/ alt are improving 7. mild rhabdo= cpk of 3256 to 3312- is not causing SAMUEL -monitor ck 8. HFrEF - EF of 35% discussed w/ RN The patient was seen and examined with the aid of a nurse using audiovisual equipment telehealth visit. The patient consented to telehealth. I discussed the case with the patient's family who consents to dialysis if needed. Patient may need dialysis soon. Attestations 2 Medical Necessity Statement*: septic shock, bacteremia, SAMUEL, rhabdo, BiPAP dependent Time Spent in Patient Care: 16 - 35 minutes (>than 50% of time sp ent in counselling and/or direct pt care on unit) . Coding Level of Care Code Acute Code for [facility] Diagnoses Acute kidney injury N17.9
[2024-08-28] MEDS: FUROsemide 100 MG in sodium chloride 0.9% 40 ML IV (10:13)
[2024-08-28 10:42] LABS: Creatine Phosphokinase 1317 U/L (26-192)
[2024-08-28] MEDS: morphine 4 mg/mL SDV 1 mL 2 MG IVP ×2 (14:11→19:39)
[2024-08-28] MEDS: lanolin oint 7 gm 1 APPLIC TOPICAL (15:08)
--- NOTE | 2024-08-28 15:46 | P.PN_ITS ---
Subjective 2 Subjective: She is currently lethargic. She was waking up earlier requesting some water. Vitals/I&O/Wt Last Vital Signs Temp 97.9 F 08/28/24 13:42 Pulse 84 08/28/24 15:33 Resp 20 H 08/28/24 15:27 BP 122/67 08/28/24 15:18 Pulse Ox 96 08/28/24 15:27 O2 Del Method BiPAP 08/28/24 15:27 O2 Flow Rate 30 08/26/24 06:00 FiO2 50 08/28/24 15:27 08/28/24 08/28/24 08/28/24 06:59 14:59 22:59 Intake Total 1390.537 / 3751.557 821.821 / 821.821 Output Total 400 / 730 Balance 990.537 / 3021.557 821.821 / 821.821 Weight last 48 hrs Weight 88.451 kg Weight 88.451 kg Weight 88.451 kg Physical Exam 2 Narrative: Accompanied at bedside by her . HENMT: OTHER: BiPAP mask. Dry lips, mucous membranes Neck/C-Spine: COMMON NORMALS: no JVD Resp: AUSCULTATION: diminished lung sounds Cardio: COMMON NORMALS: no JVD, regular rhythm, S1 normal heart sound present, S2 normal heart sound present and No murmurs present (Cardio) RHYTHM: regular rhythm HEART SOUNDS: S1 normal heart sound present and S2 normal heart sound present GI: COMMON NORMALS: Normal to inspection, nondistended, normoactive bowel sounds present, Soft to palpation and non-tender PALPATION: Yes Soft to palpation Extremity: COMMON NORMALS: no joint enlargement and no pedal edema GENERAL: Yes edema (Forearms and hands) OTHER: Thin fragile skin. Extensive bruising of upper extremities. Multiple prior irregular scars from skin tears. Neuro: COMMON NORMALS: moves all extremities Urinary Catheter Management: Naidu: Cath Placed During This Visit: yes Reason for Continuing Indwelling Catheter: Accurate Measurement of Urinary Output in Critically Ill Patients Urinary Catheter Date of Insertion: 08/25/24 Urinary Catheter Time of Insertion: 11:34 Data 08/27/24 11:14 08/28/24 05:11 Micro: Microbiology 08/25/24 04:12 Blood Culture - Final Blood Escherichia coli 08/25/24 04:15 Blood Culture - Final Blood Escherichia coli 08/25/24 11:36 Urine Culture - Final Urine,Clean Catch A&P Assessment and plan (1) Acute respiratory failure with hypoxia and hypercapnia: Continues with AVAPS. Was briefly more alert today. Still dependent on NIPPV. Hemodynamically with some improvement. Diminished air entry on exam. Continue Solu-Medrol, will change dosing to 30 mg every 6 hours. Patient with acute respiratory failure with hypoxemia and hypercapnia This is multifactorial from multiple problems as listed below Continue AVAPS. May be a little less tachypneic Monitor clinically. (2) Acute kidney injury: Patient has evidence of acute kidney injury, superimposed on chronic kidney disease Despite significant amounts of IV fluids, renal function is worsened CK elevated, mild rhabdomyolysis Nephrology consult appreciated Avoid renal toxic medication No evidence of obstruction on CT abdomen and pelvis Recheck renal function later this morning (3) COPD with acute exacerbation: Still very diminished air entry. Dependent on NIPPV. Adjust Solu-Medrol as above. Continue breathing treatments. Continue empiric antibiotic coverage. Budesonide twice daily, DuoNeb every 4 hours Note that she uses BiPAP every night. Would ideally have noninvasive ventilator at discharge. Has severe underlying COPD, with FEV1 around 30% greater than 5 years ago. Typically on 2 to 3 L of oxygen. This has been very severely limiting for her and she could not exert herself more than a small amount of time before stopping to rest. Although no pneumonia seen on CT scan, secondary to severe COPD exacerbation and respiratory failure will meropenem was initiated. Will continue this.. This is also being selected secondary to concern of some bowel issues with epigastric discomfort. MRSA PCR negative. With underlying hypotension, infection is possible. Note that RSV, COVID, influenza were negative. Await identification of blood culture today, possible discontinuation of vancomycin (4) Pulmonary emboli: Further worsening thrombocytopenia, platelets down to 28. Heparin has been stopped. Patient with multiple bilateral pulmonary emboli Overall burden seemed low Dimer was significantly elevated Will place heparin drip on hold currently. Platelets have decreased to 35,000, significantly from yesterday. Doubt heparin-induced thrombocytopenia, most likely secondary to DIC. No evidence of hemolysis currently has bilirubin normal, hemoglobin relatively stable, LDH not extremely high, AST improving. (5) Abdominal pain: E. coli identified blood culture. Pansensitive. Continue IV antibiotic treatment for colitis with meropenem. Penicillin allergy. Vancomycin discontinued. C. difficile reviewed and negative Patient is now complaining of abdominal pain Urinalysis positive for UTI, complicated associated with likely bacteremia as blood cultures are already positive with gram-negative organism Vancomycin was initiated secondary to bacteremia with some of the organisms in chains. Will have to await full identification, and confirm these are truly gram-negative. Placed on Protonix 40 mg IV every 12 hours as this is epigastric CT scan demonstrated some diffuse colitis. C. difficile negative Differential is large from peptic ulcer disease, to constipation, to ischemic colitis. Lactic acid with next blood draw Consider repeat CT scan abdomen and pelvis if the lactic acid level increasing (6) Hypotension: Improving hypotension. Has been weaning off and so far came off norepinephrine. Continue to monitor blood pressure. With chronic steroid use, continue Solu- Medrol as above. Monitor for risk of hyperglycemia, hypertension, encephalopathy, gastritis with IV steroid. Patient with significant hypotension Continue norepinephrine as needed Excessive fluids the risks secondary to EF of 30%. (7) Ventricular tachycardia: So far without recurrence. Patient with significant ventricular tachycardia versus atrial fibrillation with rapid ventricular rate with aberrancy. Amiodarone initiated, cardiology following. 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 (8) NSTEMI (non-ST elevated myocardial infarction): Patient has a positive delta troponin Cannot rule out concomitant non-ST elevation myocardial infarction Heparin discontinued for now secondary to significant decrease in platelets Beta-cali will have to be held secondary to hypotension Hold aspirin Cardiology consultation appreciated. Plan Bacteremia associated with sepsis. E. coli. Vancomycin discontinued. Continue meropenem for colitis complicated by bacteremia. Acute encephalopathy, secondary to above. On Precedex to allow treatment Rhabdomyolysis: Reviewed CK, improving. Follow-up, still elevated. Recheck tomorrow Transaminitis, reviewed, improving. Likely secondary to bacteremia, hypotension. Recheck LFTs tomorrow. Gallbladder ultrasound nonrevealing. Liver function tests improved. Cardiomyopathy, presumed acute. EF around 30%, global hypokinesis. Cardiology following Multiple other medical problems as outlined by past medical history Allow natural SCDs for DVT prophylaxis. Heparin will be discontinued currently secondary to plunging platelet count. Condition, plans and goals of treatment discussed in detail with her at bedside. Attestations 2 Medical Necessity Statement*: Continue admission for assessment management of extensive colitis complicated with sepsis, E. coli bacteremia, respiratory failure with COPD exacerbation, NIPPV dependence, renal failure, acute encephalopathy, PE and thrombocytopenia. Coding Level of Care Code Critical Care >/= 30 minutes Critical care time (in minutes): 40 The high probability of a clinically significant, sudden or life threatening deterioration, as referenced in this documentation, required my full and direct attention, intervention and personal management. The critical care time shown is in addition to time spent performing any reported separately billable procedures and includes the following: [x] Data and vital sign review and interpretation [x ] Patient assessment, examination and intervention [x] Medication orders and management [x] Patient/Family updates as able [x] Care Coordination and Documentation. Diagnoses Acute respiratory failure with hypoxia and hypercapnia J96.01; J96.02 Acute kidney injury N17.9 COPD with acute exacerbation J44.1 Pulmonary emboli I26.99 Abdominal pain R10.9 Hypotension I95.9 Ventricular tachycardia I47.20 NSTEMI (non-ST elevated myocardial infarction) I21.4
[2024-08-28] MEDS: methylPREDNISolone sod succ 40 mg/mL INJ 30 MG IVP ×2 (16:26→21:53)
[2024-08-29] VITALS (80 sets, daily range): BP systolic 99–137; BP diastolic 60–78; PULSE 76–135; RESP 14–31; TEMP 36.3–36.8; O2SAT 80–98
[2024-08-29] MEDS: pantoprazole 40 mg SDV IVP ×2 (01:38→13:55)
[2024-08-29] MEDS: FUROsemide 100 MG in sodium chloride 0.9% 40 ML IV (02:23)
[2024-08-29] MEDS: dexmedeTOMIDine 0.9 % NaCL 400 MCG/100 ML PREMIX 20.87 MCG IV (02:58)
[2024-08-29] MEDS: ipratropium-albuterol 3 mL Neb INHALATION ×5 (03:04→20:16)
[2024-08-29] MEDS: methylPREDNISolone sod succ 40 mg/mL INJ 30 MG IVP ×4 (03:57→22:12)
[2024-08-29] MEDS: LORazepam 2 mg/mL INJ 1 mL 0.5 MG IVP ×3 (03:57→14:13)
[2024-08-29] MEDS: meropenem 1,000 mg SDV 1000 MG IVP ×2 (04:57→17:07)
[2024-08-29 05:38] LABS: Basophils # 0.1 10^3/uL (0.0-0.1); Basophils % 0.3 %; Eosinophils # 0.2 10^3/uL (0.0-0.8); Eosinophils % 0.7 %; Hematocrit 32.2 % (36-47); Lymphocytes # 0.2 10^3/uL (0.8-4.8); Mean Corpuscular HGB Conc 31.1 g/dL (30-55); Mean Corpuscular Hemoglobin 29.2 pg (27-33); Mean Corpuscular Volume 93.9 fl (85-98); Mean Platelet Volume 12.9 fL (7.4-10.4); Monocytes # 1.2 10^3/uL (0.2-0.9); Monocytes % 5.2 %; Neutrophils # 21.07 10^3/uL (1.8-7.7); Neutrophils % 91.9 %; Nucleated Red Blood Cells # 0.1 /100WBC; Nucleated Red Blood Cells % 0.3 %; Red Blood Count 3.43 10^6/uL (3.85-5.65); Red Cell Distribution Width 13.6 % (12.1-15.1); White Blood Count 22.91 10^3/uL (3.29-11.43)
[2024-08-29] MEDS: morphine 4 mg/mL SDV 1 mL 2 MG IVP ×3 (05:51→20:49)
[2024-08-29 05:56] LABS: Alanine Aminotransferase 246 U/L (0-33); Albumin Level 2.6 g/dL (3.5-5.2); Alkaline Phosphatase 111 U/L (35-105); Anion Gap 27.8 (5-19); Aspartate Amino Transferase 92 U/L (0-32); Calcium 7.9 mg/dL (8.5-10.5); Carbon Dioxide 23 mmol/L (22-29); Chloride 100 mmol/L (98-107); Creatinine Clr Calc Pharmacy 19.8674; Globulin 2.4 g/dL (1.3-4.6); Glucose 164 mg/dL (65-115); Magnesium 2.7 mg/dL (1.7-2.3); Osmolality Calculated 335 mOsm/kg (285-295); Phosphorus 6.6 mg/dL (2.5-4.5); Potassium 3.8 mmol/L (3.5-5.1); Sodium 147 mmol/L (136-145); Total Bilirubin 0.3 mg/dL (0.15-1.2)
[2024-08-29 06:14] LABS: Creatine Phosphokinase 764 U/L (26-192)
[2024-08-29 06:15] LABS: Blood Urea Nitrogen 90 mg/dL (8-23); Platelet Count 20 10^3/cmm (157-399); Slide Review Slide Review Perform
[2024-08-29 07:20] LABS: Vancomycin Random 16.3 ug/mL (20.0-40.0)
[2024-08-29] MEDS: dexmedeTOMIDine 0.9 % NaCL 400 MCG/100 ML PREMIX 22.95 MCG IV ×4 (07:37→20:51)
[2024-08-29] MEDS: budesonide 0.5 mg/2 mL Neb INHALATION ×2 (07:51→20:16)
[2024-08-29 09:21] LABS: Reflex FDPQ test REFLEX FDP QUEST TES
[2024-08-29 09:26] LABS: LAB Peripheral Smear Sent for Review
[2024-08-29] MEDS: sodium chloride 0.45% 1,000 ML 75 ML IV ×2 (09:34→22:18)
[2024-08-29 09:35] LABS: INR 0.86 (0.8-1.2)
[2024-08-29 09:36] LABS: Fibrinogen 371 mg/dL (174-498); Partial Thromboplastin Time 24.4 SECONDS (23.9-36.7)
--- NOTE | 2024-08-29 09:38 | PM.PN ---
Subjective Subjective: she is urinating. remains on bipap. still on amio, lasix, precedex. not able to get a ROS Medications: Reviewed: Yes Medication Review Details: Current Medications Acetaminophen (Acetaminophen 325 Mg Tablet) 650 mg PO Q6H PRN PRN Reason: MILD PAIN Albuterol/Ipratropium (Ipratropium-Albuterol 3 Ml Neb) 3 ml INHALATION Q4H.RESPIRATORY [facility] Last Admin: 08/29/24 07:51 Dose: 3 ml Aspirin (Aspirin 81 Mg Ec Tablet) 81 mg PO DAILY [facility] Last Admin: 08/26/24 09:09 Dose: Not Given Atorvastatin Calcium (Atorvastatin 40 Mg Tablet) 20 mg PO BEDTIME [facility] Last Admin: 08/28/24 21:19 Dose: Not Given Budesonide (Budesonide 0.5 Mg/2 Ml Neb) 0.5 mg INHALATION BID.RESPIRATORY [facility] Last Admin: 08/29/24 07:51 Dose: 0.5 mg Docusate Sodium (Docusate Sodium 100 Mg Capsule) 100 mg PO BID [facility] Last Admin: 08/29/24 09:28 Dose: Not Given Duloxetine HCl (Duloxetine 60 Mg Capsule) 60 mg PO DAILY [facility] Last Admin: 08/29/24 09:28 Dose: Not Given Norepinephrine Bitartrate (Levophed) 4 mg in 250 mls @ 0 mls/hr IV .Q0M [facility]; Protocol Last Titration: 08/27/24 07:39 Dose: Infused Dexmedetomidine/Sodium Chloride (Precedex) 400 mcg in 100 mls @ 0 mls/hr IV .Q0M [facility]; Protocol Last Admin: 08/29/24 07:37 Dose: 1.1 mcg/kg/hr, 22.95 mls/hr Amiodarone HCl/Dextrose (Nexterone) 360 mg in 200 mls @ 0 mls/hr IV .Q0M [facility]; Protocol Last Admin: 08/29/24 00:04 Dose: 0.5 mg/min, 16.67 mls/hr Sodium Chloride (Sodium Chloride 0.45%) 1,000 mls @ 75 mls/hr IV .[id number] [facility] Lanolin (Lanolin Oint 7 Gm) 1 applic TOPICAL PRN PRN PRN Reason: DRYNESS Last Admin: 08/28/24 15:08 Dose: 1 applic Levalbuterol HCl (Levalbuterol 1.25 Mg/3 Ml Neb) 1.25 mg INHALATION Q10M PRN 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 Last Admin: 08/25/24 05:08 Dose: 1.25 mg Lidocaine (Lidocaine 5% Patch) 1 patch TOPICAL [id number] [facility] Last Admin: 08/28/24 21:39 Dose: Not Given Lorazepam (Lorazepam 2 Mg/Ml Inj 1 Ml) 0.5 mg IVP Q4H PRN PRN Reason: ANXIETY Last Admin: 08/29/24 09:06 Dose: 0.5 mg Meropenem (Meropenem 1,000 Mg Sdv) 1,000 mg IVP Q12H [facility]; Protocol Last Admin: 08/29/24 04:57 Dose: 1,000 mg Methylprednisolone Sodium Succinate (Methylprednisolone Sod Succ 40 Mg/Ml Inj) 30 mg IVP Q6H [facility] Last Admin: 08/29/24 09:21 Dose: 30 mg Morphine Sulfate (Morphine 4 Mg/Ml Sdv 1 Ml) 2 mg IVP Q4H PRN PRN Reason: SEVERE PAIN Last Admin: 08/29/24 05:51 Dose: 2 mg Ondansetron HCl (Ondansetron 2 Mg/Ml Sdv 2 Ml) 4 mg IVP Q6H PRN PRN Reason: NAUSEA AND VOMITING Pantoprazole Sodium (Pantoprazole 40 Mg Sdv) 40 mg IVP Q12H [facility] Last Admin: 08/29/24 01:38 Dose: 40 mg Senna (Sennosides 8.6 Mg Tablet) 17.2 mg PO BEDTIME [facility] Last Admin: 08/28/24 21:19 Dose: Not Given Vitals/I&O/Wt Last Vital Signs Temp 97.3 F L 08/29/24 07:30 Pulse 80 08/29/24 07:52 Resp 22 H 08/29/24 07:52 BP 137/71 08/29/24 07:30 Pulse Ox 96 08/29/24 07:52 O2 Del Method BiPAP 08/29/24 07:52 O2 Flow Rate 30 08/26/24 06:00 FiO2 30 08/29/24 07:52 08/28/24 08/29/24 08/29/24 22:59 06:59 14:59 Intake Total 200 / 1021.821 398.157 / 1419.978 42.26 / 42.26 Output Total 650 / 650 1725 / 2375 Balance -450 / 371.821 -1326.843 / -955.022 . / . Weight last 48 hrs Weight 88.451 kg Physical Exam Narrative: afebrile + BIPAP, amio, lasix, precedex improvoed uop heent- ncat neck supple lungs -dec b/lwheezes b/l heart irreg irreg, + s1, s2 abd soft, NT, ND, + bs ext + edema in arms, trace leg edema neuro- responds to pain Urinary Catheter Management: Nadiu: Cath Placed During This Visit: yes Reason for Continuing Indwelling Catheter: Accurate Measurement of Urinary Output in Critically Ill Patients Urinary Catheter Date of Insertion: 08/25/24 Urinary Catheter Time of Insertion: 11:34 Data 08/29/24 04:28 08/29/24 04:28 Micro: Microbiology 08/25/24 04:12 Blood Culture - Final Blood Escherichia coli 08/25/24 04:15 Blood Culture - Final Blood Escherichia coli A&P Assessment and plan (1) Acute kidney injury: Plan 73-year-old lady 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 Patient has history of [id number]-[id number]-[id number]. History of abdominal issues. Patient is here now with diverticulitis, heart failure reduced EF, acute kidney injury. CT scan showed diverticulitis and also CT with contrast showed multiple small pulmonary embolisms low thrombus burden. -e. coli bacteremia- pino sensitive- renal dose abx wbc improving 1. samuel- no hydronephrosis on imaging. urine is orange and cloudy, 2+ prot, 3+ blood, + nitrites, >100 rbc, 51-100 wbc, 4+ bact - low ur soidum is c/w prerenal azotemia. ur microalbumin 174, and ur pr: cr= 73/ 116 -will give ivf and lasix to see if we can force a diuresis - uop improved. cr improving d/c lasix and monitor ck improved to 764 low c3 of 69. normal c4 metabolic acidosis- from lactic acidosis and SAMUEL support BP 1b. hypernatremia- give ivf. d/c lasix 2. septic shock- e coli bacteremia- abx as per medicine. dose for GFR <15 3. thrombocytopenia- plts down to 20 4.hyperphosphatemia- monitor- may need hd soon 6. shocked liver- ast/ alt are improving 7. HFrEF - EF of 35% discussed w/ RN The patient was seen and examined with the aid of a nurse using audiovisual equipment telehealth visit. The patient consented to telehealth. I discussed the case with the patient's family who consents to dialysis if needed. Patient may need dialysis soon. Attestations Medical Necessity Statement*: bipap dependent, septic shock, samuel, hypernatremia, thrombocytopenia Time Spent in Patient Care: 16 - 35 minutes (>than 50% of time spent in counselling and/or direct pt care on unit). Coding Level of Care Code Acute Code for [facility] Diagnoses Acute kidney injury N17.9
[2024-08-29 09:53] LABS: D Dimer >= 20.00 ug/mLFEU (0-0.59)
[2024-08-29] MEDS: lidocaine 5% Patch 1 PATCH TOPICAL ×2 (10:30→22:16)
[2024-08-29] MEDS: water for injection-sterile 20 ML 100 ML (17:08)
--- NOTE | 2024-08-29 19:00 | P.PN_ITS ---
Subjective 2 Subjective: Currently she is not alert, but was uncomfortable earlier and trying to pull off the mask, so required some Ativan. Vitals/I&O/Wt Last Vital Signs Temp 97.3 F L 08/29/24 07:30 Pulse 92 08/29/24 17:11 Resp 22 H 08/29/24 15:44 BP 119/77 08/29/24 10:15 Pulse Ox 96 08/29/24 17:11 O2 Del Method BiPAP 08/29/24 15:44 O2 Flow Rate 30 08/26/24 06:00 FiO2 30 08/29/24 17:11 08/29/24 08/29/24 08/29/24 06:59 14:59 22:59 Intake Total 398.157 / 1419.978 328.663 / 328.663 119.833 / 448.496 Output Total 1725 / 2375 1000 / 1000 1050 / 2050 Balance -1326.843 / -955.022 -671.337 / -671.337 -930.167 / -1601.504 Weight last 48 hrs Weight 88.451 kg Physical Exam 2 Narrative: Accompanied at bedside by her . HENMT: OTHER: BiPAP mask. Dry mucous membranes Neck/C-Spine: COMMON NORMALS: no JVD Resp: AUSCULTATION: diminished lung sounds Cardio: COMMON NORMALS: no JVD, regular rhythm, S1 normal heart sound present, S2 normal heart sound present and No murmurs present (Cardio) RHYTHM: regular rhythm HEART SOUNDS: S1 normal heart sound present and S2 normal heart sound present GI: COMMON NORMALS: Normal to inspection, nondistended, normoactive bowel sounds present, Soft to palpation and non-tender PALPATION: Yes Soft to palpation Extremity: COMMON NORMALS: no joint enlargement and no pedal edema GENERAL: No edema OTHER: Thin fragile skin. Extensive bruising of upper extremities. Multiple prior irregular scars from skin tears. Neuro: COMMON NORMALS: moves all extremities Urinary Catheter Management: Naidu: Cath Placed During This Visit: yes Reason for Continuing Indwelling Catheter: Accurate Measurement of Urinary Output in Critically Ill Patients Urinary Catheter Date of Insertion: 08/25/24 Urinary Catheter Time of Insertion: 11:34 Data 08/29/24 04:28 08/29/24 04:28 Micro: Microbiology 08/25/24 04:12 Blood Culture - Final Blood Escherichia coli 08/25/24 04:15 Blood Culture - Final Blood Escherichia coli A&P Assessment and plan (1) Acute respiratory failure with hypoxia and hypercapnia: Slight improvement in aeration today. Still dependent on BiPAP. Continue to wean down as tolerating. Continues with low-dose Solu-Medrol 30 mg every 6 hours for now. Reassess, de- escalate depending on improvement. Monitor for risk of gastritis, worsening encephalopathy, hyperglycemia, hypertension. Reviewed blood pressures, so far maintaining on her own without pressor. Blood glucose reviewed, in reasonable range. Continue breathing treatments. Empirically on meropenem. Will repeat chest x-ray. Repeat ABG. Depending on CO2, consider weaning sedation and trial of nasal cannula. In case needing to wean Precedex may need a slow wean due to duration of infusion to avoid withdrawal. Patient with acute respiratory failure with hypoxemia and hypercapnia This is multifactorial from multiple problems as listed below Continue AVAPS. May be a little less tachypneic Monitor clinically. (2) Acute kidney injury: Reviewed intake and output, producing is an amount of urine output. Lasix drip has been held. He is started on liberal IV hydration, possibly entering polyuric phase of SAMUEL. Creatinine with some improvement today down to 2.7. Although with some worsening BUN up to 90. Reassess blood counts, with decreasing platelets, discussed concern for possible component of some GI bleeding. Continue PPI. Continue to withhold anticoagulation at this time. Will request 2 units of platelets to be available in case requiring transfusion. Recheck blood counts. Patient has evidence of acute kidney injury, superimposed on chronic kidney disease Despite significant amounts of IV fluids, renal function is worsened CK elevated, mild rhabdomyolysis Nephrology consult appreciated Avoid renal toxic medication No evidence of obstruction on CT abdomen and pelvis Recheck renal function later this morning (3) COPD with acute exacerbation: Still very diminished air entry. Dependent on NIPPV. Continue Solu-Medrol as above. Continue breathing treatments. Continue empiric antibiotic coverage. Repeat ABG, chest x-ray. CO2 has been improving. If further improvement/compensated, consider weaning off sedation and trial of nasal cannula. Budesonide twice daily, DuoNeb every 4 hours Note that she uses BiPAP every night. Would ideally have noninvasive ventilator at discharge. Has severe underlying COPD, with FEV1 around 30% greater than 5 years ago. Typically on 2 to 3 L of oxygen. This has been very severely limiting for her and she could not exert herself more than a small amount of time before stopping to rest. Although no pneumonia seen on CT scan, secondary to severe COPD exacerbation and respiratory failure will meropenem was initiated. Will continue this.. This is also being selected secondary to concern of some bowel issues with epigastric discomfort. MRSA PCR negative. With underlying hypotension, infection is possible. Note that RSV, COVID, influenza were negative. Await identification of blood culture today, possible discontinuation of vancomycin (4) Pulmonary emboli: Further worsening thrombocytopenia, platelets down to 20. Requesting 2 units of platelets to be made available. Recheck blood counts. Heparin has been stopped. DIC profile has been requested, reviewed, fibrinogen is not decreased. D-dimer is elevated. Patient with multiple bilateral pulmonary emboli Overall burden seemed low Dimer was significantly elevated Will place heparin drip on hold currently. Platelets have decreased. Doubt heparin-induced thrombocytopenia, most likely secondary to DIC. No evidence of hemolysis currently has bilirubin normal, hemoglobin relatively stable, LDH not extremely high, AST improving. (5) Abdominal pain: E. coli identified blood culture. Pansensitive. On review of CBC leukocytosis improving. Continue IV antibiotic treatment for colitis with meropenem. Penicillin allergy. Vancomycin discontinued. C. difficile reviewed and negative Patient is now complaining of abdominal pain Urinalysis positive for UTI, complicated associated with likely bacteremia as blood cultures are already positive with gram-negative organism Vancomycin was initiated secondary to bacteremia with some of the organisms in chains. Will have to await full identification, and confirm these are truly gram-negative. Placed on Protonix 40 mg IV every 12 hours as this is epigastric CT scan demonstrated some diffuse colitis. C. difficile negative Differential is large from peptic ulcer disease, to constipation, to ischemic colitis. Lactic acid with next blood draw Consider repeat CT scan abdomen and pelvis if the lactic acid level increasing (6) Hypotension: Improving hypotension. Has been weaning off and so far came off norepinephrine. Continue to monitor blood pressure. With chronic steroid use, continue Solu- Medrol as above. Monitor for risk of hyperglycemia, hypertension, encephalopathy, gastritis with IV steroid. Patient with significant hypotension Continue norepinephrine as needed Excessive fluids the risks secondary to EF of 30%. (7) Ventricular tachycardia: So far without recurrence. Patient with significant ventricular tachycardia versus atrial fibrillation with rapid ventricular rate with aberrancy. Amiodarone initiated, cardiology following. 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 (8) NSTEMI (non-ST elevated myocardial infarction): Patient has a positive delta troponin Cannot rule out concomitant non-ST elevation myocardial infarction Heparin discontinued for now secondary to significant decrease in platelets Beta-cali will have to be held secondary to hypotension Hold aspirin Cardiology consultation appreciated. Plan Bacteremia associated with sepsis. E. coli. Vancomycin discontinued. Continue meropenem for colitis complicated by bacteremia. Acute encephalopathy, secondary to above. On Precedex to allow treatment Rhabdomyolysis: Reviewed CK, improving. Follow-up, still elevated. Recheck tomorrow Transaminitis, reviewed, improving. Likely secondary to bacteremia, hypotension. Recheck LFTs tomorrow. Gallbladder ultrasound nonrevealing. Liver function tests improved. Cardiomyopathy, presumed acute. EF around 30%, global hypokinesis. Cardiology following Multiple other medical problems as outlined by past medical history Allow natural SCDs for DVT prophylaxis. Heparin will be discontinued currently secondary to plunging platelet count. Condition, plans and goals of treatment discussed in detail with her at bedside. Attestations 2 Medical Necessity Statement*: Continue admission for assessment management of extensive colitis complicated with sepsis, E. coli bacteremia, respiratory failure with COPD exacerbation, NIPPV dependence, renal failure, acute encephalopathy, PE and thrombocytopenia. Coding Level of Care Code Critical Care >/= 30 minutes Critical care time (in minutes): 35 The high probability of a clinically significant, sudden or life threatening deterioration, as referenced in this documentation, required my full and direct attention, intervention and personal management. The critical care time shown is in addition to time spent performing any reported separately billable procedures and includes the following: [x] Data and vital sign review and interpretation [x ] Patient assessment, examination and intervention [x] Medication orders and management [x] Patient/Family updates as able [x] Care Coordination and Documentation. Diagnoses Acute respiratory failure with hypoxia and hypercapnia J96.01; J96.02 Acute kidney injury N17.9 COPD with acute exacerbation J44.1 Pulmonary emboli I26.99 Abdominal pain R10.9 Hypotension I95.9 Ventricular tachycardia I47.20 NSTEMI (non-ST elevated myocardial infarction) I21.4
[2024-08-30] VITALS (62 sets, daily range): BP systolic 101–202; BP diastolic 64–117; PULSE 80–148; RESP 11–31; TEMP 35.7–36.8; O2SAT 78–100
[2024-08-30] MEDS: ipratropium-albuterol 3 mL Neb INHALATION ×3 (00:23→08:25)
[2024-08-30] MEDS: morphine 4 mg/mL SDV 1 mL 2 MG IVP ×4 (00:38→14:18)
[2024-08-30] MEDS: dexmedeTOMIDine 0.9 % NaCL 400 MCG/100 ML PREMIX 18.78 MCG IV ×2 (00:45→06:09)
[2024-08-30] MEDS: pantoprazole 40 mg SDV IVP ×2 (03:22→14:06)
[2024-08-30] MEDS: LORazepam 2 mg/mL INJ 1 mL 0.5 MG IVP ×3 (03:23→22:15)
[2024-08-30] MEDS: methylPREDNISolone sod succ 40 mg/mL INJ 30 MG IVP ×4 (03:23→20:59)
[2024-08-30] MEDS: meropenem 1,000 mg SDV 1000 MG IVP (05:27)
[2024-08-30 06:11] LABS: Vancomycin Random 10.7 ug/mL (20.0-40.0)
[2024-08-30 06:22] LABS: Alanine Aminotransferase 183 U/L (0-33); Albumin Level 2.8 g/dL (3.5-5.2); Alkaline Phosphatase 198 U/L (35-105); Anion Gap 16.3 (5-19); Aspartate Amino Transferase 75 U/L (0-32); Calcium 7.9 mg/dL (8.5-10.5); Carbon Dioxide 28 mmol/L (22-29); Chloride 109 mmol/L (98-107); Creatinine Clr Calc Pharmacy 31.5541; Globulin 1.9 g/dL (1.3-4.6); Glucose 170 mg/dL (65-115); Magnesium 2.6 mg/dL (1.7-2.3); Osmolality Calculated 339 mOsm/kg (285-295); Potassium 3.3 mmol/L (3.5-5.1); Sodium 150 mmol/L (136-145); Total Bilirubin 0.3 mg/dL (0.15-1.2); Total Protein 4.7 g/dL (6.6-8.7)
[2024-08-30 06:33] LABS: Blood Urea Nitrogen 82 mg/dL (8-23); Creatine Phosphokinase 1428 U/L (26-192)
[2024-08-30 06:56] LABS: Basophils # 0.1 10^3/uL (0.0-0.1); Basophils % 0.5 %; Hematocrit 33.3 % (36-47); Lymphocytes % 5.9 %; Mean Corpuscular HGB Conc 31.8 g/dL (30-55); Mean Corpuscular Hemoglobin 29.3 pg (27-33); Mean Platelet Volume 14.1 fL (7.4-10.4); Monocytes # 0.7 10^3/uL (0.2-0.9); Monocytes % 4.1 %; Neutrophils # 15.48 10^3/uL (1.8-7.7); Neutrophils % 88.8 %; Nucleated Red Blood Cells # 0.1 /100WBC; Nucleated Red Blood Cells % 0.6 %; Platelet Count 30 10^3/cmm (157-399); Red Blood Count 3.62 10^6/uL (3.85-5.65); Red Cell Distribution Width 13.8 % (12.1-15.1); White Blood Count 17.43 10^3/uL (3.29-11.43)
[2024-08-30 07:17] LABS: Slide Review Slide Review Perform
--- NOTE | 2024-08-30 08:00 | XR_ITS ---
WS: [id number] PORTABLE CHEST HISTORY: Respiratory failure COMPARISON: 08/25/2024 Hyperexpanded lungs. Increased opacification posterior to the LEFT heart. LEFT lower lobe is being obscured by the cardia c shadow. Suspect subsegmental atelectasis versus pneumonia. No pleural effusion or pneumothorax. Cardiac size: Mildly enlarged cardiac silhouette. Mediastinum/Aorta: Normal mediastinum. No osseous abnormality seen. RIGHT subclavian central line with tip in the aortocaval region. XR/XR chest 1V portable 50110 IMPRESSION: 1. New subsegmental atelectasis posterior to the LEFT heart versus developing pneumonia. 2. Hyperexpanded lungs from emphysema.
[2024-08-30] MEDS: budesonide 0.5 mg/2 mL Neb INHALATION ×2 (08:25→20:21)
[2024-08-30] MEDS: lidocaine 5% Patch 1 PATCH TOPICAL (09:27)
--- NOTE | 2024-08-30 09:46 | P.PN_ITS ---
<Statement entered by Nikita Whitehead M.D - 08/30/24 19:31> Patient was evaluated and cared for in conjunction with an advanced practice practitioner. I personally examined the patient and reviewed the chart and all pertinent data including imaging, telemetry, and laboratory results. I discussed the patient in detail with the advanced practice practitioner. Please see their note for complete progress note, results and agreed upon plan of care for the patient. Patient is drowsy. On precedex. GENERAL: Patient is alert and oriented HEART: Regular S1 and S2 LUNGS: Mild crackles bilaterally EXTREMITIES: Lower extremities with 1+ edema ASSESSMENT AND PLAN: (1) Troponin level elevated: (2) Atrial fibrillation (3) HTN (hypertension) (4) Pulmonary emboli: (5) Acute exacerbation of chronic obstructive airways disease: Patient is stable. Continue amiodarone. Once BP allows, can consider low dose metoprolol Secondary to thrombocytopenia, anticoagulation/antiplatelet therapy is held Continue IV lasix. Creatinine has showed improvement. Monitor renal function. Close I and Os Thank you for involving us with care of this patient. Please call with questions. Subjective 2 Subjective: Patient currently on BiPAP therapy, sedated with Precedex. Discussed events overnight with the patient's . Creatinine this morning 1.7, platelets improved to 30. She is making urine. She remains in atrial fibrillation, on amiodarone drip with intermittent short episodes of RVR. Vitals/I&O/Wt Last Vital Signs Temp 96.5 F L 08/30/24 09:30 Pulse 127 H 08/30/24 09:30 Resp 16 08/30/24 09:30 BP 157/85 08/30/24 09:30 Pulse Ox 92 08/30/24 08:28 O2 Del Method BiPAP 08/30/24 08:28 O2 Flow Rate 30 08/26/24 06:00 FiO2 30 08/30/24 08:52 08/29/24 08/30/24 08/30/24 22:59 06:59 14:59 Intake Total 1370.150 / 1884.679 185.866 / 1884.679 186.982 / 186.982 Output Total 1050 / 2950 900 / 2950 Balance 320.150 / -1065.321 -714.134 / -1065.321 186.982 / 186.982 Physical Exam 2 Const: COMMON NORMALS: no acute distress GENERAL APPEARANCE: cooperative and comfortable ORIENTATION/CONSCIOUSNESS: Yes awake and Yes oriented to person Chest: COMMONS NORMALS: normal inspection of the chest and normal palpation of entire chest wall CHEST: Yes Symmetrical chest wall rise Resp: COMMON NORMALS: normal respiratory effort, No retractions, No use of accessory muscles and clear to auscultation bilaterally EFFORT & INSPECTION: Yes symmetric chest movement AUSCULTATION: clear to auscultation bilaterally Cardio: COMMON NORMALS: regular rate, S1 normal heart sound present, S2 normal heart sound present, No gallops present (Cardio), No clicks present (Cardio), No murmurs present (Cardio) and No rub (Cardio) RATE: regular rate RHYTHM: a bnormal rhythm irregularly irregular HEART SOUNDS: S1 normal heart sound present and S2 normal heart sound present PERIPHERAL PULSES: radial pulses present Extremity: COMMON NORMALS: no pedal edema Neuro: COMMON NORMALS: moves all extremities SENSORIUM/ORIENTATION: Yes oriented to person Urinary Catheter Management: Naidu: Cath Placed During This Visit: yes Reason for Continuing Indwelling Catheter: Accurate Measurement of Urinary Output in Critically Ill Patients Urinary Catheter Date of Insertion: 08/25/24 Urinary Catheter Time of Insertion: 11:34 Data 08/30/24 04:09 08/30/24 04:09 A&P Assessment and plan (1) Atrial fibrillation: Qualifiers: Atrial fibrillation type: unspecified Qualified Code(s): I48.91 - Unspecified atrial fibrillation Plan Continue amiodarone for ventricular rate control, IV diuretics. Will continue to hold ARMANDO/ARB/ARNI, as renal function is still low. Attestations 2 Medical Necessity Statement*: Defer to primary team Coding Level of Care Code Acute Code for [facility] Diagnoses Atrial fibrillation, unspecified type I48.91 Atrial fibrillation type: unspecified
--- NOTE | 2024-08-30 10:12 | P.PN_ITS ---
Subjective 2 Subjective: remains on bipap. tachycardic. more awake, dec edema Medications: Reviewed: Yes Medication Review Details: Current Medications Acetaminophen (Acetaminophen 325 Mg Tablet) 650 mg PO Q6H PRN PRN Reason: MILD PAIN Albuterol/Ipratropium (Ipratropium-Albuterol 3 Ml Neb) 3 ml INHALATION Q4H.RESPIRATORY GRAHAM Last Admin: 08/30/24 08:25 Dose: 3 ml Aspirin (Aspirin 81 Mg Ec Tablet) 81 mg PO DAILY GRAHAM Last Admin: 08/26/24 09:09 Dose: Not Given Atorvastatin Calcium (Atorvastatin 40 Mg Tablet) 20 mg PO BEDTIME GRAHAM Last Admin: 08/29/24 20:02 Dose: Not Given Budesonide (Budesonide 0.5 Mg/2 Ml Neb) 0.5 mg INHALATION BID.RESPIRATORY GRAHAM Last Admin: 08/30/24 08:25 Dose: 0.5 mg Docusate Sodium (Docusate Sodium 100 Mg Capsule) 100 mg PO BID GRAHAM Last Admin: 08/30/24 07:26 Dose: Not Given Duloxetine HCl (Duloxetine 60 Mg Capsule) 60 mg PO DAILY GRAHAM Last Admin: 08/30/24 07:26 Dose: Not Given Norepinephrine Bitartrate (Levophed) 4 mg in 250 mls @ 0 mls/hr IV .Q0M GRAHAM; Protocol Last Titration: 08/27/24 07:39 Dose: Infused Dexmedetomidine/Sodium Chloride (Precedex) 400 mcg in 100 mls @ 0 mls/hr IV .Q0M GRAHAM; Protocol Last Admin: 08/30/24 06:09 Dose: 0.9 mcg/kg/hr, 18.78 mls/hr Amiodarone HCl/Dextrose (Nexterone) 360 mg in 200 mls @ 0 mls/hr IV .Q0M GRAHAM; Protocol Last Admin: 08/30/24 09:27 Dose: 0.5 mg/min, 16.67 mls/hr Sodium Chloride (Sodium Chloride 0.45%) 1,000 mls @ 75 mls/hr IV .[id number] GRAHAM Last Admin: 08/29/24 22:18 Dose: 75 mls/hr Lanolin (Lanolin Oint 7 Gm) 1 applic TOPICAL PRN PRN PRN Reason: DRYNESS Last Admin: 08/28/24 15:08 Dose: 1 applic Levalbuterol HCl (Levalbuterol 1.25 Mg/3 Ml Neb) 1.25 mg INHALATION Q10M PRN 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 Last Admin: 08/25/24 05:08 Dose: 1.25 mg Lidocaine (Lidocaine 5% Patch) 1 patch TOPICAL [id number] GRAHAM Last Admin: 08/30/24 09:27 Dose: 1 patch Lorazepam (Lorazepam 2 Mg/Ml Inj 1 Ml) 0.5 mg IVP Q4H PRN PRN Reason: ANXIETY Last Admin: 08/30/24 09:27 Dose: 0.5 mg Meropenem (Meropenem 1,000 Mg Sdv) 1,000 mg IVP Q12H [facility]; Protocol Last Admin: 08/30/24 05:27 Dose: 1,000 mg Methylprednisolone Sodium Succinate (Methylprednisolone Sod Succ 40 Mg/Ml Inj) 30 mg IVP Q6H GRAHAM Last Admin: 08/30/24 09:27 Dose: 30 mg Morphine Sulfate (Morphine 4 Mg/Ml Sdv 1 Ml) 2 mg IVP Q4H PRN PRN Reason: SEVERE PAIN Last Admin: 08/30/24 05:26 Dose: 2 mg Ondansetron HCl (Ondansetron 2 Mg/Ml Sdv 2 Ml) 4 mg IVP Q6H PRN PRN Reason: NAUSEA AND VOMITING Pantoprazole Sodium (Pantoprazole 40 Mg Sdv) 40 mg IVP Q12H [facility] Last Admin: 08/30/24 03:22 Dose: 40 mg Senna (Sennosides 8.6 Mg Tablet) 17.2 mg PO BEDTIME [facility] Last Admin: 08/29/24 20:02 Dose: Not Given Vitals/I&O/Wt Last Vital Signs Temp 96.5 F L 08/30/24 09:30 Pulse 127 H 08/30/24 09:30 Resp 16 08/30/24 09:30 BP 157/85 08/30/24 09:30 Pulse Ox 92 08/30/24 08:28 O2 Del Method BiPAP 08/30/24 08:28 O2 Flow Rate 30 08/26/24 06:00 FiO2 30 08/30/24 09:43 08/29/24 08/30/24 08/30/24 22:59 06:59 14:59 Intake Total 1370.150 / 1698.813 185.866 / 1884.679 186.982 / 186.982 Output Total 1050 / 0 900 / 2950 Balance 320.150 / -351.187 -714.134 / -1065.321 186.982 / 186.982 Physical Exam 2 Narrative: afebrile + BIPAP, amio drip good uop heent- ncat neck supple lungs -dull bases b/l heart irreg irreg, + s1, s2 abd soft, NT, ND, + bs ext - decrease 4 extremity edema neuro- responds to pain Urinary Catheter Management: Naidu: Cath Placed During This Visit: yes Reason for Continuing Indwelling Catheter: Accurate Measurement of Urinary Output in Critically Ill Patients Urinary Catheter Date of Insertion: 08/25/24 Urinary Catheter Time of Insertion: 11:34 Data 08/30/24 04:09 08/30/24 04:09 CXR: My impression: no chf Radiologist's impression: 1. New subsegmental atelectasis posterior to the LEFT heart versus developing pneumonia. 2. Hyperexpanded lungs from emphysema. A&P Assessment and plan (1) Acute kidney injury: Plan 73-year-old lady 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 Patient has history of Tiflm-Pofqydjpb-Hmica. History of abdominal issues. Patient is here now with diverticulitis, heart failure reduced EF, acute kidney injury. CT scan showed diverticulitis and also CT with contrast showed multiple small pulmonary embolisms low thrombus burden. -e. coli bacteremia- pino sensitive- renal dose abx wbc improving 1. samuel- no hydronephrosis on imaging. urine is orange and cloudy, 2+ prot, 3+ blood, + nitrites, >100 rbc, 51-100 wbc, 4+ bact - low ur soidum is c/w prerenal azotemia. ur microalbumin 174, and ur pr: cr= 73/ 116 -will give ivf and lasix to see if we can force a diuresis - uop improved. cr improving -good uop off of lasix ck improved to 764 low c3 of 69. normal c4 metabolic acidosis- from lactic acidosis and SAMUEL -improved 2. hypernatremia- give D5W ivf 3. thrombocytopenia- plts improved from 20 to 30 4.hypokalmeia- replete 6. shocked liver- ast/ alt are improving 7. HFrEF - EF of 35% and a fib- normalize k discussed w/ RN and pts The patient was seen and examined with the aid of a nurse using audiovisual equipment telehealth visit. The patient consented to telehealth. I discussed the case with the patient's family who consents to dialysis if needed. Patient may need dialysis soon. Attestations 2 Medical Necessity Statement*: bipap dependent, a fib, hypokalemia, hypernatremia Time Spent in Patient Care: 16 - 35 minutes (>than 50% of time sp ent in counselling and/or direct pt care on unit) . Coding Level of Care Code Acute Code for [facility] Fwd Diagnoses Acute kidney injury N17.9
[2024-08-30] MEDS: dextrose 5% 1,000 ML 75 ML IV (10:49)
[2024-08-30] MEDS: potassium chloride premix 100 ML 25 MEQ IV (11:14)
[2024-08-30] MEDS: cefTRIAXone 2,000 mg SDV 2000 MG IVP (11:30)
[2024-08-30] MEDS: dexmedeTOMIDine 0.9 % NaCL 400 MCG/100 ML PREMIX 16.69 MCG IV (12:05)
[2024-08-30] MEDS: levalbuterol 0.63 mg/3 mL Neb INHALATION ×2 (14:03→20:22)
[2024-08-30] MEDS: ipratropium 0.5 mg/2.5 mL Neb INHALATION ×2 (14:03→20:22)
[2024-08-30 14:10] LABS: Heparin-Induced Platelet AB Negative (Negative)
[2024-08-30 14:21] LABS: Alanine Aminotransferase 165 U/L (0-33); Albumin Level 2.7 g/dL (3.5-5.2); Alkaline Phosphatase 97 U/L (35-105); Anion Gap 13.8 (5-19); Aspartate Amino Transferase 90 U/L (0-32); Blood Urea Nitrogen 76 mg/dL (8-23); Carbon Dioxide 28 mmol/L (22-29); Chloride 108 mmol/L (98-107); Creatinine Clr Calc Pharmacy 38.3157; Globulin 2.2 g/dL (1.3-4.6); Glucose 193 mg/dL (65-115); Osmolality Calculated 330 mOsm/kg (285-295); Potassium 3.8 mmol/L (3.5-5.1); Sodium 146 mmol/L (136-145); Total Bilirubin 0.2 mg/dL (0.15-1.2); Total Protein 4.9 g/dL (6.6-8.7)
--- NOTE | 2024-08-30 14:29 | PC.SOCIAL ---
IMM updated IMM dated and initialed, copy given to patient and copy placed in chart.
[2024-08-30 14:42] LABS: Creatine Phosphokinase 2187 U/L (26-192)
[2024-08-30] MEDS: metoprolol tartrate 1 mg/1 mL SDV 5 mL 2.5 MG IVP ×3 (16:21→22:06)
--- NOTE | 2024-08-30 16:46 | P.PN_ITS ---
Subjective 2 Subjective: Hospital course, labs appreciated. Patient seen laying comfortably in bed, not awake or alert on BiPAP with Precedex at 0.9. Family at bedside. Heart rate running in 100-1 10 s. Saturating more than 90%. Vitals/I&O/Wt Last Vital Signs Temp 96.3 F L 08/30/24 16:00 Pulse 147 H 08/30/24 16:00 Resp 15 08/30/24 16:00 BP 135/90 08/30/24 16:00 Pulse Ox 100 08/30/24 15:30 O2 Del Method Nasal Cannula 08/30/24 14:00 O2 Flow Rate 4 08/30/24 14:00 FiO2 30 08/30/24 16:22 08/30/24 08/30/24 08/30/24 06:59 14:59 22:59 Intake Total 185.866 / 0978.821 6657.791 / 1257.791 100 / 1357.791 Output Total 900 / 2950 550 / 550 Balance -714.134 / -1065.321 707.791 / 707.791 100 / 807.791 Physical Exam 2 Narrative: General: No acute distress, somnolent, E2 M2V1 HEENT: PERRLA, pupils bilaterally equal and reactive Chest: Better bronchial sounds all over lung curtis with occasional rhonchi CVS: S1-S2 irregularly irregular, tachycardia, no gallops, no rubs Abdomen: Soft, nontender, no organomegaly, bowel sounds present Neuro: No focal deficits, no facial deformity, AO x3, power 5/5 in all limbs Urinary Catheter Management: Naidu: Cath Placed During This Visit: yes Reason for Continuing Indwelling Catheter: Accurate Measurement of Urinary Output in Critically Ill Patients Urinary Catheter Date of Insertion: 08/25/24 Urinary Catheter Time of Insertion: 11:34 Data 08/30/24 04:09 08/30/24 13:28 Micro: Microbiology 08/30/24 13:28 Blood Culture - Preliminary Blood SPECIMEN COLLECTED 08/30/24 11:29 Blood Culture - Preliminary Blood SPECIMEN COLLECTED A&P Assessment and plan (1) Acute respiratory failure with hypoxia and hypercapnia: In setting of COPD exacerbation. Along with concerns for pulmonary embolism. Low concerns for diastolic heart failure for now. Continue with Solu-Medrol 30 mg every 6 hourly. Switch to ipratropium, Xopenex every 4 hour, continue with Pulmicort twice daily. Remains dependent on BiPAP. Currently on AVAPS. Plan to wean the Precedex today to get patient more awake and possibly try of BiPAP. Wean oxygen supplementation keeping saturation over 88%. (2) Acute kidney injury: Associated with hyponatremia, hypokalemia, uremia. Nephrology on board. Hold off on diuresis. Patient clinically slightly dehydrated. IV fluids at 75 cc/h. Does have hypernatremia today. D5 half versus D5 as per nephrology. Monitor urine output. Medical reconciliation done for nephrotoxic drugs. Repeat BMP in afternoon. Replace potassium with 40 mg orally. Check CPK-MB. Appreciate CT abdomen pelvis for no obstructive nephropathy. (3) COPD with acute exacerbation: Has severe underlying COPD, with FEV1 around 30% greater than 5 years ago. Typically on 2 to 3 L of oxygen. This has been very severely limiting for her and she could not exert herself more than a small amount of time before stopping to rest. MRSA PCR negative. With underlying hypotension, infection is possible. Note that RSV, COVID, influenza were negative. (4) Pulmonary emboli: No concerns for right-sided heart failure. Not on anticoagulation because of severe thrombocytopenia. DIC profile appreciated. HIT panel negative. No evidence of hemolysis currently has bilirubin normal, hemoglobin relatively stable, LDH not extremely high, AST improving. (5) Atrial fibrillation with RVR: With history of WPW post ablation. Currently on amiodarone drip of 0.5. Not able to transition to oral as patient remains somnolent. Blood pressures are better. Mean artery pressure have been maintained over 65. Start on IV metoprolol 2.5 every 6. To be held for heart rate of less than 90 bpm for systolic blood pressure of less than 110 mmHg. Will uptitrate metoprolol depending on the blood pressures. (6) Abdominal pain: Concerns for colitis on admission. Associated with E. coli bacteremia. Most likely translocation. Monitor bowel movements. (7) NSTEMI (non-ST elevated myocardial infarction): Patient has a positive delta troponin Cannot rule out concomitant non-ST elevation myocardial infarction Heparin discontinued for now secondary to significant decrease in platelets Holding off on aspirin given severe thrombocytopenia. Initiating beta-cali as above. Echocardiogram shows EF of 30 35% moderate global LV [place], mild MR. Patient would benefit with ACS workup with possible stress test prior to discharge once improved clinically. Cardiology consultation appreciated. (8) Cardiomyopathy: EF of 30 to 45%. Global LV hypokinesia. Mild MR. High likelihood of ischemic cardiomyopathy. Would benefit from ACS workup with possible stress test prior to discharge. Once medically stable will start on GDMT for heart failure. Monitor for fluid overload. (9) Hypotension: Improving hypotension. Has been weaning off and so far came off norepinephrine. Continue to monitor blood pressure. With chronic steroid use, continue Solu- Medrol as above. Monitor for risk of hyperglycemia, hypertension, encephalopathy, gastritis with IV steroid. Patient with significant hypotension Continue norepinephrine as needed Excessive fluids the risks secondary to EF of 30%. 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 coli bacteremia: Blood cultures from admission 4 out of 4 bottles positive for E. coli. Repeat blood cultures. Appreciate sensitivities. IV ceftriaxone 2 g daily. Will plan for overall 14-day course of IV antibiotics from first negative blood cultures. Plan Thrombocytopenia: Most likely in setting of severe sepsis. HIT panel negative. DIC panel negative. At bedtime less likely. Monitor daily. Watch for bleeding. Will repeat LDH and haptoglobin. CODE STATUS: Again discussed in detail with patient's at bedside. Patient is DNR/DNI. NPO. Protonix for PUD prophylaxis. SCD for DVT prophylaxis. Not on medical prophylaxis given severe thrombocytopenia. Attestations 2 Medical Necessity Statement*: Requires further hospitalization for management of acute on chronic hypoxic and hypercapnic respiratory failure as patient remains BiPAP dependent, E. coli bacteremia in setting of colitis, acute kidney injury, thrombocytopenia, pulmonary embolism. Critical Care Time: The high probability of a clinically significant, sudden or life threatening deterioration of the patient's [cardiac, pulmonary, renal, neurological, hematological] system(s) required my full and direct attention, intervention and personal management. The critical care time is as shown. This time is in addition to time spent performing any reported procedures but includes the following: [x] Data and vital sign review and interpretation [x] Patient assessment, examination and intervention [x] Documentation [x] Medication orders and management Critical Care Time (min): 90 Coding Level of Care Code Critical Care >/= 30 minutes Critical care time (in minutes): 90 The high probability of a clinically significant, sudden or life threatening deterioration, as referenced in this documentation, required my full and direct attention, intervention and personal management. The critical care time shown is in addition to time spent performing any reported separately billable procedures and includes the following: [x] Data and vital sign review and interpretation [x ] Patient assessment, examination and intervention [x] Medication orders and management [x] Patient/Family updates as able [x] Care Coordination and Documentation. Other Coding Information This patient has a high probability of clinically significant, sudden or life threatening deterioration of the patient's (neurological/pulmonary/cardiac/renal/ID/endocrine) systems required my full, direct attention, the highest level of physician preparedness for urgent intervention and personal management. I managed/supervised life or organ supporting interventions that required frequent physician assessment. I devoted my full attention in the ICU to the direct care of this patient for the period of time indicated above. Time I spent with family or surrogate(s) is included only if the patient was incapable of providing necessary information or participating in decision making. This time includes the following services provided: Telemetry review Nonmechanical ventilation Hemodynamic interpretation, assessment and management Review and interpretation of CXR Review and interpretation of lab values Review and interpretation of microbiologic data and culture results Review of medications and administration Review and interpretation of Nutrition requirements and management Discussion of management with other consultants and services Clinical update to family members Diagnoses Acute respiratory failure with hypoxia and hypercapnia J96.01; J96.02 Acute kidney injury N17.9 COPD with acute exacerbation J44.1 Pulmonary emboli I26.99 Atrial fibrillation with RVR I48.91 Abdominal pain R10.9 NSTEMI (non-ST elevated myocardial infarction) I21.4 Cardiomyopathy I42.9 Hypotension I95.9 WPW (Dbwcq-Vxksltrlb-Jpmgv syndrome) I45.6 E. coli bacteremia R78.81; B96.20
[2024-08-30 17:53] LABS: Lactate Dehydrogenase 519 U/L (135-214)
[2024-08-30 18:22] LABS: ABG PCO2 52.6 mmHg (35-45); ABG PH Result 7.37 (7.35-7.45); Alveolar-Arterial Oxygen Gradi 9.7 mmHg (5-10); Arterial Blood Gas Hematocrit 35.8 % (37-47); Base Excess ABG 4.4 mmol/L (-2.0-2.0); Blood Gas Allen Test Pos; Blood Gas Operator Identificat GD; Blood Gas Sample Site Radial, left; Blood Gas Sample Type Arterial; Carboxyhemoglobin 0.8 %THgb (0.4-20.1); HCO3 ABG 30.7 mmol/L (22-26); HGB O2 Sat 93.8 % (95-100); Ionized Calcium Level - ABG 1.2 mmol/L (1.1-1.4); Oxygen Device AMBU; Oxygen Saturation ABG 95.5; PO2 ABG 77.1 mmHg (80.0-100.0); PO2 FiO2 Ratio Arterial Blood 257; Potassium Level - ABG 3.8 mmol/L (3.5-5.0); Total Hemoglobin 11.7 g/dL (12-16)
[2024-08-30 18:46] LABS: LAB Peripheral Smear Sent for Review
[2024-08-30] MEDS: morphine 4 mg/mL SDV 1 mL 1 MG IVP (23:46)
[2024-08-31] VITALS (79 sets, daily range): BP systolic 117–187; BP diastolic 63–122; PULSE 87–147; RESP 10–30; TEMP 36.2–36.9; O2SAT 79–100
[2024-08-31] MEDS: dextrose 5% 1,000 ML 75 ML IV (00:21)
[2024-08-31] MEDS: digoxin 250 mcg/ml INJ 2 mL IVP (00:57)
[2024-08-31] MEDS: pantoprazole 40 mg SDV IVP ×2 (01:55→13:46)
[2024-08-31] MEDS: metoprolol tartrate 1 mg/1 mL SDV 5 mL 2.5 MG IVP ×6 (01:55→21:36)
[2024-08-31] MEDS: levalbuterol 0.63 mg/3 mL Neb INHALATION ×4 (02:35→20:47)
[2024-08-31] MEDS: ipratropium 0.5 mg/2.5 mL Neb INHALATION ×4 (02:35→20:47)
[2024-08-31] MEDS: dexmedeTOMIDine 0.9 % NaCL 400 MCG/100 ML PREMIX 6.26 MCG IV (02:36)
[2024-08-31] MEDS: LORazepam 2 mg/mL INJ 1 mL 0.5 MG IVP (03:26)
[2024-08-31 04:52] LABS: Basophils # 0.1 10^3/uL (0.0-0.1); Basophils % 0.5 %; Hematocrit 36.7 % (36-47); Lymphocytes # 1.1 10^3/uL (0.8-4.8); Lymphocytes % 4.3 %; Mean Corpuscular HGB Conc 31.1 g/dL (30-55); Mean Corpuscular Hemoglobin 29.1 pg (27-33); Mean Corpuscular Volume 93.6 fl (85-98); Mean Platelet Volume 13.8 fL (7.4-10.4); Monocytes # 1.2 10^3/uL (0.2-0.9); Monocytes % 4.5 %; Neutrophils # 22.74 10^3/uL (1.8-7.7); Neutrophils % 89.9 %; Nucleated Red Blood Cells # 0.1 /100WBC; Nucleated Red Blood Cells % 0.5 %; Platelet Count 59 10^3/cmm (157-399); Positive M 1; Red Blood Count 3.92 10^6/uL (3.85-5.65); Red Cell Distribution Width 14.1 % (12.1-15.1); White Blood Count 25.31 10^3/uL (3.29-11.43)
[2024-08-31 05:08] LABS: ABG PCO2 54.6 mmHg (35-45); ABG PH Result 7.38 (7.35-7.45); Alveolar-Arterial Oxygen Gradi 10.4 mmHg (5-10); Arterial Blood Gas Hematocrit 35.1 % (37-47); Base Excess ABG 6.2 mmol/L (-2.0-2.0); Blood Gas Operator Identificat SAM; Blood Gas Sample Site Brachial, right; Blood Gas Sample Type Arterial; Carboxyhemoglobin 0.9 %THgb (0.4-20.1); HCO3 ABG 32.6 mmol/L (22-26); HGB O2 Sat 92.6 % (95-100); Ionized Calcium Level - ABG 1.2 mmol/L (1.1-1.4); Methemoglobin 0.2 % (0.4-1.5); Oxygen Device BIPAP; Oxygen Saturation ABG 93.7; PO2 ABG 70.3 mmHg (80.0-100.0); PO2 FiO2 Ratio Arterial Blood 234; Potassium Level - ABG 3.8 mmol/L (3.5-5.0); Total Hemoglobin 11.4 g/dL (12-16)
[2024-08-31 05:14] LABS: Magnesium 2.5 mg/dL (1.7-2.3); Phosphorus 3.8 mg/dL (2.5-4.5)
[2024-08-31 05:20] LABS: Alanine Aminotransferase 159 U/L (0-33); Albumin Level 2.9 g/dL (3.5-5.2); Alkaline Phosphatase 132 U/L (35-105); Anion Gap 13.1 (5-19); Aspartate Amino Transferase 109 U/L (0-32); Blood Urea Nitrogen 63 mg/dL (8-23); Calcium 8.5 mg/dL (8.5-10.5); Carbon Dioxide 31 mmol/L (22-29); Chloride 110 mmol/L (98-107); Creatinine Clr Calc Pharmacy 48.7654; Globulin 2.3 g/dL (1.3-4.6); Glucose 178 mg/dL (65-115); Osmolality Calculated 332 mOsm/kg (285-295); Potassium 4.1 mmol/L (3.5-5.1); Sodium 150 mmol/L (136-145); Total Bilirubin 0.3 mg/dL (0.15-1.2); Total Protein 5.2 g/dL (6.6-8.7)
[2024-08-31] MEDS: methylPREDNISolone sod succ 40 mg/mL INJ 30 MG IVP ×4 (05:33→22:50)
[2024-08-31] MEDS: digoxin 250 mcg/ml INJ 2 mL 125 MCG IVP ×2 (06:16→13:42)
[2024-08-31] MEDS: budesonide 0.5 mg/2 mL Neb INHALATION ×2 (07:59→20:47)
--- NOTE | 2024-08-31 08:14 | PM.PN ---
Subjective Subjective: remains on bipap- sob, minimally interactive Medications: Reviewed: Yes Medication Review Details: Current Medications Acetaminophen (Acetaminophen 325 Mg Tablet) 650 mg PO Q6H PRN PRN Reason: MILD PAIN Aspirin (Aspirin 81 Mg Ec Tablet) 81 mg PO DAILY GRAHAM Last Admin: 08/26/24 09:09 Dose: Not Given Atorvastatin Calcium (Atorvastatin 40 Mg Tablet) 20 mg PO BEDTIME GRAHAM Last Admin: 08/30/24 20:43 Dose: Not Given Budesonide (Budesonide 0.5 Mg/2 Ml Neb) 0.5 mg INHALATION BID.RESPIRATORY G[facility]HAM Last Admin: 08/31/24 07:59 Dose: 0.5 mg Ceftriaxone Sodium (Ceftriaxone 2,000 Mg Sdv) 2,000 mg IVP Q24H G[facility]; Protocol Last Admin: 08/30/24 11:30 Dose: 2,000 mg Digoxin (Digoxin 250 Mcg/Ml Inj 2 Ml) 125 mcg IVP Q6H GRAAHM Stop: 08/31/24 13:01 Last Admin: 08/31/24 06:16 Dose: 125 mcg Docusate Sodium (Docusate Sodium 100 Mg Capsule) 100 mg PO BID G[facility] Last Admin: 08/30/24 17:01 Dose: Not Given Duloxetine HCl (Duloxetine 60 Mg Capsule) 60 mg PO DAILY GRAHAM Last Admin: 08/30/24 07:26 Dose: Not Given Dexmedetomidine/Sodium Chloride (Precedex) 400 mcg in 100 mls @ 0 mls/hr IV .Q0M G[facility]; Protocol Last Admin: 08/31/24 02:36 Dose: 0.3 mcg/kg/hr, 6.26 mls/hr Amiodarone HCl/Dextrose (Nexterone) 360 mg in 200 mls @ 0 mls/hr IV .Q0M G[facility]HAM; Protocol Last Admin: 08/30/24 21:18 Dose: 0.5 mg/min, 16.67 mls/hr Dextrose (D5w) 1,000 mls @ 75 mls/hr IV .[id number] [facility] Last Admin: 08/31/24 00:21 Dose: 75 mls/hr Ipratropium [place] (Ipratropium 0.5 Mg/2.5 Ml Neb) 0.5 mg INHALATION Q6H.RESP [facility] Last Admin: 08/31/24 07:59 Dose: 0.5 mg Lanolin (Lanolin Oint 7 Gm) 1 applic TOPICAL PRN PRN PRN Reason: DRYNESS Last Admin: 08/28/24 15:08 Dose: 1 applic Levalbuterol HCl (Levalbuterol 0.63 Mg/3 Ml Neb) 0.63 mg INHALATION Q6H.RESP [facility] Last Admin: 08/31/24 07:59 Dose: 0.63 mg Lidocaine (Lidocaine 5% Patch) 1 patch TOPICAL [id number] [facility] Last Admin: 08/30/24 22:04 Dose: Not Given Lorazepam (Lorazepam 2 Mg/Ml Inj 1 Ml) 0.5 mg IVP Q4H PRN PRN Reason: ANXIETY Last Admin: 08/31/24 03:26 Dose: 0.5 mg Methylprednisolone Sodium Succinate (Methylprednisolone Sod Succ 40 Mg/Ml Inj) 30 mg IVP Q6H [facility] Last Admin: 08/31/24 05:33 Dose: 30 mg Metoprolol Tartrate (Metoprolol Tartrate 1 Mg/1 Ml Sdv 5 Ml) 2.5 mg IVP Q4H [facility] Last Admin: 08/31/24 05:34 Dose: 2.5 mg Morphine Sulfate (Morphine 4 Mg/Ml Sdv 1 Ml) 2 mg IVP Q4H PRN PRN Reason: SEVERE PAIN Ondansetron HCl (Ondansetron 2 Mg/Ml Sdv 2 Ml) 4 mg IVP Q6H PRN PRN Reason: NAUSEA AND VOMITING Pantoprazole Sodium (Pantoprazole 40 Mg Sdv) 40 mg IVP Q12H [facility] Last Admin: 08/31/24 01:55 Dose: 40 mg Senna (Sennosides 8.6 Mg Tablet) 17.2 mg PO BEDTIME [facility] Last Admin: 08/30/24 20:43 Dose: Not Given Vitals/I&O/Wt Last Vital Signs Temp 98.1 F 08/31/24 04:00 Pulse 124 H 08/31/24 08:11 Resp 18 08/31/24 08:00 BP 160/92 08/31/24 06:30 Pulse Ox 93 08/31/24 08:00 O2 Del Method BiPAP 08/31/24 08:00 O2 Flow Rate 4 08/30/24 14:00 FiO2 30 08/31/24 08:00 08/30/24 08/31/24 08/31/24 22:59 06:59 14:59 Intake Total 369.231 / 1667.466 1599 / 2627.022 Output Total 450 / 1000 999 / 1999 Balance -80.769 / 627.022 0 / 627.022 Physical Exam Narrative: afebrile + BIPAP, amio drip vs noted- a fib and tachy good uop heent- ncat neck supple lungs -dull bases b/l heart irreg irreg, + s1, s2 abd soft, NT, ND, + bs ext - no 4 extremity edema neuro- responds to pain Urinary Catheter Management: Naidu: Cath Placed During This Visit: yes Reason for Continuing Indwelling Catheter: Accurate Measurement of Urinary Output in Critically Ill Patients Urinary Catheter Date of Insertion: 08/25/24 Urinary Catheter Time of Insertion: 11:34 Data 08/31/24 03:56 08/31/24 03:56 Micro: Microbiology 08/30/24 13:28 Blood Culture - Preliminary Blood SPECIMEN COLLECTED 08/30/24 11:29 Blood Culture - Preliminary Blood SPECIMEN COLLECTED A&P Assessment and plan (1) Acute kidney injury: Plan 73-year-old lady 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 Patient has history of Qqbhm-Kaqwskrgj-Kqplr. History of abdominal issues. Patient is here now with diverticulitis, heart failure reduced EF, acute kidney injury. CT scan showed diverticulitis and also CT with contrast showed multiple small pulmonary embolisms low thrombus burden. -e. coli bacteremia- pino sensitive- renal dose abx wbc improving 1. samuel- no hydronephrosis on imaging. -renal fxn improving - low ur sodium is c/w prerenal azotemia. ur microalbumin 174, and ur pr: cr= 73/ 116 -good uop off of lasix ck improved to 764 low c3 of 69. normal c4 metabolic acidosis- from lactic acidosis and SAMUEL -improved 2. hypernatremia- give D5W ivf. attempt free water by mouth 3. thrombocytopenia- plts improved from 20 to 59 4. shocked liver- ast/ alt mild increase 5. HFrEF - EF of 35% and a fib- normalize k discussed w/ RN and pts The patient was seen and examined with the aid of a nurse using audiovisual equipment telehealth visit. The patient consented to telehealth. I discussed the case with the patient's family who consents to dialysis if needed. Patient may need dialysis soon. Attestations Medical Necessity Statement*: bipap dependent, hypernatremia Time Spent in Patient Care: 16 - 35 minutes (>than 50% of time spent in counselling and/or direct pt care on unit). Coding Level of Care Code Acute Code for Chg Fwd Diagnoses Acute kidney injury N17.9
[2024-08-31] MEDS: dextrose 5% 1,000 ML 100 ML IV ×2 (08:28→23:42)
--- NOTE | 2024-08-31 08:39 | PC.NURSE ---
Unable to get SPO2 measurement. Multiple attempts to get a reading were attempted in different areas of the body but monitoring was not obtained. Respiratory therapist unable to either.
--- NOTE | 2024-08-31 10:14 | P.PN_ITS ---
<Statement entered by Nikita Whitehead M.D - 08/31/24 21:47> Patient was evaluated and cared for in conjunction with an advanced practice practitioner. I reviewed the chart and all pertinent data including imaging, telemetry, and laboratory results. I discussed the patient in detail with the advanced practice practitioner. Please see their note for complete progress note, results and agreed upon plan of care for the patient. Subjective 2 Subjective: She is minimally interactive, still on Precedex. She is having more ventricular ectopy today, in the form of single PVC's and couplets. She is still on amiodarone 0.5mg IV, received one dose of digoxin so far with another dose ordered for later today, currently on metoprolol 2.5mg IV. Creatinine improved to 1.1 today, WBC up to 25 from 17 yesterday. Platelet count improved to 59. Per nephrology, Lasix discontinued, urine output good this morning. Vitals/I&O/Wt Last Vital Signs Temp 97.1 F L 08/31/24 08:30 Pulse 120 H 08/31/24 08:30 Resp 20 H 08/31/24 08:30 BP 181/93 08/31/24 08:30 Pulse Ox 93 08/31/24 08:00 O2 Del Method BiPAP 08/31/24 08:00 O2 Flow Rate 4 08/30/24 14:00 FiO2 30 08/31/24 08:00 08/30/24 08/31/24 08/31/24 22:59 06:59 14:59 Intake Total 369.231 / 2627.022 1000 / 2627.022 185.871 / 185.871 Output Total 450 / 2000 1000 / 1999 350 / 350 Balance -80.769 / 627.022 0 / 627.022 -164.129 / -164.129 Physical Exam 2 Const: COMMON NORMALS: no acute distress GENERAL APPEARANCE: cooperative and comfortable ORIENTATION/CONSCIOUSNESS: Yes oriented to person and Yes Other orientation findings (sedated) Chest: COMMONS NORMALS: normal inspection of the chest and normal palpation of entire chest wall CHEST: Yes Symmetrical chest wall rise Resp: COMMON NORMALS: normal respiratory effort, No retractions, No use of accessory muscles and clear to auscultation bilaterally EFFORT & INSPECTION: Yes symmetric chest movement AUSCULTATION: clear to auscultation bilaterally Cardio: COMMON NORMALS: regular rate, S1 normal heart sound present, S2 normal heart sound present, No gallops present (Cardio), No clicks present (Cardio), No murmurs present (Cardio) and No rub (Cardio) RATE: regular rate RHYTHM: a bnormal rhythm with ectopic beats (PVC's and couplets) HEART SOUNDS: S1 normal heart sound present and S2 normal heart sound present PERIPHERAL PULSES: radial pulses present, popliteal pulses present and posterior tibial pulses present Extremity: GENERAL: Yes edema (1+ pitting edema bilat below knees) Neuro: COMMON NORMALS: moves all extremities SENSORIUM/ORIENTATION: Yes oriented to person and Yes other (not following commands ) Urinary Catheter Management: Naidu: Cath Placed During This Visit: yes Reason for Continuing Indwelling Catheter: Accurate Measurement of Urinary Output in Critically Ill Patients Urinary Catheter Date of Insertion: 08/25/24 Urinary Catheter Time of Insertion: 11:34 Data 08/31/24 03:56 08/31/24 03:56 Micro: Microbiology 08/30/24 13:28 Blood Culture - Preliminary Blood SPECIMEN COLLECTED 08/30/24 11:29 Blood Culture - Preliminary Blood SPECIMEN COLLECTED A&P Assessment and plan (1) Hypertension: Qualifiers: Hypertension type: primary hypertension Qualified Code(s): I10 - Essential (primary) hypertension (2) Atrial fibrillation: Qualifiers: Atrial fibrillation type: unspecified Qualified Code(s): I48.91 - Unspecified atrial fibrillation (3) NSTEMI (non-ST elevated myocardial infarction): (4) Pulmonary emboli: Plan She is stable. Continue amiodarone, may uptitrate metoprolol as blood pressure has improved. Renal function improved, can consider GDMT for heart failure. Continue to hold antiplatelet and anticoagulant due to thrombocytopenia. Attestations 2 Medical Necessity Statement*: per hospitalist team Coding Level of Care Code Acute Code for [facility] Fwd Diagnoses Primary hypertension I10 Hypertension type: primary hypertension Atrial fibrillation, unspecified type I48.91 Atrial fibrillation type: unspecified NSTEMI (non-ST elevated myocardial infarction) I21.4 Pulmonary emboli I26.99
[2024-08-31] MEDS: lidocaine 5% Patch 1 PATCH TOPICAL ×2 (10:39→22:23)
[2024-08-31] MEDS: morphine 4 mg/mL SDV 1 mL 2 MG IVP ×2 (11:24→15:44)
[2024-08-31] MEDS: cefTRIAXone 2,000 mg SDV 2000 MG IVP (11:24)
[2024-08-31 11:26] LABS: Glucose Point of Care 73 mg/dL (70-110)
[2024-08-31] MEDS: AA-Dex 8%-10% w/ lytes 1,000 ML with multivitamin inj 10 ML 12 ML IV (13:03)
[2024-08-31] MEDS: gabapentin 100 mg Capsule PO (13:54)
--- NOTE | 2024-08-31 15:46 | P.PN_ITS ---
Subjective 2 Subjective: No acute events overnight. Today morning seen with spouse at bedside. Patient is slightly more awake today. Not somnolent. Moaning during examination. Later in the day was slightly more awake and able to follow some directions. Was able to get off BiPAP and transition over to heated high flow. Heart rate overnight was again elevated. Blood pressure is elevated. Vitals/I&O/Wt Last Vital Signs Temp 98.1 F 08/31/24 11:22 Pulse 104 H 08/31/24 15:05 Resp 20 H 08/31/24 15:44 BP 184/86 08/31/24 14:00 Pulse Ox 95 08/31/24 15:44 O2 Del Method Heated High Flow 08/31/24 14:00 O2 Flow Rate 55 08/31/24 15:05 FiO2 35 08/31/24 15:05 08/31/24 08/31/24 08/31/24 06:59 14:59 22:59 Intake Total 1000 / 2627.022 1016.053 / 1016.053 Output Total 1000 / 1999 600 / 600 Balance 0 / 627.022 416.053 / 416.053 Physical Exam 2 Narrative: General: No acute distress, somnolent, E2 M2V1 HEENT: PERRLA, pupils bilaterally equal and reactive Chest: Better bronchial sounds all over lung curtis with occasional rhonchi CVS: S1-S2 irregularly irregular, tachycardia, no gallops, no rubs Abdomen: Soft, nontender, no organomegaly, bowel sounds present Neuro: No focal deficits, no facial deformity, AO x3, power 5/5 in all limbs Urinary Catheter Management: Naidu: Cath Placed During This Visit: yes Reason for Continuing Indwelling Catheter: Accurate Measurement of Urinary Output in Critically Ill Patients Urinary Catheter Date of Insertion: 08/25/24 Urinary Catheter Time of Insertion: 11:34 Data 08/31/24 03:56 08/31/24 03:56 Micro: Microbiology 08/30/24 13:28 Blood Culture - Preliminary Blood NEGATIVE TO DATE 08/30/24 11:29 Blood Culture - Preliminary Blood NEGATIVE TO DATE A&P Assessment and plan (1) Acute respiratory failure with hypoxia and hypercapnia: In setting of COPD exacerbation. Along with concerns for pulmonary embolism. Low concerns for diastolic heart failure for now. Continue with Solu-Medrol 30 mg every 6 hourly. Switch to ipratropium, Xopenex every 4 hour, continue with Pulmicort twice daily. Remains dependent on BiPAP. Currently on AVAPS. Plan to wean the Precedex today to get patient more awake and possibly try of BiPAP. Wean oxygen supplementation keeping saturation over 88%. (2) Acute kidney injury: Associated with hyponatremia, hypokalemia, uremia. Nephrology on board. Hold off on diuresis. Patient clinically slightly dehydrated. IV fluids at 75 cc/h. Does have hypernatremia today. D5 half versus D5 as per nephrology. Monitor urine output. Medical reconciliation done for nephrotoxic drugs. Repeat BMP in afternoon. Replace potassium with 40 mg orally. Check CPK-MB. Appreciate CT abdomen pelvis for no obstructive nephropathy. (3) E. coli bacteremia: Blood cultures from admission 4 out of 4 bottles positive for E. coli. Repeat blood cultures. Appreciate sensitivities. IV ceftriaxone 2 g daily. Will plan for overall 14-day course of IV antibiotics from first negative blood cultures. (4) Colitis: (5) COPD with acute exacerbation: Has severe underlying COPD, with FEV1 around 30% greater than 5 years ago. Typically on 2 to 3 L of oxygen. This has been very severely limiting for her and she could not exert herself more than a small amount of time before stopping to rest. MRSA PCR negative. With underlying hypotension, infection is possible. Note that RSV, COVID, influenza were negative. (6) Pulmonary emboli: No concerns for right-sided heart failure. Not on anticoagulation because of severe thrombocytopenia. DIC profile appreciated. HIT panel negative. No evidence of hemolysis currently has bilirubin normal, hemoglobin relatively stable, LDH not extremely high, AST improving. (7) Uncontrolled hypertension: (8) Atrial fibrillation with RVR: With history of WPW post ablation. Currently on amiodarone drip of 0.5. Not able to transition to oral as patient remains somnolent. Blood pressures are better. Mean artery pressure have been maintained over 65. Start on IV metoprolol 2.5 every 6. To be held for heart rate of less than 90 bpm for systolic blood pressure of less than 110 mmHg. Will uptitrate metoprolol depending on the blood pressures. (9) Abdominal pain: Concerns for colitis on admission. Associated with E. coli bacteremia. Most likely translocation. Monitor bowel movements. (10) NSTEMI (non-ST elevated myocardial infarction): Patient has a positive delta troponin Cannot rule out concomitant non-ST elevation myocardial infarction Heparin discontinued for now secondary to significant decrease in platelets Holding off on aspirin given severe thrombocytopenia. Initiating beta-cali as above. Echocardiogram shows EF of 30 35% moderate global LV [place]o, mild MR. Patient would benefit with ACS workup with possible stress test prior to discharge once improved clinically. Cardiology consultation appreciated. (11) Cardiomyopathy: EF of 30 to 45%. Global LV hypokinesia. Mild MR. High likelihood of ischemic cardiomyopathy. Would benefit from ACS workup with possible stress test prior to discharge. Once medically stable will start on GDMT for heart failure. Monitor for fluid overload. (12) Hypotension: Improving hypotension. Has been weaning off and so far came off norepinephrine. Continue to monitor blood pressure. With chronic steroid use, continue Solu- Medrol as above. Monitor for risk of hyperglycemia, hypertension, encephalopathy, gastritis with IV steroid. Patient with significant hypotension Continue norepinephrine as needed Excessive fluids the risks secondary to EF of 30%. 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 HIT panel negative. DIC panel negative. At bedtime less likely. Monitor daily. Watch for bleeding. Will repeat LDH and haptoglobin. CODE STATUS: Again discussed in detail with patient's at bedside. Patient is DNR/DNI. NPO. Protonix for PUD prophylaxis. SCD for DVT prophylaxis. Not on medical prophylaxis given severe thrombocytopenia. Plan for the day: Plan to wean Precedex off. If patient is more awake transition over to heated high flow keeping saturation over 88%. BiPAP nightly or as needed. Repeat ABG in AM. Wean Solu-Medrol to 30 mg Q8 hourly. Undergoing digoxin load. Check digoxin levels in the evening. Continue with metoprolol 2.5 mg every 4 hour. Target heart rate below 100. Depending on the digoxin levels will plan to increase metoprolol accordingly. Blood pressure is elevated. Goal blood pressure less than 140/90 mmHg. As per patient is not on pain medication as an outpatient. She was discharged on morphine oral for air hunger back in summer which she does not use very frequently. Discussed with it seems that patient is withdrawing from pain medications as she is generally tachycardic and hypertensive. Start on clonidine patch 0.1. Change to Dilaudid 0.5 every 4 hour as needed for pain. Add gabapentin 100 mg oral 3 times daily if patient is able to take orally. Hydralazine 10 mg every 4 hours as needed for systolic blood pressure of more than 160 mmHg. Speech evaluation, physical therapy. Continue with IV ceftriaxone 2 g daily. Follow-up with repeat blood cultures. SAMUEL resolving. Uremia improving. Continues to have worsening hypernatremia. Switch to D5W as per nephrology recommendations. Repeat BMP in afternoon. Patient has been nothing by mouth for over a week now. Start on TPN. Attestations 2 Medical Necessity Statement*: Requires further hospitalization for management of respiratory failure as patient is AVAPS dependent, acute kidney injury, hypernatremia, poor oral intake, A-fib with RVR, uncontrolled hypertension Critical Care Time: The high probability of a clinically significant, sudden or life threatening deterioration of the patient's [cardiac, pulmonary, renal] system(s) required my full and direct attention, intervention and personal management. The critical care time is as shown. This time is in addition to time spent performing any reported procedures but includes the following: [x] Data and vital sign review and interpretation [x] Patient assessment, examination and intervention [x] Documentation [x] Medication orders and management Critical Care Time (min): 90 Coding Level of Care Code Critical Care >/= 30 minutes Critical care time (in minutes): 90 The high probability of a clinically significant, sudden or life threatening deterioration, as referenced in this documentation, required my full and direct attention, intervention and personal management. The critical care time shown is in addition to time spent performing any reported separately billable procedures and includes the following: [x] Data and vital sign review and interpretation [x ] Patient assessment, examination and intervention [x] Medication orders and management [x] Patient/Family updates as able [x] Care Coordination and Documentation. Other Coding Information This patient has a high probability of clinically significant, sudden or life threatening deterioration of the patient's (neurological/pulmonary/cardiac/renal/ID/endocrine) systems required my full, direct attention, the highest level of physician preparedness for urgent intervention and personal management. I managed/supervised life or organ supporting interventions that required frequent physician assessment. I devoted my full attention in the ICU to the direct care of this patient for the period of time indicated above. Time I spent with family or surrogate(s) is included only if the patient was incapable of providing necessary information or participating in decision making. This time includes the following services provided: Telemetry review Nonmechanical Ventilation Hemodynamic interpretation, assessment and management Review and interpretation of CXR Review and interpretation of lab values Review and interpretation of microbiologic data and culture results Review of medications and administration Review and interpretation of Nutrition requirements and management Discussion of management with other consultants and services Clinical update to family members Diagnoses Acute respiratory failure with hypoxia and hypercapnia J96.01; J96.02 Acute kidney injury N17.9 E. coli bacteremia R78.81; B96.20 Colitis K52.9 COPD with acute exacerbation J44.1 Pulmonary emboli I26.99 Uncontrolled hypertension I10 Atrial fibrillation with RVR I48.91 Abdominal pain R10.9 NSTEMI (non-ST elevated myocardial infarction) I21.4 Cardiomyopathy I42.9 Hypotension I95.9 WPW (Ibhea-Tdkaafnot-Azulh syndrome) I45.6
[2024-08-31] MEDS: metoprolol tartrate 1 mg/1 mL SDV 5 mL 5 MG IVP (16:11)
[2024-08-31] MEDS: cloNIDine 0.1 mg/24 hr Patch 1 PATCH TRANSDERMA (16:22)
[2024-08-31 17:18] LABS: Blood Urea Nitrogen 54 mg/dL (8-23); Calcium 8.5 mg/dL (8.5-10.5); Carbon Dioxide 32 mmol/L (22-29); Chloride 107 mmol/L (98-107); Creatinine Clr Calc Pharmacy 59.6021; Glucose 172 mg/dL (65-115); Osmolality Calculated 319 mOsm/kg (285-295); Sodium 145 mmol/L (136-145)
[2024-08-31 17:20] LABS: Digoxin 2.1 ng/mL (0.6-1.2)
--- NOTE | 2024-08-31 17:24 | PC.SLP ---
SECONDARY SCHOOL PRINCIPAL attempted to work with the patient. The patient was not able to provide her name with multimodal cueing. She was unable to provide her birthdate. The patient was not able to participate in other therapy tasks. SECONDARY SCHOOL PRINCIPAL will follow up the patient for complete assessment tomorrow, if the patient is able. Per nursing report, the patient is improving in responsiveness and alertness.
[2024-08-31] MEDS: HYDROmorphone 1 mg/mL INJ 1 mL 0.4 MG IVP (17:42)
[2024-08-31 19:49] LABS: Digoxin 1.2 ng/mL (0.6-1.2)
[2024-08-31] MEDS: glucagon 1 mg/mL KIT 1 mL IM (22:59)
[2024-08-31 23:25] LABS: Glucose Point of Care 47 mg/dL (70-110)
[2024-08-31 23:25] LABS: Glucose Point of Care 56 mg/dL (70-110)
[2024-08-31] MEDS: hydrocortisone 100 mg/2 mL SDV IVP (23:39)
[2024-09-01] VITALS (104 sets, daily range): BP systolic 106–178; BP diastolic 69–114; PULSE 55–147; RESP 10–32; TEMP 36.5–37.4; O2SAT 80–100
[2024-09-01 00:06] LABS: Glucose Point of Care 68 mg/dL (70-110)
[2024-09-01] MEDS: HYDROmorphone 1 mg/mL INJ 1 mL 0.4 MG IVP ×4 (00:11→23:03)
--- NOTE | 2024-09-01 00:51 | PC.NURSE ---
Hypoglycemia: Patient's blood sugar was 56, Dr. Castaneda was contacted and gave an order for IM glucagon. Patient's blood sugar was rechecked 15 minutes after administration and was 47. Dr. Castaneda was again notified and gave an order for 100mg IV hydrocortisone. Patient's blood sugar is now 68.
[2024-09-01] MEDS: pantoprazole 40 mg SDV IVP ×2 (01:29→14:05)
[2024-09-01] MEDS: metoprolol tartrate 1 mg/1 mL SDV 5 mL 2.5 MG IVP ×2 (01:29→06:27)
[2024-09-01 01:30] LABS: Glucose Point of Care 173 mg/dL (70-110)
[2024-09-01] MEDS: levalbuterol 0.63 mg/3 mL Neb INHALATION ×4 (01:46→20:58)
[2024-09-01] MEDS: ipratropium 0.5 mg/2.5 mL Neb INHALATION ×4 (01:46→20:58)
[2024-09-01 05:13] LABS: Basophils % 0.2 %; Hematocrit 36.9 % (36-47); Lymphocytes # 0.3 10^3/uL (0.8-4.8); Mean Corpuscular HGB Conc 30.6 g/dL (30-55); Mean Corpuscular Hemoglobin 28.5 pg (27-33); Mean Corpuscular Volume 93.2 fl (85-98); Monocytes % 3.9 %; Neutrophils # 24.51 10^3/uL (1.8-7.7); Neutrophils % 94.2 %; Nucleated Red Blood Cells # 0.1 /100WBC; Nucleated Red Blood Cells % 0.3 %; Platelet Count 102 10^3/cmm (157-399); Red Blood Count 3.96 10^6/uL (3.85-5.65); Red Cell Distribution Width 13.6 % (12.1-15.1); White Blood Count 26.01 10^3/uL (3.29-11.43)
[2024-09-01 05:25] LABS: ABG PCO2 51.6 mmHg (35-45); ABG PH Result 7.43 (7.35-7.45); Alveolar-Arterial Oxygen Gradi 11.4 mmHg (5-10); Arterial Blood Gas Hematocrit 35.3 % (37-47); Base Excess ABG 8.8 mmol/L (-2.0-2.0); Blood Gas Allen Test Pos; Blood Gas Operator Identificat SAM; Blood Gas Sample Site Radial, right; Blood Gas Sample Type Arterial; HCO3 ABG 34.4 mmol/L (22-26); HGB O2 Sat 91.9 % (95-100); Ionized Calcium Level - ABG 1.2 mmol/L (1.1-1.4); Methemoglobin 1.1 % (0.4-1.5); Oxygen Device BIPAP; Oxygen Saturation ABG 93.8; PO2 ABG 66.1 mmHg (80.0-100.0); PO2 FiO2 Ratio Arterial Blood 220; Potassium Level - ABG 3.7 mmol/L (3.5-5.0); Total Hemoglobin 11.5 g/dL (12-16)
[2024-09-01 05:37] LABS: Phosphorus 2.6 mg/dL (2.5-4.5)
[2024-09-01 05:40] LABS: Alanine Aminotransferase 127 U/L (0-33); Albumin Level 2.8 g/dL (3.5-5.2); Alkaline Phosphatase 146 U/L (35-105); Aspartate Amino Transferase 129 U/L (0-32); Blood Urea Nitrogen 50 mg/dL (8-23); Calcium 8.1 mg/dL (8.5-10.5); Carbon Dioxide 32 mmol/L (22-29); Chloride 103 mmol/L (98-107); Creatinine Clr Calc Pharmacy 67.0524; Glucose 234 mg/dL (65-115); Osmolality Calculated 319 mOsm/kg (285-295); Sodium 144 mmol/L (136-145); Total Bilirubin 0.4 mg/dL (0.15-1.2); Total Protein 4.8 g/dL (6.6-8.7)
[2024-09-01 05:56] LABS: Digoxin 2.3 ng/mL (0.6-1.2)
--- NOTE | 2024-09-01 06:00 | XRR_ITS ---
PROCEDURE INFORMATION: Exam: XR Chest Exam date and time: 09/01/2024 5:42 AM Age: 73 years old Clinical indication: Shortness of breath and wheezing; Additional info: Copd TECHNIQUE: Imaging protocol: Radiologic exam of the chest. Views: 1 view. COMPARISON: CR XR chest 1V portable [id number] 08/30/2024 8:13 AM FINDINGS: Tubes, catheters and devices: Stable right IJ catheter. Lungs: Mild atelectasis or infiltrate at the left lung base is stable. Pleural spaces: Unremarkable. No pleural effusion. No pneumothorax. Heart/Mediastinum: Unremarkable. No cardiomegaly. Bones/joints: Unremarkable. XR/XR chest 1V portable [id number] IMPRESSION: No significant change. Mild stable opacity in the left lower lobe.
[2024-09-01] MEDS: methylPREDNISolone sod succ 40 mg/mL INJ 30 MG IVP ×2 (06:27→18:01)
--- NOTE | 2024-09-01 07:50 | ECG_ITS ---
[facility] Date: 2024-09-01 Pat Name: Ksenia Phan Department: Room: [facility] Gender: Female Register Of Wills: : 1950 Requested By: Nikita Whitehead Order Number: [id number] Gordon MD: Bill Tello M.D. Measurements Intervals [place] Rate: 144 P: 0 [place]: 0 QRS: 83 QRSD: 101 T: 261 QT: 278 QTc: 431 Interpretive Statements possible sinus tachycardia with PVCs heavy baseline artifact need to repeat the study Electronically Signed On 09-01-2024 17:27:43 ASSISTANT IMPORT MANAGER by Bill Tello M.D. [email or web address]
--- NOTE | 2024-09-01 08:06 | PM.PN ---
Subjective Subjective: moaning. denies pain. on hi flow 02. no cp or nausea. + palps. Medications: Reviewed: Yes Medication Review Details: Current Medications Acetaminophen (Acetaminophen 325 Mg Tablet) 650 mg PO Q6H PRN PRN Reason: MILD PAIN Hydrocodone Bitart/Acetaminophen (Hydrocodone-Acetaminophen 5-325 Mg Tablet) 1 tab PO Q4H PRN PRN Reason: MODERATE PAIN Aspirin (Aspirin 81 Mg Ec Tablet) 81 mg PO DAILY [facility] Last Admin: 08/26/24 09:09 Dose: Not Given Atorvastatin Calcium (Atorvastatin 40 Mg Tablet) 20 mg PO BEDTIME [facility] Last Admin: 08/31/24 20:24 Dose: Not Given Budesonide (Budesonide 0.5 Mg/2 Ml Neb) 0.5 mg INHALATION BID.RESPIRATORY [facility] Last Admin: 08/31/24 20:47 Dose: 0.5 mg Ceftriaxone Sodium (Ceftriaxone 2,000 Mg Sdv) 2,000 mg IVP Q24H [facility]; Protocol Last Admin: 08/31/24 11:24 Dose: 2,000 mg Clonidine HCl (Clonidine 0.1 Mg/24 Hr Patch) 1 patch TRANSDERMA Q7D [facility] Last Admin: 08/31/24 16:22 Dose: 1 patch Docusate Sodium (Docusate Sodium 100 Mg Capsule) 100 mg PO BID [facility] Last Admin: 09/01/24 08:02 Dose: Not Given Duloxetine HCl (Duloxetine 60 Mg Capsule) 60 mg PO DAILY [facility] Last Admin: 09/01/24 08:02 Dose: Not Given Gabapentin (Gabapentin 100 Mg Capsule) 100 mg PO TID [facility] Last Admin: 09/01/24 08:02 Dose: Not Given Hydralazine HCl (Hydralazine 20 Mg/Ml Inj 1 Ml) 10 mg IVP Q4H PRN PRN Reason: SBP More than 160 mmhg Hydromorphone HCl (Hydromorphone 1 Mg/Ml Inj 1 Ml) 0.4 mg IVP Q4H PRN PRN Reason: Pain scale 6-10 Last Admin: 09/01/24 04:44 Dose: 0.4 mg Dexmedetomidine/Sodium Chloride (Precedex) 400 mcg in 100 mls @ 0 mls/hr IV .Q0M [facility]; Protocol Last Titration: 08/31/24 14:38 Dose: 0 mcg/kg/hr, 0 mls/hr Amiodarone HCl/Dextrose (Nexterone) 360 mg in 200 mls @ 0 mls/hr IV .Q0M [facility]; Protocol Last Admin: 09/01/24 08:02 Dose: 0.5 mg/min, 16.67 mls/hr Dextrose (D5w) 1,000 mls @ 60 mls/hr IV .[id number] [facility] Last Admin: 08/31/24 23:42 Dose: 100 mls/hr Multivitamins 10 ml/ Amino (Acids/Electrolytes/Dextrose) 1,010 mls @ 42 mls/hr IV .Q24H [facility]; Protocol Last Infusion: 09/01/24 01:22 Dose: 42 mls/hr Ipratropium [place] (Ipratropium 0.5 Mg/2.5 Ml Neb) 0.5 mg INHALATION Q6H.RESP [facility] Last Admin: 09/01/24 01:46 Dose: 0.5 mg Lanolin (Lanolin Oint 7 Gm) 1 applic TOPICAL PRN PRN PRN Reason: DRYNESS Last Admin: 08/28/24 15:08 Dose: 1 applic Levalbuterol HCl (Levalbuterol 0.63 Mg/3 Ml Neb) 0.63 mg INHALATION Q6H.RESP [facility] Last Admin: 09/01/24 01:46 Dose: 0.63 mg Lidocaine (Lidocaine 5% Patch) 1 patch TOPICAL [id number] [facility] Last Admin: 08/31/24 22:23 Dose: 1 patch Lorazepam (Lorazepam 2 Mg/Ml Inj 1 Ml) 0.5 mg IVP Q4H PRN PRN Reason: ANXIETY Last Admin: 08/31/24 03:26 Dose: 0.5 mg Methylprednisolone Sodium Succinate (Methylprednisolone Sod Succ 40 Mg/Ml Inj) 30 mg IVP Q8H [facility] Last Admin: 09/01/24 06:27 Dose: 30 mg Metoprolol Tartrate (Metoprolol Tartrate 1 Mg/1 Ml Sdv 5 Ml) 2.5 mg IVP Q4H [facility] Last Admin: 09/01/24 06:27 Dose: 2.5 mg Ondansetron HCl (Ondansetron 2 Mg/Ml Sdv 2 Ml) 4 mg IVP Q6H PRN PRN Reason: NAUSEA AND VOMITING Pantoprazole Sodium (Pantoprazole 40 Mg Sdv) 40 mg IVP Q12H [facility] Last Admin: 09/01/24 01:29 Dose: 40 mg Senna (Sennosides 8.6 Mg Tablet) 17.2 mg PO BEDTIME [facility] Last Admin: 08/31/24 20:24 Dose: Not Given Vitals/I&O/Wt Last Vital Signs Temp 98.4 F 09/01/24 04:30 Pulse 145 H 09/01/24 06:30 Resp 24 H 09/01/24 06:30 BP 136/94 09/01/24 06:30 Pulse Ox 97 09/01/24 06:30 O2 Del Method Heated High Flow 09/01/24 05:45 O2 Flow Rate 55 08/31/24 15:05 FiO2 35 09/01/24 07:20 08/31/24 09/01/24 09/01/24 22:59 06:59 14:59 Intake Total 1207.033 / 2223.086 280.267 / 2503.353 195.873 / 195.873 Output Total 1350 / 1950 Balance 1207.033 / 1623.086 -1069.733 / 553.353 195.873 / 195.873 Physical Exam Narrative: afebrile + hi flow 02 vs noted- a fib and tachy good uop heent- ncat neck supple lungs -dull bases b/l heart irreg irreg, tachy, + s1, s2 abd soft, NT, ND, + bs ext - 1+ b/l extremity edema neuro- is moaning, answering simple questions, more awake Urinary Catheter Management: Naidu: Cath Placed During This Visit: yes Reason for Continuing Indwelling Catheter: Accurate Measurement of Urinary Output in Critically Ill Patients Urinary Catheter Date of Insertion: 08/25/24 Urinary Catheter Time of Insertion: 11:34 Data 09/01/24 04:41 09/01/24 04:41 Micro: Microbiology 08/30/24 13:28 Blood Culture - Preliminary Blood NEGATIVE TO DATE 08/30/24 11:29 Blood Culture - Preliminary Blood NEGATIVE TO DATE A&P Assessment and plan (1) Acute kidney injury: Plan 73-year-old lady 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 Patient has history of Aarui-Qchcqwktu-Drcwa. History of abdominal issues. Patient is here now with diverticulitis, heart failure reduced EF, acute kidney injury. CT scan showed diverticulitis and also CT with contrast showed multiple small pulmonary embolisms low thrombus burden. -e. coli bacteremia- pino sensitive- renal dose abx wbc rising again 1. samuel- no hydronephrosis on imaging. -renal fxn improving - low ur sodium is c/w prerenal azotemia. ur microalbumin 174, and ur pr: cr= 73/ 116 -good uop low c3 of 69. normal c4 metabolic acidosis- from lactic acidosis and SAMUEL -improved 2. hypernatremia- improved- can dec D5W ivf. attempt free water by mouth 3. thrombocytopenia- plts improved from 20 to 102 4. shocked liver- ast/ alt mild increase 5. HFrEF - EF of 35% and a fib- can give diuretics as needed per cardiology discussed w/ RN The patient was seen and examined with the aid of a nurse using audiovisual equipment telehealth visit. The patient consented to telehealth. I discussed the case with the patient's family who consents to dialysis if needed. Patient may need dialysis soon. Attestations Medical Necessity Statement*: per medicine and cardiology Time Spent in Patient Care: 16 - 35 minutes (>than 50% of time spent in counselling and/or direct pt care on unit). Coding Level of Care Code Acute Code for [facility] Diagnoses Acute kidney injury N17.9
[2024-09-01] MEDS: budesonide 0.5 mg/2 mL Neb INHALATION ×2 (08:19→20:58)
[2024-09-01] MEDS: lidocaine 5% Patch 1 PATCH TOPICAL ×3 (08:23→23:14)
[2024-09-01] MEDS: LORazepam 2 mg/mL INJ 1 mL 0.5 MG IVP (08:24)
[2024-09-01 09:07] LABS: Cortisol Random 50.36 ug/dL (2.47-19.5); Magnesium 2.1 mg/dL (1.7-2.3)
[2024-09-01 09:34] LABS: Creatine Phosphokinase 3344 U/L (26-192)
[2024-09-01] MEDS: metoprolol tartrate 1 mg/1 mL SDV 5 mL 5 MG IVP ×4 (09:37→22:08)
--- NOTE | 2024-09-01 09:44 | XR_ITS ---
WS: [id number] KUB, AP supine portable, 09/01/2024 Clinical Data: See if there is any stool impaction Comparison: KUB, 04/18/2019 Findings: No abnormal intraabdominal masses or calcifications are seen. There is air in the stomach, small kieran l and colon. There is a moderate amount of fecal material in the ascending colon. 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 Monitor leads are on the abdominal wall. XR/XR KUB portable [id number] Impression: 1. Moderate amount of fecal material in the ascending colon. 2. Severe generalized ileus.
--- NOTE | 2024-09-01 09:49 | PC.NURSE ---
Dr. Valenzuela gave orders to hold lasix at this time due to high Creatine Kinase.
--- NOTE | 2024-09-01 10:01 | P.PN_ITS ---
<Statement entered by Nikita Whitehead M.D - 09/02/24 08:50> Patient was evaluated and cared for in conjunction with an advanced practice practitioner.? I personally examined the patient and reviewed the chart and all pertinent data including imaging, telemetry, and laboratory results.? I discussed the patient in detail with the advanced practice practitioner.? Please see?their note for complete progress note, testing results and agreed upon plan of care for the patient. Patient is off of precedex and bipap. Seems uncomfortable. GENERAL: Patient is awake HEART: Tachycardia LUNGS: Diminished air entry bilaterally CENTRAL NERVOUS SYSTEM: Grossly nonfocal. EXTREMITIES: Lower extremities without edema bilaterally. Assessment and Plan (1) Troponin level elevated: (2) Atrial fibrillation (3) HTN (hypertension) (4) Pulmonary emboli: (5) Acute exacerbation of chronic obstructive airways disease: Patient is in sinus tachycardia today. This is likely secondary to overall stress in setting of bacteremia/sepsis and respiratory distress. She is on amiodarone and metoprolol. Likely trigger for tachycardia and was stopping Precedex gtt. Putting him back on BiPAP will improve heart rates. Platelet count is improving Thank you for involving us with care of this patient. Please call with questions. Subjective 2 Subjective: She is moaning and responds to verbal commands. Currently in atrial fibrillation with RVR, ventricular rates in the 140's. Amiodarone continued at 0.5mg/hr. Digoxin level 2.3 this morning, so digoxin has been discontinued. Metoprolol has been increased to 5mg IV every 4 hours, she is getting a dose currently. Blood pressure intermittently elevated, now 139/101. Urine output has been good, creatinine this morning down to 0.8, BUN 50. Platelet 102, increased from 59 yesterday. WBC today increased, now 26. CK 3344. Vitals/I&O/Wt Last Vital Signs Temp 99.3 F 09/01/24 08:30 Pulse 145 H 09/01/24 08:30 Resp 23 H 09/01/24 08:30 BP 139/101 09/01/24 08:30 Pulse Ox 97 09/01/24 08:30 O2 Del Method Heated High Flow 09/01/24 08:30 O2 Flow Rate 55 09/01/24 08:00 FiO2 35 09/01/24 08:30 01/03/1809/01/24 09/01/24 22:59 06:59 14:59 Intake Total 1207.033 / 2503.353 280.267 / 2503.353 195.873 / 195.873 Output Total 1350 / 1950 Balance 1207.033 / 553.353 -1069.733 / 553.353 195.873 / 195.873 Physical Exam 2 Const: EXAM LIMITATIONS: altered mental status Chest: COMMONS NORMALS: normal inspection of the chest and normal palpation of entire chest wall CHEST: Yes Symmetrical chest wall rise Resp: COMMON NORMALS: normal respiratory effort, No retractions, No use of accessory muscles and clear to auscultation bilaterally EFFORT & INSPECTION: Yes symmetric chest movement AUSCULTATION: clear to auscultation bilaterally Cardio: COMMON NORMALS: S1 normal heart sound present, S2 normal heart sound present, No gallops present (Cardio), No clicks present (Cardio), No murmurs present (Cardio) and No rub (Cardio) RHYTHM: abnormal rhythm irregularly irregular HEART SOUNDS: S1 normal heart sound present and S2 normal heart sound present PERIPHERAL PULSES: radial pulses present, posterior tibial pulses present and dorsalis pedis present Extremity: GENERAL: Yes edema (1+ pitting edema bilat LE) Urinary Catheter Management: Naidu: Cath Placed During This Visit: yes Reason for Continuing Indwelling Catheter: Accurate Measurement of Urinary Output in Critically Ill Patients Urinary Catheter Date of Insertion: 08/25/24 Urinary Catheter Time of Insertion: 11:34 Data 09/01/24 04:41 09/01/24 04:41 Micro: Microbiology 08/30/24 13:28 Blood Culture - Preliminary Blood NEGATIVE TO DATE 08/30/24 11:29 Blood Culture - Preliminary Blood NEGATIVE TO DATE A&P Assessment and plan (1) Hypertension: Qualifiers: Hypertension type: primary hypertension Qualified Code(s): I10 - Essential (primary) hypertension (2) Atrial fibrillation with RVR: (3) Cardiomyopathy: Plan Renal function seems to be improving, urine output is good. Per nephrology, IV diuretics can be given if needed. WBC and CK increasing. Will continue to use IV metoprolol and amiodarone for ventricular rate control. EKG this morning had considerable artifact, appears to be sinus tachycardia or atrial tachycardia, ventricular rate 144 bpm. Attestations 2 Medical Necessity Statement*: per hospitalist team Coding Level of Care Code Acute Code for [facility] Fwd Diagnoses Primary hypertension I10 Hypertension type: primary hypertension Atrial fibrillation with RVR I48.91 Cardiomyopathy I42.9
[2024-09-01] MEDS: cefTRIAXone 2,000 mg SDV 2000 MG IVP (11:19)
[2024-09-01] MEDS: dextrose 5% 1,000 ML 100 ML IV (11:19)
[2024-09-01] MEDS: cosyntropin 0.25 mg SDV IVP (11:20)
[2024-09-01 11:43] LABS: Cosyntropin Baseline 23.12 mcg/dL
[2024-09-01 13:06] LABS: Cosyntropin 30 Minute 21.75 mcg/dL
[2024-09-01 13:41] LABS: Cosyntropin 1 Hour 21.89 mcg/dL
[2024-09-01] MEDS: AA-Dex 8%-10% w/ lytes 1,000 ML with multivitamin inj 10 ML 42 ML IV (14:02)
[2024-09-01] MEDS: fentaNYL 25 mcg Patch 1 PATCH TRANSDERMA (14:03)
--- NOTE | 2024-09-01 14:09 | P.PN_ITS ---
Subjective 2 Subjective: No acute events overnight. Today morning seen on heated high flow currently. Overnight has been on BiPAP. Heated high flow down to 35 L 35%, saturating more than 90%. Heart rate has been elevated to more than 120. Overnight she was on BiPAP patient was not tachycardic. Denies any pain other than some pain in the shoulders. Denies feeling anxious. Blood pressures have been elevated. Remains on amiodarone drip at 0.5. Vitals/I&O/Wt Last Vital Signs Temp 99.3 F 09/01/24 08:30 Pulse 120 H 09/01/24 13:12 Resp 22 H 09/01/24 13:12 BP 115/84 09/01/24 12:15 Pulse Ox 93 09/01/24 13:12 O2 Del Method Heated High Flow 09/01/24 13:12 O2 Flow Rate 35 09/01/24 13:12 FiO2 35 09/01/24 13:12 08/31/24 09/01/24 09/01/24 22:59 06:59 14:59 Intake Total 1207.033 / 2223.086 280.267 / 2503.353 1727.873 / 1727.873 Output Total 1350 / 1950 1025 / 1025 Balance 1207.033 / 1623.086 -1069.733 / 553.353 702.873 / 702.873 Physical Exam 2 Narrative: General: On heated high flow, seems in distress, moaning, awake, alert x 1, able to specify her name, not able to follow directions HEENT: PERRLA, pupils bilaterally equal and reactive Chest: Bilateral bronchial sounds all over lung curtis with occasional rhonchi CVS: S1-S2 irregularly irregular, tachycardia, no gallops, no rubs Abdomen: Soft, nontender, no organomegaly, bowel sounds present Neuro: No focal deficits, no facial deformity, Urinary Catheter Management: Naidu: Cath Placed During This Visit: yes Reason for Continuing Indwelling Catheter: Accurate Measurement of Urinary Output in Critically Ill Patients Urinary Catheter Date of Insertion: 08/25/24 Urinary Catheter Time of Insertion: 11:34 Data 09/01/24 04:41 09/01/24 04:41 Micro: Microbiology 08/30/24 13:28 Blood Culture - Preliminary Blood NEGATIVE TO DATE 08/30/24 11:29 Blood Culture - Preliminary Blood NEGATIVE TO DATE A&P Assessment and plan (1) Acute respiratory failure with hypoxia and hypercapnia: In setting of COPD exacerbation. Along with concerns for pulmonary embolism. Low concerns for diastolic heart failure for now. Wean Solu-Medrol to 30 mg every 12 hours. Will plan to wean further in next 24 hours. BiPAP nightly. Remains on AVAPS. Currently on heated high flow 35 L 35%. Wean down keeping oxygen saturation more than 88%. IV lasix 40 mg one time C/w ipratropium, Xopenex every 4 hour, continue with Pulmicort twice daily. (2) Encephalopathy: Metabolic encephalopathy. Most likely in setting of sepsis as patient has E. coli bacteremia. Also has severe COPD leading to hypercapnic hypoxic respiratory failure. Does have transaminitis as well. Cannot rule out hepatic encephalopathy. As per patient's she is not on pain medications extensively at home. Given the same less likely in setting of withdrawal from pain medications. Patient's mentation or the moaning does not improve with pain medications or Ativan. Medical reconciliation done. Trial of fentanyl patch. Check ammonia levels. (3) Atrial fibrillation with RVR: With history of WPW post ablation. Remains tachycardic. Appreciate cardiology recommendations. Repeat EKG. Continue with amiodarone drip. Appreciate digoxin levels. Hold off on any further digoxin for now. Supratherapeutic 2.4. Increase metoprolol to 5 mg every 4 hour. (4) Uncontrolled hypertension: Goal blood pressure less than 140/90. Metoprolol 5 mg every 4 hours. Remove clonidine patch as that could be playing in part with tachycardia as well. Hydralazine 10 mg every 4 hours as needed for systolic of more than 160 mmHg. (5) Acute kidney injury: With hypernatremia, hypokalemia resolved, uremia resolving. Nephrology on board. Hold off on diuresis. Medical reconciliation done for nephrotoxic drugs. Repeat BMP in afternoon. Continue with D5 half NS at 75 cc/h. Currently also on TPN. Continued Naidu catheterization. Strict input output charting. Repeat CPK. Appreciate CT abdomen pelvis negative for obstructive nephropathy. (6) Pulmonary emboli: No concerns for right-sided heart failure. Anticoagulation was discontinued in setting of severe thrombocytopenia. Thrombocytopenia seems to be resolving. If continues to resolve will start on full dose of anticoagulation in next 24 hours. (7) E. coli bacteremia: Blood cultures from admission 4 out of 4 bottles positive for E. coli. Most likely in setting of colitis Repeat blood cultures so far negative. Appreciate sensitivities. Continue with IV ceftriaxone 2 g daily. Will plan for overall 14-day course of IV antibiotics from first negative blood cultures. (8) Rhabdomyolysis: CPK elevated to 2187 on 08/30. Recheck CPK. IV fluids as above. Hold off atorvastatin. Continue with lidocaine patch. Decreasing steroids as above. (9) Colitis: Will get abdominal x-ray. Concerns for ileus. If concerns for constipation will plan for enema. (10) COPD with acute exacerbation: Has severe underlying COPD, with FEV1 around 30% greater than 5 years ago. Typically on 2 to 3 L of oxygen. This has been very severely limiting for her and she could not exert herself more than a small amount of time before stopping to rest. MRSA PCR negative. With underlying hypotension, infection is possible. Note that RSV, COVID, influenza were negative. (11) Abdominal pain: Concerns for colitis on admission. Associated with E. coli bacteremia. Most likely translocation. Monitor bowel movements. (12) NSTEMI (non-ST elevated myocardial infarction): Patient has a positive delta troponin. Most likely type II PA. Cannot rule out concomitant non-ST elevation myocardial infarction Heparin discontinued for now secondary to significant decrease in platelets Holding off on aspirin given severe thrombocytopenia. Initiating beta-cali as above. Echocardiogram shows EF of 30- 35% moderate global LV hypokinesia, mild MR. Patient would benefit with ACS workup with possible stress test prior to discharge once improved clinically. Cardiology consultation appreciated. (13) Cardiomyopathy: EF of 30 to 45%. Global LV hypokinesia. Mild MR. High likelihood of ischemic cardiomyopathy. Would benefit from ACS workup with possible stress test prior to discharge. Once medically stable will start on GDMT for heart failure. Monitor for fluid overload. (14) Hypotension: Resolved. 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 Most likely in setting of severe sepsis. DIC profile appreciated. HIT panel negative. No evidence of hemolysis currently has bilirubin normal, hemoglobin relatively stable, LDH not extremely high, AST improving. Leukocytosis: Most likely in setting of steroids. Patient already on IV antibiotics for E. coli bacteremia. Has been afebrile. Recheck UA. Physical therapy. Advance diet as per speech evaluation. CODE STATUS: Again discussed in detail with patient's at bedside. Patient is DNR/DNI. NPO. TPN. Protonix for PUD prophylaxis. SCD for DVT prophylaxis. Not on medical prophylaxis given severe thrombocytopenia. Attestations 2 Medical Necessity Statement*: Further hospitalization for management of E. coli bacteremia, A-fib with RVR, hypercapnic and hypoxic respiratory failure in setting of COPD exacerbation, metabolic encephalopathy, PE, thrombocytopenia Critical Care Time: The high probability of a clinically significant, sudden or life threatening deterioration of the patient's [cardiac, pulmonary, renal, GI] system(s) required my full and direct attention, intervention and personal management. The critical care time is as shown. This time is in addition to time spent performing any reported procedures but includes the following: [x] Data and vital sign review and interpretation [x] Patient assessment, examination and intervention [x] Documentation [x] Medication orders and management Critical Care Time (min): 80 Coding Level of Care Code Critical Care >/= 30 minutes Critical care time (in minutes): 80 The high probability of a clinically significant, sudden or life threatening deterioration, as referenced in this documentation, required my full and direct attention, intervention and personal management. The critical care time shown is in addition to time spent performing any reported separately billable procedures and includes the following: [x] Data and vital sign review and interpretation [x ] Patient assessment, examination and intervention [x] Medication orders and management [x] Patient/Family updates as able [x] Care Coordination and Documentation. Other Coding Information This patient has a high probability of clinically significant, sudden or life threatening deterioration of the patient's (neurological/pulmonary/cardiac/renal/ID/endocrine) systems required my full, direct attention, the highest level of physician preparedness for urgent intervention and personal management. I managed/supervised life or organ supporting interventions that required frequent physician assessment. I devoted my full attention in the ICU to the direct care of this patient for the period of time indicated above. Time I spent with family or surrogate(s) is included only if the patient was incapable of providing necessary information or participating in decision making. This time includes the following services provided: Telemetry review Nonmechanical ventilation Hemodynamic interpretation, assessment and management Review and interpretation of CXR Review and interpretation of lab values Review and interpretation of microbiologic data and culture results Review of medications and administration Review and interpretation of Nutrition requirements and management Discussion of management with other consultants and services Clinical update to family members Diagnoses Acute respiratory failure with hypoxia and hypercapnia J96.01; J96.02 Encephalopathy G93.40 Atrial fibrillation with RVR I48.91 Uncontrolled hypertension I10 Acute kidney injury N17.9 Pulmonary emboli I26.99 E. coli bacteremia R78.81; B96.20 Rhabdomyolysis M62.82 Colitis K52.9 COPD with acute exacerbation J44.1 Abdominal pain R10.9 NSTEMI (non-ST elevated myocardial infarction) I21.4 Cardiomyopathy I42.9 Hypotension I95.9 WPW (Ertls-Kylrjdzod-Iutvk syndrome) I45.6
--- NOTE | 2024-09-01 14:32 | CTR_ITS ---
PROCEDURE INFORMATION: Exam: CT Chest Without Contrast; Diagnostic Exam date and time: 09/01/2024 4:06 PM Age: 73 years old Clinical indication: Other: Hypoxic; Shortness of breath; Additional info: Hypoxic respiratory failure, colitis, TECHNIQUE: Imaging protocol: Diagnostic computed tomography of the chest without contrast. Radiation optimization: All CT scans at this facility use at least one of these dose optimization techniques: automated exposure control; mA and/or kV adjustment per patient size (includes targeted exams where dose is matched to clinical indication); or iterative reconstruction. COMPARISON: CT angio chest PE protcl [id number] 08/25/2024 6:36 AM RADIATION DOSE METRICS: Total DLP (mGy-cm): 1289.71 FINDINGS: Lungs: Moderate diffuse centrilobular emphysema. There is a noncalcified pulmonary nodule in the right lower lobe visible on series 4, image 45 measuring 4 mm. There is mild subsegmental atelectasis in both lung bases. No pulmonary consolidation. Pleural spaces: No pneumothorax. Small left and trace right pleural effusions are new since 08/25/2024. Heart: Heart size is normal. There is no pericardial effusion. Coronary arteries: There is moderate coronary artery calcification. Lymph nodes: There is no mediastinal or hilar lymphadenopathy. Vasculature: There is moderate aortic atherosclerotic disease. Bones/joints: There is severe degenerative disease of both shoulders. No acute osseous findings Soft tissues: The extrathoracic soft tissues are unremarkable. months. (Reference: Johan) COMMENTS: The presence of pulmonary emphysema on CT is an independent risk factor for lung cancer. In the absence of a history or active diagnosis of lung cancer, it is recommended that this patient with emphysema be evaluated for enrollment in a low dose CT lung cancer screening program. REFERENCES: Johan Orantes et al. Guidelines for Management of Incidental Pulmonary Nodules Detected on CT Images: From the Fleischner Society 2017. Radiology. 2017;284(1):228-243. PROCEDURE INFORMATION: Exam: CT Abdomen And Pelvis Without Contrast Exam date and time: 09/01/2024 4:06 PM Age: 73 years old Clinical indication: Other: Hypoxic; Shortness of breath; Additional info: Hypoxic respiratory failure, colitis, TECHNIQUE: Imaging protocol: Computed tomography of the abdomen and pelvis without contrast. Radiation optimization: All CT scans at this facility use at least one of these dose optimization techniques: automated exposure control; mA and/or kV adjustment per patient size (includes targeted exams where dose is matched to clinical indication); or iterative reconstruction. COMPARISON: CT abdomen pelvis wo con [id number] 08/25/2024 12:57 PM RADIATION DOSE METRICS: Total DLP (mGy-cm): 1289.71 FINDINGS: Liver: The liver is normal. Gallbladder and biliary ducts: The gallbladder is distended with contrast consistent with vicarious excretion of contrast from prior CT. no gallstones are visible. There is no intrahepatic or extrahepatic bile duct dilation. Pancreas: The pancreas is unremarkable. Spleen: The spleen is unremarkable. Adrenal glands: The adrenal glands are unremarkable. Kidneys and ureters: There is a 4 mm nonobstructive stone in the left renal pelvis near the ureteropelvic junction. No hydronephrosis or hydroureter. The right kidney and ureter are unremarkable. Stomach and bowel: The stomach is mildly gas distended. There is mildly intermittently gas distended small bowel. Terminal ileum is decompressed. No transition point to suggest obstruction. No sign of small bowel inflammation. Colon is markedly tortuous and intermittently gas and stool distended. No sign of colonic inflammation or high-grade obstruction. Appendix: The appendix is normal. Intraperitoneal space: Small volume simple intraperitoneal free fluid in the deep pelvis. No intraperitoneal free air. Vasculature: There is severe aortic atherosclerotic disease. Lymph nodes: There is no lymphadenopathy in the retroperitoneum, mesentery, pelvis or inguinal regions. Urinary bladder: The urinary bladder is decompressed, preventing meaningful evaluation of wall thickness. The Naidu catheter is appropriately positioned with the bulb and tip within the bladder lumen. Reproductive: The uterus is absent. There is no adnexal mass or large cyst. Bones/joints: There is moderate degenerative disease in the lumbar spine. Mild broad-based convex left curvature of the lumbar spine centered at L2-L3. The pelvis and hips are unremarkable. Soft tissues: There is subcutaneous edema in both flanks, greater on the left. There is laxity of the abdominal wall with thinning of the musculature. No significant hernia. There is laxity of the pelvic floor. CT/[place] [id number] IMPRESSION: 1. Small left and trace right pleural effusions are new since 08/25/2024. 2. Centrilobular emphysema. 3. 4 mm right lower lobe pulmonary nodule. For patients at low risk (minimal or absent history of smoking and of other known risk factors), no routine follow-up is indicated. For patients at high risk (history of smoking or of other known risk factors), consider optional CT Chest at 12 IMPRESSION: 1. Mild ascites is new since 08/25/2024. 2. Mild gas distension of small bowel without evidence of high-grade obstruction. Possible ileus. No sign of significant small bowel inflammation. 3. Incidental findings above.
[2024-09-01 15:07] LABS: Bilirubin Urine Negative (Negative); Blood Urine 3+ (Negative); Glucose Urine UA 1+ (Normal); Ketones Urine Negative (Negative); Leukocyte Esterase Urine Trace (Negative); Nitrate Urine Negative (Negative); Protein Urine 1+ (Negative); Specific Gravity, Urine 1.019 (1.005-1.030); Urine Appearance Cloudy (CLEAR); Urine Color Yellow (Yellow); Urobilinogen Urine 0.2 mg/dL (Negative)
[2024-09-01 15:09] LABS: Add Urine Microscopic? YES; Bacteria Urine None Seen /hpf; Hyaline Casts Urine 10.73 /lpf; RBC Urine 51-100 /hpf (0-2)
[2024-09-01 15:23] LABS: UA Slide Review UA Slide Review Perf
[2024-09-01 15:26] LABS: Add Urine Culture? Yes
[2024-09-01 16:19] LABS: Ammonia 24 umol/L (11-51)
[2024-09-01 16:20] LABS: Blood Urea Nitrogen 45 mg/dL (8-23); Calcium 8.3 mg/dL (8.5-10.5); Carbon Dioxide 32 mmol/L (22-29); Chloride 101 mmol/L (98-107); Creatinine Clr Calc Pharmacy 67.0524; Glucose 223 mg/dL (65-115); Osmolality Calculated 310 mOsm/kg (285-295); Sodium 141 mmol/L (136-145)
[2024-09-01 16:22] LABS: Anion Gap 12.1 (5-19); Potassium 4.1 mmol/L (3.5-5.1)
--- NOTE | 2024-09-01 17:17 | PC.SLP ---
COPYMAN unable to follow-up with the patient due to the patient's medical status. Patient was going back on BiPAP when the COPYMAN returned for follow-up.
[2024-09-01 18:27] LABS: Glucose Point of Care 193 mg/dL (70-110)
[2024-09-02] VITALS (83 sets, daily range): BP systolic 101–174; BP diastolic 60–106; PULSE 75–142; RESP 14–43; TEMP 36.3–36.6; O2SAT 91–99
[2024-09-02 00:01] LABS: Glucose Point of Care 246 mg/dL (70-110)
[2024-09-02] MEDS: dextrose 5% 1,000 ML 75 ML IV (01:33)
[2024-09-02] MEDS: pantoprazole 40 mg SDV IVP (01:34)
[2024-09-02] MEDS: metoprolol tartrate 1 mg/1 mL SDV 5 mL 5 MG IVP ×3 (01:34→14:06)
[2024-09-02] MEDS: levalbuterol 0.63 mg/3 mL Neb INHALATION ×3 (02:37→13:30)
[2024-09-02] MEDS: ipratropium 0.5 mg/2.5 mL Neb INHALATION ×3 (02:37→13:30)
[2024-09-02] MEDS: HYDROmorphone 1 mg/mL INJ 1 mL 0.4 MG IVP ×2 (03:03→09:23)
[2024-09-02 04:37] LABS: Glucose Point of Care 221 mg/dL (70-110)
[2024-09-02] MEDS: methylPREDNISolone sod succ 40 mg/mL INJ 30 MG IVP (05:10)
[2024-09-02 05:23] LABS: Basophils % 0.2 %; Hematocrit 35.4 % (36-47); Lymphocytes # 0.3 10^3/uL (0.8-4.8); Lymphocytes % 1.4 %; Mean Corpuscular HGB Conc 30.5 g/dL (30-55); Mean Corpuscular Hemoglobin 28.7 pg (27-33); Mean Corpuscular Volume 94.1 fl (85-98); Monocytes # 1.3 10^3/uL (0.2-0.9); Monocytes % 5.3 %; Neutrophils % 92.1 %; Nucleated Red Blood Cells % 0.2 %; Platelet Count 113 10^3/cmm (157-399); Red Blood Count 3.76 10^6/uL (3.85-5.65); Red Cell Distribution Width 13.4 % (12.1-15.1); White Blood Count 23.55 10^3/uL (3.29-11.43)
[2024-09-02 05:49] LABS: Alanine Aminotransferase 89 U/L (0-33); Albumin Level 2.6 g/dL (3.5-5.2); Alkaline Phosphatase 112 U/L (35-105); Anion Gap 8.9 (5-19); Aspartate Amino Transferase 84 U/L (0-32); Blood Urea Nitrogen 48 mg/dL (8-23); Calcium 8.2 mg/dL (8.5-10.5); Carbon Dioxide 34 mmol/L (22-29); Chloride 102 mmol/L (98-107); Creatinine Clr Calc Pharmacy 67.0524; Globulin 2.2 g/dL (1.3-4.6); Glucose 235 mg/dL (65-115); Magnesium 1.9 mg/dL (1.7-2.3); Osmolality Calculated 312 mOsm/kg (285-295); Phosphorus 2.6 mg/dL (2.5-4.5); Potassium 3.9 mmol/L (3.5-5.1); Sodium 141 mmol/L (136-145); Total Bilirubin 0.3 mg/dL (0.15-1.2); Total Protein 4.8 g/dL (6.6-8.7)
[2024-09-02] MEDS: budesonide 0.5 mg/2 mL Neb INHALATION (08:07)
[2024-09-02] MEDS: lidocaine 5% Patch 1 PATCH TOPICAL (09:16)
[2024-09-02 09:57] LABS: Glucose Point of Care 257 mg/dL (70-110)
--- NOTE | 2024-09-02 10:43 | P.PN_ITS ---
<Statement entered by Nikita Whitehead M.D - 09/03/24 09:14> Patient was evaluated and cared for in conjunction with an advanced practice practitioner.? I reviewed the chart and all pertinent data including imaging, telemetry, and laboratory results.? I discussed the patient in detail with the advanced practice practitioner.? Please see? their note for complete progress note, testing results and agreed upon plan of care for the patient. Subjective 2 Subjective: She was placed on comfort care overnight, and has resumed use of BiPAP. She has not had any oral intake. She is still on amiodarone mg/hr for now until all family has arrived, then it will be discontinued and will be placed on nasal cannula. Will continue to follow until comfort care has commenced. Vitals/I&O/Wt Last Vital Signs Temp 97.6 F 09/02/24 08:45 Pulse 84 09/02/24 09:45 Resp 19 H 09/02/24 09:45 BP 173/87 09/02/24 09:45 Pulse Ox 95 09/02/24 09:45 O2 Del Method BiPAP 09/02/24 09:45 O2 Flow Rate 4 09/01/24 16:45 FiO2 30 09/02/24 08:00 09/01/24 09/02/24 09/02/24 22:59 06:59 14:59 Intake Total 1179.48 / 3107.353 200 / 3107.353 Output Total 600 / 2075 450 / 2075 160 / 160 Balance 579.48 / 1032.353 -250 / 1032.353 -160 / -160 Physical Exam 2 Const: EXAM LIMITATIONS: altered mental status GENERAL APPEARANCE: c ooperative and comfortable Chest: COMMONS NORMALS: normal inspection of the chest and normal palpation of entire chest wall CHEST: Yes Symmetrical chest wall rise Resp: COMMON NORMALS: normal respiratory effort, No retractions and No use of accessory muscles EFFORT & INSPECTION: Yes symmetric chest movement A USCULTATION: rhonchi (scattered) Cardio: COMMON NORMALS: regular rate, regular rhythm, S1 normal heart sound present, S2 normal heart sound present, No gallops present (Cardio), No clicks present (Cardio), No murmurs present (Cardio) and No rub (Cardio) RATE: r egular rate RHYTHM: regular rhythm HEART SOUNDS: S1 normal heart sound present and S2 normal heart sound present PERIPHERAL PULSES: radial pulses present Extremity: COMMON NORMALS: no pedal edema Neuro: COMMON NORMALS: moves all extremities Urinary Catheter Management: Naidu: Cath Placed During This Visit: yes Reason for Continuing Indwelling Catheter: Accurate Measurement of Urinary Output in Critically Ill Patients Urinary Catheter Date of Insertion: 08/25/24 Urinary Catheter Time of Insertion: 11:34 Data 09/02/24 05:07 09/02/24 05:07 A&P Assessment and plan (1) Troponin level elevated: (2) Atrial fibrillation: Qualifiers: Atrial fibrillation type: unspecified Qualified Code(s): I48.91 - Unspecified atrial fibrillation (3) Hypertension: Qualifiers: Hypertension type: primary hypertension Qualified Code(s): I10 - Essential (primary) hypertension (4) Pulmonary emboli: Plan In sinus rhythm currently on amiodarone drip, but it will be discontinued soon to start comfort care. Will follow. Attestations 2 Medical Necessity Statement*: per hospitalist Coding Level of Care Code Acute Code for [facility] Fwd Diagnoses Troponin level elevated R79.89 Atrial fibrillation, unspecified type I48.91 Atrial fibrillation type: unspecified Primary hypertension I10 Hypertension type: primary hypertension Pulmonary emboli I26.99
[2024-09-02] MEDS: morphine 4 mg/mL SDV 1 mL IVP ×8 (11:41→19:40)
[2024-09-02 13:19] LABS: Glucose Point of Care 238 mg/dL (70-110)
--- NOTE | 2024-09-02 13:24 | P.PN_ITS ---
Subjective 2 Subjective: Overnight patient has remained on BiPAP. Today morning again patient looks uncomfortable. Heart rate has been better controlled since being on BiPAP. Blood pressure is controlled. Patient continues to be moaning on and off. Nods yes when asked if she is uncomfortable. at bedside. Vitals/I&O/Wt Last Vital Signs Temp 97.6 F 09/02/24 08:45 Pulse 80 09/02/24 12:00 Resp 19 H 09/02/24 12:00 BP 140/94 09/02/24 12:00 Pulse Ox 93 09/02/24 11:45 O2 Del Method BiPAP 09/02/24 11:45 O2 Flow Rate 4 09/01/24 16:45 FiO2 30 09/02/24 11:21 09/01/24 09/02/24 09/02/24 22:59 06:59 14:59 Intake Total 1179.48 / 2907.353 200 / 3107.353 Output Total 600 / 1625 450 / 2075 160 / 160 Balance 579.48 / 1282.353 -250 / 1032.353 -160 / -160 Physical Exam 2 Narrative: General: On heated high flow, seems in distress, moaning, awake, alert x 1, able to specify her name, not able to follow directions HEENT: PERRLA, pupils bilaterally equal and reactive Chest: Bilateral bronchial sounds all over lung cutris with occasional rhonchi CVS: S1-S2 irregularly irregular, tachycardia, no gallops, no rubs Abdomen: Soft, nontender, no organomegaly, bowel sounds present Neuro: No focal deficits, no facial deformity, Urinary Catheter Management: Naidu: Cath Placed During This Visit: yes Reason for Continuing Indwelling Catheter: Accurate Measurement of Urinary Output in Critically Ill Patients Urinary Catheter Date of Insertion: 08/25/24 Urinary Catheter Time of Insertion: 11:34 Data 09/02/24 05:07 09/02/24 05:07 Micro: Microbiology 09/01/24 14:56 Urine Culture - Preliminary Urine,Clean Catch A&P Assessment and plan (1) Acute respiratory failure with hypoxia and hypercapnia: In setting of COPD exacerbation. Along with concerns for pulmonary embolism. Low concerns for diastolic heart failure for now. Wean Solu-Medrol to 30 mg every 12 hours. Will plan to wean further in next 24 hours. BiPAP nightly. Remains on AVAPS. Currently on heated high flow 35 L 35%. Wean down keeping oxygen saturation more than 88%. IV lasix 40 mg one time C/w ipratropium, Xopenex every 4 hour, continue with Pulmicort twice daily. (2) Encephalopathy: Metabolic encephalopathy. Most likely in setting of sepsis as patient has E. coli bacteremia. Also has severe COPD leading to hypercapnic hypoxic respiratory failure. Does have transaminitis as well. Cannot rule out hepatic encephalopathy. As per patient's she is not on pain medications extensively at home. Given the same less likely in setting of withdrawal from pain medications. Patient's mentation or the moaning does not improve with pain medications or Ativan. Medical reconciliation done. Trial of fentanyl patch. Check ammonia levels. (3) Atrial fibrillation with RVR: With history of WPW post ablation. Remains tachycardic. Appreciate cardiology recommendations. Repeat EKG. Continue with amiodarone drip. Appreciate digoxin levels. Hold off on any further digoxin for now. Supratherapeutic 2.4. Increase metoprolol to 5 mg every 4 hour. (4) Uncontrolled hypertension: Goal blood pressure less than 140/90. Metoprolol 5 mg every 4 hours. Remove clonidine patch as that could be playing in part with tachycardia as well. Hydralazine 10 mg every 4 hours as needed for systolic of more than 160 mmHg. (5) Acute kidney injury: With hypernatremia, hypokalemia resolved, uremia resolving. Nephrology on board. Hold off on diuresis. Medical reconciliation done for nephrotoxic drugs. Repeat BMP in afternoon. Continue with D5 half NS at 75 cc/h. Currently also on TPN. Continued Naidu catheterization. Strict input output charting. Repeat CPK. Appreciate CT abdomen pelvis negative for obstructive nephropathy. (6) Pulmonary emboli: No concerns for right-sided heart failure. Anticoagulation was discontinued in setting of severe thrombocytopenia. Thrombocytopenia seems to be resolving. If continues to resolve will start on full dose of anticoagulation in next 24 hours. (7) E. coli bacteremia: Blood cultures from admission 4 out of 4 bottles positive for E. coli. Most likely in setting of colitis Repeat blood cultures so far negative. Appreciate sensitivities. Continue with IV ceftriaxone 2 g daily. Will plan for overall 14-day course of IV antibiotics from first negative blood cultures. (8) Rhabdomyolysis: CPK elevated to 2187 on 08/30. Recheck CPK. IV fluids as above. Hold off atorvastatin. Continue with lidocaine patch. Decreasing steroids as above. (9) Colitis: Will get abdominal x-ray. Concerns for ileus. If concerns for constipation will plan for enema. (10) COPD with acute exacerbation: Has severe underlying COPD, with FEV1 around 30% greater than 5 years ago. Typically on 2 to 3 L of oxygen. This has been very severely limiting for her and she could not exert herself more than a small amount of time before stopping to rest. MRSA PCR negative. With underlying hypotension, infection is possible. Note that RSV, COVID, influenza were negative. (11) Abdominal pain: Concerns for colitis on admission. Associated with E. coli bacteremia. Most likely translocation. Monitor bowel movements. (12) NSTEMI (non-ST elevated myocardial infarction): Patient has a positive delta troponin. Most likely type II MD. Cannot rule out concomitant non-ST elevation myocardial infarction Heparin discontinued for now secondary to significant decrease in platelets Holding off on aspirin given severe thrombocytopenia. Initiating beta-cali as above. Echocardiogram shows EF of 30- 35% moderate global LV hypokinesia, mild MR. Patient would benefit with ACS workup with possible stress test prior to discharge once improved clinically. Cardiology consultation appreciated. (13) Cardiomyopathy: EF of 30 to 45%. Global LV hypokinesia. Mild MR. High likelihood of ischemic cardiomyopathy. Would benefit from ACS workup with possible stress test prior to discharge. Once medically stable will start on GDMT for heart failure. Monitor for fluid overload. (14) Hypotension: Resolved. 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 Most likely in setting of severe sepsis. DIC profile appreciated. HIT panel negative. No evidence of hemolysis currently has bilirubin normal, hemoglobin relatively stable, LDH not extremely high, AST improving. Leukocytosis: Most likely in setting of steroids. Patient already on IV antibiotics for E. coli bacteremia. Has been afebrile. Recheck UA. Physical therapy. Advance diet as per speech evaluation. CODE STATUS: Again discussed in detail with patient's at bedside. Patient is DNR/DNI. NPO. TPN. Protonix for PUD prophylaxis. SCD for DVT prophylaxis. Not on medical prophylaxis given severe thrombocytopenia. Plan for the day: Had a detailed discussion about goals of care with spouse at bedside. 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 Discussed that she is able to, BiPAP and on heated high flow tends to have tachycardia and high blood pressure most likely because she remains uncomfortable. Mostly when she is off BiPAP she is continuously moaning and is stating that she is extremely uncomfortable. She is getting over her E. coli bacteremia. Renal functions have remained stable. Unable to have oral intake because of deconditioning and respiratory status. states that he had a long discussion with his family and the patient yesterday evening and overnight and believes that patient's quality of life is extremely poor currently and she would not want to remain so uncomfortable and would rather have her on comfort care as he knows that her baseline respiratory status has always been extremely poor. Will start comfort care measures once family including children and grandchildren at bedside. Ativan and morphine as needed for pain and air hunger. Stop IV fluids, Accu-Cheks, further blood work. Stop IV antibiotics. Continue with amiodarone and metoprolol for now given concerns for tachycardia which could be uncomfortable. Continue with IV Protonix. Plan to discontinue BiPAP and transition to nasal cannula for comfort once patient's family is at bedside. Attestations 2 Medical Necessity Statement*: Requires further hospitalization while comfort measures are initiated for the patient admitted for E. coli bacteremia, colitis, COPD exacerbation, respiratory failure, BiPAP dependence, pulmonary embolism. Diagnoses Acute respiratory failure with hypoxia and hypercapnia J96.01; J96.02 Encephalopathy G93.40 Atrial fibrillation with RVR I48.91 Uncontrolled hypertension I10 Acute kidney injury N17.9 Pulmonary emboli I26.99 E. coli bacteremia R78.81; B96.20 Rhabdomyolysis M62.82 Colitis K52.9 COPD with acute exacerbation J44.1 Abdominal pain R10.9 NSTEMI (non-ST elevated myocardial infarction) I21.4 Cardiomyopathy I42.9 Hypotension I95.9 WPW (Qwnsq-Kcjujneaq-Wsqzb syndrome) I45.6 Goals of care, counseling/discussion Z71.89
--- NOTE | 2024-09-02 14:14 | PC.NURSE ---
Received Comfort care orders from Dr. Key at approximately 0900, family at bedside, Patients verbalized to me that they were waiting on family to arrive before carrying out comfort measures. Dr. Valenzuela aware we are waiting on family.
[2024-09-02] MEDS: LORazepam 2 mg/mL INJ 1 mL IVP (15:50)
--- NOTE | 2024-09-02 17:56 | PC.NURSE ---
Report called to second floor, patient is to move to room 275.
[2024-09-03 01:55] VITALS: RESP 18; O2SAT 93
[2024-09-03] MEDS: morphine 4 mg/mL SDV 1 mL IVP ×6 (01:55→19:02)
[2024-09-03] MEDS: glycopyrrolate 0.2 mg/mL SDV 2 mL IV (01:56)
[2024-09-03] MEDS: morphine 10 mg/0.5 mL oral liq UD SUBLINGUAL (03:15)
[2024-09-03 06:33] VITALS: RESP 18; O2SAT 93
[2024-09-03 11:10] VITALS: RESP 14
[2024-09-03] MEDS: blistex lip oint 7 gm Tube 1 APPLIC TOPICAL (11:11)
--- NOTE | 2024-09-03 12:33 | PC.SOCIAL ---
IMM Updated Updated pt's on IMM. No questions voiced. Provided a copy. Initialed, dated, & timed copy in chart.
[2024-09-03 12:41] VITALS: RESP 16
[2024-09-03 15:19] VITALS: RESP 20
[2024-09-03] MEDS: artificial tears Op Soln 15 mL Btl 2 DROP EYE-BOTH (15:19)
[2024-09-03] MEDS: LORazepam 2 mg/mL INJ 1 mL IVP (15:19)
[2024-09-03 16:00] VITALS: BP 82/51; PULSE 82; TEMP 36.8; O2SAT 46
--- NOTE | 2024-09-03 16:32 | PM.PN ---
Subjective Subjective: [facility] Remains comfortable. Spouse at bedside. Having few episodes of air hunger. Directed nurse for more frequent morphine as per comfort care measures. Vitals/I&O/Wt Last Vital Signs Temp 97.9 F 09/02/24 19:42 Pulse 80 09/02/24 19:42 Resp 20 H 09/03/24 15:19 BP 161/69 09/02/24 19:42 Pulse Ox 93 09/03/24 06:33 O2 Del Method Nasal Cannula 09/02/24 19:42 O2 Flow Rate 2 09/03/24 08:00 FiO2 30 09/02/24 15:10 09/03/24 09/03/24 09/03/24 06:59 14:59 22:59 Intake Total 0 / 0 Output Total 300 / 660 Balance -300 / 1514.2 0 / 0 Weight last 48 hrs Weight 90.083 kg Physical Exam Narrative: Deferred given comfort care measure status. Urinary Catheter Management: Naidu: Cath Placed During This Visit: yes Reason for Continuing Indwelling Catheter: Hospice/Comfort/Palliative Care Urinary Catheter Date of Insertion: 08/25/24 Urinary Catheter Time of Insertion: 11:34 Data 09/02/24 05:07 09/02/24 05:07 Micro: Microbiology 09/01/24 14:56 Urine Culture - Final Urine,Clean Catch A&P Assessment and plan (1) Acute respiratory failure with hypoxia and hypercapnia: In setting of COPD exacerbation. Along with concerns for pulmonary embolism. Low concerns for diastolic heart failure for now. Wean Solu-Medrol to 30 mg every 12 hours. Will plan to wean further in next 24 hours. BiPAP nightly. Remains on AVAPS. Currently on heated high flow 35 L 35%. Wean down keeping oxygen saturation more than 88%. IV lasix 40 mg one time C/w ipratropium, Xopenex every 4 hour, continue with Pulmicort twice daily. (2) Encephalopathy: Metabolic encephalopathy. Most likely in setting of sepsis as patient has E. coli bacteremia. Also has severe COPD leading to hypercapnic hypoxic respiratory failure. Does have transaminitis as well. Cannot rule out hepatic encephalopathy. As per patient's she is not on pain medications extensively at home. Given the same less likely in setting of withdrawal from pain medications. Patient's mentation or the moaning does not improve with pain medications or Ativan. Medical reconciliation done. Trial of fentanyl patch. Check ammonia levels. (3) Atrial fibrillation with RVR: With history of WPW post ablation. Remains tachycardic. Appreciate cardiology recommendations. Repeat EKG. Continue with amiodarone drip. Appreciate digoxin levels. Hold off on any further digoxin for now. Supratherapeutic 2.4. Increase metoprolol to 5 mg every 4 hour. (4) Uncontrolled hypertension: Goal blood pressure less than 140/90. Metoprolol 5 mg every 4 hours. Remove clonidine patch as that could be playing in part with tachycardia as well. Hydralazine 10 mg every 4 hours as needed for systolic of more than 160 mmHg. (5) Acute kidney injury: With hypernatremia, hypokalemia resolved, uremia resolving. Nephrology on board. Hold off on diuresis. Medical reconciliation done for nephrotoxic drugs. Repeat BMP in afternoon. Continue with D5 half NS at 75 cc/h. Currently also on TPN. Continued Naidu catheterization. Strict input output charting. Repeat CPK. Appreciate CT abdomen pelvis negative for obstructive nephropathy. (6) Pulmonary emboli: No concerns for right-sided heart failure. Anticoagulation was discontinued in setting of severe thrombocytopenia. Thrombocytopenia seems to be resolving. If continues to resolve will start on full dose of anticoagulation in next 24 hours. (7) E. coli bacteremia: Blood cultures from admission 4 out of 4 bottles positive for E. coli. Most likely in setting of colitis Repeat blood cultures so far negative. Appreciate sensitivities. Continue with IV ceftriaxone 2 g daily. Will plan for overall 14-day course of IV antibiotics from first negative blood cultures. (8) Rhabdomyolysis: CPK elevated to 2187 on 08/30. Recheck CPK. IV fluids as above. Hold off atorvastatin. Continue with lidocaine patch. Decreasing steroids as above. (9) Colitis: Will get abdominal x-ray. Concerns for ileus. If concerns for constipation will plan for enema. (10) COPD with acute exacerbation: Has severe underlying COPD, with FEV1 around 30% greater than 5 years ago. Typically on 2 to 3 L of oxygen. This has been very severely limiting for her and she could not exert herself more than a small amount of time before stopping to rest. MRSA PCR negative. With underlying hypotension, infection is possible. Note that RSV, COVID, influenza were negative. (11) Abdominal pain: Concerns for colitis on admission. Associated with E. coli bacteremia. Most likely translocation. Monitor bowel movements. (12) NSTEMI (non-ST elevated myocardial infarction): Patient has a positive delta troponin. Most likely type II PR. Cannot rule out concomitant non-ST elevation myocardial infarction Heparin discontinued for now secondary to significant decrease in platelets Holding off on aspirin given severe thrombocytopenia. Initiating beta-cali as above. Echocardiogram shows EF of 30- 35% moderate global LV hypokinesia, mild MR. Patient would benefit with ACS workup with possible stress test prior to discharge once improved clinically. Cardiology consultation appreciated. (13) Cardiomyopathy: EF of 30 to 45%. Global LV hypokinesia. Mild MR. High likelihood of ischemic cardiomyopathy. Would benefit from ACS workup with possible stress test prior to discharge. Once medically stable will start on GDMT for heart failure. Monitor for fluid overload. (14) Hypotension: Resolved. 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 Most likely in setting of severe sepsis. DIC profile appreciated. HIT panel negative. No evidence of hemolysis currently has bilirubin normal, hemoglobin relatively stable, LDH not extremely high, AST improving. Leukocytosis: Most likely in setting of steroids. Patient already on IV antibiotics for E. coli bacteremia. Has been afebrile. Recheck UA. Physical therapy. Advance diet as per speech evaluation. CODE STATUS: Again discussed in detail with patient's at bedside. Patient is DNR/DNI. NPO. TPN. Protonix for PUD prophylaxis. SCD for DVT prophylaxis. Not on medical prophylaxis given severe thrombocytopenia. Plan for the day: Continue care with morphine and Ativan as needed as per comfort care measures. Patient would benefit from possible inpatient hospice. Will request for a referral. Discussed in detail with patient and spouse at bedside. Attestations Medical Necessity Statement*: Patient requires further hospitalization for comfort care measures who was initially admitted for hypoxic and hypercapnic respiratory failure in setting of colitis, advanced COPD E. coli bacteremia Diagnoses Acute respiratory failure with hypoxia and hypercapnia J96.01; J96.02 Encephalopathy G93.40 Atrial fibrillation with RVR I48.91 Uncontrolled hypertension I10 Acute kidney injury N17.9 Pulmonary emboli I26.99 E. coli bacteremia R78.81; B96.20 Rhabdomyolysis M62.82 Colitis K52.9 COPD with acute exacerbation J44.1 Abdominal pain R10.9 NSTEMI (non-ST elevated myocardial infarction) I21.4 Cardiomyopathy I42.9 Hypotension I95.9 WPW (Qcftt-Ruxcxckyr-Rbgrp syndrome) I45.6 Goals of care, counseling/discussion Z71.89
--- NOTE | 2024-09-03 19:58 | W.PM.EVENTAC ---
Event Note Event Note: Time of 1919 note and certification to be done by the primary attending Dr. Morgan
--- NOTE | 2024-09-03 21:49 | PC.NURSE ---
robert with at bedside. time of called by two nurses at 192. housekeeping lead notified at 1924, dr pacheco notified at 1954, mts notified at 1949 per housekeeping lead. [facility]. post mortem care done by nurse and general manager road production, patient had a central line and a martinez catheter, both discontinued per nurse. patient transferred to [facility] at 2044 per security.
--- NOTE | 2024-09-03 22:55 | PC.NURSE ---
DAVID Torres from [facility] called at approximately 2230 and spoke with this nurse. Patient is not a candidate for [facility]. Await release from [facility].
--- NOTE | 2024-09-04 15:23 | P.DES_ITS ---
Discharge Providers DDS Date of Admission: 08/25/24 11:43 Date Summary Completed: 09/04/24 Attending Provider at Admission: Rafita Brannon MD Time of : 19:20 Attending Provider at Discharge: El Valenzuela MD Consults: Telemetry nephrology Cardiology: Dr. Ag Primary Care Provider: DO REX Flores Diagnoses Hospital Diagnoses (1) Acute respiratory failure with hypoxia and hypercapnia: (2) Encephalopathy: (3) Atrial fibrillation with RVR: (4) Uncontrolled hypertension: (5) Acute kidney injury: (6) Pulmonary emboli: (7) E. 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 Apparently sometime in the night she woke up, complained of some low back pain, epigastric pain and nausea. She felt worse this morning with severe shortness of breath. She received multiple albuterol treatments and route, and was placed on BiPAP immediately on arrival to the emergency department. Now she is alert, but has trouble visiting secondary to the BiPAP. She reports the thing that is bothering her the most now with some epigastric discomfort. She denies any nausea. Daughter relates she had some abdominal problems in the past, that required an NG tube for multiple days but no surgery. No recent history of fever, illness exposure. Family confirms that she has allow natural , but wants her aggressively treated with medication, ICU if needed. She specifically denies any chest pain. When I was in the room with her, she had a nonsustained run of ventricular tachycardia, around 15 beats. In the emergency department she received some breathing treatments, Levaquin IV, Ativan IV, Solu-Medrol IV, heparin drip. She has orders for [place], CT abdomen pelvis, norepinephrine. Summary Date and Time of Date of : 09/03/24 Time of : 19:20 Summary Summary: Patient was admitted to the ICU for further evaluation and management of acute on chronic hypoxic and hypercapnic respiratory failure with concerns for cardiogenic shock on admission. She was started on steroids, nebulization treatment along with AVAPS BiPAP ventilation given her DNR status. She was also started on vasopressors. On admission there were concerns for possible atrial tachycardia which was managed conservatively. She did require amiodarone drip. On admission she was also found to have pulmonary embolism for which initially she was started on anticoagulation which was later discontinued given concerns for severe thrombocytopenia. She also had acute kidney injury for which daily nephrology was consulted and was managed on and off with IV fluids. Blood culture from admissions were positive for E. coli bacteremia. She complained of abdominal pain on admission which was thought to be in setting of colitis as seen on CT abdomen/pelvis. She was started on broad-spectrum IV antibiotics which later de-escalate as per culture sensitivities. Patient improved very gradually. She remained on amiodarone drip. Thrombocytopenia resolved. Gradually within 6 days patient was eventually able to tolerate coming off of BiPAP onto heated high flow. Patient's mentation remained poor. She remained n.p.o. given concerns for poor mentation as she continued to fail multiple speech therapy evaluation. She was empirically started on TPN. Given her baseline health multiple goals of care discussions in detail were done with patient's spouse at bedside. Discussions were as follows. 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 Discussed that she is able to, BiPAP and on heated high flow tends to have tachycardia and high blood pressure most likely because she remains uncomfortable. Mostly when she is off BiPAP she is continuously moaning and is stating that she is extremely uncomfortable. She is getting over her E. coli bacteremia. Renal functions have remained stable. Unable to have oral intake because of deconditioning and respiratory status. states that he had a long discussion with his family and the patient yesterday evening and overnight and believes that patient's quality of life is extremely poor currently and she would not want to remain so uncomfortable and would rather have her on comfort care as he knows that her baseline respiratory status has always been extremely poor. As per goals of care discussions patient was transitioned over to comfort care measures on 09/02. Eventually patient diet with spouse at bedside and comfortable status on 09/03 at 1920 hrs. Additional Data Confirmation of as documented by pronouncing clinician: no pulse and no respirations Family: at bedside Additional persons at bedside: nursing staff Attending/PCP notified?: I am attending Was code activated?: No Autopsy requested?: No Advance directives?: No Hospice patient?: Yes Discharge Plan Discharge Patient Disposition: Condition: Stable Prescriptions: No Action aspirin [Adult Aspirin Regimen] 81 mg tablet,delayed release (DR/EC) 81 mg PO QDAY fluticasone propionate [Allergy Relief (fluticasone)] 50 mcg/actuation spray,suspension 2 spray INTRANASAL QDAY Adult 50 Plus Probiotic 4 billion cell capsule 4,000 mmu cells PO QDAY loratadine 10 mg capsule 10 mg PO QDAY PRN (Reason: allergic symptoms) (DME) light weight upright walker stand up rollator walker with forearm supports Qty: 1 0RF Rx Instructions: As directed nitroglycerin [Nitrostat] 0.4 mg tablet, sublingual 0.4 mg sublingual Q5M PRN (Reason: chest pain) Qty: 20 1RF Rx Instructions: do not exceed 3 doses per episode polyethylene glycol 3350 [Miralax] 17 gram/dose powder 4 g PO DAILY PRN (Reason: constipation) collagen 4 tbspn 4 tbspn PO DAILY (DME) Bipap See Rx Instructions .Route .MEDSUPPLY Qty: 1 0RF Rx Instructions: As directed, 10 and 5 pressures. (DME) [facility] See Rx Instructions .Route Qty: 1 0RF Rx Instructions: As directed, hinged brace please ipratropium-albuterol 0.5 mg-3 mg(2.5 mg base)/3 mL solution for nebulization See Rx Instructions .ROUTE .COMPLEX Qty: 360 11RF Dose Instruction: NEBULIZE 1 VIAL FOUR TIMES DAILY FOR COPD / WHEEZING Rx Instructions: NEBULIZE 1 VIAL FOUR TIMES DAILY FOR COPD / WHEEZING promethazine-DM 6.25-15 mg/5 mL syrup 5 - 10 ml PO Q6H PRN (Reason: cough) Qty: 473 5RF amlodipine 5 mg tablet 5 mg PO DAILY Qty: 90 1RF albuterol sulfate 90 mcg/actuation HFA aerosol inhaler See Rx Instructions .ROUTE .COMPLEX Qty: 68 5RF Dose Instruction: INHALE 4 TO 8 PUFFS INTO LUNGS EVERY 4 HOURS NEEDED FOR SHORTNESS OF BREATH OR WHEEZING Rx Instructions: INHALE 4 TO 8 PUFFS INTO LUNGS EVERY 4 HOURS NEEDED FOR SHORTNESS OF BREATH OR WHEEZING Breztri Aerosphere 160-9-4.8 mcg/actuation HFA aerosol inhaler 2 inh inhalation BID Qty: 10.7 6RF morphine 10 mg/5 mL solution 5 mg PO Q6H PRN (Reason: dyspnea) 28 Days Qty: 100 0RF Rx Instructions: Covering for Dr. Santillan. prednisone 10 mg tablet 10 mg PO DAILY Qty: 90 1RF [place] 3-6-9 1,200 mg Capsule 1 cap PO DAILY calcium carbonate-vitamin D3 600 mg-5 mcg (200 unit) Tablet 1 tab PO DAILY ascorbic acid (vitamin C) [Vitamin C] 500 mg Tablet 1,000 mg PO DAILY vitamin B complex Tablet 1 tab PO DAILY cranberry 450 mg Tablet 450 mg PO DAILY Rx Instructions: administer with a meal cyclobenzaprine 10 mg tablet 10 mg PO TID PRN (Reason: Muscle Spasm) pantoprazole 40 mg tablet,delayed release (DR/EC) 40 mg PO DAILY simvastatin 20 mg tablet 20 mg PO QPM metoprolol tartrate 25 mg tablet 25 mg PO BID duloxetine 60 mg capsule,delayed release(DR/EC) 60 mg PO DAILY Referrals: Delroy Santillan, [Primary Care Provider] - DS Attestations Time Spent in /Discharge Care*: greater than 30 min Quality - AMI: AMI present?: No Quality - Stroke: CVA present?: No Symptom Onset Unknown: No Quality - VTE: VTE present?: Yes Deep Vein Thrombosis/Pulmonary Embolism Present on Admission: No Coding Level of Care Code 96865 Total time (in minutes) for Discharge: 60 Diagnoses Acute respiratory failure with hypoxia and hypercapnia J96.01; J96.02 Encephalopathy G93.40 Atrial fibrillation with RVR I48.91 Uncontrolled hypertension I10 Acute kidney injury N17.9 Pulmonary emboli I26.99 E. coli bacteremia R78.81; B96.20 Rhabdomyolysis M62.82 Colitis K52.9 COPD with acute exacerbation J44.1 Abdominal pain R10.9 NSTEMI (non-ST elevated myocardial infarction) I21.4 Cardiomyopathy I42.9 Hypotension I95.9 WPW (Bqgko-Uwfmeovvt-Taqwa syndrome) I45.6 Goals of care, counseling/discussion Z71.89
== END 2024-09-03 20:45 | disposition expired | DRG 871 ==
LOC: ER 06:18 → ICU 11:43 → MEDSURG 09-02 18:08
PROVIDERS: Emergency Medicine; Internal Medicine; Internal Medicine Nephrology; Admitting Provider Internal Medicine; Emergency Provider Family Medicine; PCP Family Medicine; Visit Provider Student in an Organized Health Care Education/Training Program
DX: A41.9 Sepsis, unspecified organism (principal); G93.41 Metabolic encephalopathy; J96.22 Acute and chronic respiratory failure with hypercapnia; J96.21 Acute and chronic respiratory failure with hypoxia; I26.99 Other pulmonary embolism without acute cor pulmonale; I21.4 Non-ST elevation (NSTEMI) myocardial infarction; N17.9 Acute kidney failure, unspecified; M62.82 Rhabdomyolysis; J44.1 Chronic obstructive pulmonary disease with (acute) exacerbation; I42.9 Cardiomyopathy, unspecified; I47.20 Ventricular tachycardia, unspecified; I24.89 Other forms of acute ischemic heart disease; E87.4 Mixed disorder of acid-base balance; R65.20 Severe sepsis without septic shock; I48.91 Unspecified atrial fibrillation; I10 Essential (primary) hypertension; B96.20 Unspecified Escherichia coli [E. coli] as the cause of diseases classified elsewhere; K52.9 Noninfective gastroenteritis and colitis, unspecified; J43.9 Emphysema, unspecified; I45.6 Pre-excitation syndrome; Z66 Do not resuscitate; D69.6 Thrombocytopenia, unspecified; E78.5 Hyperlipidemia, unspecified; M79.7 Fibromyalgia; M19.90 Unspecified osteoarthritis, unspecified site; Z99.81 Dependence on supplemental oxygen; Z51.5 Encounter for palliative care; Z79.52 Long term (current) use of systemic steroids; Z79.82 Long term (current) use of aspirin; Z87.891 Personal history of nicotine dependence; Z90.710 Acquired absence of both cervix and uterus; Z82.49 Family history of ischemic heart disease and other diseases of the circulatory system
CPT/HCPCS: 36415; 36416; 36592; 36600; 51702; 71045; 71250; 71275; 74018; 74176; 76705; 80048; 80051; 80053; 80162; 80202; 80503; 81001; 82044; 82140; 82330; 82436; 82533; 82550; 82570; 82805; 82962; 83010; 83605; 83615; 83735; 83880; 84100; 84133; 84145; 84156; 84300; 84443; 84484; 84550; 85014; 85018; 85025; 85045; 85362; 85378; 85384; 85610; 85730; 86022; 86140; 86160; 86803; 86900; 87040; 87077; 87086; 87150; 87186; 87205; 87493; 87637; 92523; 92610; 93005; 93010; 93306; 93970; 94640; 94660; 94799; 96365; 96367; 96368; 96372; 96375; 96376; 97110; 99291; A4222; J0283; J0696; J0834; J1160; J1171; J1610; J1644; J1720; J1940; J1956; J2060; J2185; J2270; J2470; J2919; J3370; J3475; J3480; J3490; J7030; J7040; J7070; J7120; J7614; J7626; J7644; Q3014